=== PATIENT | female | born 1950 | race Caucasian/White ===

== ENCOUNTER 2021-08-13 09:54 | Outpatient (CLI) | payer MEDICARE, OTHER, SELFPAY ==
--- NOTE | 2021-08-13 10:15 | CRLHL7_ITS ---
For Patients: As a result of the Century Cures Act, medical imaging exams and procedure reports are released immediately into your electronic medical record. You may view this report before your referring provider. If you have questions, please contact your health care provider. Indication: Mass at right side of neck Technique: Soft tissue ultrasound of the neck, grayscale and limited color Doppler exam Comparison: None Findings/Impression: Targeted ultrasound of the right supraclavicular palpable area reveals no mass or lesion to correspond with the palpable lump. Recommend clinical follow-up. At area of tenderness at the right lateral neck, there is a lymph node which shows benign morphology. Dictated by Ruthy Vasquez MD @ 08/14/2021 12:47:20 PM (Electronically Signed)
== END 2021-08-13 09:55 | disposition home or self-care (01) ==
LOC: US 09:59
PROVIDERS: PCP Internal Medicine; Visit Provider Internal Medicine
DX: R22.1 Localized swelling, mass and lump, neck (principal)
CPT/HCPCS: 76536

== ENCOUNTER 2021-10-25 10:56 | Outpatient (CLI) | payer MEDICARE, OTHER, SELFPAY | END 2021-10-25 10:57 | disposition home or self-care (01) | LOC: LKVREF 10-29 10:51 | PROVIDERS: PCP Internal Medicine; Visit Provider Internal Medicine | DX: Z00.00 Encounter for general adult medical examination without abnormal findings (principal); I48.91 Unspecified atrial fibrillation; F41.9 Anxiety disorder, unspecified; I10 Essential (primary) hypertension; E78.5 Hyperlipidemia, unspecified; R73.03 Prediabetes; M85.80 Other specified disorders of bone density and structure, unspecified site; E55.9 Vitamin D deficiency, unspecified | CPT/HCPCS: 80048; 80061; 82306 ==

== ENCOUNTER 2022-11-01 09:02 | Outpatient (CLI) | payer MEDICARE, OTHER, SELFPAY | END 2022-11-01 09:03 | disposition home or self-care (01) | LOC: NFLDREF 11-02 07:44 | PROVIDERS: PCP Internal Medicine; Referring Provider Internal Medicine; Visit Provider Internal Medicine | DX: E78.5 Hyperlipidemia, unspecified (principal); I10 Essential (primary) hypertension; M85.80 Other specified disorders of bone density and structure, unspecified site; R73.03 Prediabetes | CPT/HCPCS: 80048; 80061; 82306 ==

== ENCOUNTER 2023-02-05 15:26 | Observation (INO) | payer MEDICARE, OTHER, SELFPAY ==
[2023-02-05] VITALS (16 sets, daily range): BP systolic 121–162; BP diastolic 68–79; PULSE 77–108; RESP 16–20; TEMP 37.3–37.6; O2SAT 89–99; BMI 47.2
--- NOTE | 2023-02-05 15:45 | ED.GENADULT ---
HPI - General Adult General Time Seen by Provider: 15:45 Date Seen: 02/05/23 Chief complaint: Weakness Stated complaint: Covid+ Time Seen by Provider: 02/05/23 15:37 Source: patient, EMS and RN notes reviewed Mode of arrival: EMS Limitations: no limitations History of Present Illness HPI narrative: Patient is a 72-year-old female coming in by ambulance from home where she felt too weak from COVID to function. She is having significant shortness of breath and dyspnea on exertion. She reports that she feels better on the oxygen. EMS did put her on 2 L. Since she has arrived here, she has not been on any oxygen is at 93 and to 94% room air. I did advise her that she is not currently on any oxygen and oxygenating well. Her daughter did come with her, feel she is too weak to return to home. She did go to urgent care today after she had a home positive COVID test. She started with some symptoms Abe night. They have worsened through the weekend. She is tired, weak, has a headache, having fevers, feel short of breath and is having increasing dyspnea on exertion. She is coughing. Earlier today she had some nausea, thought she might have some diarrhea but did not. Her is currently hospitalized at the [place] with COVID due to weakness. She was told to hold her antihyperlipidemic agent but when I review the [place] medication interaction, her solifenacin should be diminished to 5 mg daily and for 3 days after, trazodone may need to be decreased because of increased sedative affects. The interaction can increase plasma levels of calcium channel blockers, increased monitoring required. Coumadin also is well known affect, will see where her INR is today. Amlodipine levels can increase to fold, they are to be diminished 50% while she is on it. Benzodiazepines are contraindicated. Both patient and her daughter feel like she is too weak to stay at home. At this time, did discuss she is not hypoxic, we will certainly get a chest x-ray and check labs but this is likely an observation stay if she is too weak to return home. They are understanding of that and hold steadfast in the review that they do not think she can return home right now. She resides independently with her and again her is in the hospital for COVID at the [place]. 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 Her daughter is going to go pick this up, have reviewed with her that we do not carry this here. If we are going to use this medicine, we will need them to provide it. She agrees to go get it and bring it back. Related Data Home Medications Medication Instructions Recorded Confirmed acetaminophen 500 mg tablet 1,000 mg PO .Bedtime 10/28/21 02/05/23 ascorbic acid (vitamin C) 500 mg 500 mg PO DAILY 10/28/21 02/05/23 tablet betamethasone dipropionate 0.05 % 1 topical .Q24-48H 10/28/21 02/05/23 topical ointment cholecalciferol (vitamin D3) 25 1,000 unit PO DAILY 10/28/21 02/05/23 mcg (1,000 unit) tablet clobetasol 0.05 % topical gel 1 topical BID 10/28/21 02/05/23 fexofenadine 180 mg tablet 180 mg PO Q24H 10/28/21 02/05/23 Previous Rx's Medication Instructions Recorded ketoconazole 2 % topical cream 1 applic topical QDAY #30 grams 11/03/21 trazodone 100 mg tablet 100 mg PO .HS #90 tabs 04/07/22 diltiazem HCl 120 mg 120 mg PO QDAY PRN atrial 09/22/22 capsule,extended release 24 hr, fibrillation #30 caps controlled amlodipine 5 mg tablet 5 mg PO QDAY #90 tabs 11/03/22 chlorthalidone 25 mg tablet 25 mg PO DAILY #90 tabs 11/03/22 lorazepam 1 mg tablet 1 mg PO QDAY PRN anxiety #20 tabs 11/03/22 solifenacin 5 mg tablet 5 mg PO QDAY #90 tabs 11/03/22 warfarin 6 mg tablet See Rx Instructions PO .COMPLEX 11/03/22 #150 tabs atorvastatin 20 mg tablet 20 mg PO .Bedtime #90 tabs 11/08/22 albuterol sulfate 2.5 mg/3 mL 2.5 mg (3 mL) inhalation Q6H PRN 02/05/23 (0.083 %) solution for nebulization bronchospasm #75 mL albuterol sulfate 90 mcg/actuation 1 inh inhalation Q6H PRN shortness 02/05/23 aerosol inhaler of breath or wheezing #6.7 grams nirmatrelvir 300 mg (150 mg See Rx Instructions PO .COMPLEX 02/05/23 x2)-ritonavir 100 mg tablet,dose #30 tabs pack Allergies Allergy/AdvReac Type Severity Reaction Status Date / Time cefazolin Allergy Severe Verified 02/05/23 11:38 hydrocodone Allergy Severe Vomiting Verified 02/05/23 11:38 hydromorphone Allergy Severe Nausea Verified 02/05/23 11:38 propoxyphene Allergy Severe Difficulty Verified 02/05/23 11:38 Breathing Sulfa (Sulfonamide Allergy Severe Hives Verified 02/05/23 11:38 Antibiotics) codeine Allergy Intermediate Diarrhea Verified 02/05/23 11:38 adhesive Allergy Mild Unknown Verified 02/05/23 11:38 gabapentin Allergy Mild Unknown Verified 02/05/23 11:38 ibuprofen Allergy Mild Abdominal Verified 02/05/23 11:38 Pain influenza A (H1N1) virus Allergy Mild edema Verified 02/05/23 11:38 vaccine m-opal-split 2008 [From influenza A (H1N1)] latex Allergy Mild Rash Verified 02/05/23 11:38 nalbuphine Allergy Mild Unknown Verified 02/05/23 11:38 rofecoxib Allergy Mild Verified 02/05/23 11:38 morphine AdvReac Severe Vomiting Verified 02/05/23 11:38 oxycodone AdvReac Mild Diarrhea Verified 02/05/23 11:38 penicillin V AdvReac Mild Diarrhea Verified 02/05/23 11:38 Review of Systems Status of ROS: Reports: 6 or more systems reviewed and unremarkable except as noted in History and below [facility] Medical History COVID ?U07.1 - COVID-19 (ICD-10) Surgical History History of total knee replacement ?Z96.659 - Presence of unspecified artificial knee joint (ICD-10) History of total abdominal hysterectomy and bilateral salpingo-oophorectomy (2003) ?Z90.710 - Acquired absence of both cervix and uterus (ICD-10) ?Z90.722 - Acquired absence of ovaries, bilateral (ICD-10) ?Z90.79 - Acquired absence of other genital organ(s) (ICD-10) History of thumb surgery (2013) ?Z98.890 - Other specified postprocedural states (ICD-10) History of foot surgery (06/22/11) ?Z98.890 - Other specified postprocedural states (ICD-10) History of arthroscopy of shoulder (01/22/20) ?Z98.890 - Other specified postprocedural states (ICD-10) Family History Father FH: colonic polyps Mother FH: colonic polyps Social History What is your current living situation?: I presently have a place to live In the past 12 months, utilities in danger of being shut off: no In past 12 months, lack of transportation kept you from medical appts, meetings, work, or getting things needed for daily living: no In the past 12 mos, have been you worried that your food would run out before you had money to buy more?: never true In the past 12 mos, the food you bought just didn't last and you didn't have money to buy more?: never true Smoking Status: Never smoker How often does anyone, including family, friends and others, physically hurt you: never How often does anyone, including family, friends and others, insult or talk down to you: frequently How often does anyone, including family, friends and others, threaten you with harm: frequently How often does anyone, including family, friends and others, scream or curse at you: frequently Little interest or pleasure in doing things: more than half the days Feeling down, depressed, or hopeless: more than half the days Exam Const: Vital Signs, click to edit/add: Vital Signs - 24 hr 02/05/23 15:43 02/05/23 16:15 02/05/23 16:26 Temperature 99.6 F 99.6 F Pulse Rate Pulse Rate [Pulse Oximeter] 108 H Respiratory Rate 16 Blood Pressure Blood Pressure [Le ft Upper Arm] 139/79 Pulse Oximetry 93 99 Oxygen Delivery Me thod Room Air 02/05/23 16:26 02/05/23 16:27 Temperature Pulse Rate 93 Pulse Rate [Pulse Oximeter] Respiratory Rate 16 Blood Pressure 140/77 H Blood Pressure [Le ft Upper Arm] Pulse Oximetry 92 Oxygen Delivery Me waldo Scruggs is a 72-year-old female that is alert and interactive, seems tired but is awake, cheeks are flushed without rash. She looks like she does not feel well but is not tachypneic, maintaining oxygen saturation at 93-94% on room air. Conjugate gaze, sclera clear. Lungs are clear, CV regular rate and rhythm, no murmur, normal S1-S2, no S3-S4. She is lying flat in the bed, no neck masses noted. Abdomen is soft but obese, nontender, no organomegaly. She has compression stockings on both lower extremities. She will move arms legs in follow commands. No gross neurologic deficit noted. I do agree that she seems tired, they report her temperature at home was in the 102 range. Documenting provider has reviewed patient's vital signs: yes Course Course ED Course: Will get portable chest x-ray and some baseline labs including an INR on her. If she is significantly supratherapeutic on her INR, will talk to hospitalist regarding Paxlovid vs remdesivir. I do know her daughter is going to get the prescription right now, do understand that we may be making her do this as a futile effort if we do indeed use remdesivir. Nonetheless, we need to do what safest for the patient. With it being [place], if we do not take the opportunity to get the prescription here now, patient will lose the window for treatment with this. She could be developing COVID pneumonia, will get EKG, have her on cardiac monitoring and pulse oximetry. She has no chest pain. Will get basic labs that we will consider with COVID. I will not be doing a D-dimer, it is likely that her INR is therapeutic. On 02/02 she was mildly high at 3.5. Can reconsider if we see her become hypoxic or INR is too low. Would be unlikely to have pulmonary emboli within a few days of onset of illness of COVID. Reevaluation(s) Reevaluation #1: Did talk to patient her daughter right before calling the hospitalist. The Paxlovid is here. She is reported to have wet her bed as she just could not even get up to go to the bathroom. She did not notified nursing staff. We discussed that her potassium was low, very likely from her chlorthalidone and decreased oral intake with her illness. Consultations Consultation #1: Reviewed with Dr. Charlton, she will have a start the Paxlovid and she will monitor for medication side effects. Coumadin is mildly low right now, thus may come up with initiation of the medicine. Time: 17:37 Vital Signs Vital signs: Initial Vital Signs Temperature 99.6 F 02/05/23 15:43 Temperature Source Temporal Artery Scan 02/05/23 15:43 Pulse Rate 108 H 02/05/23 15:43 Pulse Rhythm Regular 02/05/23 15:43 Respiratory Rate 16 02/05/23 15:43 Blood Pressure 139/79 02/05/23 15:43 Blood Pressure Mean 99 02/05/23 15:43 Blood Pressure Position Supine 02/05/23 15:43 Pulse Oximetry 93 02/05/23 15:43 Oxygen Delivery Method Room Air 02/05/23 15:43 Vital Signs Temperature 99.6 F 02/05/23 15:43 Pulse Rate 108 H 02/05/23 15:43 Respiratory Rate 16 02/05/23 15:43 Blood Pressure 139/79 02/05/23 15:43 Pulse Oximetry 93 02/05/23 15:43 Oxygen Delivery Method Room Air 02/05/23 15:43 Temperature 99.6 F 02/05/23 16:26 Pulse Rate 93 02/05/23 16:27 Respiratory Rate 16 02/05/23 16:27 Blood Pressure 140/77 H 02/05/23 16:26 Pulse Oximetry 92 02/05/23 16:27 Oxygen Delivery Method Room Air 02/05/23 15:43 Medications Administered Medications: Discontinued Medications Generic Name Dose Route Start Last Admin Trade Name Freq PRN Reason Stop Dose Admin Acetaminophen 650 mg 02/05/23 16:09 02/05/23 16:26 Acetaminophen 325 Mg Tablet PO 02/05/23 16:10 650 mg ONCE ONE Administration Medical Decision Making Lab Data Lab results reviewed: Yes I reviewed the patient's lab results Labs: Lab Results 02/05/23 02/05/23 02/05/23 Range/Units 15:30 15:57 17:00 WBC 6.44 (4.50-11.00) K/uL RBC 5.02 (4.00-5.20) m/uL Hgb 14.7 (12.0-16.0) gm/dL Hct 44.0 (33.0-51.0) % MCV 88 (80-100) fL MCH 29 (26-34) pg MCHC 33 (32-36) gm/dL RDW Coeff of Demond 13.6 (11.5-15.5) % Plt Count 281 (140-440) K/uL Neut % (Auto) 66.7 (42.0-72.0) % Lymph % (Auto) 13.7 L (20-44) % [place] % (Auto) 18.5 H (0.0-11.0) % Eos % (Auto) 0.6 (0.0-7.0) % Baso % (Auto) 0.3 (0.0-3.0) % Neut # (Auto) 4.30 (1.7-7.0) K/uL Lymph # (Auto) 0.90 (0.90-2.90) K/uL [place] # (Auto) 1.20 H (0.00-0.90) K/UL Eos # (Auto) 0.04 (0.00-0.50) K/uL Baso # (Auto) 0.02 (0.00-0.30) K/uL Abs Immat Gran (auto) 0.01 (0.00-0.30) K/uL Imm/Tot Granulo (auto) 0.2 % INR 1.84 H (0.91-1.10) VBG pH 7.467 H (7.32-7.43) VBG pCO2 39 L (40-50) mmHG VBG pO2 51.1 H (25-47) mmHG VBG HCO3 28 (21-28) mmol/L Sodium 138 (135-149) mmol/L Potassium 2.6 L* (3.6-5.1) mmol/L Chloride 99 (96-114) mmol/L Carbon Dioxide 26 (20-32) mmol/L Anion Gap 13 (7-15) mEq/L BUN 14 (7-30) mg/dL Creatinine 0.6 (0.5-1.5) mg/dL Estimated GFR 95 ml/min Glucose 132 H (60-115) mg/dL Calcium 9.6 (8.4-10.6) mg/dL Magnesium 1.6 (1.5-2.6) mg/dL Total Bilirubin 0.4 (0.1-1.5) mg/dL AST 25 (12-35) U/L ALT 25 (4-35) U/L Alkaline Phosphatase 74 (40-150) U/L C-Reactive Protein 1.4 H (0.5-1.0) mg/dL Total Protein 7.6 (6.0-8.3) g/dL Albumin 4.4 (3.3-5.0) g/dL Procalcitonin 0.09 (<0.50) ng/mL Urine RBC 0-2 (0-2) Urine WBC 0-2 (0-5) Ur Squamous Epith Cells Few (None-Few) Urine Bacteria None (None) Lab Acknowledgement Test Added Imaging Data Chest x-ray: Attestation: I have reviewed the pertinent imaging results. My impression: I see no acute pathology on my preliminary review. Radiologist's impression: Patient: BARON ANNE Facility:?[facility] Patient ID:?[id number] Site Patient ID:?[id number]. Site :?[id number] Study:?XRay Chest 1v portable-02/05/2023 4:10:21 PM Ordering Physician:Hilario Chatterjee Final Report: INDICATION: Short of breath. COVID positive. TECHNIQUE: Chest 1 view. COMPARISON: None FINDINGS: Cardiovascular and mediastinum: Heart size and vasculature are normal in caliber and appearance. Mediastinum is within normal limits. Lungs and pleural space: Lungs are clear. No sign of infiltrate or mass. No sign of pleural effusion. No pneumothorax. Bones and soft tissues: No significant findings. IMPRESSION: Unremarkable chest. Dictated by Pal Sims MD @ 02/05/2023 4:27:30 PM (Electronic Signature) ECG Data Attestation: I personally reviewed and interpreted this ECG as follows: (Normal sinus rhythm, 97 beats per minute. QT corrected 464 milliseconds. No definitive ischemia but is exhibiting nonspecific ST and T-wave abnormality.) Discharge Plan Discharge Clinical Impression: COVID-19, Weakness, Acute hypokalemia Patient Disposition: Admitted As Observation
--- NOTE | 2023-02-05 15:56 | CRLHL7_ITS ---
For Patients: As a result of the Century Cures Act, medical imaging exams and procedure reports are released immediately into your electronic medical record. You may view this report before your referring provider. If you have questions, please contact your health care provider. INDICATION: Short of breath. COVID positive. TECHNIQUE: Chest 1 view. COMPARISON: None FINDINGS: Cardiovascular and mediastinum: Heart size and vasculature are normal in caliber and appearance. Mediastinum is within normal limits. Lungs and pleural space: Lungs are clear. No sign of infiltrate or mass. No sign of pleural effusion. No pneumothorax. Bones and soft tissues: No significant findings. IMPRESSION: Unremarkable chest. Dictated by Pal Sims MD @ 02/05/2023 4:27:30 PM (Electronically Signed)
[2023-02-05 16:16] LABS: HCO3 VBG 28 mmol/L (21-28); PCO2 VBG 39 mmHG (40-50); PO2 VBG 51.1 mmHG (25-47); pH VBG 7.467 (7.32-7.43)
[2023-02-05 16:21] LABS: Basophils Absolute Auto 0.02 K/uL (0.00-0.30); Basophils Percent Auto 0.3 % (0.0-3.0); Eosinophils Absolute Auto 0.04 K/uL (0.00-0.50); Eosinophils Percent Auto 0.6 % (0.0-7.0); Hemoglobin* 14.7 gm/dL (12.0-16.0); Immature Granulocytes Abs Auto 0.01 K/uL (0.00-0.30); Immature Granulocytes Pct Auto 0.2 %; Lymphocytes Percent Auto 13.7 % (20-44); Mean Corpuscular HGB Conc 33 gm/dL (32-36); Mean Corpuscular Hemoglobin 29 pg (26-34); Mean Corpuscular Volume 88 fL (80-100); Monocytes Percent Auto 18.5 % (0.0-11.0); Neutrophils Percent Auto 66.7 % (42.0-72.0); Platelet Count* 281 K/uL (140-440); RDW Coefficient of Variation % 13.6 % (11.5-15.5); Red Blood Count 5.02 m/uL (4.00-5.20); White Blood Count* 6.44 K/uL (4.50-11.00)
[2023-02-05] MEDS: ACETAMINOPHEN 325 MG TABLET 650 MG PO ×2 (16:26→22:07)
[2023-02-05 16:33] LABS: Albumin* 4.4 g/dL (3.3-5.0); Chloride* 99 mmol/L (96-114); Slide Review Reflex No
[2023-02-05 16:34] LABS: Sodium* 138 mmol/L (135-149)
[2023-02-05 16:36] LABS: Bilirubin Total* 0.4 mg/dL (0.1-1.5); Creatinine* 0.6 mg/dL (0.5-1.5); Estimated Glomerular Filt Rate 95 ml/min
[2023-02-05 16:37] LABS: Alanine Aminotransferase* 25 U/L (4-35); Alkaline Phosphatase* 74 U/L (40-150); Anion Gap 13 mEq/L (7-15); Aspartate Amino Transferase* 25 U/L (12-35); Blood Urea Nitrogen* 14 mg/dL (7-30); Calcium* 9.6 mg/dL (8.4-10.6); Carbon Dioxide* 26 mmol/L (20-32); Glucose* 132 mg/dL (60-115); Total Protein* 7.6 g/dL (6.0-8.3)
[2023-02-05 16:40] LABS: C Reactive Protein* 1.4 mg/dL (0.5-1.0)
--- NOTE | 2023-02-05 16:46 | PC.NURSE ---
notified of potassium 2.6
[2023-02-05 16:48] LABS: INR 1.84 (0.91-1.10); Prothrombin Time 22.6 Seconds
[2023-02-05 16:49] LABS: Potassium* 2.6 mmol/L (3.6-5.1)
[2023-02-05 16:54] LABS: Procalcitonin* 0.09 ng/mL (<0.50)
[2023-02-05 17:15] LABS: Magnesium* 1.6 mg/dL (1.5-2.6)
[2023-02-05 17:22] LABS: RBC Urine 0-2 (0-2); Squamous Epithelial Cell Urine Few (None-Few); WBC Urine 0-2 (0-5)
[2023-02-05] MEDS: POTASSIUM CHLORIDE 10 MEQ/100 ML PIGGYBACK 100 MEQ IVPB ×2 (17:58→20:03)
[2023-02-05] MEDS: POTASSIUM BICARB 25 MEQ EFFERVESCENT TAB 50 MEQ PO (17:58)
--- NOTE | 2023-02-05 18:23 | PC.NURSE ---
Report given to SUNNI Bermeo. Patient now requiring 2L NC. MD notified. Patient instructed to take her paxlovid, but wanted to wait until she got to med/surg. Nurse was notified of this. All belongings sent with patient. Patient voided 600cc of clear urine.
[2023-02-05] MEDS: NON-FORMULARY MEDICATION 1 EACH PO (20:05)
[2023-02-05] MEDS: SODIUM CHLORIDE 0.9 % (FLUSH) 10 ML SYRINGE 5 ML IVF (22:02)
[2023-02-05 22:12] LABS: Potassium* 3.3 mmol/L (3.6-5.1)
--- NOTE | 2023-02-05 22:26 | PC.NURSE ---
Pt arrived to floow approx 1830 accompanied by daughter. c/o weakness and feeling cold, came to floor on 2LPM NC, currently on RA with sats at 91%. 1st dose of paxlovid administered, pt own med, in pt room. up to BR with SBA, had some nausea due to potassium administration, pt had a snack with relief.
--- NOTE | 2023-02-05 23:45 | PM.IMHP1 ---
Hospitalist- H&P: HPI History of Present Illness Time Seen by Provider: 20:20 Date Seen: 02/05/23 Chief complaint: Covid+ Narrative: Sheba Lyle is a 72 year old female with a history of asthma, hypertension, and hyperlipidemia who presented through the ER today for concerns of weakness and shortness of breath. She took a COVID test earlier this morning and it was positive. She is apprised that she got COVID because she and her have been very careful and wear masks whenever they go out and do not have visitors at the house. On her started getting ill. He has dementia and Parkinson's disease and she does a lot for him. She and her daughter had to take him to the ER he was [facility] to [facility] with [facility] hypoxia and weakness. She noted a slight sore throat on Monday and then developed worsening dyspnea on exertion, fatigue, decreased appetite, fevers, and severe headaches. She had some nausea earlier today and some diarrhea just a little bit ago. She denies any chest pain. Review of Systems Status of ROS: Reports: 10 or more systems reviewed and unremarkable except as noted in History and below [facility] Medical History (Updated 02/06/23 @ 00:02 by Dinah Charlton MD) Family history of colonic polyps ?Z83.71 - Family history of colonic polyps (ICD-10) Asthma ?J45.909 - Unspecified asthma, uncomplicated (ICD-10) Seasonal allergic rhinitis (06/22/11) ?J30.2 - Other seasonal allergic rhinitis (ICD-10) Prediabetes (08/21/12) ?R73.03 - Prediabetes (ICD-10) Osteopenia (06/22/11) ?M85.80 - Other specified disorders of bone density and structure, unspecified site (ICD-10) Oral lichen planus (11/26/12) ?L43.8 - Other lichen planus (ICD-10) Obstructive sleep apnea syndrome (08/01/11) ?G47.33 - Obstructive sleep apnea (adult) (pediatric) (ICD-10) Hyperlipidemia (06/22/11) ?E78.5 - Hyperlipidemia, unspecified (ICD-10) History of renal calculi ?Z87.442 - Personal history of urinary calculi (ICD-10) Essential hypertension (06/22/11) ?I10 - Essential (primary) hypertension (ICD-10) Edema of foot ?R60.0 - Localized edema (ICD-10) 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) ?K14.6 - Glossodynia (ICD-10) Anxiety disorder (11/28/12) ?F41.9 - Anxiety disorder, unspecified (ICD-10) Overactive bladder ?N32.81 - Overactive bladder (ICD-10) Lichen sclerosus ?L90.0 - Lichen sclerosus et atrophicus (ICD-10) Paroxysmal atrial fibrillation ?I48.0 - Paroxysmal atrial fibrillation (ICD-10) half-way (current) use of anticoagulants ?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 (ICD-10) COVID ?U07.1 - COVID-19 (ICD-10) Surgical History History of total knee replacement ?Z96.659 - Presence of unspecified artificial knee joint (ICD-10) History of total abdominal hysterectomy and bilateral salpingo-oophorectomy (2003) ?Z90.710 - Acquired absence of both cervix and uterus (ICD-10) ?Z90.722 - Acquired absence of ovaries, bilateral (ICD-10) ?Z90.79 - Acquired absence of other genital organ(s) (ICD-10) History of thumb surgery (2013) ?Z98.890 - Other specified postprocedural states (ICD-10) History of foot surgery (06/22/11) ?Z98.890 - Other specified postprocedural states (ICD-10) History of arthroscopy of shoulder (01/22/20) ?Z98.890 - Other specified postprocedural states (ICD-10) Family History Father FH: colonic polyps Mother FH: colonic polyps Social History (Updated 02/05/23 @ 23:46 by Dinah Charlton MD) Narrative: Lives independently with her who has dementia and parkinson's disease. Denies tobacco or alcohol use. What is your current living situation?: I presently have a place to live Problems where you live: no known problems Problems where you live details: none In the past 12 months, utilities in danger of being shut off: no In past 12 months, lack of transportation kept you from medical appts, meetings, work, or getting things needed for daily living: yes In the past 12 mos, have been you worried that your food would run out before you had money to buy more?: never true In the past 12 mos, the food you bought just didn't last and you didn't have money to buy more?: never true Smoking Status: Never smoker How often do you have a drink containing alcohol: monthly or less AUDIT-C Alcohol total score: 1 Non-prescribed substance use: denies use Caffeine: Yes (coffee) How often does anyone, including family, friends and others, physically hurt you: never How often does anyone, including family, friends and others, insult or talk down to you: sometimes How often does anyone, including family, friends and others, threaten you with harm: never How often does anyone, including family, friends and others, scream or curse at you: fairly often Little interest or pleasure in doing things: more than half the days Feeling down, depressed, or hopeless: more than half the days service: No Meds Home Medications and Allergies Home Medications Medication Instructions Recorded Confirmed Type acetaminophen 500 mg tablet 1,000 mg PO .Bedtime 10/28/21 02/05/23 History ascorbic acid (vitamin C) 500 mg 500 mg PO DAILY 10/28/21 02/05/23 History tablet betamethasone dipropionate 0.05 % 1 applic topical .Q24-48H 10/28/21 02/05/23 History topical ointment cholecalciferol (vitamin D3) 25 1,000 unit PO BID 10/28/21 02/05/23 History mcg (1,000 unit) tablet clobetasol 0.05 % topical gel 1 applic topical BID 10/28/21 02/05/23 History fexofenadine 180 mg tablet 180 mg PO HS 10/28/21 02/05/23 History atorvastatin 20 mg tablet 20 mg PO HS 02/05/23 02/05/23 History trazodone 100 mg tablet 100 mg PO HS 02/05/23 02/05/23 History warfarin 6 mg tablet See Rx Instructions PO .COMPLEX 02/05/23 02/05/23 History Allergies Allergy/AdvReac Type Severity Reaction Status Date / Time cefazolin Allergy Severe Verified 02/05/23 11:38 hydrocodone Allergy Severe Vomiting Verified 02/05/23 11:38 hydromorphone Allergy Severe Nausea Verified 02/05/23 11:38 propoxyphene Allergy Severe Difficulty Verified 02/05/23 11:38 Breathing Sulfa (Sulfonamide Allergy Severe Hives Verified 02/05/23 11:38 Antibiotics) codeine Allergy Intermediate Diarrhea Verified 02/05/23 11:38 adhesive Allergy Mild Unknown Verified 02/05/23 11:38 gabapentin Allergy Mild Unknown Verified 02/05/23 11:38 ibuprofen Allergy Mild Abdominal Verified 02/05/23 11:38 Pain influenza A (H1N1) virus Allergy Mild edema Verified 02/05/23 11:38 vaccine m-opal-split 2008 [From influenza A (H1N1)] latex Allergy Mild Rash Verified 02/05/23 11:38 nalbuphine Allergy Mild Unknown Verified 02/05/23 11:38 rofecoxib Allergy Mild Verified 02/05/23 11:38 morphine AdvReac Severe Vomiting Verified 02/05/23 11:38 oxycodone AdvReac Mild Diarrhea Verified 02/05/23 11:38 penicillin V AdvReac Mild Diarrhea Verified 02/05/23 11:38 Exam Narrative: Exam Narrative: General: No acute distress. Awake alert oriented x3. Obese. HEENT: Normocephalic atraumatic, pupils equally round and reactive to light and accommodation. Oropharynx clear. Mucous membranes are moist. No cervical lymphadenopathy, thyromegaly or carotid bruits. No JVD. Cardiovascular: Regular rate and rhythm. No murmurs, gallops, or rubs. Chest: No increased work of breathing. Clear to auscultation bilaterally. No crackles or wheezes. Abdomen: Bowel sounds present. Soft, nondistended, nontender. No hepatosplenomegaly or masses. Extremities: No edema, no cyanosis or clubbing. Skin: No jaundice, no pallor, no rashes. Neuro: Grossly intact. No focal deficits. Const: Vital Signs, click to edit/add: Vital Signs - 24 hr 02/05/23 15:43 02/05/23 16:15 02/05/23 16:26 Temperature 99.6 F 99.6 F Pulse Rate Pulse Rate [Pulse Oximeter] 108 H Respiratory Rate 16 Blood Pressure Blood Pressure [Le ft Arm] Blood Pressure [Le ft Upper Arm] 139/79 Pulse Oximetry 93 99 Oxygen Delivery Me thod Room Air Oxygen Flow Rate 02/05/23 16:26 02/05/23 16:27 02/05/23 16:30 Temperature Pulse Rate 93 96 Pulse Rate [Pulse Oximeter] Respiratory Rate 16 Blood Pressure 140/77 H Blood Pressure [Le ft Arm] Blood Pressure [Le ft Upper Arm] Pulse Oximetry 92 93 Oxygen Delivery Me thod Oxygen Flow Rate 02/05/23 16:31 02/05/23 16:45 02/05/23 17:00 Temperature Pulse Rate 86 80 91 Pulse Rate [Pulse Oximeter] Respiratory Rate Blood Pressure 154/73 H Blood Pressure [Le ft Arm] Blood Pressure [Le ft Upper Arm] Pulse Oximetry 91 93 90 Oxygen Delivery Me thod Oxygen Flow Rate 02/05/23 17:05 02/05/23 17:15 02/05/23 17:30 Temperature Pulse Rate 82 83 81 Pulse Rate [Pulse Oximeter] Respiratory Rate Blood Pressure Blood Pressure [Le ft Arm] Blood Pressure [Le ft Upper Arm] Pulse Oximetry 90 91 91 Oxygen Delivery Me thod Oxygen Flow Rate 02/05/23 17:45 02/05/23 18:00 02/05/23 18:01 Temperature 99.4 F Pulse Rate 77 85 83 Pulse Rate [Pulse Oximeter] Respiratory Rate 16 Blood Pressure 144/69 H Blood Pressure [Le ft Arm] Blood Pressure [Le ft Upper Arm] Pulse Oximetry 89 93 93 Oxygen Delivery Me thod Nasal Cannula Oxygen Flow Rate 2 02/05/23 18:34 02/05/23 18:34 Temperature 99.1 F Pulse Rate Pulse Rate [Pulse Oximeter] 84 Respiratory Rate 20 20 Blood Pressure Blood Pressure [Le ft Arm] 162/76 H Blood Pressure [Le ft Upper Arm] Pulse Oximetry 95 95 Oxygen Delivery Me thod Nasal Cannula Nasal Cannula Oxygen Flow Rate 2 2 Documenting provider has reviewed patient's vital signs: yes Hospitalist - H&P: Result Labs Labs: Short CBC 02/05/23 Range/Units 15:57 WBC 6.44 (4.50-11.00) K/uL Hgb 14.7 (12.0-16.0) gm/dL Hct 44.0 (33.0-51.0) % Plt Count 281 (140-440) K/uL BMP 02/05/23 02/05/23 15:57 21:05 Sodium 138 Potassium 2.6 L* 3.3 L Chloride 99 Carbon Dioxide 26 BUN 14 Creatinine 0.6 Glucose 132 H Calcium 9.6 Liver Function 02/05/23 Range/Units 15:57 Total Bilirubin 0.4 (0.1-1.5) mg/dL AST 25 (12-35) U/L ALT 25 (4-35) U/L Alkaline Phosphatase 74 (40-150) U/L Albumin 4.4 (3.3-5.0) g/dL 02/05/2023 EKG: Normal sinus rhythm, 97 beats per minute, nonspecific ST and T-wave abnormality. Ordering Physician: Shena Hernandez M.D. Date of Service: 02/05/23 Procedure(s): XR chest 1V portable Accession Number(s): [id number] cc: Ness Somers M.D.; Shena Hernandze M.D.~ For Patients: As a result of the Cures Act, medical imaging exams and procedure reports are released immediately into your electronic medical record. You may view this report before your referring provider. If you have questions, please contact your health care provider. INDICATION: Short of breath. COVID positive. TECHNIQUE: Chest 1 view. COMPARISON: None FINDINGS: Cardiovascular and mediastinum: Heart size and vasculature are normal in caliber and appearance. Mediastinum is within normal limits. Lungs and pleural space: Lungs are clear. No sign of infiltrate or mass. No sign of pleural effusion. No pneumothorax. Bones and soft tissues: No significant findings. IMPRESSION: Unremarkable chest. Dictated by Pal Sims MD @ 02/05/2023 4:27:30 PM (Electronically Signed) Assessment and Plan Assessment and plan (1) COVID-19: Problem comment: - Date of symptom onset: 02/03/23. - Date of positive covid test: 02/05/23. - Not hypoxic. Paxlovid started this evening. While on paxlovid: amlodipine dose halved, holding atorvastatin and lorazepam. Continue trazodone and slifenacin, monitor for any side effects. Continue warfarin, monitor INR daily. - VTE prophylaxis with warfarin. Status: Acute (2) Weakness: Problem comment: - Secondary to covid. Patient's is debilitated at baseline due to Parkinson's and dementia [facility] - PT and OT evaluations. It is possible she will need rehab, but unclear at this time. I did discuss the possible need for rehab with the patient. Status: Acute (3) Acute hypokalemia: Problem comment: This was replaced with both oral and IV potassium in the emergency department. She has already improved with a potassium of 3.3 this evening. Additionally I have given her magnesium IV as her babies am level was borderline low. Status: Acute (4) Asthma: Problem comment: - does not appear to be in an exacerbation at this time. Will not add prednisone or any other additional medications. Continue her home albuterol. Status: Chronic (5) Paroxysmal atrial fibrillation: Problem comment: 04/26, on warfarin - rate is well controlled. Monitor INR daily. Adjust to keep INR between 2 and 3. 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 Duration: Lifelong goal of INR 2-3 Status: Chronic (7) Essential hypertension: Problem comment: chlorthalidone increased 11/03, amlodipine 11/05 - have adjusted amlodipine as above while on Paxlovid and for 3 days after taking Paxilovid. Status: Chronic (8) Hyperlipidemia: Problem comment: on statin, atorvastatin increased 11/03 - holding a torsed statin while on paxlovid. Status: Chronic (9) Obstructive sleep apnea syndrome: Problem comment: mild FARAZ by sleep study 07/2011, using CPAP, PSG 05/27 indicates adequate CPAP Status: Chronic
[2023-02-06 03:00] VITALS: BP 148/75; PULSE 90; RESP 22; TEMP 37.6; O2SAT 91
[2023-02-06] MEDS: ACETAMINOPHEN 325 MG TABLET 650 MG PO (03:46)
[2023-02-06 07:07] LABS: Chloride* 99 mmol/L (96-114); Sodium* 135 mmol/L (135-149)
[2023-02-06 07:09] LABS: Creatinine* 0.6 mg/dL (0.5-1.5); Est. Creatinine Clearance* 35.99; Estimated Glomerular Filt Rate 95 ml/min
[2023-02-06 07:10] LABS: Anion Gap 9 mEq/L (7-15); Blood Urea Nitrogen* 11 mg/dL (7-30); Carbon Dioxide* 27 mmol/L (20-32); Glucose* 103 mg/dL (60-115); Magnesium* 1.9 mg/dL (1.5-2.6)
--- NOTE | 2023-02-06 07:19 | PC.NURSE ---
-: pleasant and cooperative. SBA. Pt emotional about current illness & spending the holiday in the hospital, therapeutic communication utilized. Pt Expressed having chills, aqua K pad provided & warm water to sip (pt declined hot tea). Low grade fever, 99.7F - prn Tylenol given. Pt expressed more frequent coughing, not productive, encouraging deep breathing exercises.
[2023-02-06 07:28] LABS: INR 1.62 (0.91-1.10); Prothrombin Time 20.4 Seconds
[2023-02-06 07:50] VITALS: BP 151/78; PULSE 75; RESP 16; TEMP 37.3; O2SAT 89
[2023-02-06] MEDS: AMLODIPINE 5 MG TABLET 2.5 MG PO (08:45)
[2023-02-06] MEDS: CHLORTHALIDONE 25 MG TABLET PO (08:46)
[2023-02-06] MEDS: SODIUM CHLORIDE 0.9 % (FLUSH) 10 ML SYRINGE 5 ML IVF ×2 (08:47→21:51)
[2023-02-06] MEDS: POTASSIUM BICARB 25 MEQ EFFERVESCENT TAB PO ×3 (10:27→13:52)
[2023-02-06 11:00] VITALS: BP 153/85; PULSE 83; RESP 12; TEMP 37; O2SAT 92
--- NOTE | 2023-02-06 14:00 | P.IMPN_ITS ---
Progress Note: A&P Assessment and plan (1) COVID-19: Problem details: - Date of symptom onset: 02/03/23. - Date of positive covid test: 02/05/23. - Not hypoxic. Paxlovid started this evening. While on paxlovid: amlodipine dose halved, holding atorvastatin and lorazepam. Continue trazodone and slifenacin, monitor for any side effects. Continue warfarin, monitor INR daily. - VTE prophylaxis with warfarin. Status: Acute (2) Weakness: Problem details: - Secondary to covid. Patient's is debilitated at baseline due to Parkinson's and dementia and is currently at the [facility] with COVID hypoxia and weakness. - PT and OT evaluations. Status: Acute (3) Acute hypokalemia: Problem details: This was replaced with both oral and IV potassium in the emergency department. She has already improved with a potassium of 3.3 this evening. Additionally I have given her magnesium IV . Likely needs chronic potassium supplementation Status: Acute (4) Asthma: Problem details: - does not appear to be in an exacerbation at this time. Will not add prednisone or any other additional medications. Continue her home albuterol. Status: Chronic (5) Paroxysmal atrial fibrillation: Problem details: 04/26, on warfarin - rate is well controlled. Monitor INR daily. Adjust to keep INR between 2 and 3. She takes diltiazem p.r.n. for AFib with RVR. 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 Duration: Lifelong goal of INR 2-3 Status: Chronic (7) Anxiety disorder: Problem details: buspar started 08/25, stopped on her own 01/27, fluoxetine started 08/31, fluoxetine increased 11/03, fluoxetine increased 11/04, she stopped fluoxetine 04/07 on her own Status: Chronic (8) Essential hypertension: Problem details: chlorthalidone increased 11/03, amlodipine 11/05 - have adjusted amlodipine as above while on Paxlovid and for 3 days after taking Paxilovid. Status: Chronic (9) Hyperlipidemia: Problem details: on statin, atorvastatin increased 11/03 - holding a atorvastatin while on paxlovid. Status: Chronic (10) Obstructive sleep apnea syndrome: Problem details: mild FARAZ by sleep study 07/2011, using CPAP, PSG 05/27 indicates adequate CPAP Status: Chronic (11) Edema of foot: Problem details: Chronic, dependent, compressive stockings recommended and worn Status: Chronic (12) Discharge planning issues: Problem details: Patient wants to go home and have her home to care for him. She acknowledges that she is not in any position to care for him with her current illness and he is not in position to be home with his current illness. Status: Acute Plan Continue in hospital for monitoring for complications of COVID infection and management of current illness. Anticipate discharge to home as she likely will recover from her COVID illness in the next few days. Time Spent With Patient Total time spent: Total time spent today is 55 minutes, 45 minutes in coordination of care and discussing with patient and other providers management of COVID illness and her 's illness and discharge planning. Subjective Date Seen: 02/06/23 Interval history: Admission HPI: Sheba Lyle is a 72 year old female with a history of asthma, hypertension, and hyperlipidemia who presented through the ER today for concerns of weakness and shortness of breath. She took a COVID test earlier this morning and it was positive. She is surprised that she got COVID because she and her have been very careful and wear masks whenever they go out and do not have visitors at the house. On her started getting ill. He has dementia and Parkinson's disease. She is his primary care provider. She and her daughter had to take him to the ER [facility]. She noted a slight sore throat on Monday and then developed worsening dyspnea on exertion, fatigue, decreased appetite, fevers, and severe headaches. She had some nausea earlier today and some diarrhea just a little bit ago. She denies any chest pain. Today she reports profound fatigue malaise and weakness. She reports no appetite. She short of breath but not currently hypoxic. She was noted to be quite hypokalemic. She is on chlorthalidone chronically. Last night she was started on Paxlovid. Overnight she had a low-grade fever. O2 sats have been in the low 90s. Exam Narrative: Exam Narrative: She is tired appearing but otherwise in no distress. She gives her own history with fairly good detail. She becomes distraught when talking about her 's illness. He apparently is having some delirium while hospitalized at the [facility] and is very upset and wants to go home. Respirations are clear to auscultation without wheezing rales or rhonchi. Cardiovascular: S1, S2, regular rate and rhythm. Abdomen is soft without tenderness. Extremities compression wraps and moderate edema. Const: Vital Signs, click to edit/add: Vital Signs - 24 hr 02/05/23 15:43 02/05/23 16:15 02/05/23 16:26 Temperature 99.6 F 99.6 F Pulse Rate Pulse Rate [Pulse Oximeter] 108 H Respiratory Rate 16 Blood Pressure Blood Pressure [Le ft Arm] Blood Pressure [Le ft Upper Arm] 139/79 Blood Pressure [Ri ght Arm] Pulse Oximetry 93 99 Oxygen Delivery Me thod Room Air Oxygen Flow Rate 02/05/23 16:26 02/05/23 16:27 02/05/23 16:30 Temperature Pulse Rate 93 96 Pulse Rate [Pulse Oximeter] Respiratory Rate 16 Blood Pressure 140/77 H Blood Pressure [Le ft Arm] Blood Pressure [Le ft Upper Arm] Blood Pressure [Ri ght Arm] Pulse Oximetry 92 93 Oxygen Delivery Me thod Oxygen Flow Rate 02/05/23 16:31 02/05/23 16:45 02/05/23 17:00 Temperature Pulse Rate 86 80 91 Pulse Rate [Pulse Oximeter] Respiratory Rate Blood Pressure 154/73 H Blood Pressure [Le ft Arm] Blood Pressure [Le ft Upper Arm] Blood Pressure [Ri ght Arm] Pulse Oximetry 91 93 90 Oxygen Delivery Me thod Oxygen Flow Rate 02/05/23 17:05 02/05/23 17:15 02/05/23 17:30 Temperature Pulse Rate 82 83 81 Pulse Rate [Pulse Oximeter] Respiratory Rate Blood Pressure Blood Pressure [Le ft Arm] Blood Pressure [Le ft Upper Arm] Blood Pressure [Ri ght Arm] Pulse Oximetry 90 91 91 Oxygen Delivery Me thod Oxygen Flow Rate 02/05/23 17:45 02/05/23 18:00 02/05/23 18:01 Temperature 99.4 F Pulse Rate 77 85 83 Pulse Rate [Pulse Oximeter] Respiratory Rate 16 Blood Pressure 144/69 H Blood Pressure [Le ft Arm] Blood Pressure [Le ft Upper Arm] Blood Pressure [Ri ght Arm] Pulse Oximetry 89 93 93 Oxygen Delivery Me thod Nasal Cannula Oxygen Flow Rate 2 02/05/23 18:34 02/05/23 18:34 02/05/23 23:00 Temperature 99.1 F Pulse Rate Pulse Rate [Pulse Oximeter] 84 80 Respiratory Rate 20 20 20 Blood Pressure Blood Pressure [Le ft Arm] 162/76 H Blood Pressure [Le ft Upper Arm] Blood Pressure [Ri ght Arm] Pulse Oximetry 95 95 Oxygen Delivery Me thod Nasal Cannula Nasal Cannula Oxygen Flow Rate 2 2 02/05/23 23:00 02/06/23 03:00 02/06/23 07:50 Temperature 99.1 F 99.7 F H 99.1 F Pulse Rate Pulse Rate [Pulse Oximeter] 80 90 75 Respiratory Rate 20 22 16 Blood Pressure Blood Pressure [Le ft Arm] 121/68 148/75 H 151/78 H Blood Pressure [Le ft Upper Arm] Blood Pressure [Ri ght Arm] Pulse Oximetry 90 91 89 Oxygen Delivery Me thod Room Air Room Air Room Air Oxygen Flow Rate 02/06/23 07:50 02/06/23 11:00 Temperature 98.6 F Pulse Rate Pulse Rate [Pulse Oximeter] 75 83 Respiratory Rate 16 12 Blood Pressure Blood Pressure [Le ft Arm] Blood Pressure [Le ft Upper Arm] Blood Pressure [Ri ght Arm] 153/85 H Pulse Oximetry 92 Oxygen Delivery Me thod Room Air Oxygen Flow Rate Documenting provider has reviewed patient's vital signs: yes Labs Labs: Laboratory Results - last 24 hr 02/05/23 02/05/23 02/05/23 15:30 15:57 17:00 WBC 6.44 RBC 5.02 Hgb 14.7 Hct 44.0 MCV 88 MCH 29 MCHC 33 RDW Coeff of Demond 13.6 Plt Count 281 Neut % (Auto) 66.7 Lymph % (Auto) 13.7 L [place] % (Auto) 18.5 H Eos % (Auto) 0.6 Baso % (Auto) 0.3 Neut # (Auto) 4.30 Lymph # (Auto) 0.90 [place] # (Auto) 1.20 H Eos # (Auto) 0.04 Baso # (Auto) 0.02 Abs Immat Gran (auto) 0.01 Imm/Tot Granulo (auto) 0.2 INR 1.84 H VBG pH 7.467 H VBG pCO2 39 L VBG pO2 51.1 H VBG HCO3 28 Sodium 138 Potassium 2.6 L* Chloride 99 Carbon Dioxide 26 Anion Gap 13 BUN 14 Creatinine 0.6 Estimated Creat Clear Estimated GFR 95 Glucose 132 H Calcium 9.6 Magnesium 1.6 Total Bilirubin 0.4 AST 25 ALT 25 Alkaline Phosphatase 74 C-Reactive Protein 1.4 H Total Protein 7.6 Albumin 4.4 Procalcitonin 0.09 Urine RBC 0-2 Urine WBC 0-2 Ur Squamous Epith Cells Few Urine Bacteria None Lab Acknowledgement Test Added 02/05/23 02/06/23 21:05 06:23 WBC RBC Hgb Hct MCV MCH MCHC RDW Coeff of Demond Plt Count Neut % (Auto) Lymph % (Auto) [place] % (Auto) Eos % (Auto) Baso % (Auto) Neut # (Auto) Lymph # (Auto) [place] # (Auto) Eos # (Auto) Baso # (Auto) Abs Immat Gran (auto) Imm/Tot Granulo (auto) INR 1.62 H VBG pH VBG pCO2 VBG pO2 VBG HCO3 Sodium 135 Potassium 3.3 L 3.0 L Chloride 99 Carbon Dioxide 27 Anion Gap 9 BUN 11 Creatinine 0.6 Estimated Creat Clear 35.99 Estimated GFR 95 Glucose 103 Calcium 9.0 Magnesium 1.9 Total Bilirubin AST ALT Alkaline Phosphatase C-Reactive Protein Total Protein Albumin Procalcitonin Urine RBC Urine WBC Ur Squamous Epith Cells Urine Bacteria Lab Acknowledgement
--- NOTE | 2023-02-06 14:04 | PC.NURSE ---
End of Shift: Patient pleasant and cooperative. Patient vitally stable, lungs course/diminished, BS WNL, IV SL and intact. Patient independent in room and denies pain. Patient not with great appetite but tolerating regular diet. Patient voiding, no BM this shift. Patient has been up in chair, then also laying in bed. Patient on RA, O2 sats have been up to 94%. Patient reports feeling weak and not being able to warm up, patient afebrile.
[2023-02-06 15:00] VITALS: BP 156/78; PULSE 88; RESP 16; TEMP 37.7; O2SAT 92
[2023-02-06] MEDS: WARFARIN 3 MG TABLET 6 MG PO (16:28)
[2023-02-06 19:00] VITALS: BP 137/79; PULSE 90; RESP 20; TEMP 37.6; O2SAT 91
[2023-02-06] MEDS: TRAZODONE HCL 50 MG TABLET 100 MG PO (21:51)
[2023-02-06] MEDS: ACETAMINOPHEN 500 MG TABLET 1000 MG PO (21:51)
--- NOTE | 2023-02-06 22:59 | PC.NURSE ---
End of Shift: The patient is alert and orientated.. reports she is feeling stronger than yesterday mild fever this shift of 99.7. Scheduled Tylenol was given. Up ad darlene in her room. The patient does report urinary overflow incontinence intermittently.. she states that she believes this may be happening due to being off of her overactive bladder medication these past couple days. Dry intermittent cough this shift. VSS on RA. AquaK pad used on back throughout the shift as well. Initially the patient complained of nausea early afternoon.. after she ate she reported it resolved. Calls appropriately. Asia MOELLER BSN
[2023-02-06 23:00] VITALS: BP 144/73; PULSE 88; RESP 20; TEMP 36.7; O2SAT 89
[2023-02-07 03:00] VITALS: BP 128/67; PULSE 76; RESP 22; O2SAT 90
--- NOTE | 2023-02-07 05:12 | PC.NURSE ---
Patient pleasant, alert and oriented. Independent in room with ambulation and toileting. Denied pain. ?
[2023-02-07 06:38] LABS: Chloride* 99 mmol/L (96-114); Potassium* 3.1 mmol/L (3.6-5.1); Sodium* 134 mmol/L (135-149)
[2023-02-07 06:41] LABS: Anion Gap 9 mEq/L (7-15); Blood Urea Nitrogen* 18 mg/dL (7-30); Carbon Dioxide* 26 mmol/L (20-32); Creatinine* 0.6 mg/dL (0.5-1.5); Est. Creatinine Clearance* 35.99; Estimated Glomerular Filt Rate 95 ml/min
[2023-02-07 06:42] LABS: Glucose* 98 mg/dL (60-115)
[2023-02-07 06:44] LABS: INR 1.46 (0.91-1.10); Prothrombin Time 18.7 Seconds
[2023-02-07 07:00] VITALS: BP 137/76; PULSE 84; RESP 18; TEMP 37.1; O2SAT 91
[2023-02-07] MEDS: CHLORTHALIDONE 25 MG TABLET PO (08:50)
[2023-02-07] MEDS: AMLODIPINE 5 MG TABLET 2.5 MG PO (08:51)
[2023-02-07 11:00] VITALS: BP 143/78; PULSE 73; RESP 18; TEMP 37.2; O2SAT 91
[2023-02-07] MEDS: POTASSIUM BICARB 25 MEQ EFFERVESCENT TAB PO ×2 (12:21→16:04)
[2023-02-07 15:00] VITALS: BP 150/80; PULSE 86; RESP 18; TEMP 36.6; O2SAT 93
--- NOTE | 2023-02-07 15:14 | PM.DS1 ---
DS: Providers Provider Date Seen: 02/07/23 Date of admission: 02/05/23 18:26 Primary care physician: Ness Somers MD Admitting Clinician: Dinah Charlton MD Attending Physician on discharge: Dinah Charlton MD Date of Discharge: 02/07/23 DS: Diagnosis Discharge Diagnosis (1) COVID-19: Status: Acute Problem details: - Date of symptom onset: 02/03/23. - Date of positive covid test: 02/05/23. - Not hypoxic. Paxlovid started this evening. While on paxlovid: amlodipine dose halved, holding atorvastatin, trazodone and lorazepam. Closely monitor her INR on warfarin therapy. - VTE prophylaxis with warfarin. (2) Weakness: Status: Acute Problem details: - Secondary to covid. Patient's is debilitated at baseline due to Parkinson's and dementia and is currently at the [facility] with COVID hypoxia and weakness. - PT and OT evaluations. (3) Acute hypokalemia: Status: Acute Problem details: Cause for this was thought to be poor oral intake and some mild diarrhea. Given inpatient replacement and then continue outpatient supplementation with potassium 10 mEq daily. Recheck potassium next week. (4) Asthma: Status: Chronic Problem details: - does not appear to be in an exacerbation at this time. Will not add prednisone or any other additional medications. Continue her home albuterol. (5) Paroxysmal atrial fibrillation: Status: Chronic Problem details: 04/26, on warfarin - rate is well controlled. Monitor INR daily. Adjust to keep INR between 2 and 3. She takes diltiazem p.r.n. for AFib with RVR. 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 Duration: Lifelong goal of INR 2-3. INR in the hospital went down to 1.46. Suspected to be due to drug interaction with Paxlovid (7) Anxiety disorder: Status: Chronic Problem details: buspar started 08/25, stopped on her own 01/27, fluoxetine started 08/31, fluoxetine increased 11/03, fluoxetine increased 11/04, she stopped fluoxetine 04/07 on her own (8) Essential hypertension: Status: Chronic Problem details: chlorthalidone increased 11/03, amlodipine 11/05 - have adjusted amlodipine as above while on Paxlovid and for 3 days after taking Paxilovid. (9) Hyperlipidemia: Status: Chronic Problem details: on statin, atorvastatin increased 11/03 - holding a atorvastatin while on paxlovid. (10) Obstructive sleep apnea syndrome: Status: Chronic Problem details: mild FARAZ by sleep study 07/2011, using CPAP, PSG 05/27 indicates adequate CPAP (11) Edema of foot: Status: Chronic Problem details: Chronic, dependent, compressive stockings recommended and worn (12) Discharge planning issues: Status: Acute Problem details: Patient wants to go home and have her home to care for him. She acknowledges that she is not in any position to care for him with her current illness and he is not in position to be home with his current illness. DS: Summary Hospital Course Hospital Course: 72-year-old female admitted to the hospital with fever, profound weakness and fatigue, cough and dyspnea. She was found to have COVID infection. also had COVID infection and is hospitalized [facility] the [facility]. During her almost 2 days in a hospital she had steady improvement. Family had noted some confusion as an outpatient but that seems to have resolved in the hospital. Her fever resolved her dyspnea improved her cough improved. She was still reporting fatigue and malaise but that was also better. She is able ambulate on her own. She is not requiring supplemental oxygen. She reports ongoing nausea but has been able to tolerate some p.o. food and fluid. She was noted to have markedly low potassium on admission in the cause for this was uncertain. Contributing factors include poor oral intake and some mild diarrhea. She had this treated with potassium replacement and will continue outpatient potassium replacement pending outpatient followup. Recheck potassium in 1 week She is anticoagulated with warfarin for previous PE. Despite continue on warfarin her INR decreased during hospital stay thought to be a drug interaction with Paxlovid. Recheck INR in 3 days and in 1 week Status at Discharge Functional status at discharge: independent ambulation Overall status at discharge: patient is progressing back to baseline Time Spent with Patient Time attestation: Total time spent providing and/or coordinating discharge services:45 minutes Time spent: Greater than 30 minutes Exam Narrative: Exam Narrative: She is alert and appears in no distress. She becomes emotionally distraught when talking about the circumstances involving her and his illness. Breathing is unlabored. Respirations are clear to auscultation. Cardiovascular: S1, S2, regular rate and rhythm. No murmur gallop or rub. Abdomen is soft without tenderness or mass. Extremities with unchanged chronic edema Const: Vital Signs, click to edit/add: Vital Signs - 24 hr 02/06/23 19:00 02/06/23 23:00 02/07/23 03:00 Temperature 99.7 F H 98.0 F Pulse Rate [Pulse Oximeter] 90 88 76 Respiratory Rate 20 20 22 Blood Pressure [Le ft Arm] 137/79 144/73 H 128/67 Pulse Oximetry 91 89 90 Oxygen Delivery Me thod Room Air Room Air Room Air 02/07/23 07:00 02/07/23 11:00 Temperature 98.8 F 99 F Pulse Rate [Pulse Oximeter] 84 73 Respiratory Rate 18 18 Blood Pressure [Le ft Arm] 137/76 143/78 H Pulse Oximetry 91 91 Oxygen Delivery Me thod Room Air Room Air Documenting provider has reviewed patient's vital signs: yes DS: Data Data Completed and Pending Labs on day of discharge: Labs from last 24 hours 02/07/23 05:55 INR 1.46 H Sodium 134 L Potassium 3.1 L Chloride 99 Carbon Dioxide 26 Anion Gap 9 BUN 18 Creatinine 0.6 Estimated Creat Clear 35.99 Estimated GFR 95 Glucose 98 Calcium 9.0 Discharge Plan Discharge Disposition: Home, Self-Care Date of Admission: 02/05/23 18:26 Attending Provider on Discharge: Akin Escudero Primary Care Provider: Ness Somers Condition: Improved Anticipated Discharge Date/Time: 02/07/23 13:00 Discharge Medications: New potassium chloride 10 mEq capsule, extended release 10 meq PO DAILY Qty: 30 0RF Continued cholecalciferol (vitamin D3) 25 mcg (1,000 unit) tablet 1,000 unit PO BID betamethasone dipropionate 0.05 % ointment 1 applic topical .Q24-48H acetaminophen 500 mg tablet 1,000 mg PO HS fexofenadine 180 mg tablet 180 mg PO HS PRN clobetasol 0.05 % gel 1 applic topical BID Rx Instructions: APPLY SPARINGLY TO AFFECTED AREA - for oral lichen planus ascorbic acid (vitamin C) 500 mg tablet 500 mg PO DAILY chlorthalidone 25 mg tablet 25 mg PO DAILY Qty: 90 3RF albuterol sulfate 90 mcg/actuation HFA aerosol inhaler 1 inh inhalation Q6H PRN (Reason: shortness of breath or wheezing) Qty: 6.7 5RF albuterol sulfate 2.5 mg /3 mL (0.083 %) solution for nebulization 2.5 mg inhalation Q6H PRN (Reason: bronchospasm) Qty: 75 2RF nirmatrelvir-ritonavir 300 mg (150 mg x 2)-100 mg tablets,dose pack See Rx Instructions PO .COMPLEX Qty: 30 0RF Rx Instructions: take TWO 150 mg tablets of nirmatrelvir with ONE 100 mg tablet of ritonavir twice daily for 5 days PO warfarin 6 mg tablet See Rx Instructions PO .COMPLEX Protocol: Dose Management Condition: Monday Dose/Route: 3 mg Instruction: 0.5 x 6 mg tablets Condition: Monday Dose/Route: 6 mg Instruction: 1 x 6 mg tablet Condition: Monday Dose/Route: 3 mg Instruction: 0.5 x 6 mg tablets Condition: Monday Dose/Route: 6 mg Instruction: 1 x 6 mg tablet Condition: Dose/Route: 3 mg Instruction: 0.5 x 6 mg tablets Condition: Monday Dose/Route: 6 mg Instruction: 1 x 6 mg tablet Condition: Monday Dose/Route: 3 mg Instruction: 0.5 x 6 mg tablets Protocol Text: Adjustment Start Date: 02/02/23 INR Value: 3.5 INR Date: 02/02/23 Recheck Date: 02/16/23 Rx Instructions: orally ; Take 6 mg po on Monday/Monday/Monday. Take 3 mg po all other days of the week; lorazepam 1 mg tablet 1 mg PO DAILY PRN (Reason: anxiety) solifenacin 5 mg tablet 5 mg PO DAILY ketoconazole 2 % cream 1 applic topical QDAY Qty: 30 11RF Patient Comments: for athletes foot diltiazem HCl 120 mg capsule,ext.rel 24h degradable 120 mg PO QDAY PRN (Reason: atrial fibrillation) Qty: 30 1RF Rx Instructions: as needed for atrial fibrillation episodes Changed amlodipine 5 mg tablet 2.5 mg PO QDAY Qty: 90 0RF Rx Instructions: cut dose in half until you are done taking Paxlovid Held atorvastatin 20 mg tablet 20 mg PO HS Hold Instructions: Resume on 02/13/23. hold until 3 days after stopping Paxlovid trazodone 100 mg tablet 100 mg PO HS Hold Instructions: Resume on 02/11/23. Hold until done taking Paxlovid Discharge Orders: Discharge Order (Routine); Ordered 02/07/23 Ordered By: Akin Escudero Patient Education: Potassium Chloride (By mouth), How To Wash Your Hands (DC), COVID-19 (Coronavirus Disease 2019) (DC), Face Coverings (Masks) and COVID-19 (DC), Safely Care for Someone Who Has COVID-19 (ED), How to Recover from COVID-19 at Home (ED), Social Distancing Guidelines for COVID-19 (DC) Additional Instructions: He will need a blood test to check your potassium and INR on MondayFebruary 10 and MondayFebruary 14. This can be done at [facility]. Dr. Escudero can deal with the blood test on Monday morning and Dr. Somers can deal with the blood test on February 14. Activity Level: No Restrictions Discharge Diet: Regular Follow Up Appointments: [facility] [Other] - 02/10/23 (Complete home INR test on Monday and call results to Dr. Escudero [phone]) Ness Somers MD [Primary Care Provider] - 02/14/23 3:45 pm ([facility] for follow-up and check Potassium and INR.) Forms: [facility] Info Instructions
[2023-02-07] MEDS: WARFARIN 3 MG TABLET 6 MG PO (18:11)
--- NOTE | 2023-02-07 20:17 | PC.NURSE ---
Nursing Care Hours: [id number] Pt this shift alert and oriented, cooperative with cares. 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 Pt seen crying multiple times. Cloth Measurer offered active listening and opportunity to talk through feelings. Pt and daughter concerned about monitoring potassium levels at home. Educated pt and daughter on high potassium foods, how to take prescribed medications, and signs and symptoms. Gave patient an IS device and educated on use at home. IV removed, area slightly hard, scant redness, advised to keep warm rag on until resolved. Stable on RA, HTN. C/o loose stools x3.
== END 2023-02-07 20:25 | disposition home or self-care (01) ==
LOC: ED 18:25 → MEDSURG 18:26
PROVIDERS: Family Medicine; Admitting Provider Family Medicine; Emergency Provider Family Medicine; PCP Internal Medicine; Visit Provider Family Medicine
DX: U07.1 COVID-19 (principal); R53.1 Weakness; J45.909 Unspecified asthma, uncomplicated; I48.0 Paroxysmal atrial fibrillation; I10 Essential (primary) hypertension; E78.5 Hyperlipidemia, unspecified; G47.33 Obstructive sleep apnea (adult) (pediatric); F41.9 Anxiety disorder, unspecified; R60.0 Localized edema; R19.7 Diarrhea, unspecified; R41.0 Disorientation, unspecified; R53.83 Other fatigue; R05.9 Cough, unspecified; R50.9 Fever, unspecified; R53.81 Other malaise; R11.0 Nausea; R06.02 Shortness of breath; R06.09 Other forms of dyspnea; R51.9 Headache, unspecified; Z51.81 Encounter for therapeutic drug level monitoring; Z79.01 Long term (current) use of anticoagulants; Z96.659 Presence of unspecified artificial knee joint; Z87.442 Personal history of urinary calculi; Z86.711 Personal history of pulmonary embolism; Z83.719 Family history of colon polyps, unspecified; Z90.710 Acquired absence of both cervix and uterus; Z90.722 Acquired absence of ovaries, bilateral; Z90.79 Acquired absence of other genital organ(s); M85.80 Other specified disorders of bone density and structure, unspecified site; Z98.890 Other specified postprocedural states
CPT/HCPCS: 36415; 71045; 80048; 80053; 81015; 82803; 83735; 84132; 84145; 85025; 85610; 86140; 94761; 96365; 96366; 96367; 97110; 97161; 97165; 97530; 99285; G0378; A9270; J3475; J3480

== ENCOUNTER 2023-02-14 13:07 | Outpatient (CLI) | payer MEDICARE, OTHER, SELFPAY | END 2023-02-14 13:08 | disposition home or self-care (01) | LOC: NFLDREF 13:07 | PROVIDERS: PCP Internal Medicine; Visit Provider Internal Medicine | DX: U09.9 Post COVID-19 condition, unspecified (principal) | CPT/HCPCS: 84132 ==

== ENCOUNTER 2023-04-19 10:23 | Day surgery (SDC) | payer MEDICARE, OTHER, SELFPAY ==
--- NOTE | 2023-04-19 10:37 | SUR.PREOP ---
The eye drops brought by the patient (Ketorolac, Prednisolone, and Ofloxacin) are examined and I have determined they are labeled by the patient's pharmacy for this patient as prescribed by the surgeon. The bottles are intact, recently obtained and appear to be correct.
[2023-04-19] MEDS: TETRACAINE 0.5% OPHTH 1 DROP EYE-RIGHT ×2 (10:45→11:00)
[2023-04-19] MEDS: KETOROLAC OPHTH 0.5% 1 DROP EYE-RIGHT ×2 (10:52→11:10)
[2023-04-19 11:15] VITALS: BP 151/77; PULSE 78; RESP 16; TEMP 37.1; O2SAT 96
[2023-04-19] MEDS: SODIUM CHLORIDE 0.9 % (FLUSH) 10 ML SYRINGE IVF (11:21)
[2023-04-19 11:26] VITALS: BMI 36.1
[2023-04-19] MEDS: TETRACAINE 0.5% OPHTH 2 DROP EYE-RIGHT (11:46)
[2023-04-19] MEDS: BALANCED SALT IRRIG SOLN 15 ML EYE-RIGHT (11:52)
--- NOTE | 2023-04-19 11:58 | W.ANESCHARGE ---
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
--- NOTE | 2023-04-19 12:15 | W.ANESCHARGE ---
Anesthesia Charges Start Date/Time Anesthesia Start Date: 04/19/23 Anesthesia Start Time: 11:42 Stop Date/Time Anesthesia Stop Date: 04/19/23 Anesthesia Stop Time: 12:21 Summary Extremes of Age - Over 70 or under 1: MDA
[2023-04-19 12:29] VITALS: BP 125/60; PULSE 65; RESP 16; TEMP 36.8; O2SAT 99
--- NOTE | 2023-04-19 13:10 | W.PM.OPTPROC ---
Procedure Note Date of procedure: 04/19/23 Will [facility] bill your pro fee for this procedure?: Yes Procedure Description: SURGEON: Cornelia Vasques MD PREOPERATIVE DIAGNOSIS: Nuclear sclerotic cataract, right eye. POSTOPERATIVE DIAGNOSIS: Nuclear sclerotic cataract, right eye. NAME OF OPERATION: Phacoemulsification of cataract with posterior chamber intraocular lens implantation in the right eye. ANESTHESIA: Topical. ESTIMATED BLOOD LOSS: Less than 2 cc. COMPLICATIONS: None. PATHOLOGY SPECIMEN: None. INDICATIONS: See consult note for details. The risks, benefits and alternatives of the procedure were explained to the patient, who elected to proceed and signed informed consent to do so. PROCEDURE: The patient was brought to the pre-holding area where the right eye was identified as the operative eye. I placed my initials above this eye. The patient received eye drops consisting of 0.5% tetracaine, 1% tropicamide, 10% phenylephrine, and 0.5% ketorolac. The patient was then brought to the operating room where the right eye was again identified as the operative eye. The eye was prepped with Betadine and draped in the usual sterile ophthalmic fashion. A #15 super-sharp blade was used to create a paracentesis site. 1% non-preserved intracameral lidocaine was injected into the anterior chamber. Endocoat was injected into the anterior chamber. A 2.4 mm keratome was used to create a three-plane self-sealing incision 1 mm anterior to the temporal limbus. A cystotome was used to create an anterior capsular leaflet. The Utrata forceps were used to extend this to form a continuous curvilinear capsulorrhexis. Hydrodissection was performed. The cataract was removed with phacoemulsification using the [id number] technique. The irrigation and aspiration tip was used to remove the remaining cortex. Healon was injected into the capsular bag. An ELAINE ZCB00 intraocular lens of 21.0 diopters was injected into the capsular bag. The irrigation and aspiration tip was used to remove the remaining viscoelastic. Balanced salt solution on a cannula was used to hydrate the wound, and the wound was found to be watertight. The pupil was noted to be round. DISPOSITION: The patient was taken to the recovery room and discharged to home in stable condition. The patient was instructed to call me or go to the emergency department with any sudden change, including dramatic loss of vision, severe pain in the eye or eyebrow region, nausea, or vomiting. The patient will follow up in the clinic tomorrow morning.
== END 2023-04-19 12:49 | disposition home or self-care (01) ==
LOC: OR 10:23
PROVIDERS: PCP Internal Medicine; Visit Provider Ophthalmology
PROC: (CPT 66982; principal; 2023-04-19 10:30)
DX: H25.11 Age-related nuclear cataract, right eye (principal)
CPT/HCPCS: 66982; 00142; 99100; A9270; J2150; J2250; J2405; J3010; V2632

== ENCOUNTER 2023-05-03 07:20 | Day surgery (SDC) | payer MEDICARE, OTHER, SELFPAY ==
[2023-05-03 07:28] VITALS: BP 161/75; PULSE 71; RESP 16; TEMP 36.8; O2SAT 96; BMI 36.1
[2023-05-03] MEDS: KETOROLAC OPHTH 0.5% 1 DROP EYE-LEFT ×2 (07:30→07:35)
[2023-05-03] MEDS: TETRACAINE 0.5% OPHTH 1 DROP EYE-LEFT ×2 (07:30→07:35)
[2023-05-03] MEDS: SODIUM CHLORIDE 0.9 % (FLUSH) 10 ML SYRINGE IVF (08:00)
[2023-05-03] MEDS: TETRACAINE 0.5% OPHTH 2 DROP EYE-LEFT (08:44)
--- NOTE | 2023-05-03 08:45 | P.ANES_ITS ---
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
[2023-05-03] MEDS: BALANCED SALT IRRIG SOLN 15 ML EYE-LEFT (08:48)
[2023-05-03 09:06] VITALS: BP 115/63; PULSE 57; RESP 16; TEMP 36.8; O2SAT 95
--- NOTE | 2023-05-03 09:57 | W.ANESCHARGE ---
Anesthesia Charges Start Date/Time Anesthesia Start Date: 05/03/23 Anesthesia Start Time: 08:40 Stop Date/Time Anesthesia Stop Date: 05/03/23 Anesthesia Stop Time: 09:10 Summary Extremes of Age - Over 70 or under 1: MDA
--- NOTE | 2023-05-03 10:19 | P.OPTPRC_ITS ---
Procedure Note Date of procedure: 05/03/23 Will [facility] bill your pro fee for this procedure?: Yes Procedure Description: SURGEON: Cornelia Vasques MD PREOPERATIVE DIAGNOSIS: Nuclear sclerotic cataract, left eye. POSTOPERATIVE DIAGNOSIS: Nuclear sclerotic cataract, left eye. NAME OF OPERATION: Phacoemulsification of cataract with posterior chamber intraocular lens implantation in the left eye. ANESTHESIA: Topical. ESTIMATED BLOOD LOSS: Less than 2 cc. COMPLICATIONS: None. PATHOLOGY SPECIMEN: None. INDICATIONS: See consult note for details. The risks, benefits and alternatives of the procedure were explained to the patient, who elected to proceed and signed informed consent to do so. PROCEDURE: The patient was brought to the pre-holding area where the left eye was identified as the operative eye. I placed my initials above this eye. The patient received eye drops consisting of 0.5% tetracaine, 1% tropicamide, 10% phenylephrine, and 0.5% ketorolac. The patient was given 12.5 grams IV mannitol and a [place] balloon was placed for 8 minutes pre-operatively. The patient was then brought to the operating room where the left eye was again identified as the operative eye. The eye was prepped with Betadine and draped in the usual sterile ophthalmic fashion. A #15 super-sharp blade was used to create a paracentesis site. 1% non-preserved intracameral lidocaine was injected into the anterior chamber. Endocoat was injected into the anterior chamber. A 2.4 mm keratome was used to create a three-plane self-sealing incision 1 mm anterior to the temporal limbus. A cystotome was used to create an anterior capsular leaflet. The Utrata forceps were used to extend this to form a continuous curvilinear capsulorrhexis. Hydrodissection was performed. The cataract was removed with phacoemulsification using the [id number] technique. The irrigation and aspiration tip was used to remove the remaining cortex. Healon was injected into the capsular bag. An ELAINE ZCB00 intraocular lens of 20.5 diopters was injected into the capsular bag. The irrigation and aspiration tip was used to remove the remaining viscoelastic. Balanced salt solution on a cannula was used to hydrate the wound, and the wound was found to be watertight. The pupil was noted to be round. DISPOSITION: The patient was taken to the recovery room and discharged to home in stable condition. The patient was instructed to call me or go to the emerg ency department with any sudden change, including dramatic loss of vision, severe pain in the eye or eyebrow region, nausea, or vomiting. The patient will follow up in the clinic tomorrow morning.
== END 2023-05-03 09:55 | disposition home or self-care (01) ==
PROVIDERS: PCP Internal Medicine; Visit Provider Ophthalmology
PROC: (CPT 66984; principal; 2023-05-03 07:30)
DX: H25.12 Age-related nuclear cataract, left eye (principal)
CPT/HCPCS: 66984; 00142; 99100; A9270; J1200; J2150; J2250; J2405; J3010; V2632

== ENCOUNTER 2023-07-19 12:15 | Emergency (ER) | payer MEDICARE, OTHER, SELFPAY ==
[2023-07-19] VITALS (25 sets, daily range): BP systolic 141–187; BP diastolic 63–95; PULSE 81–113; RESP 20; TEMP 36.9; O2SAT 92–96; BMI 37.8
--- NOTE | 2023-07-19 12:33 | ED.GENADULT ---
HPI - General Adult General Chief complaint: Arrhythmia/Palpitations Stated complaint: Heart racing, high bp Time Seen by Provider: 07/19/23 12:17 History of Present Illness HPI narrative: Patient has felt racing in her heart for the past few days. She notes taking her BP continiously and has had higher readings . She reports taking diltiazem since last , but symptoms persist. She is anticoagulated for a-fib but states she is only with that rythm once every six months. Notably in a?fib with rate 100-110 in triage. Denies chest pain, nausea, though some times with SOB. 72-year-old woman presenting to the emergency department with concern of racing heart. She is chronically anticoagulated with Coumadin for atrial fibrillation. Says is been about 6 months since last was in AFib. Which she has noted though recently 6 days ago I believe when going to bed was that she was feeling a fluttering in her chest. She has been noticing her heart rate going as high as 130s independent of exertion. Not really with chest pain shortness of breath. Was out I believe yesterday and humid warm day to water just for plants in a row and came in was sweating and she says ?I do not sweat? a noting also the AC she has in her home. She has also been having fluttering and twitching around her eyes. No loss of vision though. No complaint of headache. Notes a history of cataract extraction lens implantation. Does not recount any recent head injury. Also distressed as looking more flushed or red in her face in particular noting that she does not even have makeup on right now. She does endorse a history of goiter with what sounds like radioactive ablation. Does also have a history of anxiety but says that the source of her anxiety left her house a week ago and she has had of rather calm week otherwise and is enjoying that. She says ?don't tell me it's anxiety? number of occasions. Intermittently though just continues to have feeling of racing heart. She has also had higher blood pressure readings as well. Has continued to take her diltiazem which is dosed once daily 120 mg for rate control a believe in the setting of paroxysmal atrial fibrillation. Sounds like this is taken or used as a ?pocket pill?. She says this did not seem to change anything. She is worried that she will have a stroke or heart attack. Living alone now and worried about not waking up. With the symptoms did discontinue caffeine about 4 days ago. Related Data Home Medications ?Medication ?Instructions ?Recorded ?Confirmed acetaminophen 500 mg tablet 1,000 mg PO HS 10/28/21 08/03/23 ascorbic acid (vitamin C) 500 mg 500 mg PO DAILY 10/28/21 08/03/23 tablet betamethasone dipropionate 0.05 % 1 applic topical .Q24-48H 10/28/21 08/03/23 topical ointment cholecalciferol (vitamin D3) 25 1,000 unit PO BID 10/28/21 08/03/23 mcg (1,000 unit) tablet clobetasol 0.05 % topical gel 1 applic topical BID 10/28/21 08/03/23 fexofenadine 180 mg tablet 180 mg PO HS PRN 10/28/21 08/03/23 atorvastatin 20 mg tablet 20 mg PO HS 02/05/23 08/03/23 solifenacin 5 mg tablet 5 mg PO DAILY 02/06/23 08/03/23 diltiazem HCl 120 mg 120 mg PO QDAY atrial fibrillation 08/03/23 capsule,extended release 24 hr, controlled Previous Rx's ?Medication ?Instructions ?Recorded ketoconazole 2 % topical cream 1 applic topical QDAY #30 grams 11/03/21 chlorthalidone 25 mg tablet 25 mg PO DAILY #90 tabs 11/03/22 albuterol sulfate 2.5 mg/3 mL 2.5 mg (3 mL) inhalation Q6H PRN 02/05/23 (0.083 %) solution for nebulization bronchospasm #75 mL albuterol sulfate 90 mcg/actuation 1 inh inhalation Q6H PRN shortness 02/05/23 aerosol inhaler of breath or wheezing #6.7 grams warfarin 6 mg tablet See Rx Instructions PO .COMPLEX 05/02/23 #60 tabs trazodone 100 mg tablet 100 - 150 mg (1 - 1.5 x 100 mg) PO 05/05/23 QHS PRN insomnia #135 tabs amlodipine 5 mg tablet 5 mg PO QDAY #90 tabs 07/27/23 potassium chloride 20 mEq 20 meq PO BID #60 tabs 08/04/23 tablet,extended release Allergies Allergy/AdvReac Type Severity Reaction Status Date / Time cefazolin Allergy Severe Verified 08/03/23 10:18 hydrocodone Allergy Severe Vomiting Verified 08/03/23 10:18 hydromorphone Allergy Severe Nausea Verified 08/03/23 10:18 propoxyphene Allergy Severe Difficulty Verified 08/03/23 10:18 Breathing Sulfa (Sulfonamide Allergy Severe Hives Verified 08/03/23 10:18 Antibiotics) codeine Allergy Intermediate Diarrhea Verified 08/03/23 10:18 adhesive Allergy Mild Unknown Verified 08/03/23 10:18 gabapentin Allergy Mild Unknown Verified 08/03/23 10:18 ibuprofen Allergy Mild Abdominal Verified 08/03/23 10:18 Pain influenza A (H1N1) virus Allergy Mild edema Verified 08/03/23 10:18 vaccine m-opal-split 2008 [From influenza A (H1N1)] latex Allergy Mild Rash Verified 08/03/23 10:18 nalbuphine Allergy Mild Unknown Verified 08/03/23 10:18 rofecoxib Allergy Mild Verified 08/03/23 10:18 morphine AdvReac Severe Vomiting Verified 08/03/23 10:18 oxycodone AdvReac Mild Diarrhea Verified 08/03/23 10:18 penicillin V AdvReac Mild Diarrhea Verified 08/03/23 10:18 Review of Systems Status of ROS: Reports: 6 or more systems reviewed and unremarkable except as noted in History and below [facility] Medical History (Updated 08/03/23 @ 10:54 by Ness Somers MD) History of renal calculi ?Z87.442 - Personal history of urinary calculi (ICD-10) Surgical History History of total knee replacement ?Z96.659 - Presence of unspecified artificial knee joint (ICD-10) History of total abdominal hysterectomy and bilateral salpingo-oophorectomy (2003) ?Z90.710 - Acquired absence of both cervix and uterus (ICD-10) ?Z90.722 - Acquired absence of ovaries, bilateral (ICD-10) ?Z90.79 - Acquired absence of other genital organ(s) (ICD-10) History of thumb surgery (2013) ?Z98.890 - Other specified postprocedural states (ICD-10) History of foot surgery (06/22/11) ?Z98.890 - Other specified postprocedural states (ICD-10) History of arthroscopy of shoulder (01/22/20) ?Z98.890 - Other specified postprocedural states (ICD-10) Family History Father FH: colonic polyps Mother FH: colonic polyps Social History Narrative: Lives independently with her who has dementia and parkinson's disease. Denies tobacco or alcohol use. What is your current living situation?: I presently have a place to live Problems where you live: no known problems Problems where you live details: none In the past 12 months, utilities in danger of being shut off: no In past 12 months, lack of transportation kept you from medical appts, meetings, work, or getting things needed for daily living: yes In the past 12 mos, have been you worried that your food would run out before you had money to buy more?: never true In the past 12 mos, the food you bought just didn't last and you didn't have money to buy more?: never true Smoking Status: Never smoker Do you use any of these nicotine containing products: None How often do you have a drink containing alcohol: never How often do you have six or more drinks on one occasion: Never AUDIT-C Alcohol total score: 0 Non-prescribed substance use: denies use Caffeine: Yes (coffee) How often does anyone, including family, friends and others, physically hurt you: never How often does anyone, including family, friends and others, insult or talk down to you: sometimes How often does anyone, including family, friends and others, threaten you with harm: never How often does anyone, including family, friends and others, scream or curse at you: fairly often Little interest or pleasure in doing things: more than half the days Feeling down, depressed, or hopeless: more than half the days Are you using contraception or practicing any form of control: No service: No Exam Narrative: Exam Narrative: Pleasant. NAD. I perceive subtle anxiety. Neck is supple. Face is a little flushed. No JVD appreciated. Lungs are clear. Heart is in a regular rate with some ectopic beats. Does not seem to be irregularly irregular. Lower extremities with with some dependent and mild pitting edema bilaterally. She is well-perfused generally. Abdomen is soft and nontender. Cranial nerves 2-12 are intact. Const: Vital Signs, click to edit/add: Vital Signs - 24 hr 07/19/23 12:29 07/19/23 12:41 07/19/23 12:45 Temperature 98.4 F Pulse Rate 92 94 Pulse Rate [Pulse Oximeter] 101 H Respiratory Rate 20 Blood Pressure Blood Pressure [Ri ght Upper Arm] 187/89 H Pulse Oximetry 96 95 95 Oxygen Delivery Me thod Room Air 07/19/23 13:00 07/19/23 13:02 07/19/23 13:15 Temperature Pulse Rate 84 101 H 85 Pulse Rate [Pulse Oximeter] Respiratory Rate Blood Pressure 142/69 H Blood Pressure [Ri ght Upper Arm] Pulse Oximetry 95 95 95 Oxygen Delivery Me thod 07/19/23 13:24 07/19/23 13:30 07/19/23 13:32 Temperature Pulse Rate 81 91 86 Pulse Rate [Pulse Oximeter] Respiratory Rate Blood Pressure 152/95 H 157/71 H Blood Pressure [Ri ght Upper Arm] Pulse Oximetry 96 95 94 Oxygen Delivery Me thod 07/19/23 13:48 07/19/23 14:00 07/19/23 14:02 Temperature Pulse Rate 90 102 H 113 H Pulse Rate [Pulse Oximeter] Respiratory Rate Blood Pressure 161/71 H Blood Pressure [Ri ght Upper Arm] Pulse Oximetry 95 94 93 Oxygen Delivery Me thod 07/19/23 14:15 07/19/23 14:30 07/19/23 14:31 Temperature Pulse Rate 90 95 93 Pulse Rate [Pulse Oximeter] Respiratory Rate Blood Pressure 160/69 H Blood Pressure [Ri ght Upper Arm] Pulse Oximetry 93 94 94 Oxygen Delivery Me thod 07/19/23 14:46 07/19/23 15:00 07/19/23 15:02 Temperature Pulse Rate 92 91 88 Pulse Rate [Pulse Oximeter] Respiratory Rate Blood Pressure 154/64 H Blood Pressure [Ri ght Upper Arm] Pulse Oximetry 95 96 96 Oxygen Delivery Me thod 07/19/23 15:22 07/19/23 15:30 07/19/23 15:32 Temperature Pulse Rate 87 87 85 Pulse Rate [Pulse Oximeter] Respiratory Rate Blood Pressure 159/63 H Blood Pressure [Ri ght Upper Arm] Pulse Oximetry 95 94 94 Oxygen Delivery Me thod 07/19/23 15:45 07/19/23 16:00 07/19/23 16:02 Temperature Pulse Rate 87 85 89 Pulse Rate [Pulse Oximeter] Respiratory Rate Blood Pressure 141/84 H Blood Pressure [Ri ght Upper Arm] Pulse Oximetry 92 93 95 Oxygen Delivery Me thod 07/19/23 16:15 Temperature Pulse Rate 95 Pulse Rate [Pulse Oximeter] Respiratory Rate Blood Pressure Blood Pressure [Ri ght Upper Arm] Pulse Oximetry 92 Oxygen Delivery Me thod Documenting provider has reviewed patient's vital signs: yes Course Vital Signs Vital signs: Initial Vital Signs Respiratory Effort Normal, Spontaneous 07/19/23 12:27 Respiratory Depth Normal 07/19/23 12:27 Respiratory Pattern Normal 07/19/23 12:27 Vital Signs Temperature 98.4 F 07/19/23 12:29 Pulse Rate 101 H 07/19/23 12:29 Respiratory Rate 20 07/19/23 12:29 Blood Pressure 187/89 H 07/19/23 12:29 Pulse Oximetry 96 07/19/23 12:29 Oxygen Delivery Method Room Air 07/19/23 12:29 Temperature 98.4 F 07/19/23 12:29 Pulse Rate 95 07/19/23 16:15 Respiratory Rate 20 07/19/23 12:29 Blood Pressure 141/84 H 07/19/23 16:02 Pulse Oximetry 92 07/19/23 16:15 Oxygen Delivery Method Room Air 07/19/23 12:29 Medications Administered Medications: Discontinued Medications Generic Name Dose Route Start Last Admin Trade Name Freq PRN Reason Stop Dose Admin Sodium Chloride 1,000 mls @ 1,000 mls/hr 07/19/23 12:47 07/19/23 13:45 0.9 % Sodium Chloride 1000 Ml IV 07/19/23 13:46 1,000 mls/hr .Q1H ONE Administration Potassium Chloride 10 meq in 100 mls @ 100 mls/hr 07/19/23 14:19 07/19/23 16:21 Potassium Chloride IVPB 07/19/23 15:18 Infused ONCE ONE Infusion Potassium Bicarbonate 50 meq 07/19/23 14:19 07/19/23 14:48 Potassium Bicarb 25 Meq Effervescent Tab PO 07/19/23 14:20 50 meq ONCE ONE Administration Medical Decision Making MDM Narrative Medical decision making narrative: Does not appear to be in atrial fibrillation on monitor. Arrives just tachycardic. During our discussion is in the 80s and 90s which she says is also too high for her. I do not know what these runs of tachycardia are or but would give IV hydration and will check chemistries. Monitor on environmental monitoring technician. Is not in atrial fib at this time. Will recheck INR. She does say it has been since last October that she had her labs drawn. Will evaluate also for evidence of infection and anemia. Nursing noting that on presentation was actually in atrial fibrillation however when EKG was run was no longer in AFib IV established. Given normal saline. Overall well during time in the emergency department. Labs are reassuring other than low potassium. This is in the setting of normal magnesium. Is also a little subtherapeutic with INR. Replacing potassium here in the ER. Would increase temporarily outpatient as well. Might be related to medication as discussed. See patient discharge plan for further discussion Lab Data Lab results reviewed: Yes I reviewed the patient's lab results Labs: Lab Results 07/19/23 07/19/23 Range/Units 13:09 13:20 WBC 10.18 (4.50-11.00) K/uL RBC 5.29 H (4.00-5.20) m/uL Hgb 15.4 (12.0-16.0) gm/dL Hct 46.9 (33.0-51.0) % MCV 89 (80-100) fL MCH 29 (26-34) pg MCHC 33 (32-36) gm/dL RDW Coeff of Demond 13.4 (11.5-15.5) % Plt Count 324 (140-440) K/uL Neut % (Auto) 69.3 (42.0-72.0) % Lymph % (Auto) 18.7 L (20-44) % [place] % (Auto) 9.7 (0.0-11.0) % Eos % (Auto) 1.9 (0.0-7.0) % Baso % (Auto) 0.2 (0.0-3.0) % Neut # (Auto) 7.06 H (1.7-7.0) K/uL Lymph # (Auto) 1.90 (0.90-2.90) K/uL [place] # (Auto) 1.00 H (0.00-0.90) K/UL Eos # (Auto) 0.19 (0.00-0.50) K/uL Baso # (Auto) 0.02 (0.00-0.30) K/uL Abs Immat Gran (auto) 0.02 (0.00-0.30) K/uL Imm/Tot Granulo (auto) 0.2 % INR 1.64 H (0.91-1.10) Sodium 139 (135-149) mmol/L Potassium 2.9 L* (3.6-5.1) mmol/L Chloride 102 (96-114) mmol/L Carbon Dioxide 30 (20-32) mmol/L Anion Gap 7 (7-15) mEq/L BUN 16 (7-30) mg/dL Creatinine 0.7 (0.5-1.5) mg/dL Estimated Creat Clear 48.72 Estimated GFR 91 ml/min Glucose 111 (60-115) mg/dL Calcium 9.7 (8.4-10.6) mg/dL Magnesium 1.9 (1.5-2.6) mg/dL Total Bilirubin 0.6 (0.1-1.5) mg/dL Direct Bilirubin 0.4 (0.0-0.5) mg/dL AST 25 (12-35) U/L ALT 24 (4-35) U/L Alkaline Phosphatase 87 (40-150) U/L C-Reactive Protein < 0.5 L (0.5-1.0) mg/dL NT-Pro-B Natriuret Pep 130 pg/mL Total Protein 7.5 (6.0-8.3) g/dL Albumin 4.5 (3.3-5.0) g/dL TSH 1.370 (0.270-4.20) uIU/mL Urine Color Yellow (Yellow) Urine Appearance Clear (Clear) Urine pH 7.0 (5.0-8.5) Ur Specific [place] 1.015 (1.000-1.030) Urine Protein Negative (Negative) Urine Glucose (UA) Negative (Negative) Urine Ketones Negative (Negative) Urine Blood Negative (Negative) Urine Nitrite Negative (Negative) Urine Bilirubin Negative (Negative) Urine Urobilinogen 0.2 (0.2-1.0) Ur Leukocyte Esterase Trace A (Negative) Urine RBC 0-2 (0-2) Urine WBC 0-2 (0-5) Ur Squamous Epith Cells Few (None-Few) Urine Bacteria None (None) ECG Data Attestation: I personally reviewed and interpreted this ECG as follows: (Sinus rhythm there is PAC. Corrected QT of 494. Rate of 92) Discharge Plan Discharge Clinical Impression: Paroxysmal A-fib, Atrial fibrillation with RVR, Hypokalemia Patient Disposition: Home, Self-Care Condition: Improved Additional Instructions: Focus on hydration trying to drink 2-3 L of water daily. Since you take 30 mg of Coumadin weekly; increase your Coumadin to approximately 33 mg per week. I would recheck your Coumadin in a week. Your INR today was 1.64 Ordering for potassium supplementation as well. Twenty mEq daily. I would recheck your potassium level in 1-2 weeks. Potassium might be low because of a medication as discussed. I think at this point I would take her diltiazem daily for the next week or 2. Discuss further with Dr. Somers. Discuss also with her whether not you want to change from Coumadin to Eliquis, or similar, as anticoagulation Prescriptions: No Action cholecalciferol (vitamin D3) 25 mcg (1,000 unit) tablet 1,000 unit PO BID betamethasone dipropionate 0.05 % ointment 1 applic topical .Q24-48H acetaminophen 500 mg tablet 1,000 mg PO HS fexofenadine 180 mg tablet 180 mg PO HS PRN clobetasol 0.05 % gel 1 applic topical BID Rx Instructions: APPLY SPARINGLY TO AFFECTED AREA - for oral lichen planus ascorbic acid (vitamin C) 500 mg tablet 500 mg PO DAILY diltiazem HCl 120 mg capsule,ext.rel 24h degradable 120 mg PO QDAY Rx Instructions: as needed for atrial fibrillation episodes chlorthalidone 25 mg tablet 25 mg PO DAILY Qty: 90 3RF albuterol sulfate 90 mcg/actuation HFA aerosol inhaler 1 inh inhalation Q6H PRN (Reason: shortness of breath or wheezing) Qty: 6.7 5RF albuterol sulfate 2.5 mg /3 mL (0.083 %) solution for nebulization 2.5 mg inhalation Q6H PRN (Reason: bronchospasm) Qty: 75 2RF atorvastatin 20 mg tablet 20 mg PO HS Hold Instructions: Resume on 02/13/23. hold until 3 days after stopping Paxlovid solifenacin 5 mg tablet 5 mg PO DAILY ketoconazole 2 % cream 1 applic topical QDAY Qty: 30 11RF Patient Comments: for athletes foot warfarin 6 mg tablet See Rx Instructions PO .COMPLEX Qty: 60 0RF Protocol: Dose Management Condition: Monday Dose/Route: 3 mg Instruction: 0.5 x 6 mg tablets Condition: Monday Dose/Route: 6 mg Instruction: 1 x 6 mg tablet Condition: Monday Dose/Route: 3 mg Instruction: 0.5 x 6 mg tablets Condition: Monday Dose/Route: 6 mg Instruction: 1 x 6 mg tablet Condition: Dose/Route: 6 mg Instruction: 1 x 6 mg tablet Condition: Monday Dose/Route: 6 mg Instruction: 1 x 6 mg tablet Condition: Monday Dose/Route: 3 mg Instruction: 0.5 x 6 mg tablets Protocol Text: Adjustment Start Date: Monday08/04/23 INR Value: 2.5 INR Date: 08/03/23 Recheck Date: 09/03/23 Rx Instructions: orally ; Take 6 mg po on Monday/Monday/Monday. Take 3 mg po all other days of the week; trazodone 100 mg tablet 100 - 150 mg PO QHS PRN (Reason: insomnia) Qty: 135 3RF amlodipine 5 mg tablet 5 mg PO QDAY Qty: 90 3RF potassium chloride 20 mEq tablet extended release 20 meq PO BID Qty: 60 0RF Follow Up/Referrals: Ness Somers MD [Primary Care Provider] - Stand Alone Forms: [facility] Info Instructions
--- OUTSIDE RECORDS SUMMARY | 2023-07-19 13:02 | XMS_ITS | Clinical Summary ---
[facility] Address [address] [place] [address] Care Team Providers Care Cashier Ticket Selling Name Role Phone Found, No Pcp MD Primary Care Provider Unavailab le Source Comments You are receiving this document as you are listed as the primary care provider,follow-up provider, or the patient has been referred to you for consultation.This is in compliance with the Medicare and[facility] EHR Incentive Program,which states Providers who transition their patient to another setting of careor provider of care or refers their patient to another provider of care shouldprovide summary care record for each transition of care or referral. [facility] Allergies Active Allergy Reactions Criticality Noted Date Comments Codeine Diarrhea,Nausea And Vomiting 06/06/2006 Gabapentin Other, see comments 12/01/2010 PN: unknown Hydrocodone-Acetaminop hen Nausea And Vomiting 06/06/2006 Hydromorphone Nausea And Vomiting 06/06/2006 Ibuprofen Gastrointestinal 12/01/2010 Influenza Vaccines Edema,generalized 12/01/2010 Latex Rash 07/23/2010 Morphine Nausea And Vomiting 06/06/2006 PN: no pain relief Nalbuphine Other, see comments 06/06/2006 Oxycodone-Acetaminophe n Nausea And Vomiting 06/06/2006 Penicillins Diarrhea 06/06/2006 Propoxyphene N-Acetaminophen Breathing Difficulty High 06/06/2006 Rofecoxib Edema,generalized 06/06/2006 PN: legs,feet Sulfa Antibiotics Hives 05/10/2005 Wound Dressing Adhesive Other, see comments 12/01/2010 PN: red blisters Medications Medication Sig Dispensed Refills Start Date End Date Status clobetasol (AKA TEMOVATE) 0.05 % ointment Apply 1 Application topically nightly. LW Addl Instr:Apply to affected area at bedtime once a week. 153 1 1 Active fexofenadine (AKA VARGHESE) 180 MG tablet Take 1 tablet by mouth daily as needed. LW Addl Instr:Indicated for: Allergies 90 3 0 Active lisinopril (AKA ZESTRIL) 5 MG tablet Take 1 tablet by mouth daily (every 24 hours). Indications: HYPERTENSION 90 tablet 3 1 Active simvastatin (AKA ZOCOR) 10 MG tablet Take 1 tablet by mouth nightly. Indications: HYPERCHOLESTEROLEMIA 90 tablet 3 1 Active cholecalciferol (AKA VITAMIN D3) 2000 UNITS tablet Take 1 each by mouth daily (every 24 hours). 1 Active clindamycin (AKA CLEOCIN) 300 MG capsule Take 1 capsule by mouth. Take 2 pills one hour prior to procedure. Take with plenty of water 10 capsule 0 2 Active lisinopril (AKA ZESTRIL) 5 MG tablet Take 5 mg by mouth daily (every 24 hours). 3 Active traZODone (AKA DESYREL) 100 MG tablet Take 100 mg by mouth nightly. 3 Active atorvastatin (AKA LIPITOR) 10 MG tablet Take 10 mg by mouth daily (every 24 hours). 4 Active warfarin (AKA COUMADIN) 3 MG tablet Take 2-3 tablets by mouth daily (every 24 hours). Adjust dose per INR value and instructions. 4 Active ketoconazole (NIZORAL) 2 % cream Apply 1 Application topically daily (every 24 hours). 60 g 0 6 Active ascorbic acid (ASCORBIC ACID) 500 MG tablet Take 500 mg by mouth daily. Active drug not in computer 1 Dose by See Admin Instructions route as needed. Nebulize machine 1 Each 8 Active drug not in computer Nebulizer Machine, use as directed. 1 Each 8 Active azelastine (ASTELIN) 0.1 % nasal solution Place 1-2 Sprays into both nostrils two times a day. 90 mL 3 8 Active ALBUterol sulfate HFA 108 (90 Base) MCG/ACT inhaler Inhale 1-2 Puffs every 4 hours as needed for Wheezing. 1 Inhaler 2 9 Active albuterol 2.5 mg/3 mL, 0.083%, (PROVENTIL) nebulizer solution Inhale 1 Vial every 4 hours as needed (Inhale 3 mLs by nebulization every 4 hours as needed.). J45.909. 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 Overview: LW Modifier: radioactive iodine treatment ; Goiter Multinodular Toxic No Crisis Calculus of gallbladder 03/27/2006 Overview: Gallstones Essential hypertension 03/27/2006 Overview: Hypertension Chronic Hyperlipidemia 03/27/2006 Asthma 03/27/2006 Overview: Asthma NOS Allergic rhinitis 03/27/2006 Overview: Rhinitis Allergic NOS Immunizations Name Administration Dates Next Due TDAP (ADACEL) 03/27/2006 Family History Medical History Relation Name Comments Stroke Mother dementia Relation Name Status Comments Father copd Mother dementia Social History Tobacco Use Types Packs/Day Years Used Date Smoking Tobacco: Never Smokeless Tobacco: Never Alcohol Use Standard Drinks/Week Comments Yes 0 (1 standard drink = 0.6 oz pure alcohol) Alcoholic Drinks/day: Amount:1-2 drinks; Freq:=< Monthly; Sex and Gender Information Value Date Recorded Sex Assigned at Not on file Gender Identity Not on file Sexual Orientation Not on file Last Filed Vital Signs Vital Sign Reading Time Taken Comments Blood Pressure 136/82 12/05/2017 2:20 PM CDT Pulse 96 12/05/2017 2:20 PM CDT Temperature 37.1 ??C (98.8 ??F) 03/13/2008 1 0:12 AM SEW OUT OPERATOR ORAL C: 37.1 C Respiratory Rate 18 10/02/2007 4:46 PM CDT Oxygen Saturation 97% 12/05/2017 2:2 0 PM CDT Inhaled Oxygen Concentration - - Weight 97.5 kg (215 lb) 01/26/2016 1:31 PM SEW OUT OPERATOR Height 172.7 cm (5' 8) 01/26/2016 1:31 PM SEW OUT OPERATOR Body Mass Index 32.69 01/26/2016 1:31 PM SEW OUT OPERATOR Plan of Treatment Health Maintenance Due Date Last Done Comments Colon Cancer Screening Plan Due 1950 Hep C Screening (Preventive Services) 1950 Medicare Annual Wellness Visit 1950 Dexa 2014 Cholesterol 01/06/2016 01/05/2011, 100 05/2010, 04/07/2009, Additional history exists Pneumococcal 65+ Yrs (2 - PCV) 09/24/2016 09/25/2015 Mammogram 07/23/2021 07/23/2020, 01/13, 02/09/2018 COVID-19 Vaccine (3 - season) 2022 05/08/2020, 04/17/2020 Influenza (Season Ended) 2023 03/30/2001 DTaP/Tdap/Td (3 - Tdap) 09/01/2026 09/01/2016, 03/27 Zoster/Shingles Completed 03/27/2020, 10/15, 11/21/2011 HepA Aged Out No longer eligi ble based on patient's age to complete this topic HepB Aged Out No longer eligi ble based on patient's age to complete this topic Hib Aged Out No longer eligi ble based on patient's age to complete this topic IPV (Polio) Aged Out No longer eligi ble based on patient's age to complete this topic MCV4 Aged Out No longer eligi ble based on patient's age to complete this topic Procedures Procedure Name Priority Date/Time Associated Diagnosis Comments LIPID PANEL & DIRECT LDL (IF NEEDED) Routine 01/05/2011 9:05 AM SEW OUT OPERATOR Other and unspecified hyperlipidemia (HRC) from Last 3 Months or Most Recently Relevant to Health Maintenance Results * Lipid Panel and Direct LDL(If Needed) (01/05/2011 9:05 AM SEW OUT OPERATOR) Cholesterol 171 0 - 200 mg/dL HP CONVERSION Triglycerides 75 0 - 149 mg/dL HP CONVERSION HDL Cholesterol 54 >39 mg/dL HP CONVERSION Cholesterol/HDL Ratio Screen 3.2 HP CONVERSION LDL Calculated 102 19 - 130 mg/dL HP CONVERSION Hours Fasting 10 HP CONVERSION 01/05/2011 9:05 AM SEW OUT OPERATOR 01/05/2011 9:04 AM SEW OUT OPERATOR Narrative HP CONVERSION - 01/05/2011 9:50 AM SEW OUT OPERATOR Performed at [facility], [address] [place] [address] Tonia Damon MD LAB_1 HP CONVERSION from Last 3 Months or Most Recently Relevant to Health Maintenance Care Teams Cashier Ticket Selling Relationship Specialty Start Date End Date Found, No [facility]cp[facility] [address] [facility] [place] [address] PCP - General 10/22/21
--- OUTSIDE RECORDS SUMMARY | 2023-07-19 13:02 | XMS_ITS | Clinical Summary ---
Author Organization [facility] Address [place], [place] [address] Care Team Providers Care Inspector Weights And Measures Name Role Phone Ness Somers MD Primary Care Provider [phone] Allergies Active Allergy Reactions Criticality Noted Date Comments Codeine Diarrhea,Nausea And Vomiting 06/06/2006 Gabapentin Other - Describe In Comment Field 12/01/2010 PN: unknown Hydrocodone-Acetaminophe n Nausea And Vomiting 06/06/2006 Hydromorphone Nausea And Vomiting 06/06/2006 Ibuprofen Other - Describe In Comment Field 12/01/2010 Influenza Virus Vaccines Edema 12/01/2010 Latex Rash 07/23/2010 Morphine Nausea And Vomiting 06/06/2006 PN: no pain relief Nalbuphine Other - Describe In Comment Field 06/06/2006 Oxycodone-Acetaminophen Nausea And Vomiting Penicillins Diarrhea 06/06/2006 Propoxyphene N-Acetaminophen Other - Describe In Comment Field High 06/06/2006 Rofecoxib Edema 06/06/2006 PN: legs,feet Sulfasalazine Hives 05/10/2005 Medications Medication Sig Dispensed Refills Start Date End Date Status ascorbic acid, vitamin C, (VITAMIN C) 500 mg tablet Take 500 mg by mouth. Active atorvastatin (LIPITOR) 10 mg tablet Take 10 mg by mouth once daily. 01/14/2014 Active traZODone (DESYREL) 100 mg tablet Take 100 mg by mouth. 01/22/2013 Active albuterol (PROVENTIL) 0.083 % neb solution Inhale 2.5 mg by mouth every 4 hours. 11/23/2016 Active ketoconazole 2% topical (NIZORAL) cream Apply topically to affected area(s) once daily. 10/12/2015 Active fexofenadine (VARGHESE) 180 mg tablet Take by mouth once daily. 01/22/2010 Active albuterol (PROAIR RESPICLICK) 90 mcg/actuation INHALER Inhale 2 Puffs by mouth every 4 hours. 01/26/2016 Active lisinopril (PRINIVIL; ZESTRIL) 2.5 mg tablet Take 2.5 mg by mouth once daily. 3 04/19/2017 Active clindamycin (CLEOCIN) 300 mg capsule Take 1 capsule by mouth. Prior to dental procedures. 0 01/09/2018 Active warfarin (COUMADIN) 6 mg tablet TAKE SUN:6 MG, MON: 6 MG, TU: 6 MG, WED: 3 MG, MICHELLE: 6 MG, FRI: 6 MG, SAT: 6 MG 0 11/22/2018 Active TOVIAZ 4 mg Tb24 Extended-Release tablet Take 4 mg by mouth once daily. 3 05/08/2018 Active diltiazem (CARDIZEM) 120 mg tablet Take 1 tablet by mouth one time if needed. For A-fib 05/28/2014 Active Active Problems Problem Noted Date Diagnosed Date Posterior tibial tendon dysfunction 10/05/2017 Pronation of both feet 10/05/2017 EDEMA 04/13/2001 ASTHMA NOS 03/30/2001 HYPERTENSION - ESSENTIAL 03/30/2001 Immunizations Name Administration Dates Next Due Influenza, IIV3 (Age >=3 years) 03/30/2001 Family History Medical History Relation Name Comments Cancer Father melanoma Cancer-prostate Father dx80 Cancer-breast Maternal Aunt dx60 Cancer-breast Mother dx60 Cancer Sister 1 basal cell Cancer Sister 2 basal cell Cancer-ovarian No Family History Relation Name Status Comments Father Maternal Aunt Mother Sister 1 Sister 2 Social History Tobacco Use Types Packs/Day Years Used Date Smoking Tobacco: Never Smokeless Tobacco: Never Tobacco Cessation:Counseling Given: Yes Sex and Gender Information Value Date Recorded Sex Assigned at Not on file Gender Identity Not on file Sexual Orientation Not on file Obstetrics History Last Filed Vital Signs Vital Sign Reading Time Taken Comments Blood Pressure 132/75 12/05/2018 10:19 AM CDT to wer Pulse 65 12/05/2018 10:19 AM CDT Temperature 37.1 ??C (98.8 ??F) 01/09/2018 10:[address] Respiratory Rate - - Oxygen Saturation 99% 12/05/2018 10:19 AM CDT Inhaled Oxygen Concentration - - Weight - - Height - - Body Mass Index - - Plan of Treatment Health Maintenance Due Date Last Done Comments Tdap 1960 Depression screening for age 12+ 1961 BMI (ht and wt on same day) for age 18+ 12/19/1967 Hepatitis C screening for ag e 18-79 12/19/1967 Tetanus booster 1969 Colonoscopy through age 75 1994 Lipids for age 45-75 1994 Zoster (shingles) series for age 50+ (1 of 2) 12/19/1999 DEXA/DXA scan for age 65+ 2014 Medicare Wellness for age 65+ 2014 Pneumococcal series for age 65+ (1 of 1 - PCV) 2014 COVID-19 vaccine series ( season) 2022 11/16/2021, 12/22/2020, 05/08/2020, Additional history exists Influenza for age 65+ 10/15/2023 03/30/2001 Mammogram for age 45-75 11/08/2023 11/08/19, 10/12/2021, 07/23/2020, Additional history exists Procedures Procedure Name Priority Date/Time Associated Diagnosis Comments XR MAMMO MADHURI BILAT SCREEN Routine 11/07/2022 1:53 PM CDT Visit for screening mammogram from Last 3 Months or Most Recently Relevant to Health Maintenance Results * XR MAMMO MADHURI BILAT SCREEN (11/07/2022 1:53 PM CDT) Anatomical Region Laterality Modality BREASTS, Breast Left, Breast Right Bilateral Mammography Impressions 11/07/2022 2:04 PM CDT ??There is no radiographic evidence for malignancy. ??Recommend annual mammograms. MAMMOGRAM ASSESSMENT: ??ACR 1 Negative PATIENTS: You will also receive a letter with your examination results in an easy to read format. ??If you have questions about your results, please contact your referring provider. Narrative 11/07/2022 2:04 PM CDT For Patients: As a result of the Century Cures Act, medical imaging exams and procedure reports are released immediately into your electronic medical record. You may view this report before your referring provider. If you have questions, please contact your health care provider. XR MAMMO MADHURI BILAT SCREEN [[id number]] CLINICAL HISTORY: ??This is an asymptomatic 71 y.o. patient. INDICATION FOR EXAM: Mammogram Screening. TECHNIQUE: CC & MLO views were obtained. ??This study was evaluated with the assistance of Computer-Aided Detection. Breast Tomosynthesis was used in interpretation. COMPARISON FILM: Yes 10/12/21 [facility] 07/23/20 [facility] FINDINGS: ??The breasts have scattered areas of fibroglandular density. There are no dominant masses, suspicious micro calcifications or areas of architectural distortion. Ness Somers MD MAMMO from Last 3 Months or Most Recently Relevant to Health Maintenance Care Teams Inspector Weights And Measures Relationship Specialty Start Date End Date Ness Somers MD [address] [place] [address] PCP - General Internal Medicine 12/19/17
--- OUTSIDE RECORDS SUMMARY | 2023-07-19 13:02 | XMS_ITS | Encounter Summary ---
Author Organization [facility] Address [address] [place] [address] Care Team Providers Care Supervisor Varnish Name Role Phone Found, No Pcp Primary Care Provider Unavailab le Reason for Visit * Reason Comments Refill Encounter Details Date Type Department Care Team (Late st Contact Info) Description 10/11/2015 Refill [facility] [address] [place], [place] [id number] Tonia Damon MD [address] [place], [place] [id number] Refill Social History Tobacco Use Types Packs/Day Years Used Date Smoking Tobacco: Never Smokeless Tobacco: Never Alcohol Use Standard Drinks/Week Comments Yes 0 (1 standard drink = 0.6 oz pure alcohol) Alcoholic Drinks/day: Amount:1-2 drinks; Freq:=< Monthly; Sex and Gender Information Value Date Recorded Sex Assigned at Not on file Gender Identity Not on file Sexual Orientation Not on file documented as of this encounter Nursing Notes * User, [facility] - 11/11/2015 1:31 AM CDT ketoconazole (NIZORAL) 2 % cream - MEDICATION STARTED: 05/03/2010 - LAST REFILLED ON: 05/03/2013, QTY: 60, Refills: 3, Sig: apply 1 application topically daily (every 24 hours). (unchanged) - WARNING: The requested medication on 04/23/2015. - NOTIFICATION: A qualifying visit was not found within the last 2 years of the patient record. - LAST QUALIFYING VISIT: None - NEXT SCHEDULED VISIT: None - SBP: 120mm Hg on 01/05/2011 - DBP: 70mm Hg on 01/05/2011 Powered by Message Systems, Reference: [id number], 10/11/2015 4:32:54 PM CDT, Pool: WHITE IMED REFILL([id number]) ITURE BUILDER * Yvonne Petit RN - 10/12/2015 10:05 AM CDT Further assistance needed to complete refill request Reason: Pt overdue for qualifying visit. Next Steps: Review pended order for accuracy. Sign. Route to frontline pool to schedule appt. Requested Prescriptions Pending Prescriptions Disp Refills ??? ketoconazole (NIZORAL) 2 % cream 60 g 0 Sig: Apply 1 Application topically daily (every 24 hours). ITURE BUILDER * Elvie Olivarez - 10/11/2015 4:32 PM CDT [facility]. Please resend Rx if appropriate, thank you. ITURE BUILDER documented in this encounter Plan of Treatment Not on file documented as of this encounter Visit Diagnoses Not on filedocumented in this encounter Care Teams Supervisor Varnish Relationship Specialty Start Date End Date Found, No Pcp, [address] [place] [address] PCP - General 10/22/21 documented as of this encounter
--- OUTSIDE RECORDS SUMMARY | 2023-07-19 13:03 | XMS_ITS | Encounter Summary ---
Author Name [facility] Organization [facility] Address [address] [place] [address] Support Name Relationship Address Phone UNIQUEMAGED MCGOWAN Next of Kin [phone] [place] [address] DAYANAMAGEDTER Emergency Contact [phone] [address] Insurance Providers: All historical and current Section Date Range: From patient's date of to the date document was created. This section includes the names of all active insurance providers for the patient. Insurance Provider Type of Coverage Plan Name Start of Policy Coverage End of Policy Coverage Group Number Member ID Insurance Provider's Telephone Number Policy Zabala's Name Patient's Relationship to Policy Zabala MEDICARE (WNR) MEDICARE (M) PART B Dec 14, 2014 PART B [id number] [phone] BARON ANNE PATIENT MEDICARE (WNR) MEDICARE (M) PART A Dec 14, 2014 PART A [id number] [phone] BARON ANNE PATIENT Selected Encounter This section includes the information on record at [facility] for the Encounter. Date/Time Encounter Type Encounter Description Reason Provider Source May 22, 2023 11:00 AM GROUP PSYCHOTHERAPY CAREGIVER SUPPORT PROGRAM ICD-10-CM Z65.9 Problem related to unspecified psychosocial circumstances NIDHI SOLIS [facility] Encounter Template Text not used by [facility] Assessments - Encounter Diagnoses This section includes the primary and secondary diagnoses documented for the Encounter. Date/Time Primary/Secondary Diagnosis Diagnosis Name Provider Source May 22, 2023 12:50 PM PRIMARY Problem related to unspecified psychosocial circumstances WADE SOLIS [facility] Plan of Treatment: Future Appointments (+ 6 months) and Future Tests (+/- 45 days) The Plan of Treatment section includes future care activities for the patient from all [facility] This section includes future appointments and future orders which are active, pending or scheduled. Future Appointments This section includes appointments that were scheduled to occur 6 months from the date of the Encounter, up to a maximum of 20 appointments. The data comes from all [facility]. Appointment Date/Time Appointment Type Appointme nt Facility Name May 30, 2023 10:00 AM AMBULATORY - REHAB MEDICIN E [facility] June 20, 2023 10:00 AM AMBULATORY - REHAB MEDIC[facility] E [facility] Jul 18, 2023 10:00 AM AMBULATORY - REHAB MEDICIN E [facility] Encounter Notes: All associated encounter notes This section contains the clinical notes associated to the Encounter. Date/Time Encounter Note(s) Provider Source May 22, 2023 11:00 AM CAREGIVER CERTIFIC ATE: LOCAL TITLE: CSP [facility] INTERMITTENT NOTE STANDARD TITLE: CAREGIVER CERTIFICATE DATE OF NOTE: MAY 22, 2023@11:00 ENTRY DATE: MAY 22, 2023@12:51:44 AUTHOR: THOM SOLIS COSIGNER: URGENCY: STATUS: COMPLETED Program of General Caregiver Support Services Intermittent Note? This caregiver is participating in [place]'s Program of General Caregiver Support? Services ([facility] While enrolled in the [facility] General Caregivers are eligible? for a benefit package to include: Education, Training, and Technical Support,? Telehealth, Teaching, Respite Care, and Counseling.? Identified the caregiver using full name and the following other garcia identifier:? This was Verified during the individual call prior to the beginning of the group during an individual contact.? Method of contact: Telehealth/[facility] Video Connect? Caregiver Contact Details:? Best contact number for backup/emergency communication:? This was Verified during the individual call prior to the beginning of the group during an individual contact.? Caregiver Location/Surroundings During Visit:? Caregiver location during visit? Home? This was Verified during the individual call prior to the beginning of the group during an individual contact.? Patient confirms location is safe and private for visit.? Telehealth Disclosure:? Visit conducted by synchronous telehealth.? Caregiver verbal consent obtained.? Location/emergency number confirmed.? Environment surveyed and all participants identified.? Virtual conference room locked.? Type of intervention: Group? Intervention: General support/resources? CAREGIVER ASSESSMENT? Did not assess using formal screening tools. Seasoner Hand assessed Caregiver through observation of her verbal and chat box participation, and body language. ? Group Notes Ongoing Parkinsons Disease Support Group?Length of Group: 90 minutes? Facilitators: Thom Solis? Number of Participants: 15? Check-in - Group information and format? Talked about the struggle with dealing with the emotions of being a Caregiver. Talked about several Caregivers struggle with medications, communicating with doctors, and getting support. Talked about service connection and getting connected for everything needed. Talked about an upcoming in person support group offered at the [facility] for [facility] and [facility]. Support was provided both by staff and fellow caregivers.? Closure:? Next Session June 18 at 11:00am? /josephine/ THOM SOLIS POURER CRANE LADLE Caregiver Assistant Brand Manager Signed: 05/22/2023 13:04 THOM SOLIS [facility]
--- OUTSIDE RECORDS SUMMARY | 2023-07-19 13:03 | XMS_ITS | Encounter Summary ---
Author Name Department of [facility] Organization Department of [facility] Address [address] [place] [address] Support Name Relationship Address Phone DAYANAMAGED Next of Kin [phone] [place] [address] DAYANAMAGEDTER Emergency Contact [phone], [place] [address] Insurance Providers: All historical and [...] Policy [place] MEDICARE (WNR) MEDICARE (M) PART A Dec 14, 2014 PART A [id number] [phone] BARON ANNE PATIENT MEDICARE (WNR) MEDICARE (M) PART B Dec 14, 2014 PART B [id number] [phone] JOSÉ ANNEIE PATIENT Selected Encounter This section includes the information on record at [place] for the Encounter. Date/Time Encounter Type Encounter Description Reason Provider Source June 19, 2023 11:00 AM GROUP PSYCHOTHERAPY CAREGIVER SUPPORT PROGRAM ICD-10-CM Z65.9 Problem related to unspecified psychosocial circumstances NIDHI SOLIS [facility] Encounter Template Text not used by [place] Assessments - Encounter Diagnoses This section includes the primary and secondary diagnoses documented for the Encounter. Date/Time Primary/Secondary Diagnosis Diagnosis Name Provider Source June 20, 2023 01:45 PM PRIMARY Problem related to unspecified psychosocial circumstances WADE SOLIS [facility] Plan of Treatment: Future Appointments (+ 6 months) and Future Tests (+/- 45 days) The Plan of Treatment section includes future care activities for the patient from all [place] [facility] [place] This section includes future appointments and future orders which are active, pending or scheduled. Future Appointments This section includes appointments that were scheduled to occur 6 months from the date of the Encounter, up to a maximum of 20 appointments. The data comes from all [facility]. Appointment Date/Time Appointment Type Appointme nt Facility Name June 20, 2023 10:00 AM AMBULATORY - REHAB MEDICIN [facility] Jul 18, 2023 10:00 AM AMBULATORY - REHAB MEDIC[facility] Encounter Notes: All associated encounter notes This section contains the clinical notes associated to the Encounter. Date/Time Encounter Note(s) Provider Source June 19, 2023 11:00 AM CAREGIVER CERTIFIC ATE: LOCAL TITLE: CSP PGCSS INTERMITTENT NOTE STANDARD TITLE: CAREGIVER CERTIFICATE DATE OF NOTE: JUNE 19, 2023@11:00 ENTRY DATE: JUNE 20, 2023@13:39:56 AUTHOR: THOM SOLIS COSIGNER: URGENCY: STATUS: COMPLETED Program of General Caregiver Support Services Intermittent Note? This caregiver is participating in [place]'s Program of General Caregiver Support? Services (PGC). While enrolled in the [facility], General Caregivers are eligible? for a benefit [...] Did not assess using formal screening tools. Supervisor [employer] assessed Caregiver through observation of her verbal and chat box participation, and body language. Group Notes Ongoing Parkinsons Disease Support Group? Length of Group: 90 minutes? Facilitators: Thom Solis? Number of Participants: 13? Check-in - Group information and format? Talked about the struggle with VBA. Caregivers discussed the need to service connect the for all issues. Caregivers talked about their struggles with the medical system. They talked about the need for support and offered to support to each other during the course of the group. Support was provided both by staff and fellow caregivers.?Caregive rs talked about struggling with sleep, struggling with extended family and obtaining support. Closure:? Next Session July 16 at 11:00am? /es/ THOM SOLIS [facility] Caregiver Lounge Car Attendant Signed: 06/20/2023 13:[address] [facility]
--- OUTSIDE RECORDS SUMMARY | 2023-07-19 13:03 | XMS_ITS | Encounter Summary ---
Author Name [facility] Organization [facility] Address [address] [place] [address] Support Name Relationship Address Phone DAYANAMAGED Next of Kin [address] [place] [address] MAGED ANNE Emergency Contact [phone] [address] Insurance Providers: All historical and [...] PART A Dec 14, 2014 PART A [id number] [phone] DAYANABARON PATIENT MEDICARE (WNR) MEDICARE (M) PART B Dec 14, 2014 PART B [id number] BARON ANNE PATIENT Selected Encounter This section includes the information on record at [place] for the Encounter. Date/Time Encounter Type Encounter Description Reason Provider Source May 18, 2023 11:35 AM HC PRO PHONE CALL 11-20 MIN TELEPHONE/ASMITA FOREMAN ICD-10-CM Z65.9 Problem related to unspecified psychosocial circumstances DANNY GILL [facility] Encounter Template Text not used by [place] Assessments - Encounter Diagnoses This section includes the primary and secondary diagnoses documented for the Encounter. Date/Time Primary/Secondary Diagnosis Diagnosis Name Provider Source May 18, 2023 11:35 AM PRIMARY Problem related to unspecified psychosocial circumstances DANNY GILL [facility] Plan of Treatment: Future Appointments (+ 6 months) and Future Tests (+/- 45 days) The Plan of Treatment section includes future care activities for the patient from all [place] treatmentfacilities. This section includes future appointments and future orders which are active, pending or scheduled. Future Appointments This section includes appointments that were scheduled to occur 6 months from the date of the Encounter, up to a maximum of 20 appointments. The data comes from all [place] treatment facilities. Appointment Date/Time Appointment Type Appointme nt Facility Name May 30, 2023 10:00 AM AMBULATORY - REHAB MEDICIN E [facility] June 20, 2023 10:00 AM AMBULATORY - [facility] Jul 18, 2023 10:00 AM AMBULATORY - REHAB MEDICIN E [facility] Encounter Notes: All associated encounter notes This section contains the clinical notes associated to the Encounter. Date/Time Encounter Note(s) Provider Source May 18, 2023 11:35 AM CAREGIVER CERTIFIC ATE: LOCAL TITLE: CSP TELEPHONE NOTE STANDARD TITLE: CAREGIVER CERTIFICATE DATE OF NOTE: MAY 18, 2023@11:35 ENTRY DATE: MAY 18, 2023@11:53:38 AUTHOR: DANNY GILL EXP COSIGNER: URGENCY: STATUS: COMPLETED Duration of phone call 17 minutes Respiratory Therapy Aide contacted the caregiver to schedule the Annual Caregiver Review (ACR). She was open to completing this and updated news writer on changes that have happened in the last few months noting it has been very hard. She was tearful in explaining that her will likely stay in intermediate accountant care as she doesn't think she can care for him at home. She also noted that the facility he is in wants to move him to memory care but she doesn't want to make this change. She explained that he has made improvements in the last few months. Baron added that he has experienced a lot of changes the past few months and feels this would be hard for him. Respiratory Therapy Aide provided active listening and support. Scheduled a time to complete the ACR as indicated below. Plan: Caregiver Review scheduled for 05/23/23 @ 10 am /josephine/ DANNY GILL General Caregiver Foundation Assistant Signed: 05/19/2023 09:55 DANNY GILL [facility]
--- OUTSIDE RECORDS SUMMARY | 2023-07-19 13:03 | XMS_ITS | Encounter Summary ---
Author Name Department of Vetera Affairs Organization [facility] Address [address] [place] [address] Support Name Relationship Address Phone DAYANAMAGED Next of Kin [address] [place] [address] DAYANA MAGED VIVIAN Emergency Contact [phone], [place] [address] Insurance Providers: All historical and [...] PART A Dec 14, 2014 PART A [id number] [phone] BARON ANNE PATIENT MEDICARE (WNR) MEDICARE (M) PART B Dec 14, 2014 PART B [id number] [phone] JOSÉ ANNEIE PATIENT Selected Encounter This section includes the information on record at [place] for the Encounter. Date/Time Encounter Type Encounter Description Reason Provider Source Apr 26, 2023 12:25 PM Outpatient Encounter TELEPHONE/OBEY OZUNA ICD-10-CM Z65.9 Problem related to unspecified psychosocial circumstances WADE SOLIS [facility] Encounter Template Text not used by [place] Assessments - Encounter Diagnoses This section includes the primary and secondary diagnoses documented for the Encounter. Date/Time Primary/Secondary Diagnosis Diagnosis Name Provider Source Apr 26, 2023 12:25 PM PRIMARY Problem related to unspecified psychosocial circumstances WADE SOLIS [facility] Plan of Treatment: Future Appointments (+ 6 months) and Future Tests (+/- 45 days) The Plan of Treatment section includes future care activities for the patient [facility] [place] [facility] This section includes future appointments and future orders which are active, pending or scheduled. Future Appointments This section includes appointments that were scheduled to occur 6 months from the date of the Encounter, up to a maximum of 20 appointments. The data comes from all [place] treatment facilities. Appointment Date/Time Appointment Type Appointme nt Facility Name May 09, 2023 10:00 AM AMBULATORY - [facility] May 30, 2023 10:00 AM AMBULATORY - [facility] June 20, 2023 10:00 [facility], 2023 10:00 AM AMBULATORY - REHAB [facility] Encounter Notes: All associated encounter notes This section contains the clinical notes associated to the Encounter. Date/Time Encounter Note(s) Provider Source Apr 24, 2023 02:30 PM CAREGIVER CERTIFIC ATE: LOCAL TITLE: CSP TELEPHONE NOTE STANDARD TITLE: CAREGIVER CERTIFICATE DATE OF NOTE: APR 24, 2023@14:30 ENTRY DATE: APR 26, 2023@12:26:07 AUTHOR: THOM SOLIS EXP COSIGNER: URGENCY: STATUS: COMPLETED Caregiver called to inform she is unable to attend group. [facility] offered support for Bonneau's current status in LTC. /josephine/ MARYELLEN YANG Caregiver Design Studio Consultant Signed: 04/26/2023 12:27 THOM SOLIS [facility]
--- OUTSIDE RECORDS SUMMARY | 2023-07-19 13:03 | XMS_ITS | Encounter Summary ---
Author Name Department of Vetera Affairs Organization [facility] Address [address] [place] [address] Support Name Relationship Address Phone DAYANAMAGED Next of Kin [address] [place] [address] MAGED LYLE Emergency Contact [phone] [address] Insurance Providers: All historical and [...] PART A Dec 14, 2014 PART A [id number] WW53 [phone] KEILYERISBARON MCGOWAN PATIENT MEDICARE (WNR) MEDICARE (M) PART B Dec 14, 2014 PART B [id number] [id number] [phone] JOSÉ LYLEIE PATIENT Selected Encounter This section includes the information on record at [place] for the Encounter. Date/Time Encounter Type Encounter Description Reason Provider Source May 30, 2023 10:00 AM PSYTX W PT 45 MINUTES PM&RS PHYSICIAN ICD-10-CM Z71.9 Counseling, unspecified CORINNE TIWARI Katerina Encounter Template Text not used by [place] Assessments - Encounter Diagnoses This section includes the primary and secondary diagnoses documented for the Encounter. Date/Time Primary/Secondary Diagnosis Diagnosis Name Provider Source Jun 01, 2023 10:19 PM PRIMARY Counseling, unspecified CORINNE TIWARI [facility] Plan of Treatment: Future Appointments (+ 6 months) and Future Tests (+/- 45 days) The Plan of Treatment section includes future care activities for the [facility] [place] [facility] This section includes future appointments and future orders which are active, pending or scheduled. Future Appointments This section includes appointments that were scheduled to occur 6 months from the date of the Encounter, up to a maximum of 20 appointments. The data comes from all [facility] facilities. Appointment Date/Time Appointment Type Appointme nt Facility Name June 20, 2023 10:00 [facility] Encounter Notes: All associated encounter notes This section contains the clinical notes associated to the Encounter. Date/Time Encounter Note(s) Provider Source May 30, 2023 10:00 AM PHYSICAL MEDICINE REHAB NOTE: LOCAL TITLE: REHAB PSYCHOLOGY PROGRESS NOTE STANDARD TITLE: PHYSICAL MEDICINE REHAB NOTE DATE OF NOTE: MAY 30, 2023@10:00 ENTRY DATE: JUN 01, 2023@22:18:37 AUTHOR: CORINNE TIWARI COSIGNER: URGENCY: STATUS: COMPLETED REHABILITATION PSYCHOLOGY PROGRESS NOTE Patient Name: Baron Lyle Date of : 1950 Date of Visit: 05/30/2023 Session Duration: 50 minutes Visit Modality: [facility] Patient Location: [address] [place] [address] Patient CONSENT Visit conducted by synchronous telehealth. Ms. Lyle's verbal consent was obtained. Location and emergency number were confirmed. Environment surveyed, and all participants identified. Virtual conference room locked. During the initial treatment session, Dr. Tiwari explained the nature of services, limits of confidentiality, foreseeable risks and benefits, and the voluntary nature of psychology services. At that time, Ms. Lyle expressed understanding and provided verbal informed consent. BACKGROUND Ms. Lyle is a 72-year old, , female caregiver of a with Parkinson's disease. She was referred to Dr. Tiwari for caregiver psychological support services. SESSION CONTENT Ms. Lyle reported feeling exhausted, noting recent challenges in caregiving. She acknowledged that the 's condition has improved; however, he has become more argumentative, attempts to self-transfer despite the need for assistance, and continues to having cognitive difficulties which make conversations challenging. Caregiver shared her efforts to women's lacrosse coach the care center team in what has worked to de-escalate in the past; however, the concierge receptionist of this information has been mixed. Provider reinforced her efforts and her focus on providing the with options. Ms. Lyle also shared challenges with coordinating transportation for the to a dental appointment. She worries several individuals are not taking responsibility for communicating any problems with her. Caregiver reported continued work to organize her home and some frustration with her daughter. Caregiver also noted she is not driving yet after her cataracts surgery, and she is engaged in physical therapy. Provider reinforced her efforts toward her own health and healthcare while the is at the care center. She shared several joys, including spending time with her great-granddaughter and attending zoroastrian after a friend offered to drive her. Provider reflected the affection others have the caregiver. Ms. Lyle shared her lifetime achievement award assignment, noting several themes: being a devout Mormonism, being one who supports others, being warm and sociable, and being committed to family and friends. Provider reflected how some of her stressful caregiving activities serve these values. Caregiver was able to appreciate her efforts and acknowledge she should give herself more praise. Caregiver agreed to identify several activities in service of these values and engage in them before the next session. OBJECTIVE Session/visit location: [facility] Present at session: Caregiver General appearance: Based on available data (camera angle only provided observations from the shoulders up), Caregiver was neat, clean, and well- groomed. She was dressed casually and appropriately for the weather and occasion. Presentation: Caregiver was cooperative and pleasant with the provider. Positive rapport was maintained. Orientation/cognition/memory: Caregiver was oriented to time, place, person, and situation. No significant concerns with attention or concentration were noted; however, these domains were not formally assessed. Motor activity: Based on available data (camera angle only provided observations from the shoulders up), there was no unusual motor activity. Speech/Communication: Caregiver spoke at a normal rate, volume, and rhythm. She was articulate and intelligible. Mood was described as: exhausted Affect: Her affect was sad and distressed. Her emotional expressions were appropriately reactive and consistent with conversation topics. She was tearful at several moments during the session, particularly when discussing the 's challenges. She joked several times with the provider. Thought content: Caregiver's thought content was appropriate with no indications of delusions or hallucinations. Suicidal ideation was denied; homicidal ideation was not reported. Thought processes: Caregiver's thought processes were logical/clear, linear, and goal-directed. Judgement/insight: Caregiver demonstrated fair insight into her situation. She demonstrated good problem solving. She demonstrated good judgment and decision- making. DIAGNOSTIC IMPRESSIONS Based on behavioral observations, session content, and medical record review, the most parsimonious diagnostic scheme includes: Counseling, unspecified RISK ASSESSMENT Known suicide risks include chronic stressors (health concerns, caregiving responsibilities, 's Parkinson's diagnosis and symptoms), insomnia, age (over age 45), race (white), geographic isolation from social support. Possible suicide protective factors include the absence of suicidal ideation, plan, and intent; presence of strong interpersonal bonds to family (children, grandchildren, and sisters) and community (zoroastrian community); responsibility/duty to others; help seeking; presents with good impulse control; evidence of spiritual/quaker beliefs about value of life (strong spirituality and religiosity); support through medical and mental health care relationships. Acute Suicide Risk Level Impression: Low acute risk: There is no current intent to by suicide. If a plan for suicide is present, it is likely to be vague and without preparatory behaviors. Caregiver can maintain safety independently. Chronic Suicide Risk Level Impression: Intermediate chronic risk: Caregiver may have a history of chronic conditions that elevate risk for suicide; however, risk factors are balanced with access to coping skills and ability to endure crisis using these skills, reasons for living, and engagement in care. PLAN HOMEWORK: Ms. Lyle will identify and engage in activities that connect with her values (i.e., devout Mormonism, supportive of others, warm and sociable, and committed). SESSION ENGAGEMENT: RITS Rating = 4 Education was provided during this session. Caregiver indicated readiness to learn by asking questions, making appropriate comments, and demonstrating appropriate nonverbals. RETURN TO CLINIC: Provider and Caregiver agreed that the optimal return to clinic would be three weeks. A return to clinic was placed for Tuesday, June 20, 2023. Caregiver is aware of how to contact the provider if she has needs before the next appointment. /josephine/ CORINNE TIWARI, PHD, LP PSYCHOLOGIST, [facility] Signed: 06/01/2023 22:19 CORINNE TIWARI [facility]
--- OUTSIDE RECORDS SUMMARY | 2023-07-19 13:03 | XMS_ITS | Continuity of Care Document ---
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 It does not include entries that were removed or entered in error. Problem Status Onset Date Problem Type Date of Resolution Comments Source Diagnosis: ICD-10-CM Z65.9 Problem related to unspecified psychosocial circumstances Active Diagnosis [facility] Diagnosis: ICD-10-CM Z71.9 Counseling, unspecified Active Diagnosis [facility] Diagnosis: ICD-10-CM Z65.8 Oth problems related to psychosocial circumstances Active Diagnosis [facility] Immunizations Combined list of available immunizations from the Department of Defense and [facility] facilities. Immunization Series Date Given Administered By Site Reaction Lot Number CVX Code Drug Rugby League Footballer Status Comments Source INFLUENZA VACCINE, QUADRIVALENT, ADJUVANTED [address] [facility] COVID-19 (PFIZER), MRNA, LNP-S, PF, 30 MCG/0.3 ML DOSE, EMILY-SUCROSE (AGES 12+ YEARS) 4 2021 217 complet ed PFR; [id number]; 2 [facility] Encounters Combined list of: 1) Encounters from Department of Veterans Affairs facilities going back up to thelast 18 months. 2) Encounters from the Department of [facility] facilities going back up to 280 months. Location Location Details Encounter Type Encounter Number Reason For Visit Attending Provider ADM Date DC Date Status Disposition Source [facility] PSYCHOTHER APY [id number] Diagnos is: ICD-10- CM Z65.9 Problem related to unspeci fied psychos ocial circums tances< br/> Liza SOLIS 01/24 [facility] PSYTX W PT 45 MINUTES [id number] Diagnos is: ICD-10- CM Z71.9 Rehab Trainer ing, unspeci fied
CORINNE CALVO 01/25 [place] [facility] PSYTX W PT 45 MINUTES [id number] Diagnos is: ICD-10- CM Z71.9 Rehab Trainer ing, unspeci fied
CORINNE CALVO 02/22 [place] [facility] PSYCHOTHER APY [id number] Diagnos is: ICD-10- CM Z65.9 Problem related to unspeci fied psychos ocial circums tances< br/> IRMAJ ESSICA DEBBIE 03/07 [place] [facility] PSYCHOTHER APY [id number] Diagnos is: ICD-10- CM Z65.9 Problem related to unspeci fied psychos ocial circums tances< br/> IRMAJ ESSICA DEBBIE 03/21 [place] [facility] PSYCHOTHER APY [id number] Diagnos is: ICD-10- CM Z65.9 Problem related to unspeci fied psychos ocial circums tances< br/> SOLIS,J ESSICA DEBBIE 04/18 [place] [facility] PSYTX W PT 45 MINUTES [id number] Diagnos is: ICD-10- CM Z71.9 Rehab Trainer ing, unspeci fied
CORINNE CALVO 04/19 [place] [facility] Outpatient Encounter [id number] 05/10 [place] [facility] PSYCHOTHER APY [id number] Diagnos is: ICD-10- CM Z65.9 Problem related to unspeci fied psychos ocial circums tances< br/> SOLIS,J ESSICA DEBBIE 05/16 [place] [facility] PSYTX W PT 45 MINUTES [id number] Diagnos is: ICD-10- CM Z71.9 Rehab Trainer ing, unspeci fied
CORINNE CALVO A 05/17 [place] [facility] HC PRO PHONE CALL 5-10 MIN [id number] Diagnos is: ICD-10- CM Z65.8 Oth problem s related to psychos ocial circums tances< br/> LOSIE,LOVE SE A 05/19 [place] [facility] PSYTX W PT 60 MINUTES [id number] Diagnos is: ICD-10- CM Z65.8 Oth problem s related to psychos ocial circums tances< br/> LOSIE,LOVE SE A 05/26 [place] [facility] Outpatient Encounter [id number] 05/27 [facility] PSYTX W PT 45 MINUTES [id number] Diagnos is: ICD-10- CM Z71.9 Rehab Trainer ing, unspeci fied
CORINNE CALVO A 05/31 [place] [facility] PSYCHOTHER APY [id number] Diagnos is: ICD-10- CM Z65.9 Problem related to unspeci fied psychos ocial circums tances< br/> Liza SOLIS 06/13 [place] [facility] PSYTX W PT 45 MINUTES [id number] Diagnos is: ICD-10- CM Z71.9 Rehab Trainer ing, unspeci fied
CORINNE CALVO A 06/28 [place] [facility] PRO PHONE CALL 11-20 MIN [id number] Diagnos is: ICD-10- CM Z65.8 Oth problem s related to psychos ocial circums tances< br/> LOSIE,LOVE SE A 06/29 [place] [facility] Outpatient Encounter [id number] GEOFFREY BAH A 06/30 [facility] PT EDUCATION NOC GROUP [id number] Diagnos is: ICD-10- CM Z65.9 Problem related to unspeci fied psychos ocial circums tances< br/> [facility] 07[facility]12 [facility] PSYCHOTHER APY [id number] Diagnos is: ICD-10- CM Z65.9 Problem related to unspeci fied psychos ocial circums tances< br/> Liza SOLIS ESSJERZY DEBBIE 07/18 [facility] PT EDUCATION NOC GROUP [id number] Diagnos is: ICD-10- CM Z65.9 Problem related to unspeci fied psychos ocial circums tances< br/> SELINA WESTON 07/19 [facility] PT EDUCATION NOC GROUP [id number] Diagnos is: ICD-10- CM Z65.9 Problem related to unspeci fied psychos ocial circums tances< br/> [facility] 07/26 [facility] PSYTX W PT 45 MINUTES [id number] Diagnos is: ICD-10- CM Z71.9 Rehab Trainer ing, unspeci fied
CORINNE CALVO 08/09 [facility] PSYCHOTHER APY [id number] Diagnos is: ICD-10- CM Z65.9 Problem related to unspeci fied psychos ocial circums tances< br/> Liza SOLIS ESSJERZY DEBBIE 08/15 [facility] PSYTX W PT 45 MINUTES [id number] [id number] Diagnos is: ICD-10- CM Z71.9 Rehab Trainer ing, unspeci fied
CORINNE CALVO 08/30 [facility] PSYTX W PT 45 MINUTES [id number] Diagnos is: ICD-10- CM Z71.9 Rehab Trainer ing, unspeci fied
CORINNE CALVO 09/06 [place] [facility] [place] [facility] PSYTX W PT 45 MINUTES [id number] Diagnos is: ICD-10- CM Z71.9 Rehab Trainer ing, unspeci fied
CORINNE CALVO 09/27 [place] [facility] PSYTX W PT 45 MINUTES [id number] Diagnos is: ICD-10- CM Z71.9 Rehab Trainer ing, unspeci fied
CORINNE CALVO 10/11 [place] [facility] PSYCHOTHER APY [id number] Diagnos is: ICD-10- CM Z65.9 Problem related to unspeci fied psychos ocial circums tances< br/> Liza SOLIS ESSICA DEBBIE 10/24 [place] [facility] PSYTX W PT 45 MINUTES [id number] Diagnos is: ICD-10- CM Z71.9 Rehab Trainer ing, unspeci fied
CORINNE CALVO 11/01 [place] [facility] PSYCHOTHER APY [id number] Diagnos is: ICD-10- CM Z65.9 Problem related to unspeci fied psychos ocial circums tances< br/> IRMAJ ESSICA DEBBIE 11/14 [place] [facility] Outpatient Encounter [id number] 11/30 [place] [facility] PSYTX W PT 45 MINUTES [id number] [id number] Diagnos is: ICD-10- CM Z71.9 Rehab Trainer ing, unspeci fied
CORINNE CALVO 12/06 [place] [facility] PRO PHONE CALL 21-30 MIN [id number] Diagnos is: ICD-10- CM Z65.8 Oth problem s related to psychos ocial circums tances< br/> Haris TORO 12/09 [place] [facility] PSYCHOTHER APY [id number] Diagnos is: ICD-10- CM Z65.9 Problem related to unspeci fied psychos ocial circums tances< br/> Liza SOLIS ESSICA DEBBIE 12/19 [place] [facility] PSYTX W PT 45 MINUTES [id number] Diagnos is: ICD-10- CM Z71.9 Rehab Trainer ing, unspeci fied
CORINNE CALVO 12/20 [facility] Outpatient Encounter [id number] PEE NIXON 01/02 [facility] PSYTX W PT 45 MINUTES [id number] [id number] Diagnos is: ICD-10- CM Z71.9 Rehab Trainer ing, unspeci fied
CORINNE CALVO 01/10 [facility] PSYCHOTHER APY [id number] Diagnos is: ICD-10- CM Z65.9 Problem related to unspeci fied psychos ocial circums tances< br/> Liza SOLIS ESSICA DEBBIE 01/16 [place] [facility] PSYTX W PT 45 MINUTES [id number] Diagnos is: ICD-10- CM Z71.9 Rehab Trainer ing, unspeci fied
CORINNE CALVO 01/31 [place] [facility] Outpatient Encounter [id number] 02/14 [place] [facility] PSYTX W PT 45 MINUTES [id number] [id number] Diagnos is: ICD-10- CM Z71.9 Rehab Trainer ing, unspeci fied
CORINNE CALVO 02/21 [place] [facility] [place] [facility] Outpatient Encounter [id number] 02/21 [place] [facility] [place] [facility] Outpatient Encounter [id number] Diagnos is: ICD-10- CM Z65.9 Problem related to unspeci fied psychos ocial circums tances< br/> Liza SOLISICA DEBBIE 02/21 [place] [facility] PSYTX W PT 45 MINUTES [id number] Diagnos is: ICD-10- CM Z71.9 Rehab Trainer ing, unspeci fied
CORINNE CALVO 02/28 [place] [facility] Outpatient Encounter [id number] 03/03 [place] [facility] PSYTX W PT 45 MINUTES [id number] [id number] Diagnos is: ICD-10- CM Z71.9 Rehab Trainer ing, unspeci fied
CORINNE CALVO 03/07 [facility] Outpatient Encounter [id number] 03/08 [place] [facility] PSYTX W PT 45 MINUTES [id number] [id number] Diagnos is: ICD-10- CM Z71.9 Rehab Trainer ing, unspeci fied
CORINNE CALVO 03/14 [place] [facility] PSYCHOTHER APY [id number] Diagnos is: ICD-10- CM Z65.9 Problem related to unspeci fied psychos ocial circums tances< br/> Liza SOLIS ESSJERZY DEBBIE 03/20 [place] [facility] [place] [facility] PSYTX W PT 45 MINUTES [id number] Diagnos is: ICD-10- CM Z71.9 Rehab Trainer ing, unspeci fied
CORINNE CALVO 03/28 [place] [facility] Outpatient Encounter [id number] 03/29 [place] [facility] Outpatient Encounter [id number] Diagnos is: ICD-10- CM Z65.9 Problem related to unspeci fied psychos ocial circums tances< br/> Liza SOLIS DEBBIE 04/25 [place] [facility] PSYTX W PT 45 MINUTES [id number] [id number] Diagnos is: ICD-10- CM Z71.9 Rehab Trainer ing, unspeci fied
CORINNE CALVO 05/08 [place] [facility] PRO PHONE CALL 11-20 MIN [id number] Diagnos is: ICD-10- CM Z65.9 Problem related to unspeci fied psychos ocial circums tances< br/> JAIRO,LOVE SE A 05/17 [place] [facility] PSYCHOTHER APY [id number] Diagnos is: ICD-10- CM Z65.9 Problem related to unspeci fied psychos ocial circums tances< br/> Liza SOLIS ESSICA DEBBIE 05/21 [facility] PSYCH DIAGNOSTIC EVALUATION [id number] Diagnos is: ICD-10- CM Z65.8 Oth problem s related to psychos ocial circums tances< br/> BISIIE,LOVE SE A 05/22 [place] [facility] PSYTX W PT 45 MINUTES [id number] Diagnos is: ICD-10- CM Z71.9 Rehab Trainer ing, unspeci fied
CORINNE CALVO 05/29 [place] [facility] Outpatient Encounter [id number] 05/30 [facility] PSYCHOTHER APY [id number] Diagnos is: ICD-10- CM Z65.9 Problem related to unspeci fied psychos ocial circums tances< br/> Liza SOLIS DEBBIE 06/18 [facility] PSYTX W PT 45 MINUTES [id number] [id number] Diagnos is: ICD-10- CM Z71.9 Rehab Trainer ing, unspeci fied
CORINNE CALVO 06/19 [facility] PSYCHOTHER APY [id number] Diagnos is: ICD-10- CM Z65.9 Problem related to unspeci fied psychos ocial circums tances< br/> Liza SOLIS ESSJERZY DEBBIE 07/16 [facility]
--- OUTSIDE RECORDS SUMMARY | 2023-07-19 13:03 | XMS_ITS | Encounter Summary ---
Author Name [facility] Organization [facility] Address [address] [place] [address] Support Name Relationship Address Phone DAYANAMAGED Next of Kin [address] [place] [address] MAGED LYLE Emergency Contact [phone], [place] [address] Insurance Providers: All historical and [...] PART A Dec 14, 2014 PART A [id number] [phone] KEILYERISBARON MCGOWAN PATIENT MEDICARE (WNR) MEDICARE (M) PART B Dec 14, 2014 PART B [id number] [phone] JOSÉ LYLEIE PATIENT Selected Encounter This section includes the information on record at [place] for the Encounter. Date/Time Encounter Type Encounter Description Reason Provider Source June 20, 2023 10:00 AM PSYTX W PT 45 MINUTES PM&RS PHYSICIAN ICD-10-CM Z71.9 Counseling, unspecified CORINNE TIWARI Katerina Encounter Template Text not used by [place] Assessments - Encounter Diagnoses This section includes the primary and secondary diagnoses documented for the Encounter. Date/Time Primary/Secondary Diagnosis Diagnosis Name Provider Source June 22, 2023 09:40 PM PRIMARY Counseling, unspecified CORINNE TIWARI [facility] Plan of Treatment: Future Appointments (+ 6 months) and Future Tests (+/- 45 days) The Plan of Treatment section includes future care activities for the patient from all [place] [facility] This section includes future appointments and future orders which are active, pending or scheduled. Future Appointments This section includes appointments that were scheduled to occur 6 months from the date of the Encounter, up to a maximum of 20 appointments. The data comes from all [facility] facilities. Appointment Date/Time Appointment Type Appointme nt Facility Name Jul 18, 2023 10:00 AM AMBULATORY - REHAB [facility] Encounter Notes: All associated encounter notes This section contains the clinical notes associated to the Encounter. Date/Time Encounter Note(s) Provider Source June 20, 2023 10:00 AM PHYSICAL MEDICINE REHAB NOTE: LOCAL TITLE: REHAB PSYCHOLOGY PROGRESS NOTE STANDARD TITLE: PHYSICAL MEDICINE REHAB NOTE DATE OF NOTE: JUNE 20, 2023@10:00 ENTRY DATE: JUNE 22, 2023@21:38:25 AUTHOR: CORINNE TIWARI COSIGNER: URGENCY: STATUS: COMPLETED REHABILITATION PSYCHOLOGY PROGRESS NOTE Patient Name: Baron Lyle Date of : 1950 Date of Visit: 06/20/2023 Session Duration: 52 minutes Visit Modality: [facility] Patient Location: [address] [place] [address] Patient CONSENT Visit conducted by synchronous telehealth. [...] support services. SESSION CONTENT Ms. Lyle reported mixed experiences since the previous session. Specifically, she noted several positive experiences (i.e., attending her druze's [employer]unch, getting her new glasses, attending druze thanks to a friend driving her, and her neighbor mowing her lawn). She also shared some challenges (i.e., continued fatigue which she attributed to COVID-19, difficulties with the 's care center staff, and the poor bedside manner of a VA provider). She reported that the has been transitioned to a memory care unit at the care center. Although she felt confident that the was unable to come home, she was unsure about the appropriateness of the memory care unit, noting an incongruence between the 's functioning and the functioning of the other residents. She acknowledged that the memory care unit had more staff, which she believes will provide the with better care (e.g., more walking practice, help with donning compression socks). Provider reinforced her focus on positive aspects of the situation and helped her articulate questions to pose to the care center staff and the 's VA providers. Provider also worked with caregiver to connect her activities to the values she identified in the previous session (i.e., devout Evangelical, supportive of others, warm and sociable, and committed to family/friends). She acknowledged how her efforts, although stressful, reflected these important values. Caregiver also noted setting boundaries with family when they visited the , ending their visit at a time that was best for the and herself. Provider reinforced her assertiveness. Caregiver is looking forward to checking in with the 's providers (i.e., Drs. Mart and Kevin) in upcoming appointments. OBJECTIVE Session/visit location: [facility] Present at session: [...] articulate and intelligible. Mood was described as: okay Affect: Her affect was euthymic. Her emotional expressions were appropriately reactive and consistent with conversation topics. She appeared stressed at several moments, but overall, she appeared noticeably less distressed than in previous sessions. Thought content: Caregiver's thought content was appropriate with no indications of delusions or hallucinations. Suicidal and homicidal ideation were not reported. Thought processes: Caregiver's thought processes were logical/clear, linear, and goal-directed. Judgement/insight: Caregiver demonstrated fair insight into her situation. She demonstrated good problem solving. She demonstrated good judgment and decision- making. DIAGNOSTIC IMPRESSIONS Based on behavioral observations, session content, previous interactions, and medical record review, the most parsimonious [...] family (children, grandchildren, and sisters) and community (druze community); responsibility/duty to others; help seeking; presents with good impulse control; evidence of spiritual/methodist beliefs about value of life (strong spirituality [...] in care. PLAN HOMEWORK: Ms. Lyle will continue to engage in activities that connect with her values (i.e., devout Evangelical, supportive of others, warm and sociable, and committed). SESSION ENGAGEMENT: RITS Rating = 4 Education was provided during this session. Caregiver indicated readiness to learn by asking questions, making appropriate comments, and demonstrating appropriate nonverbals. RETURN TO CLINIC: Provider and Caregiver agreed that the optimal return to clinic would be three weeks. A return to clinic was placed for Tuesday, July 11, 2023. Caregiver is aware of how to contact the provider if she has needs before the next appointment. /josephine/ CORINNE TIWARI, PHD, LP PSYCHOLOGIST, [facility] Signed: 06/22/2023 21:[address] [facility]
--- OUTSIDE RECORDS SUMMARY | 2023-07-19 13:03 | XMS_ITS | Encounter Summary ---
Author Name Department of Vetera Affairs Organization [facility] of [facility] Address [address] [place] [address] Support Name Relationship Address Phone DAYANAMAGED Next of Kin [address] [place] [address] MAGED ANNE Emergency Contact [phone] [address] Insurance Providers: All historical and [...] PART A Dec 14, 2014 PART A [id number] [phone] UNIQUEBARON MCGOWAN PATIENT MEDICARE (WNR) MEDICARE (M) PART B Dec 14, 2014 PART B [id number] [phone] DAYANA BARON PATIENT Selected Encounter This section includes the information on record at [place] for the Encounter. Date/Time Encounter Type Encounter Description Reason Provider Source May 23, 2023 09:59 AM PSYCH DIAGNOSTIC EVALUATION TELEPHONE/OBEY OZUNA ICD-10-CM Z65.8 Oth problems related to psychosocial circumstances DANNY GILL [facility] Encounter Template Text not used by [place] Assessments - Encounter Diagnoses This section includes the primary and secondary diagnoses documented for the Encounter. Date/Time Primary/Secondary Diagnosis Diagnosis Name Provider Source May 23, 2023 09:59 AM PRIMARY Oth problems related to psychosocial circumstances DANNY GILL [facility] Plan of Treatment: Future Appointments (+ 6 months) and Future Tests (+/- 45 days) The Plan of Treatment section includes future care activities for the patient from all [place] treatmentfacilities. This section includes future appointments and future orders which are active, pending or scheduled. Future Appointments This section includes appointments that were scheduled to occur 6 months from the date of the Encounter, up to a maximum of 20 appointments. The data comes from all [place] treatment facilities. Appointment Date/Time Appointment Type Appointme nt Facility Name May 30, 2023 10:00 AM AMBULATORY - RE[facility]AB [facility] June 20, 2023 10:00 AM AMBULATORY - REHAB MEDICIN [facility] Jul 18, 2023 10:00 AM AMBULATORY - REHAB MEDICIN [facility] Encounter Notes: All associated encounter notes This section contains the clinical notes associated to the Encounter. Date/Time Encounter Note(s) Provider Source May 23, 2023 09:59 AM CAREGIVER CERTIFIC ATE: LOCAL TITLE: [facility] CAREGIVER REVIEW STANDARD TITLE: CAREGIVER CERTIFICATE DATE OF NOTE: MAY 23, 2023@09:59 ENTRY DATE: MAY 23, 2023@09:59:57 AUTHOR: DANNY GILL COSIGNER: URGENCY: STATUS: COMPLETED Telephone contact with Caregiver for 67 minutes, regarding psychosocial circumstances related to caregiving for at home. Program of General Caregiver Support Services Caregiver Review This caregiver is being assessed for or is participating in [place]'s Program of General Caregiver Support Services (PGCSS). While enrolled in the PGCSS, General Caregivers are eligible for a benefit package to include: Education, Training, and Technical Support, Telehealth, Teaching, Respite Care, and Counseling. Identified the caregiver using full name and the following other garcia identifier: Full name: BARON ANNE Full SSN: [id number] Date of : Dec Method of Contact: Video Telehealth Caregiver Contact Details: Best contact number for backup/emergency communication: Caregiver Location/Surroundings During Visit: Caregiver location during visit Home [address] [place], [place] [id number] Patient confirms location is safe and private for visit. Telehealth Disclosure: Visit conducted by synchronous telehealth. Caregiver verbal consent obtained. Location/emergency number confirmed. Environment surveyed and all participants identified. Virtual conference room locked. Type of visit: Follow-up Visit Caregiver information Address: [address] [place] [id number] Above address is correct. Telephone number: Above phone number is correct. Email Address: [email or web address] Above email is correct. being cared for: Maged Anne Relationship to : Spouse CAREGIVER RESPONSIBILITIES Employment: Retired Comment: 2015 School: Not Applicable Caregiver for Others: Not Applicable Volunteer Work: No CURRENT SITUATION & CAREGIVING HISTORY Caregiver's report of how a typical day is spent: Baron stated that she put all her medical appointments on hold due to the 's needs. Since the is in intermediate frame tender care she is catching up on appointments. She recently had cataracts surgery but still can't see until she can get her glasses at the end of May. Her daughter is staying with her until she can drive again. Her children drive her to see the and provide some general cares when she is there. Baron has not had many social events due to her eye surgery and inability to drive until her sight improves. She spends time working on downsizing some of her 's things including many bags of shredding. She is attending synagogue and the Parkinson's Support group. She is also doing physical therapy. She does have friends that she visits when she is more independent. She is working on managing the finances differently noting this has been hard. She is also working on downsizing her home. She meets with Dr. Tiwari who is helping her to manage the changes she is experiencing. Caregiver reports receiving/attending caregiver training/education. Details: VA Resources, groups and events Length of time caregiver reports caring for the [place]: 5 years to 10 years Comment: 2016 Ways in which caregiver role affects the caregiver's everyday life: Baron reports she has been feeling depressed and sad. She is working with Dr. Tiwari at the [facility] and is taking medications to help manage her mood. She is working on downsizing and hopes to sell some of thier unneeded equipment and tools. She noted she has difficulty sleeping and falling asleep noting she is awake again in about an hour. Caregiver's description of their social support system: The caregiver adult children are involved with her. She does have friends but is unable to visit with them until she gets her glasses. She does talk to them on the phone. She gets support from synagogue, friends, children and the Parkinson's Disease Support group. She also gets support from a Facebook Support Group she is part of noting it has been informative and supportive. How often does the caregiver have contact with friends and family? Regular contact Details: visits with others at the prison, phone contact regularly, children visit on occasion needed. List other supports: Scientology Details: online and in person when able Caregiver reports use of the following self-care strategies: Parkinson's group, synagogue involvement - hoping to get back to in person this Monday and will join a bible study. Facebook group she follows Caregiver reports receiving regular assistance in providing care to the [place] from the following: is in a prison The Caregiver reports use or receipt of the following supportive services/programs: VA Resources Details: [place] in a prison In the past year, did you participate in any of the following? - Other: Details: Parkinson Disease Support Group, other specialty programming Caregiver reports needing the following additional knowledge and/or support: Open to other supports and programming. She noted that she still has difficulty sleeping despite having medication for sleep. Sales Associate Cashier offered information about Insight Timer Rosario and Binaural Beats for sleep. Caregiver strengths and coping skills: Ask for help, downsizing, has friends, you and synagogue Caregiver challenges and stressors: Caregiver reported that both her and her got Covid causing them both to be hospitalized at one point. Her is still in rehab and likely will stay in senior living care. She is feeling stress, guilt and sadness that he wants to come home and she is unable to care for him there. She is struggling to find her purpose with all the changes that are occurring. CAREGIVER ASSESSMENT PHQ-2 A PHQ-2 screen was performed. The score was 5 which is a positive screen for depression. Over the past two weeks, how often have you been bothered by the following problems? 1. Little interest or pleasure in doing things More than half the days 2. Feeling down, depressed, or hopeless Nearly every day Summary of visit: Baron is working on life adjustments and the stress of finding or adjusting her purpose. She described feeling guilt and sadness about not being able to care for her at home. Baron noted it helps to meet with Dr. Tiwari and is working on improving her mood. She is taking advantage of programming however was open to other suggestions. Sales Associate Cashier sent her information on the following programs: [facility] Telephone Educations Groups (next three calls are - Money Management, Burnout, and Caregiving for Mental Health). Resource Fair Flyer with list of presenters Insight Timer with examples of Binaural Beats Sales Associate Cashier provided name and number and invited her to call appeals writer with any additional questions or needs. She thanked appeals writer for the time and will follow up as needed. /josephine/ DANNY GILL General Caregiver Application Systems Administrator Signed: 05/24/2023 10:21 DANNY GILL [facility]
--- OUTSIDE RECORDS SUMMARY | 2023-07-19 13:03 | XMS_ITS | Encounter Summary ---
Author Name Department of Vetera Affairs Organization Department of [facility] Address [address] [place] [address] Support Name Relationship Address Phone DAYANAMAGED Next of Kin [address] [place] [address] MAGED LYLE Emergency Contact [phone], [place] [address] Insurance Providers: All historical and [...] PART A Dec 14, 2014 PART A [id number] WW53 [phone] KEILYERISBARON MCGOWAN PATIENT MEDICARE (WNR) MEDICARE (M) PART B Dec 14, 2014 PART B [id number] WW53 [phone] JSOÉ LYLEIE PATIENT Selected Encounter This section includes the information on record at [place] for the Encounter. Date/Time Encounter Type Encounter Description Reason Provider Source May 09, 2023 10:00 AM PSYTX W PT 45 MINUTES PM&RS PHYSICIAN ICD-10-CM Z71.9 Counseling, unspecified CORINNE TIWARI Katerina Encounter Template Text not used by [place] Assessments - Encounter Diagnoses This section includes the primary and secondary diagnoses documented for the Encounter. Date/Time Primary/Secondary Diagnosis Diagnosis Name Provider Source May 11, 2023 09:59 PM PRIMARY Counseling, unspecified CORINNE TIWARI [facility] Plan of Treatment: Future Appointments (+ 6 months) and Future Tests (+/- 45 days) The Plan of Treatment section includes future care activities for the [facility] This section includes future appointments and future orders which are active, pending or scheduled. Future Appointments This section includes appointments that were scheduled to occur 6 months from the date of the Encounter, up to a maximum of 20 appointments. The data comes from all [facility]. Appointment Date/Time Appointment Type Appointme nt Facility Name May 30, 2023 10:00 AM [facility]ULATORY - [facility] June 20, 2023 10:00 [facility] Jul 18, 2023 10:00 AM AMBULATORY - REHAB [facility]IC[facility] Encounter Notes: All associated encounter notes This section contains the clinical notes associated to the Encounter. Date/Time Encounter Note(s) Provider Source May 09, 2023 10:00 AM PHYSICAL MEDICINE REHAB NOTE: LOCAL TITLE: REHAB PSYCHOLOGY PROGRESS NOTE STANDARD TITLE: PHYSICAL MEDICINE REHAB NOTE DATE OF NOTE: MAY 09, 2023@10:00 ENTRY DATE: MAY 11, 2023@21:58:38 AUTHOR: CORINNE TIWARI COSIGNER: URGENCY: STATUS: COMPLETED REHABILITATION PSYCHOLOGY PROGRESS NOTE Patient Name: Baron Lyle Date of : 1950 Date of Visit: 05/09/2023 Session Duration: 52 minutes Visit Modality: [facility] Patient Location: [address] [place] [address] Patient CONSENT Visit conducted by synchronous telehealth. [...] services. SESSION CONTENT Ms. Lyle reported feeling depressed and being more tearful. She acknowledged loving Easter for its pentecostal significance, but not feeling personally excited about the holiday this year. Specifically, she feels overwhelmed by the coordination of the 's care and household management responsibilities (e.g., cooking Easter dinner for her family). She noted her tearfulness is in response to reminders of the [place]'s absence from her daily life. She explained that their anniversary is next week which contributes to her emotional response. Caregiver denied any suicidal ideation or thoughts she would be better off . Provider reflected her feelings, challenged some of her cognitions (e.g., her personal responsibility to manage the holiday dinner), and assisted her in problem-solving some logistic challenges. Ms. Lyle reported that the is trying to walk on his own, despite the need to have others. She reminded him of his past falls, the consequences of an additional fall, and helped him problem-solved, though she was doubtful he would change his behavior. Provider reinforced her efforts to keep him safe and to treat him with dignity and autonomy. Caregiver has been catching up on her own health appointments, including having physical therapy for her shoulder and neck, and having her second cataract surgery. These procedures have limited her ability to complete memory care program resident and drive. Her daughter is staying with her until she has recovered; however, Ms. Lyle shared that her daughter has declined to take her places and limited her activity. This has caused tension between them. Provider worked with caregiver to consider alternative options for transportation. Caregiver reports continued difficulties with sleep, explaining that she does not want to go to bed because she misses the . Caregiver has been reading a book on ambiguous loss and has connected emotionally with the content. She also acknowledged not having a strong sense of self in the absence of her daily caregiving responsibilities and being unsure of her place without the active /caregiver identity. She believes this is the most important difficulty she experiences and wished to focus on it. Provider reviewed the concept of values and values-focused actions. Caregiver was asked to think about what she would like others to say about her at a lifetime achievement award celebration. She agreed to do this and bring her thoughts to the next session. OBJECTIVE Session/visit location: [facility] [...] articulate and intelligible. Mood was described as: depressed Affect: Her affect was sad and distressed. Her emotional expressions were appropriately reactive and consistent with conversation topics. She was tearful at several moments during the session, particularly when discussing life without the . She joked several times with the provider. Thought content: Caregiver's thought content was appropriate with no indications of delusions or hallucinations. Suicidal ideation was denied; homicidal ideation was not reported. Thought processes: Caregiver's thought processes were logical/clear, linear, and goal-directed. Judgement/insight: Caregiver demonstrated fair insight into her situation. She demonstrated fair problem solving. She demonstrated good judgment and decision- making. DIAGNOSTIC IMPRESSIONS Based on behavioral observations, session content, and medical record review, the most parsimonious diagnostic scheme includes: Counseling, unspecified RISK ASSESSMENT Known suicide risks include chronic stressors (health concerns, caregiving responsibilities, 's Parkinson's diagnosis and symptoms), insomnia, age (over age 45), race (white), geographic isolation from social support Possible suicide protective factors include the absence of suicidal ideation, plan, and intent; presence of strong interpersonal bonds to family (children, grandchildren, and sisters) and community (taoism community); responsibility/duty to others; help seeking; presents with good impulse control; evidence of spiritual/pentecostal beliefs about value of life (strong spirituality and religiosity); support through medical and mental health care relationships Acute Suicide Risk Level Impression: Low acute [...] care. PLAN HOMEWORK: Ms. Lyle will identify personal values by thinking about what she would want people to say about her at a lifetime achievement award- style event. She will bring these reflections to the next session for continued exploration of personal values. SESSION ENGAGEMENT: RITS Rating = 4 Education was provided during this session. Caregiver indicated readiness to learn by asking questions, making appropriate comments, and demonstrating appropriate nonverbals. RETURN TO CLINIC: Provider and Caregiver agreed that the optimal return to clinic would be two weeks; however, the Caregiver's busy schedule would not permit an appointment in two weeks. A return to clinic was placed for Tuesday, May 30, 2023. Caregiver is aware of how to contact the provider if she has needs before the next appointment. /es/ CORINNE TIWARI, PHD, LP PSYCHOLOGIST, [facility] Signed: 05/11/2023 21:59 CORINNE TIWARI [facility]
--- OUTSIDE RECORDS SUMMARY | 2023-07-19 13:03 | XMS_ITS | Encounter Summary ---
Author Name Department of Vetera Affairs Organization Department of [facility] Address [address] [place] [address] Support Name Relationship Address Phone DAYANA MAGED PARK Next of Kin [address] [place] [address] MAGED ANNE Emergency Contact [phone] [address] Insurance Providers: All historical and [...] PART A Dec 14, 2014 PART A [id number] WW53 [phone] DAYANABARON PATIENT MEDICARE (WNR) MEDICARE (M) PART B Dec 14, 2014 PART B [id number] WW53 [phone] DAYANA BARON PATIENT Selected Encounter This section includes the information on record at [place] for the Encounter. Date/Time Encounter Type Encounter Description Reason Pro vider Source May 31, 2023 09:03 AM Outpatient Encounter PM&RS PHYSICIAN E Encounter Template Text not used by [place] Plan of Treatment: Future Appointments (+ 6 months) and Future Tests (+/- 45 days) The Plan of Treatment section includes future care activities for the patient from all [place] treatmentfacilities. This section includes future appointments and future orders which are active, pending or scheduled. Future Appointments This section includes appointments that were scheduled to occur 6 months from the date of the Encounter, up to a maximum of 20 appointments. The data comes from all [place] treatment facilities. Appointment Date/Time Appointment Type Appointme nt Facility Name June 20, 2023 10:00 AM AMBULATORY - [facility]AB [facility] Jul 18, 2023 10:00 AM AMBULATORY - REHAB MEDICIN [facility] Encounter Notes: All associated encounter notes This section contains the clinical notes associated to the Encounter. Date/Time Encounter Note(s) Provider Source May 31, 2023 09:03 AM REPORT OF CONTACT: LOCAL TITLE: APPOINTMENT SCHEDULING NOTE STANDARD TITLE: REPORT OF CONTACT DATE OF NOTE: MAY 31, 2023@09:03 ENTRY DATE: MAY 31, 2023@09:04:03 AUTHOR: DESTINY PACE EXP COSIGNER: URGENCY: STATUS: COMPLETED APPOINTMENT SCHEDULING NOTE Has ADDENDA Attempted to schedule Return to clinic (RTC) Contact attempt made to 1st attempt Telephone 2nd attempt Text message 3rd attempt Letter - Sent letter by regular [place] mail to address on file: BARON ANNE [address] [place] [address] Left message on voice mail to call back to this number [phone] If [facility] calls back, schedule appt for: 05/30/2023 10:57 New Order entered by CORINNE CALVO (CLINICAL PSYCHO) Order Text: Return to [facility] on or around ( June 20, 2023 ) for a total of 1 appointment(s) Prerequisites: All Modalities Appropriate / Offer Option, Notify ordering provider if minimum scheduling efforts fail 60 min; follow-up /es/ DESTINY PACE ADVANCED MSA Signed: 05/31/2023 09:05 06/01/2023 ADDENDUM STATUS: COMPLETED Attempted to schedule Return to clinic (RTC) Contact attempt made to [facility] 4th attempt or more Telephone Left message on voice mail to call back to this number [phone] If [facility] calls back, schedule appt for: Return to [facility] on or around ( June 20, 2023 ) for a total of 1 appointment(s) Prerequisites: All Modalities Appropriate / Offer Option, Notify ordering provider if minimum scheduling efforts fail 60 min; follow-up /es/ TWIN RINALDI DELIVERY AIDE Signed: 06/01/2023 08:24 DESTINY PACE [facility]
--- OUTSIDE RECORDS SUMMARY | 2023-07-19 13:04 | XMS_ITS | Encounter Summary ---
Author Name [facility] Organization [facility] Address [address] [place] [address] Support Name Relationship Address Phone UNIQUEMAGED MCGOWAN Next of Kin [address] [place] [address] DAYANAMAGEDTER Emergency Contact [phone] [address] Insurance Providers: All historical and [...] PART B Dec 14, 2014 PART B [id number] [phone] BARON ANNE PATIENT MEDICARE (WNR) MEDICARE (M) PART A Dec 14, 2014 PART A [id number] [phone] BARON ANNE PATIENT Selected Encounter This section includes the information on record at [place] for the Encounter. Date/Time Encounter Type Encounter Description Reason Provider Source Jul 17, 2023 11:00 AM GROUP PSYCHOTHERAPY CAREGIVER SUPPORT PROGRAM ICD-10-CM Z65.9 Problem related to unspecified psychosocial circumstances NIDHI SOLIS [facility] Encounter Template Text not used by [place] Assessments - Encounter Diagnoses This section includes the primary and secondary diagnoses documented for the Encounter. Date/Time Primary/Secondary Diagnosis Diagnosis Name Provider Source Jul 17, 2023 02:29 PM PRIMARY Problem related to unspecified psychosocial circumstances WADE SOLIS [facility] Plan of Treatment: Future Appointments (+ 6 months) and Future Tests (+/- 45 days) The Plan of Treatment section includes future care activities for the patient from all [place] treatmentfacilities. This section includes future appointments and future orders which are active, pending or scheduled. Future Appointments This section includes appointments that were scheduled to occur 6 months from the date of the Encounter, up to a maximum of 20 appointments. The data comes from all [facility] facilities. Appointment Date/Time Appointment Type Appointme nt Facility Name Jul 18, 2023 10:00 AM AMBULATORY - REHAB [facility] Encounter Notes: All associated encounter notes This section contains the clinical notes associated to the Encounter. Date/Time Encounter Note(s) Provider Source Jul 17, 2023 11:00 AM CAREGIVER CERTIFIC ATE: LOCAL TITLE: CSP PGCSS INTERMITTENT NOTE STANDARD TITLE: CAREGIVER CERTIFICATE DATE OF NOTE: JUL 17, 2023@11:00 ENTRY DATE: JUL 17, 2023@14:28:52 AUTHOR: THOM SOLIS COSIGNER: URGENCY: STATUS: COMPLETED Program of General Caregiver Support Services Intermittent Note? This caregiver is participating in [place]'s Program of General Caregiver Support? Services ([employer] [place]). While enrolled in the [employer] [place], General Caregivers are eligible? for a benefit [...] Did not assess using formal screening tools. Meat Packer assessed Caregiver through observation of her verbal and chat box participation, and body language. Group Notes Ongoing Parkinsons Disease Support Group? Length of Group: 90 minutes? Facilitators: Thom Solis? Number of Participants: 17? Check-in - Group information and format? New members added from the initial psycho/educational support group. Each member introduced themselves and offered support to each other about individual struggles. Caregivers talked about the struggle of watching the decline, struggling with external issues, and struggling with their own health. Closure:? Next Session August 13 at 11:00am? /es/ THOM SOLIS MILL FEEDER Caregiver Hospice Spiritual Care Coordinator Signed: 07/17/2023 14:45 THOM SOLIS [facility]
[2023-07-19 13:24] LABS: Appearance Urine Clear (Clear); Bilirubin Urine Negative (Negative); Blood Urine Negative (Negative); Color Urine Yellow (Yellow); Glucose Urine Negative (Negative); Ketones Urine Negative (Negative); Leukocyte Esterase Urine Trace (Negative); Nitrite Urine Negative (Negative); Protein Urine Negative (Negative); Specific Gravity Urine 1.015 (1.000-1.030); Urobilinogen Urine 0.2 (0.2-1.0)
[2023-07-19 13:37] LABS: RBC Urine 0-2 (0-2); Squamous Epithelial Cell Urine Few (None-Few); WBC Urine 0-2 (0-5)
[2023-07-19 13:45] LABS: Basophils Absolute Auto 0.02 K/uL (0.00-0.30); Basophils Percent Auto 0.2 % (0.0-3.0); Eosinophils Absolute Auto 0.19 K/uL (0.00-0.50); Eosinophils Percent Auto 1.9 % (0.0-7.0); Hematocrit 46.9 % (33.0-51.0); Hemoglobin* 15.4 gm/dL (12.0-16.0); Immature Granulocytes Abs Auto 0.02 K/uL (0.00-0.30); Immature Granulocytes Pct Auto 0.2 %; Lymphocytes Percent Auto 18.7 % (20-44); Mean Corpuscular HGB Conc 33 gm/dL (32-36); Mean Corpuscular Hemoglobin 29 pg (26-34); Mean Corpuscular Volume 89 fL (80-100); Monocytes Percent Auto 9.7 % (0.0-11.0); Neutrophils Absolute Auto 7.06 K/uL (1.7-7.0); Neutrophils Percent Auto 69.3 % (42.0-72.0); Platelet Count* 324 K/uL (140-440); RDW Coefficient of Variation % 13.4 % (11.5-15.5); Red Blood Count 5.29 m/uL (4.00-5.20); White Blood Count* 10.18 K/uL (4.50-11.00)
[2023-07-19] MEDS: 0.9 % SODIUM CHLORIDE 1000 ml 1,000 ML IV (13:45)
[2023-07-19 13:49] LABS: Slide Review Reflex No
[2023-07-19 13:58] LABS: Albumin* 4.5 g/dL (3.3-5.0); Chloride* 102 mmol/L (96-114)
[2023-07-19 13:59] LABS: Sodium* 139 mmol/L (135-149)
[2023-07-19 14:00] LABS: INR 1.64 (0.91-1.10); Prothrombin Time 20.5 Seconds
[2023-07-19 14:01] LABS: Creatinine* 0.7 mg/dL (0.5-1.5); Est. Creatinine Clearance* 48.72; Estimated Glomerular Filt Rate 91 ml/min
[2023-07-19 14:02] LABS: Alanine Aminotransferase* 24 U/L (4-35); Alkaline Phosphatase* 87 U/L (40-150); Anion Gap 7 mEq/L (7-15); Aspartate Amino Transferase* 25 U/L (12-35); Bilirubin Direct* 0.4 mg/dL (0.0-0.5); Bilirubin Total* 0.6 mg/dL (0.1-1.5); Blood Urea Nitrogen* 16 mg/dL (7-30); Calcium* 9.7 mg/dL (8.4-10.6); Carbon Dioxide* 30 mmol/L (20-32); Glucose* 111 mg/dL (60-115); Magnesium* 1.9 mg/dL (1.5-2.6); Total Protein* 7.5 g/dL (6.0-8.3)
[2023-07-19 14:09] LABS: C Reactive Protein* < 0.5 mg/dL (0.5-1.0); NT Pro B Type NatriureticPept* 130 pg/mL; Potassium* 2.9 mmol/L (3.6-5.1)
[2023-07-19] MEDS: POTASSIUM CHLORIDE 10 MEQ/100 ML PIGGYBACK 100 MEQ IVPB (14:48)
[2023-07-19] MEDS: POTASSIUM BICARB 25 MEQ EFFERVESCENT TAB 50 MEQ PO (14:48)
== END 2023-07-19 16:47 | disposition home or self-care (01) ==
PROVIDERS: Emergency Provider Family Medicine; PCP Internal Medicine
DX: I48.20 Chronic atrial fibrillation, unspecified (principal); E87.6 Hypokalemia
CPT/HCPCS: 36415; 80048; 80076; 81001; 83735; 83880; 84443; 85025; 85610; 86140; 87086; 93005; 96365; 99284; A9270; J3480; J7030

== ENCOUNTER 2023-07-31 10:00 | Outpatient (RCR) | payer MEDICARE, OTHER, SELFPAY ==
--- NOTE | 2023-04-10 16:01 | PT.OPE ---
PT [place] Outpatient Eval PT [facility] Outpatient Eval Start: 04/10/23 09:21 Freq: Status: Active Protocol: Document 04/10/23 11:03 LSL (Rec: 04/10/23 12:22 LSL [id number]) E-signed By Yissel Gerber PT Physical Therapy Outpatient Evaluation Insurance Information Recert Due Date 07/03/23 Insurance Name Medicare B Medical Diagnosis trapezius strain Referring MD Somers Subjective Subjective Pt. has been having R neck pain since June 2022 that has worsened recently to where I can't even move my neck. The noise has decreased since seeing a massage therapist on 03/29/23. Pt. reports it as sore and pulling. Pt. is R hand dominant. Headache this morning but nothing that has been regular. Pt's has been at [facility] since 03/01/22 . The pain is draining and fatiguing me. Pain Comments 5/10 best, 7+/10 worst Date of Last Physician Visit 04/06/23 Current Work Status Retired Preferred Name [facility] Precautions Therapy Limitations/Systems Review Other Medical Problem Objective Range of Motion AROM - flexion WFL, extension 30% with decreased movement on L with L pain, LLF 10% with pull R, RLF 25% with pull R, L rotation 30%, L rotation 25% PROM - assess next session Strength Cervical - flexion and extension 5/5, LLF 4+/5, LLF 5 /5, L rotation 4/5, R rotation 4+/5 Shoulder - R supraspinatus 3+/ 5 with pain, deltoid 4/5 with pain, hor abd 4-/5, ER 3+/5 Palpation R UT tight, R scalenes tight, distal R SCM tight, atrophy of R UT and scalenes, very tight central R cervical paraspinals Posture R shoulder significantly depressed, B protracted scapulae, forward head, increased kyphosis Sensation/Reflexes Compression increases symptoms , distraction alleviates symptoms Reflexes - R UE intact Assessment Assessment/Impression Pt. is a 72 y/o female who presents with atrophy about the right cervical and shoulder region with corresponding weakness and presents with postural deficits in shoulder position and forward head. She has significant tension and restriction in B cervical regions with the R being painful and motion to the left being very limited. Compression really exacerbates symptoms and traction alleviates them. She will benefit from treatment to improve her cervical function and shoulder strength using therex, manual therapy, traction and NM re-ed. Significant past medical history and family history of Lb Danos may contribute to it taking longer for her to recover as it has in the past when she has had therapy for other body parts. Primary Functional Limitations turning her head Plan of Care Rehabilitation Potential Good Physical Therapy Goals SHORT TERM GOALS: (3-4 weeks) 1. Pt. able to report decreased tension in her R UT by 50% 2. Pt. to have increased cervical rotation to 50%. 3. Pt. to have improved L cervical flexion to 25%. USP GOALS: (8 weeks) 1. Pt. to report UT symptoms less than 3x/week. 2. Pt. to have 4/5 or greater R RC strength to improve function of R UE to decrease stress to neck. Coordination/Communication With Referral Source Treatment Plan/Direct Interventions Joint Mobilization,Manual Therapy,Neuromuscular Re-ed, Self-Care/Home Management, Therapeutic Exercises,Traction (Mechanical) Frequency/Duration 2x/week 8 weeks Patient Will Be Discharged From Therapy Completion of LTG(s) Evaluation Billing Untimed Code Treatment Minutes 40 Complexity Moderate Certification Information Initial Certification Date 04/10/23 Ending Certification Date 07/03/23 Provider Signature Shows Agreement With POC & Medical Necessity Physician Signature & Date Requested Please Sign/Date Here Physician Comment/Change : Physician NPI Number #
== END 2023-11-27 12:28 | disposition home or self-care (01) ==
PROVIDERS: PCP Internal Medicine; Visit Provider Internal Medicine
DX: S46.819A Strain of other muscles, fascia and tendons at shoulder and upper arm level, unspecified arm, initial encounter (principal); R53.1 Weakness; R51.9 Headache, unspecified; R26.9 Unspecified abnormalities of gait and mobility; Z51.89 Encounter for other specified aftercare
CPT/HCPCS: 97012; 97110; 97112; 97140; 97162

== ENCOUNTER 2023-08-03 10:56 | Outpatient (CLI) | payer MEDICARE, OTHER, SELFPAY ==
--- OUTSIDE RECORDS SUMMARY | 2023-08-03 11:00 | XMS_ITS | Continuity of Care Document ---
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 It does not include entries that were removed or entered in error. Problem Status Onset Date Problem Type Date of Resolution Comments Source Diagnosis: ICD-10-CM Z71.9 Counseling, unspecified Active Diagnosis [facility] Diagnosis: ICD-10-CM Z65.9 Problem related to unspecified psychosocial circumstances Active Diagnosis [facility] Diagnosis: ICD-10-CM Z65.8 Oth problems related to psychosocial circumstances Active Diagnosis [facility] Immunizations Combined list of available immunizations from the Department of Defense and [facility] facilities. Immunization Series Date Given Administered By Site Reaction Lot Number CVX Code Drug Consumer Affairs Director Status Comments Source INFLUENZA VACCINE, QUADRIVALENT, ADJUVANTED [address] [facility] COVID-19 (PFIZER), MRNA, LNP-S, PF, 30 MCG/0.3 ML DOSE, EMILY-SUCROSE (AGES 12+ YEARS) 4 2021 217 complet ed PFR; [id number]; 2 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 2) Encounters from the Department of [facility] facilities going back up to 280 months. Location Location Details Encounter Type Encounter Number Reason For Visit Attending Provider ADM Date DC Date Status Disposition Source [facility] PSYTX W PT 45 MINUTES [id number] Diagnos is: ICD-10- CM Z71.9 Front Desk Administrator ing, unspeci fied
CORINNE CALVO 02/22 [facility] GROUP PSYCHOTHER APY [id number] Diagnos is: ICD-10- CM Z65.9 Problem related to unspeci fied psychos ocial circums tances< br/> Liza SOLIS 03/07 [place] [facility] GROUP PSYCHOTHER APY [id number] Diagnos is: ICD-10- CM Z65.9 Problem related to unspeci fied psychos ocial circums tances< br/> Liza SOLIS ESSICA DEBBIE 03/21 [place] [facility] GROUP PSYCHOTHER APY [id number] Diagnos is: ICD-10- CM Z65.9 Problem related to unspeci fied psychos ocial circums tances< br/> Liza SOLIS ESSICA DEBBIE 04/18 [place] [facility] PSYTX W PT 45 MINUTES [id number] Diagnos is: ICD-10- CM Z71.9 Front Desk Administrator ing, unspeci fied
CORINNE CALVO 04/19 [facility] Outpatient Encounter [id number] 05/10 [place] [facility] GROUP PSYCHOTHER APY [id number] Diagnos is: ICD-10- CM Z65.9 Problem related to unspeci fied psychos ocial circums tances< br/> Liza SOLIS ESSICA DEBBIE 05/16 [facility] PSYTX W PT 45 MINUTES [id number] Diagnos is: ICD-10- CM Z71.9 Front Desk Administrator ing, unspeci fied
CORINNE CALVO 05/17 [place] [facility] HC PRO PHONE CALL 5-10 MIN [id number] Diagnos is: ICD-10- CM Z65.8 Oth problem s related to psychos ocial circums tances< br/> LOVE GILL SE 05/19 [place] [facility] PSYTX W PT 60 MINUTES [id number] Diagnos is: ICD-10- CM Z65.8 Oth problem s related to psychos ocial circums tances< br/> SUGAR GILLI SE A 05/26 [facility] Outpatient Encounter [id number] 05/27 [facility] PSYTX W PT 45 MINUTES [id number] Diagnos is: ICD-10- CM Z71.9 Front Desk Administrator ing, unspeci fied
CORINNE CALVO A 05/31 [place] [facility] GROUP PSYCHOTHER APY [id number] Diagnos is: ICD-10- CM Z65.9 Problem related to unspeci fied psychos ocial circums tances< br/> Liza SOLIS 06/13 [facility] PSYTX W PT 45 MINUTES [id number] Diagnos is: ICD-10- CM Z71.9 Front Desk Administrator ing, unspeci fied
CORINNE CALVO 06/28 [facility] PRO PHONE CALL 11-20 MIN [id number] Diagnos is: ICD-10- CM Z65.8 Oth problem s related to psychos ocial circums tances< br/> LOVE GILL SE A 06/29 [facility] Outpatient Encounter [id number] GEOFFREY BAH A 06/30 [facility] PT EDUCATION NOC GROUP [id number] Diagnos is: ICD-10- CM Z65.9 Problem related to unspeci fied psychos ocial circums tances< br/> ST ROBERT HIDALGO 07/12 [facility] GROUP PSYCHOTHER APY [id number] Diagnos is: ICD-10- CM Z65.9 Problem related to unspeci fied psychos ocial circums tances< br/> Liza SOLIS DEBBIE 07/18 [facility] PT EDUCATION NOC GROUP [id number] Diagnos is: ICD-10- CM Z65.9 Problem related to unspeci fied psychos ocial circums tances< br/> SELINA WESTON Oxana ENGLISH 07/19 [facility] PT EDUCATION NOC GROUP 95391-361 [id number] Diagnos is: ICD-10- CM Z65.9 Problem related to unspeci fied psychos ocial circums tances< br/> ST ROBERT HIDALGO 07/[address] [facility] PSYTX W PT 45 MINUTES [id number] Diagnos is: ICD-10- CM Z71.9 Front Desk Administrator ing, unspeci fied
CORINNE CALVO 08/09 [facility] GROUP PSYCHOTHER APY [id number] Diagnos is: ICD-10- CM Z65.9 Problem related to unspeci fied psychos ocial circums tances< br/> Liza SOLIS ESSJERZY DEBBIE 08/[address] [facility] PSYTX W PT 45 MINUTES [id number] Diagnos is: ICD-10- CM Z71.9 Front Desk Administrator ing, unspeci fied
CORINNE CALVO 08/30 [facility] PSYTX W PT 45 MINUTES [id number] Diagnos is: ICD-10- CM Z71.9 Front Desk Administrator ing, unspeci fied
CORINNE CALVO 09/[address] [facility] PSYTX W PT 45 MINUTES [id number] Diagnos is: ICD-10- CM Z71.9 Front Desk Administrator ing, unspeci fied
CORINNE CALVO 09/[address] [place] [facility] PSYTX W PT 45 MINUTES [id number] Diagnos is: ICD-10- CM Z71.9 Front Desk Administrator ing, unspeci fied
CORINNE CALVO 10/11 [facility] PSYCHOTHER APY [id number] Diagnos is: ICD-10- CM Z65.9 Problem related to unspeci fied psychos ocial circums tances< br/> IRMAJ ESSICA DEBBIE 10/24 [place] [facility] PSYTX W PT 45 MINUTES [id number] Diagnos is: ICD-10- CM Z71.9 Front Desk Administrator ing, unspeci fied
CORINNE CALVO 11/01 [facility] GROUP PSYCHOTHER APY [id number] Diagnos is: ICD-10- CM Z65.9 Problem related to unspeci fied psychos ocial circums tances< br/> SOLIS,J ESSICA DEBBIE 11/14 [facility] Outpatient Encounter [id number] 11/30 [facility] PSYTX W PT 45 MINUTES [id number] Diagnos is: ICD-10- CM Z71.9 Front Desk Administrator ing, unspeci fied
CORINNE CALVO 12/06 [facility] HC PRO PHONE CALL 21-30 MIN [id number] Diagnos is: ICD-10- CM Z65.8 Oth problem s related to psychos ocial circums tances< br/> Haris TORO 12/09 [place] [facility] PSYCHOTHER APY [id number] Diagnos is: ICD-10- CM Z65.9 Problem related to unspeci fied psychos ocial circums tances< br/> IRMAJ ESSICA DEBBIE 12/19 [facility] PSYTX W PT 45 MINUTES [id number] Diagnos is: ICD-10- CM Z71.9 Front Desk Administrator ing, unspeci fied
CORINNE CALVO A 12/20 [place] [facility] Outpatient Encounter [id number] TIFFANI,PEE Shin 01/02 [place] [facility] PSYTX W PT 45 MINUTES [id number] Diagnos is: ICD-10- CM Z71.9 Front Desk Administrator ing, unspeci fied
CORINNE CALVO 01/10 [facility] GROUP PSYCHOTHER APY [id number] Diagnos is: ICD-10- CM Z65.9 Problem related to unspeci fied psychos ocial circums tances< br/> Liza SOLIS DEBBIE 01/16 [facility] PSYTX W PT 45 MINUTES [id number] Diagnos is: ICD-10- CM Z71.9 Front Desk Administrator ing, unspeci fied
CORINNE CALVO A 01/31 [facility] Outpatient Encounter [id number] 02/14 [facility] PSYTX W PT 45 MINUTES [id number] Diagnos is: ICD-10- CM Z71.9 Front Desk Administrator ing, unspeci fied
CORINNE CALVO 02/21 [facility] Outpatient Encounter [id number] 02/21 [facility] Outpatient Encounter [id number] Diagnos is: ICD-10- CM Z65.9 Problem related to unspeci fied psychos ocial circums tances< br/> Liza SOLIS DEBBIE 02/21 [place] [facility] [place] [facility] PSYTX W PT 45 MINUTES [id number] Diagnos is: ICD-10- CM Z71.9 Front Desk Administrator ing, unspeci fied
CORINNE CALVO 02/28 [place] [facility] [place] [facility] Outpatient Encounter [id number] 03/03 [place] [facility] [place] [facility] PSYTX W PT 45 MINUTES [id number] Diagnos is: ICD-10- CM Z71.9 Front Desk Administrator ing, unspeci fied
CORINNE CALVO 03/07 [place] [facility] [place] [facility] Outpatient Encounter [id number] 03/08 [place] [facility] [place] [facility] PSYTX W PT 45 MINUTES [id number] Diagnos is: ICD-10- CM Z71.9 Front Desk Administrator ing, unspeci fied
CORINNE CALVO 03/14 [place] [facility] PSYCH[facility]Y [id number] Diagnos is: ICD-10- CM Z65.9 Problem related to unspeci fied psychos ocial circums tances< br/> Liza SOLIS DEBBIE 03/20 [place] [facility] [place] [facility] PSYTX W PT 45 MINUTES [id number] Diagnos is: ICD-10- CM Z71.9 Front Desk Administrator ing, unspeci fied
CORINNE CALVO 03/28 [place] [facility] [place] [facility] Outpatient Encounter [id number] 03/29 [place] [facility] [place] [facility] Outpatient Encounter [id number] Diagnos is: ICD-10- CM Z65.9 Problem related to unspeci fied psychos ocial circums tances< br/> Liza SOLIS ESSICA DEBBIE 04/25 [place] [facility] PSYTX W PT 45 MINUTES [id number] Diagnos is: ICD-10- CM Z71.9 Front Desk Administrator ing, unspeci fied
CORINNE CALVO 05/08 [place] [facility] PRO PHONE CALL 11-20 MIN [id number] Diagnos is: ICD-10- CM Z65.9 Problem related to unspeci fied psychos ocial circums tances< br/> LOSIE,LOVE SE A 05/17 [place] [facility] PSYCHOTHER APY [id number] [id number] Diagnos is: ICD-10- CM Z65.9 Problem related to unspeci fied psychos ocial circums tances< br/> Liza SOLIS DEBBIE 05/21 [facility] PSYCH DIAGNOSTIC EVALUATION [id number] Diagnos is: ICD-10- CM Z65.8 Oth problem s related to psychos ocial circums tances< br/> BISIIE,LOVE SE A 05/22 [place] [facility] PSYTX W PT 45 MINUTES [id number] [id number] Diagnos is: ICD-10- CM Z71.9 Front Desk Administrator ing, unspeci fied
CORINNE CALVO 05/29 [facility] Outpatient Encounter [id number] 05/30 [place] [facility] GROUP PSYCHOTHER APY [id number] Diagnos is: ICD-10- CM Z65.9 Problem related to unspeci fied psychos ocial circums tances< br/> Liza SOLIS DEBBIE 06/18 [place] [facility] PSYTX W PT 45 MINUTES [id number] [id number] Diagnos is: ICD-10- CM Z71.9 Front Desk Administrator ing, unspeci fied
CORINNE CALVO 06/19 [facility] PSYCHOTHER APY [id number] Diagnos is: ICD-10- CM Z65.9 Problem related to unspeci fied psychos ocial circums tances< br/> Liza SOLIS 07/16 [facility] PSYTX W PT 45 MINUTES [id number] [id number] Diagnos is: ICD-10- CM Z71.9 Front Desk Administrator ing, unspeci fied
CORINNE CALVO 07/17 [facility] Outpatient Encounter [id number] 07/20 [facility] PSYTX W PT 45 MINUTES [id number] [id number] Diagnos is: ICD-10- CM Z71.9 Front Desk Administrator ing, unspeci fied
CORINNE CALVO 07/24 [facility] Plan of Care List of future care activities from Department of [facility] Affairs facilities. Additional future care activities may be listed in the Assessment and Plan section. Date/Time Care Activity Care Activity Detail Facili ty 08/04/2023 AMBULATORY - REHAB MEDICINE AMBULATORY - REHAB MEDICINE [facility] 08/11/2023 AMBULATORY - REHAB MEDICINE AMBULATORY - REHAB MEDICINE [facility] 08/15/2023 AMBULATORY - REHAB MEDICINE AMBULATORY - REHAB [facility]
--- OUTSIDE RECORDS SUMMARY | 2023-08-03 11:00 | XMS_ITS | Clinical Summary ---
Author Organization [facility] Address [place], [place] [address] Care Team Providers Care Industrial Maintenance Mechanic Name Role Phone Ness Somers MD Primary Care Provider [phone]- [phone] Allergies Active Allergy Reactions Criticality Noted Date [...] care provider. XR MAMMO MADHURI BILAT SCREEN [[id number]] CLINICAL HISTORY: ??This is an asymptomatic 71 [...] Recently Relevant to Health Maintenance Care Teams Industrial Maintenance Mechanic Relationship Specialty Start Date End Date Ness Somers MD [address] [place] [address] PCP - General Internal Medicine 01/31/17
--- OUTSIDE RECORDS SUMMARY | 2023-08-03 11:00 | XMS_ITS | Clinical Summary ---
Author Organization [facility] Address [address] [place] [address] Care Team Providers Care Dishtank Operator Name Role Phone Found, No Pcp MD Primary Care Provider Unavailab le Source Comments You are receiving this document as you are listed as the primary care provider,follow-up provider, or the patient has been referred to you for consultation.This is in compliance with the Medicare and[facility] EHR Incentive Program,which states Providers who transition their patient to another setting of careor provider of care or refers their patient to another provider of care shouldprovide summary care record for each transition of care or referral. Anzu Allergies Active Allergy Reactions Criticality Noted Date [...] ??C (98.8 ??F) 03/13/2008 1 0:12 AM CAD ADMINISTRATOR ORAL C: 37.1 C Respiratory Rate 18 10/02/2007 4:46 PM CDT Oxygen Saturation 97% 12/05/2017 2:2 0 PM CDT Inhaled Oxygen Concentration - - Weight 97.5 kg (215 lb) 01/26/2016 1:31 PM CAD ADMINISTRATOR Height 172.7 cm (5' 8) 01/26/2016 1:31 PM CAD ADMINISTRATOR Body Mass Index 32.69 01/26/2016 1:31 PM CAD ADMINISTRATOR Plan of Treatment Health Maintenance Due Date [...] LDL (IF NEEDED) Routine 01/05/2011 9:05 AM CAD ADMINISTRATOR Other and unspecified hyperlipidemia (HRC) from Last 3 Months or Most Recently Relevant to Health Maintenance Results * Lipid Panel and Direct LDL(If Needed) (01/05/2011 9:05 AM CAD ADMINISTRATOR) Cholesterol 171 0 - 200 mg/dL HP CONVERSION Triglycerides 75 0 - 149 mg/dL HP CONVERSION HDL Cholesterol 54 >39 mg/dL HP CONVERSION Cholesterol/HDL Ratio Screen 3.2 HP CONVERSION LDL Calculated 102 19 - 130 mg/dL HP CONVERSION Hours Fasting 10 HP CONVERSION 01/05/2011 9:05 AM CAD ADMINISTRATOR 01/05/2011 9:04 AM CAD ADMINISTRATOR Narrative HP CONVERSION - 01/05/2011 9:50 AM CAD ADMINISTRATOR Performed at [facility], [address] [place] [address] Tonia Damon MD LAB_1 HP CONVERSION from Last 3 Months or Most Recently Relevant to Health Maintenance Care Teams Dishtank Operator Relationship Specialty Start Date End Date Found, No Pcp, [address] [place] [address] PCP - General 10/22/21
--- OUTSIDE RECORDS SUMMARY | 2023-08-03 11:00 | XMS_ITS | Encounter Summary ---
Author Organization [employer] Address [address] [place] [address] Care Team Providers Care Bucket Hooker Name Role Phone Found, No Pcp Primary Care Provider Unavailab le Reason for Visit * Reason Comments Refill Encounter Details Date Type Department Care Team (Late st Contact Info) Description 10/11/2015 Refill [facility] [address] [place], [place] [address] Tonia Damon MD [address] [place], [place] [id number] Refill Social History Tobacco Use Types Packs/Day [...] DBP: 70mm Hg on 01/05/2011 Powered by [employer], Reference: [id number], 10/11/2015 4:32:54 PM CDT, Pool: WHITE IMED REFILL([id number]) RT [facility] [employer] * Yvonne Petit RN - 10/12/2015 10:05 AM CDT Further assistance needed to complete refill request Reason: Pt overdue for qualifying visit. Next Steps: Review pended order for accuracy. Sign. Route to frontline pool to schedule appt. Requested Prescriptions Pending Prescriptions Disp Refills ??? ketoconazole (NIZORAL) 2 % cream 60 g 0 Sig: Apply 1 Application topically daily (every 24 hours). RT [employer] * Elvie Olivarez - 10/11/2015 4:32 PM CDT [facility]. Please resend Rx if appropriate, thank you. RT [employer] documented in this encounter Plan of Treatment Not on file documented as of this encounter Visit Diagnoses Not on filedocumented in this encounter Care Teams Bucket Hooker Relationship Specialty Start Date End Date Found, No Pcp, [address] [place] [address] PCP - General 10/22/21 documented as of this encounter
--- OUTSIDE RECORDS SUMMARY | 2023-08-03 11:01 | XMS_ITS | Continuity of Care Document ---
Author Organization [facility] Address [address] [place] [address] Phone Care Team Providers Care Motor Installer Name Role Phone Maggie Garcia MD Unavailable Unavailable Allergies, Adverse Reactions, Alerts Substance Reaction Status Criticality sulfasalazine Active No Information rofecoxib Active No Information PENICILLIN Active No Information OXYCODONE HCL Active No Information acetaminophen Active No Information nalbuphine Active No Information morphine Active No Information latex Active No Information hydromorphone Active No Information ibuprofen Active No Information hydrocodone Active No Information gabapentin Active No Information codeine Active No Information propoxyphene Active No Information Medications Medication Instructions Dosage Effective Dates (start - stop) Status Comments ProAir RespiClick 90 mcg/actuation breath activated inhale 2 puff by inhalation route every 4 - 6 hours as needed 180 MCG - Active albuterol sulfate concentrate 2.5 mg/0.5 mL solution for nebulization inhale 0.5 milliliter by nebulization route 4 times every day 2.5 MG - Active atorvastatin 10 mg tablet take 1 tablet by oral route every day 10 MG - Active diltiazem ER 120 mg capsule,extended release 12 hr take 1 capsule by oral route 2 times every day 120 MG - Active fexofenadine 180 mg tablet take 1 tablet by oral route every day 180 MG - Active ketoconazole 2 % topical cream apply by topical route 2 times every day to the affected area(s) as needed Not Available - Active lisinopril 2.5 mg tablet take 1 tablet by oral route every day 2.5 MG - Active trazodone 100 mg tablet take 1 tablet by oral route every day at bedtime 100 MG - Active trospium ER 60 mg capsule,extended release 24 hr take 1 capsule by oral route every day on an empty stomach 1 hour before meal(s) 60 MG - Active warfarin 3 mg tablet take 1 tablet by oral route every day 3 MG - Active Yuvafem 10 mcg vaginal tablet insert 1 tablet by vaginal route 2 times every week 10 MCG - Active Calcium 600 600 mg calcium (1,500 mg) tablet take 1 Tablet by Oral route every day 1 Tablet - Active magnesium 250 mg tablet take 2 Tablet by Oral route every day 2 Tablet - Active Procedures Procedure Date Office/Outpatient Visit, New Routine Venipuncture Specimen Handling Rbc Sed Rate, Nonautomated Assay Of Serum Albumin Assay Of Creatinine Transferase (Ast) (Sgot) Alanine Amino (Alt) (Sgpt) Assay Of Protein, Any Source CReactive Protein Antinuclear Antibodies Dna Antibody, Single Strand Dna Antibody, Mentasta Nuclear Antigen Antibodies Complete Cbc WAuto Diff Wbc Advance Directives Directive Yes / No Effective Date File Name No Information Encounters Encounter Description Practice Location Reason(s) For Visit Diagnoses Date Provider Providers Copied on Encounter [facility], [address], [place], [address], [place] tel:[phone] [facility] , No Information 8 Radha Serrano. [facility] [address], [place], [address], [place]. tel:[phone] Office/Outpa tient Visit, New [facility], [address], [place], [address], [place] tel:[phone] [facility] , Abnormal Lab Study (chief complaint) tinnitis (chief complaint) Other specified abnormal immunologica l findings in serumOtalgia , unspecified earEdemaHype rtensionLate ral epicondyliti s, right elbowHypothy roidism, unspecifiedA lopecia 8 Radha Serrano. [facility] [address], [place], [address], [place]. tel:[phone] Referring Provider: Maggie Borges, [facility] [address], [place], [address]. tel:[phone] Family History Family Member Type Diagnosis Age At Onset Mother Problem (finding) stroke Mother Problem (finding) Diabetes mellitus Father Problem (finding) hypertension Father Problem (finding) osteoarthritis Father Problem (finding) chronic obstructive gallo g disease Mother Problem (finding) malignant neop lasm of breast in first degree relative Sister Problem (finding) Arthritis Father Problem (finding) coronary arterioscleros is Mother Problem (finding) coronary arterioscleros is Brother Problem (finding) Arthritis Payers Payer name Insurance type Covered alliance party ID Authoriza tion(s) [facility] Medicare Advantage/[employer] Blue [id number] Social History Type Description Quantity Date Captured Comments Sex Female Smoking Status No Information Chief Complaint And Reason For Visit No Information Reason For Referral Reason For Referral No Information History Of Present Illness Encounter Date Complaint History Of Prese nt Illness Abnormal Lab Study tinnitis Functional Status Date Functional Assessmen t No Information Instructions Date Instruction Additional Infor mation conservative measure s recommended and formal therapy if symptoms persist Related to Lateral epicondylitis, right elbow check labs contact p t when results available Related to Otalgia, unspecified ear Check labsContact pa tient with results Related to Other specified abnormal immunological findings in serum Assessments Type Assessment Date No Information Patient Care Teams Name Effective Dates (start - stop) Status Members No Information
== END 2023-08-03 10:57 | disposition home or self-care (01) ==
LOC: NFLDREF 10:57
PROVIDERS: PCP Internal Medicine; Visit Provider Internal Medicine
DX: I48.0 Paroxysmal atrial fibrillation (principal)
CPT/HCPCS: 84132

== ENCOUNTER 2023-08-31 09:30 | Outpatient (CLI) | payer MEDICARE, OTHER, SELFPAY ==
--- OUTSIDE RECORDS SUMMARY | 2023-09-04 07:02 | XMS_ITS | Clinical Summary ---
Author Organization [facility] Address [place], [place] [address] Care Team Providers Care Server Service Assistant Name Role Phone Ness Somers MD Primary Care Provider [phone] Allergies Active Allergy Reactions Criticality Noted Date [...] ASTHMA NOS 03/30/2001 HYPERTENSION - ESSENTIAL 03/30/2001 Encounters Date Type Department Care Team Description 08/18/2023 Orders Only [facility] [address] [place] [address] Gay Champagne 1 scan: (1-Ord) Final Zio from Last 3 Months Immunizations Name Administration Dates Next Due Influenza, [...] 1 - PCV) 2014 COVID-19 vaccine series (2022- season) 2022 11/16/2021, 12/22/2020, 05/08/2020, Additional history exists Influenza for age 65+ 10/15/2023 03/30/2001 Mammogram for age 45-75 11/08/2023 11/08/19 23, 10/12/2021, 07/23/2020, Additional history exists Procedures Procedure Name Priority Date/Time Associated Diagnosis Comments EXTENDED HOLTER Routine 08/03/2023 Paroxysmal A-fib (HC) XR MAMMO MADHURI BILAT SCREEN Routine 11/07/2022 1:53 PM CDT Visit for screening mammogram from Last 3 Months or Most Recently Relevant to Health Maintenance Results * EXTENDED HOLTER (08/03/2023) Ness Somers MD CARDIAC SERVICES O [address] * XR MAMMO MADHURI BILAT SCREEN (11/07/2022 [...] For Patients: As a result of the Cures Act, medical imaging exams and procedure reports are released immediately into your electronic medical record. You may view this report before your referring provider. If you have questions, please contact your health care provider. XR MAMMO MADHURI BILAT SCREEN [[id number]] CLINICAL HISTORY: ??This is an asymptomatic 71 [...] Recently Relevant to Health Maintenance Care Teams Server Service Assistant Relationship Specialty Start Date End Date Ness Somers MD [address] [place], [place] [phone] PCP - General Internal Medicine 01/31/17
--- OUTSIDE RECORDS SUMMARY | 2023-09-04 07:02 | XMS_ITS | Clinical Summary ---
Author Organization [facility] Address [address] [place] [address] Care Team Providers Care Registration Manager Name Role Phone Found, No Pcp MD Primary Care Provider Unavailab le Source Comments You are receiving this document as you are listed as the primary care provider,follow-up provider, or the patient has been referred to you for consultation.This is in compliance with the Medicare and[facility] Cent[facility] EHR Incentive Program,which states Providers who transition their patient to another setting of careor provider of care or refers their patient to another provider of care shouldprovide summary care record for each transition of care or referral. [employer] Allergies Active Allergy Reactions Criticality Noted Date [...] ??C (98.8 ??F) 03/13/2008 1 0:12 AM RESIDENTIAL REAL ESTATE ASSISTANT ORAL C: 37.1 C Respiratory Rate 18 10/02/2007 4:46 PM CDT Oxygen Saturation 97% 12/05/2017 2:2 0 PM CDT Inhaled Oxygen Concentration - - Weight 97.5 kg (215 lb) 01/26/2016 1:31 PM RESIDENTIAL REAL ESTATE ASSISTANT Height 172.7 cm (5' 8) 01/26/2016 1:31 PM RESIDENTIAL REAL ESTATE ASSISTANT Body Mass Index 32.69 01/26/2016 1:31 PM RESIDENTIAL REAL ESTATE ASSISTANT Plan of Treatment Health Maintenance Due Date Last Done Comments Colon Cancer Screening Plan Due 1950 Hep C Screening (Preventive Services) 1950 Medicare Annual Wellness Visit 1950 Dexa 2014 Cholesterol 01/06/2016 01/05/2011, 10/0 05/2010, 04/07/2009, Additional history exists Pneumococcal 65+ Yrs (2 - PCV) 09/24/2016 09/25/2015 Mammogram 07/23/2021 07/23/2020, 01/13, 02/09/2018 COVID-19 Vaccine (3 - season) 2022 05/08/2020, 04/17/2020 Influenza (#1) 2023 03/30/2001 DTaP/Tdap/Td (3 - Tdap) 09/01/2026 [...] LDL (IF NEEDED) Routine 01/05/2011 9:05 AM RESIDENTIAL REAL ESTATE ASSISTANT Other and unspecified hyperlipidemia (HRC) from Last 3 Months or Most Recently Relevant to Health Maintenance Results * Lipid Panel and Direct LDL(If Needed) (01/05/2011 9:05 AM RESIDENTIAL REAL ESTATE ASSISTANT) Cholesterol 171 0 - 200 mg/dL HP CONVERSION Triglycerides 75 0 - 149 mg/dL HP CONVERSION HDL Cholesterol 54 >39 mg/dL HP CONVERSION Cholesterol/HDL Ratio Screen 3.2 HP CONVERSION LDL Calculated 102 19 - 130 mg/dL HP CONVERSION Hours Fasting 10 HP CONVERSION 01/05/2011 9:05 AM RESIDENTIAL REAL ESTATE ASSISTANT 01/05/2011 9:04 AM RESIDENTIAL REAL ESTATE ASSISTANT Narrative HP CONVERSION - 01/05/2011 9:50 AM RESIDENTIAL REAL ESTATE ASSISTANT Performed at [facility], [address] [place] [address] Tonia Damon MD LAB_1 HP CONVERSION from Last 3 Months or Most Recently Relevant to Health Maintenance Care Teams Registration Manager Relationship Specialty Start Date End Date Found, No Pcp, [address] [place] [address] PCP - General 10/22/21
--- OUTSIDE RECORDS SUMMARY | 2023-09-04 07:02 | XMS_ITS | Continuity of Care Document ---
Author Name [facility] Organization [facility] Care Team Providers Care Oyster Grader Name Role Phone [facility] Unavailable Unavailable Problems Combined list of problems from Department of Defense and [facility] facilities. It does not include entries that were removed or entered in error. Problem Status Onset Date Problem Type Date of Resolution Comments Source Diagnosis: ICD-10-CM Z71.9 Counseling, unspecified Active Diagnosis [facility] Diagnosis: ICD-10-CM Z65.9 Problem related to unspecified psychosocial circumstances Active Diagnosis [facility] Diagnosis: ICD-10-CM Z65.8 Oth problems related to psychosocial circumstances Active Diagnosis [facility] Immunizations Combined list of available immunizations from the Department of Defense and Veterans [facility] facilities. Immunization Series Date Given Administered By Site Reaction Lot Number CVX Code Drug Flea Market Seller Status Comments Source INFLUENZA VACCINE, QUADRIVALENT, ADJUVANTED 2021 205 complet ed [facility] COVID-19 (PFIZER), MRNA, LNP-S, PF, 30 MCG/0.3 ML DOSE, EMILY-SUCROSE (AGES 12+ YEARS) 4 2021 217 complet ed PFR; [id number]; 2 [facility] Encounters Combined list of: 1) Encounters from Department of [facility] facilities going back up to thelast 18 months. 2) Encounters from the Department of [place] facilities going back up to 280 months. Location Location Details Encounter Type Encounter Number Reason For Visit Attending Provider ADM Date DC Date Status Disposition Source [facility] [place] [id number] Diagnos is: ICD-10- CM Z65.9 Problem related to unspeci fied psychos ocial circums tances< br/> Liza SOLIS 03/07 [facility] [id number] Diagnos is: ICD-10- CM Z65.9 Problem related to unspeci fied psychos ocial circums tances< br/> Liza SOLIS ESSICA DEBBIE 03/21 [place] [id number] Diagnos is: ICD-10- CM Z65.9 Problem related to unspeci fied psychos ocial circums tances< br/> Liza SOLIS ESSICA DEBBIE 04/18 [place] [facility] W PT 45 MINUTES [id number] Diagnos is: ICD-10- CM Z71.9 Teaching Music 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
CORINNE CALVO 04/19 [place] [facility] En[facility] [id number] 05/10 [facility] [id number] Diagnos is: ICD-10- CM Z65.9 Problem related to unspeci fied psychos ocial circums tances< br/> Liza SOLIS ESSICA DEBBIE 05/16 [facility] W PT 45 MINUTES [id number] Diagnos is: ICD-10- CM Z71.9 Teaching Music 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
CORINNE CALVO 05/17 [place] [facility] PRO PHONE CALL 5-10 MIN [id number] Diagnos is: ICD-10- CM Z65.8 Oth problem s related to psychos ocial circums tances< br/> SUGAR GILLI SE A 05/19 [place] [facility] W PT 60 MINUTES [id number] Diagnos is: ICD-10- CM Z65.8 Oth problem s related to psychos ocial circums tances< br/> JAIRO,LOVE SE A 05/26 [place] [facility] En[facility] [id number] 05/27 [place] [facility] PSY[facility] W PT 45 MINUTES [id number] Diagnos is: ICD-10- CM Z71.9 Teaching Music 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
CORINNE CALVO A 05/31 [place] [facility] APY [id number] Diagnos is: ICD-10- CM Z65.9 Problem related to unspeci fied psychos ocial circums tances< br/> Liza SOLIS DEBBIE 06/13 [place] [facility] W PT 45 MINUTES [id number] Diagnos is: ICD-10- CM Z71.9 Teaching Music 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
CORINNE CALVO A 06/28 [facility] PRO PHONE CALL 11-20 MIN [id number] Diagnos is: ICD-10- CM Z65.8 Oth problem s related to psychos ocial circums tances< br/> BISISUGAR ENGLANDCassy WICK A 06/29 [facility] Encounter [id number] GEOFFREY BAH A 06/30 [facility] PT EDUCATION NOC GROUP [id number] Diagnos is: ICD-10- CM Z65.9 Problem related to unspeci fied psychos ocial circums tances< br/> ST ROBERT HIDALGO 07/12 [place] [facility]CH[facility] APY [id number] Diagnos is: ICD-10- CM Z65.9 Problem related to unspeci fied psychos ocial circums tances< br/> Liza SOLIS DEBBIE 07/18 [facility] PT EDUCATION NOC GROUP [id number] Diagnos is: ICD-10- CM Z65.9 Problem related to unspeci fied psychos ocial circums tances< br/> SELINA WESTON 07/19 [place] [facility] PT EDUCATION NOC GROUP [id number] Diagnos is: ICD-10- CM Z65.9 Problem related to unspeci fied psychos ocial circums tances< br/> ST ROBERT HIDALGO 07/26 [place] [facility] PSYTX W PT 45 MINUTES [id number] Diagnos is: ICD-10- CM Z71.9 Teaching Music 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
CORINNE CALVO 08/09 [facility] PS[facility]CHOTHER [facility]Y [id number] Diagnos is: ICD-10- CM Z65.9 Problem related to unspeci fied psychos ocial circums tances< br/> Liza SOLIS 08/15 [facility] PSYTX W PT 45 MINUTES [id number] [id number] Diagnos is: ICD-10- CM Z71.9 Teaching Music 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
CORINNE CALVO 08/30 [facility] PSYTX W PT 45 MINUTES [id number] Diagnos is: ICD-10- CM Z71.9 Teaching Music 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
CORINNE CALVO 09/06 [place] [facility] PT 45 MINUTES [id number] Diagnos is: ICD-10- CM Z71.9 Teaching Music 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
CORINNE CALVO 09/27 [place] [facility] PSYTX W PT 45 MINUTES [id number] Diagnos is: ICD-10- CM Z71.9 Teaching Music 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
CORINNE CALVO 10/11 [place] [facility]Y [id number] Diagnos is: ICD-10- CM Z65.9 Problem related to unspeci fied psychos ocial circums tances< br/> Liza SOLISICA DEBBIE 10/24 [facility] W PT 45 MINUTES [id number] Diagnos is: ICD-10- CM Z71.9 Teaching Music 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
CORINNE CALVO 11/01 [facility] PSYCH[facility] APY [id number] Diagnos is: ICD-10- CM Z65.9 Problem related to unspeci fied psychos ocial circums tances< br/> Liza SOLIS ESSICA DEBBIE 11/14 [facility] Out[facility] Encounter [id number] 11/30 [facility] PSYTX W PT 45 MINUTES [id number] Diagnos is: ICD-10- CM Z71.9 Teaching Music 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
CORINNE CALVO 12/06 [facility] PRO PHONE CALL 21-30 MIN [id number] Diagnos is: ICD-10- CM Z65.8 Oth problem s related to psychos ocial circums tances< br/> Haris TORO 12/09 [facility] PS[facility]CH[facility] APY [id number] Diagnos is: ICD-10- CM Z65.9 Problem related to unspeci fied psychos ocial circums tances< br/> Liza SOLIS ESSICA DEBBIE 12/19 [facility] W PT 45 MINUTES [id number] Diagnos is: ICD-10- CM Z71.9 Teaching Music 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
CORINNE CALVO 12/20 [facility] En[facility] [id number] PEE NIXON 01/02 [facility] PSYTX W PT 45 MINUTES [id number] Diagnos is: ICD-10- CM Z71.9 Teaching Music 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
CORINNE CALVO 01/10 [facility] PSYCH[facility]Y [id number] Diagnos is: ICD-10- CM Z65.9 Problem related to unspeci fied psychos ocial circums tances< br/> Liza SOLIS DEBBIE 01/16 [facility] W PT 45 MINUTES [id number] Diagnos is: ICD-10- CM Z71.9 Teaching Music 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
CORINNE CALVO 01/31 [facility] En[facility] [id number] 02/14 [facility] PSYTX W PT 45 MINUTES [id number] Diagnos is: ICD-10- CM Z71.9 Teaching Music 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
CORINNE CALVO 02/21 [facility] Encounter [id number] 02/21 [facility] Encounter [id number] Diagnos is: ICD-10- CM Z65.9 Problem related to unspeci fied psychos ocial circums tances< br/> Liza SOLIS DEBBIE 02/21 [facility] PSYTX W PT 45 MINUTES [id number] Diagnos is: ICD-10- CM Z71.9 Teaching Music 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
CORINNE CALVO 02/28 [facility] [place] [facility] En[facility] [id number] 03/03 [place] [facility] 45 MINUTES [id number] Diagnos is: ICD-10- CM Z71.9 Teaching Music 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
CORINNE CALVO 03/07 [place] [place] En[facility] [id number] 03/08 [place] [facility] 45 MINUTES [id number] Diagnos is: ICD-10- CM Z71.9 Teaching Music 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
CORINNE CALVO 03/14 [facility] PS[facility]CH[facility]Y [id number] Diagnos is: ICD-10- CM Z65.9 Problem related to unspeci fied psychos ocial circums tances< br/> Liza SOLIS DEBBIE 03/20 [facility] W PT 45 MINUTES [id number] Diagnos is: ICD-10- CM Z71.9 Teaching Music 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
CORINNE CALVO 03/28 [facility] [id number] 03/29 [facility] En[facility] [id number] Diagnos is: ICD-10- CM Z65.9 Problem related to unspeci fied psychos ocial circums tances< br/> Liza SOLIS ESSICA DEBBIE 04/25 [facility] 45 MINUTES [id number] Diagnos is: ICD-10- CM Z71.9 Teaching Music 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
CORINNE CALVO 05/08 [place] [facility] PRO PHONE CALL 11-20 MIN [id number] Diagnos is: ICD-10- CM Z65.9 Problem related to unspeci fied psychos ocial circums tances< br/> LOVE GILL SE A 05/17 [place] [facility] PS[facility]CH[facility] APY [id number] Diagnos is: ICD-10- CM Z65.9 Problem related to unspeci fied psychos ocial circums tances< br/> Liza SOLIS DEBBIE 05/21 [facility] PSYCH DIAGNOSTIC EVALUATION [id number] Diagnos is: ICD-10- CM Z65.8 Oth problem s related to psychos ocial circums tances< br/> LOVE GILL SE A 05/22 [facility] PSYTX W PT 45 MINUTES [id number] Diagnos is: ICD-10- CM Z71.9 Teaching Music 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
CORINNE CALVO A 05/29 [facility] En[facility] [id number] 05/30 [facility] PSYCHOTHER APY [id number] Diagnos is: ICD-10- CM Z65.9 Problem related to unspeci fied psychos ocial circums tances< br/> Liza SOLIS ESSICA DEBBIE 06/18 [facility] PSYTX W PT 45 MINUTES [id number] Diagnos is: ICD-10- CM Z71.9 Teaching Music 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
CORINNE CALVO A 06/19 [place] [facility] PSYCH[facility]Y [id number] Diagnos is: ICD-10- CM Z65.9 Problem related to unspeci fied psychos ocial circums tances< br/> Liza SOLIS 07/16 [facility] PSYTX W PT 45 MINUTES [id number] [id number] Diagnos is: ICD-10- CM Z71.9 Teaching Music 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
CORINNE CALVO 07/17 [facility] Encounter [id number] 07/20 [facility] PSYTX W PT 45 MINUTES [id number] Diagnos is: ICD-10- CM Z71.9 Teaching Music 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
CORINNE CALVO 07/24 [facility] PSYCHOTHER APY [id number] Diagnos is: ICD-10- CM Z65.9 Problem related to unspeci fied psychos ocial circums tances< br/> Liza SOLIS 08/13 [facility] PSYTX W PT 45 MINUTES [id number] [id number] Diagnos is: ICD-10- CM Z71.9 Teaching Music 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
CORINNE CALVO 08/21 [facility] Plan of Care List of future care activities from Department of [facility] Affairs facilities. Additional future care activities may be listed in the Assessment and Plan section. Date/Time Care Activity Care Activity Detail Facili ty 09/12/2023 AMBULATORY - REHAB MEDICINE AMBULATORY - REHAB MEDICINE [facility]
--- OUTSIDE RECORDS SUMMARY | 2023-09-04 07:02 | XMS_ITS | Encounter Summary ---
Author Organization [employer] Address [address] [place] [address] Care Team Providers Care Street Railway Line Installer Name Role Phone Found, No Pcp Primary Care Provider Unavailab le Reason for Visit * Reason Comments Refill Encounter Details Date Type Department Care Team (Late st Contact Info) Description 10/11/2015 Refill [facility] [address] [place], [place] [address] Tonia Damon MD [address] [place], [place] [id number] Refill Social History Tobacco Use Types Packs/Day [...] DBP: 70mm Hg on 01/05/2011 Powered by [employer], Reference: [id number], 10/11/2015 4:32:54 PM CDT, Pool: [facility] REFILL([id number]) INSPECTION ENGINEER * Yvonne Petit RN - 10/12/2015 10:05 AM CDT Further assistance needed to complete refill request Reason: Pt overdue for qualifying visit. Next Steps: Review pended order for accuracy. Sign. Route to frontline pool to schedule appt. Requested Prescriptions Pending Prescriptions Disp Refills ??? ketoconazole (NIZORAL) 2 % cream 60 g 0 Sig: Apply 1 Application topically daily (every 24 hours). INSPECTION ENGINEER * Elvie Olivarez - 10/11/2015 4:32 PM CDT [facility]. Please resend Rx if appropriate, thank you. INSPECTION ENGINEER documented in this encounter Plan of Treatment Not on file documented as of this encounter Visit Diagnoses Not on filedocumented in this encounter Care Teams Street Railway Line Installer Relationship Specialty Start Date End Date Found, No Pcp, [address] [place] [address] PCP - General 10/22/21 documented as of this encounter
--- OUTSIDE RECORDS SUMMARY | 2023-09-04 07:03 | XMS_ITS | Continuity of Care Document ---
Author Organization [facility] Address [address] [place] [address] Phone Care Team Providers Care Phototypesetting Equipment Monitor Name Role Phone Maggie Garcia MD Unavailable [...] Antibodies Dna Antibody, Single Strand Dna Antibody, Minto Nuclear Antigen Antibodies Complete Cbc WAuto Diff Wbc Advance Directives Directive Yes / No Effective Date File Name No Information Encounters Encounter Description Practice Location Reason(s) For Visit Diagnoses Date Provider Providers Copied on Encounter [facility], [address], [place], [address], [place] tel:[phone] [facility] , No Information 8 Radha Serrano. [facility] [address], [place], [address], [place]. tel:[phone] Office/Outpa tient Visit, New [facility], [address], [place], [address], [place] tel:[phone] [facility] , Abnormal Lab Study (chief complaint) tinnitis (chief complaint) Other specified abnormal immunologica l findings in serumOtalgia , unspecified earEdemaHype rtensionLate ral epicondyliti s, right elbowHypothy roidism, unspecifiedA lopecia 8 Radha Serrano. [facility] [address], [place], [address], [place]. tel:[phone] Referring Provider: Maggie Borges, [facility] [address], [place], [address]. tel:[phone] Family History Family Member Type Diagnosis Age [...] Arth[facility] Payers Payer name Insurance type Covered republican ID Authoriza tion(s) [id number] Medicare Advantage/Plat inum Blue [id number] Social History Type Description Quantity Date Captured [...]
--- OUTSIDE RECORDS SUMMARY | 2023-09-04 07:03 | XMS_ITS | Continuity of Care Document ---
Author Organization [facility] Address [address] [address] [place] [address] Phone Care Team Providers Care Insurance Office Manager Name Role Phone Go Tip CAO Unavailable Unavailable Advance Directives Directive Yes / No Effective Date File Name No Information Encounters Encounter Description Practice Location Reason(s) For Visit Diagnoses Date Provider Providers Copied on Encounter [facility], [address] [address], [place], [place], [address], [place] tel:[phone] [facility] No Information Mendez Whelan. [address] [facility] [address] [address] [facility], [facility] [address], [place], [place], [address], [place]. tel:[phone] Family History Family Member Type Diagnosis Age At Onset No Information Payers Payer name Insurance type Covered democrat ID Authoriza tieliel(s) [employer] [place] [id number] Social History Type Description Quantity Date Captured [...]
== END 2023-08-31 09:31 | disposition home or self-care (01) ==
LOC: NFLDREF 09-04 07:00
PROVIDERS: PCP Internal Medicine; Referring Provider Internal Medicine; Visit Provider Internal Medicine
DX: E87.6 Hypokalemia (principal); Z79.01 Long term (current) use of anticoagulants
CPT/HCPCS: 84132

== ENCOUNTER 2023-09-29 10:36 | Outpatient (CLI) | payer MEDICARE, OTHER, SELFPAY | END 2023-09-29 10:37 | disposition home or self-care (01) | LOC: NFLDREF 13:03 | PROVIDERS: PCP Internal Medicine; Referring Provider Internal Medicine; Visit Provider Internal Medicine | DX: E87.6 Hypokalemia (principal) | CPT/HCPCS: 80048; 80061; 82306; 84132 ==

== ENCOUNTER 2023-10-26 11:18 | Outpatient (CLI) | payer MEDICARE, OTHER, SELFPAY ==
--- OUTSIDE RECORDS SUMMARY | 2023-10-26 11:24 | XMS_ITS | Encounter Summary ---
Author Name [facility] Organization [facility] [place] Address [address] [place] [address] Support Name Relationship Address Phone DAYANAMAGED Next of Kin [address] [place] [address] MAGED ANNE Emergency Contact [phone], [place] [address] Insurance Providers: All historical and [...] PART A Dec 14, 2014 PART A [id number] [phone] BARON ANNE PATIENT MEDICARE (WNR) MEDICARE ([place]) PART B Dec 14, 2014 PART B [id number] [phone] BARON ANNE PATIENT Selected Encounter This section includes the information on record at [place] for the Encounter. Date/Time Encounter Type Encounter Description Reason Provider Source Aug 14, 2023 11:00 AM GROUP PSYCHOTHERAPY CAREGIVER SUPPORT PROGRAM ICD-10-CM Z65.9 Problem related to unspecified psychosocial circumstances NIDHI SOLIS [facility] Encounter Template Text not used by [place] Assessments - Encounter Diagnoses This section includes the primary and secondary diagnoses documented for the Encounter. Date/Time Primary/Secondary Diagnosis Diagnosis Name Provider Source Aug 15, 2023 07:38 AM PRIMARY Problem related to unspecified psychosocial circumstances WADE SOLIS [facility] Plan of Treatment: Future Appointments (+ 6 months) and Future Tests (+/- 45 days) The Plan of Treatment section includes future care activities for the patient from all [place] [facility]. This section includes future appointments and future orders which are active, pending or scheduled. Future Appointments This section includes appointments that were scheduled to occur 6 months from the date of the Encounter, up to a maximum of 20 appointments. The data comes from all [facility]. Appointment Date/Time Appointment Type Appointme nt Facility Name Aug 22, 2023 09:00 AM AMBULATORY - REHAB MEDICIN E [facility] Sep 12, 2023 10:00 AM AMBULATORY - REHAB MEDICIN E [facility] Oct 03, 2023 10:00 AM AMBULATORY - REHAB MEDICIN E [facility] Oct 24, 2023 10:00 AM AMBULATORY - REHAB MEDICIN E [facility] Encounter Notes: All associated encounter notes This section contains the clinical notes associated to the Encounter. Date/Time Encounter Note(s) Provider Source Aug 14, 2023 11:00 AM CAREGIVER CERTIFIC ATE: LOCAL TITLE: [facility] INTERMITTENT NOTE STANDARD TITLE: CAREGIVER CERTIFICATE DATE OF NOTE: AUG 14, 2023@11:00 ENTRY DATE: AUG 15, 2023@07:37:30 AUTHOR: THOM SOLIS EXP COSIGNER: URGENCY: STATUS: COMPLETED Program of General Caregiver Support Services Intermittent Note? This caregiver is participating in [place]'s Program of General Caregiver Support? Services ([facility]). While enrolled in the [facility], General Caregivers are eligible? for a benefit package to include: Education, Training, and Technical Support,? Telehealth, Teaching, Respite Care, and Counseling.? Identified the caregiver using full name and the following other garcia identifier:? This was Verified during the individual call prior to the beginning of the group during an individual contact.?Method of contact: Telehealth/[place] Video Connect? Caregiver Contact [...] Did not assess using formal screening tools. Cut Off Saw Grader assessed Caregiver through observation of her verbal and chat box participation, and body language. Group Notes Ongoing Parkinsons Disease Support Group? Length of Group: 115 minutes? Facilitators: Thom oSlis? Number of Participants: 17? Check-in - Group information and format? Caregivers talked about the difficulties they were having in caring for the [place]. Talked about the difficulty in planning for trips. Talked about the difficulty in finding time for themselves and having a separate identity from Caregiving. Talked about the difficulty in experiencing ambiguous loss knowing that the [place] would pass away. Talked about the ways they can advocate for the in systems. Caregivers received support from [facility] and fellow Caregivers. Worked on radical acceptance of self and situation and cognitive reframing. Closure:? Next Session September 17 at 11:00am? /es/ THOM SOLIS, [facility] Caregiver Inspector Eyeglass Frames Signed: 08/15/2023 07:46 THOM SOLIS [facility]
--- OUTSIDE RECORDS SUMMARY | 2023-10-26 11:24 | XMS_ITS | Encounter Summary ---
Author Name [facility] [place] [facility] [place] Address [address] [place] [address] Support Name Relationship Address Phone DAYANAMAGED Next of Kin [phone] [place] [address] MAGED LYLE Emergency Contact [phone], [place] [address] Insurance Providers: All historical and [...] PART A Dec 14, 2014 PART A [id number] [phone] KEILYERISSHEBA MCGOWAN PATIENT MEDICARE (WNR) MEDICARE (M) PART B Dec 14, 2014 PART B [id number] [phone] SHEBA LYLE PATIENT Selected Encounter This section includes the information on record at [place] for the Encounter. Date/Time Encounter Type Encounter Description Reason Provider Source Jul 18, 2023 10:00 AM PSYTX W PT 45 MINUTES PM&RS PHYSICIAN ICD-10-CM Z71.9 Counseling, unspecified CORINNE TIWARI [place] Encounter Template Text not used by [place] Assessments - Encounter Diagnoses This section includes the primary and secondary diagnoses documented for the Encounter. Date/Time Primary/Secondary Diagnosis Diagnosis Name Provider Source Jul 20, 2023 02:11 PM PRIMARY Counseling, unspecified CORINNE TIWARI [facility] Plan of Treatment: Future Appointments (+ 6 months) and Future Tests (+/- 45 days) The Plan of Treatment section includes future care activities for the patient from all [place] [facility]. This section includes future appointments and future orders which are active, pending or scheduled. Future Appointments This section includes appointments that were scheduled to occur 6 months from the date of the Encounter, up to a maximum of 20 appointments. The data comes from all [place] treatment facilities. Appointment Date/Time Appointment Type Appointme nt Facility Name Jul 25, 2023 09:00 AM AMBULATORY - REHAB MEDICIN E [facility] Aug 04, 2023 05:00 PM AMBULATORY - REHAB MEDIC[facility] E [facility] Aug 11, 2023 05:00 PM AMBULATORY - REHAB MEDICIN E [facility] Aug 22, 2023 09:00 AM AMBULATORY - REHAB MEDICIN E [facility] Sep 12, 2023 10:00 AM AMBULATORY - REHAB MEDICIN E [facility] Oct 03, 2023 10:00 AM AMBULATORY - REHAB MEDICIN E [facility] Oct 24, 2023 10:00 AM AMBULATORY - REHAB MEDICIN E [facility] Encounter Notes: All associated encounter notes This section contains the clinical notes associated to the Encounter. Date/Time Encounter Note(s) Provider Source Jul 18, 2023 11:00 AM MENTAL HEALTH WILMA TMENT PLAN NOTE: LOCAL TITLE: MH TREATMENT PLAN STANDARD TITLE: MENTAL HEALTH TREATMENT PLAN NOTE DATE OF NOTE: JUL 18, 2023@11:00 ENTRY DATE: JUL 20, 2023@14:22:20 AUTHOR: CORINNE TIWARI COSIGNER: URGENCY: STATUS: COMPLETED TREATMENT PLAN TYPE: Update MENTAL HEALTH TEAM ASSIGNMENT: Rehabilitation & Extended Care Psychology Team CAREGIVER PARTICIPATION IN TREATMENT PLANNING: Plan will be reviewed with caregiver in next session FAMILY INVOLVEMENT: No (Caregiver does not desire family involvement) DIAGNOSIS: Counseling, unspecified (ICD-10-CM Z71.9) SUICIDE RISK ASSESSMENT: Known suicide risks include chronic stressors (health concerns, caregiving responsibilities, 's Parkinson's diagnosis and symptoms), insomnia, age (over age 45), race (white), geographic isolation from social support. Possible suicide protective factors include the absence of suicidal ideation, plan, and intent; presence of strong interpersonal bonds to family (children, grandchildren, and sisters) and community (cheondoism community); responsibility/duty to others; help seeking; presents with good impulse control; evidence of spiritual/congregational beliefs about value of life (strong spirituality [...] reasons for living, and engagement in care. IDENTIFIED PROBLEMS: Ms. Lyle continues to seek support for her management of her 's Parkinson's-related symptoms and her emotional response to his behaviors, as well as the stress and strain of her caregiver role and responsibilities. STRENGTHS: Ms. Lyle has a strong values system based on her spirituality/religiosity, viewing her role as a caregiver as a spiritual commitment to her valued role as a . She also has a community of social support in her family and [employer]based organization. BARRIERS: Ms. Lyle's 's condition is unlikely to improve, and she focuses on reasoning with her 's behaviors rather than acceptance of his condition and management of her response to it. Additionally, Ms. Lyle also cares deeply for others in her life, and she often sacrifices her needs in the support of others' needs. Although she has a strong social support network, this group can also be a source of additional stress and strain. GOAL #1: Increase engagement in pleasurable/valued activities INTERVENTION(S)/OBJECTIVE METHODS TO ACCOMPLISH GOAL #1: Individual Psychotherapy with Dr. Corinne Tiwari, PhD, LP.: Dr. Tiwari will assess positive emotional engagement behaviors at each visit and provide psychoeducation regarding specific interventional strategies. Caregiver agrees to ask questions if she has concerns or does not fully understand content or expectations of therapy. Caregiver will regularly attend appointments and complete agreed upon mcf-yi-uhgfwau assignments. The frequency of individual appointments will be reassessed by the provider and caregiver at each appointment and documented in the progress note. Caregiver will be encouraged to involve supportive people (e.g., family/friends) in the treatment as applicable. Different evidence-based treatment options will be discussed with Caregiver as part of current treatment planning. Caregiver will contact provider as needed for non-emergent MH concerns between appointments; responsible staff will return contact to in timely manner. Caregiver will use emergency MH options as agreed upon with provider (911, Emergency Department, National Crisis Line). PROGRESS TOWARD GOAL #1 WILL BE MEASURED BY: Caregiver self-report, provider observations in progress notes, regular attendance at MH appointments, and completion of tlw-zj-kzdudwu assignments. GOAL #2: Reduce emotional suffering/increased acceptance INTERVENTION(S)/OBJECTIVE METHODS TO ACCOMPLISH GOAL #2: Individual Psychotherapy with Dr. Coirnne Tiwari, PhD, LP.: Dr. Tiwari will assess emotional well-being at each visit and provide psychoeducation regarding specific interventional strategies. Caregiver agrees to ask questions if she has concerns or does not fully understand content or expectations of therapy. Caregiver will regularly attend appointments and complete agreed upon zln-ow-siozrgn assignments. The frequency of individual appointments will be reassessed by the provider and caregiver at each appointment and documented in the progress note. Caregiver will be encouraged to involve supportive people (e.g., family/friends) in the treatment as applicable. Different evidence-based treatment options will be discussed with Caregiver as part of current treatment planning. Caregiver will contact provider as needed for non-emergent MH concerns between appointments; responsible staff will return contact to in timely manner. Caregiver will use emergency MH options as agreed upon with provider (911, Emergency Department, National Crisis Line). PROGRESS TOWARD GOAL #2 WILL BE MEASURED BY: Caregiver self-report, provider observations in progress notes, regular attendance at MH appointments, and completion of wcs-ux-lgksuyt assignments. DATE OF NEXT TREATMENT PLAN REVIEW: July 19, 2024 /josephine/ CORINNE TIWARI, PHD, LP PSYCHOLOGIST, [facility] Signed: 07/20/2023 14:[address] [facility] Jul 18, 2023 10:00 AM PHYSICAL MEDICINE REHAB NOTE: LOCAL TITLE: REHAB PSYCHOLOGY PROGRESS NOTE STANDARD TITLE: PHYSICAL MEDICINE REHAB NOTE DATE OF NOTE: JUL 18, 2023@10:00 ENTRY DATE: JUL 20, 2023@14:10:15 AUTHOR: CORINNE TIWARI EXP COSIGNER: URGENCY: STATUS: COMPLETED REHABILITATION PSYCHOLOGY PROGRESS NOTE Patient Name: Sheba Lyle Date of : 1950 Date of Visit: 07/18/2023 Session Duration: 51 minutes Visit Modality: [facility] Patient Location: [address] [place] [address] Patient CONSENT Visit conducted by synchronous telehealth. [...] psychological support services. SESSION CONTENT Ms. Lyle described her mood as not good. She explained that she has felt overwhelmed with the demands of her family (e.g., cooking and cleaning after those staying with her, visiting the , requests of her time and resources). Provider led the caregiver is a deep breathing exercise and reviewed the rationale for deep breathing. Caregiver agreed the deep breathing was helpful. She noted that all of her family members have left, which is a relief. She is looking forward to cleaning her house and getting a new stove. Provider and caregiver also discussed ways of setting boundaries with others. Ms. Lyle reported that she recently had an incident with the and with her daughter when both criticized her, prompting her to feel stressed and sad. Provider worked with the caregiver to reflect on the thoughts that these interactions prompted and examined evidence supporting and refuting these thoughts. Caregiver appreciated the technique's change in perspective. Ms. Lyle noted the has had several falls at the care center because he attempts to self-transfer and will not wait for assistance. She also noted he has become angrier, and he appears quite sad when she leaves him. She is discussing strategies with the care center team and has requested his psychiatric medication be reviewed and possibly increased. Provider reinforced her advocacy for her . Ms. Lyle discussed recent advice from another caregiver to pace herself and take breaks from others and their needs to focus on self-care. Caregiver attended cheondoism on Monday and plans to attend this Monday. She also appreciates the social support of her caregiver support group. She looks forward to spending time praying, listening to praise music, and reconnecting spiritually. Provider reinforced these plans. OBJECTIVE Session/visit location: [facility] Present at session: [...] articulate and intelligible. Mood was described as: not good Affect: Her affect was sad and stressed. Her emotional expressions were appropriately reactive and consistent with conversation topics. Thought content: Caregiver's thought content was appropriate with no indications of delusions or hallucinations. Suicidal ideation was denied, and homicidal ideation was not reported. Thought processes: [...] family (children, grandchildren, and sisters) and community (cheondoism community); responsibility/duty to others; help seeking; presents with good impulse control; evidence of spiritual/congregational beliefs about value of life (strong spirituality [...] in care. PLAN HOMEWORK: Ms. Lyle will engage in activities that connect with her values (i.e., devout Alevism, supportive of others, warm and sociable, and committed). She will attend cheondoism, pray, listen to praise music, and reconnect spiritually. SESSION ENGAGEMENT: RITS Rating = 4 Education was provided during this session. Caregiver indicated readiness to learn by asking questions, making appropriate comments, and demonstrating appropriate nonverbals. RETURN TO CLINIC: Provider and Caregiver agreed that the optimal return to clinic would be in one week. A return to clinic was placed for Tuesday, July 25, 2023. Caregiver is aware of how to contact the provider if she has needs before the next appointment. /es/ CORINNE TIWARI, PHD, LP PSYCHOLOGIST, [facility] Signed: 07/20/2023 14:[address] [facility]
--- OUTSIDE RECORDS SUMMARY | 2023-10-26 11:24 | XMS_ITS | Encounter Summary ---
Author Name [facility] [place] Address [address] [place] [id number] Support Name Relationship Address Phone DAYANAMAGED Next of Kin [address] [place] [address] MAGED ANNE Emergency Contact [phone] [address] Insurance Providers: All historical and [...] PART A Dec 14, 2014 PART A [id number] [id number] [phone] KEILYERISBARON MCGOWAN PATIENT MEDICARE (WNR) MEDICARE (M) PART B Dec 14, 2014 PART B [id number] [id number] [phone] KEILYERISJOSÉ MCGOWANIE PATIENT Selected Encounter This section includes the information on record at [place] for the Encounter. Date/Time Encounter Type Encounter Description Reason Pro vider Source Jul 21, 2023 10:26 AM Outpatient Encounter PM&RS PHYSICIAN E Encounter Template Text not used by [place] Plan of Treatment: Future Appointments (+ 6 months) and Future Tests (+/- 45 days) The Plan of Treatment section includes future care activities for the patient from all [place] treatmentfacilities. This section includes future appointments and future orders which are active, pending or scheduled. Future Appointments This section includes appointments that were scheduled to occur 6 months from the date of the Encounter, up to a maximum of 20 appointments. The data comes from all [place] treatment facilities. Appointment Date/Time Appointment Type Appointme nt Facility Name Jul 25, 2023 09:00 AM AMBULATORY - REHAB MEDICIN E [facility] Aug 04, 2023 05:00 PM AMBULATORY - REHAB MEDICIN E [facility] Aug 11, 2023 05:00 PM AMBULATORY - REHAB MEDICIN E [facility] Aug 22, 2023 09:00 AM AMBULATORY - REHAB MEDICIN E [facility] Sep 12, 2023 10:00 AM AMBULATORY - REHAB MEDICIN E [facility] Oct 03, 2023 10:00 AM AMBULATORY - REHAB MEDICIN E [facility] Oct 24, 2023 10:00 AM AMBULATORY - REHAB MEDICIN E [facility] Encounter Notes: All associated encounter notes This section contains the clinical notes associated to the Encounter. Date/Time Encounter Note(s) Provider Source Jul 21, 2023 10:26 AM REPORT OF CONTACT: LOCAL TITLE: APPOINTMENT SCHEDULING NOTE STANDARD TITLE: REPORT OF CONTACT DATE OF NOTE: JUL 21, 2023@10:26 ENTRY DATE: JUL 21, 2023@10:26:30 AUTHOR: DESTINY PACE EXP COSIGNER: URGENCY: STATUS: COMPLETED Attempted to schedule Return to clinic (RTC) Contact attempt made to [place] 1st attempt Telephone 2nd attempt Text message 3rd attempt Letter - Sent letter by regular [place] mail to address on file: BARON ANNE [address] [place], [place] [id number] Left message on voice mail to call back to this number [phone] If calls back, schedule appt for: 07/18/2023 11:05 New Order entered by CORINEN CALVO (CLINICAL PSYCHO) Order Text: Return to [facility] on or around ( Jul 25, 2023 ) for a total of 1 appointment(s) Prerequisites: All Modalities Appropriate / Offer Option, Notify ordering provider if minimum scheduling efforts fail 60 min; follow-up /josephine/ DESTINY PACE ADVANCED MSA Signed: 07/21/2023 10:[address] [facility]
--- OUTSIDE RECORDS SUMMARY | 2023-10-26 11:24 | XMS_ITS | Encounter Summary ---
Author Name [facility] [place] Address [address] [place] [address] Support Name Relationship Address Phone DAYANAMAGED Next of Kin [address] [place] [address] MAGED LYLE Emergency Contact [phone] [address] Insurance Providers: All historical and [...] PART B Dec 14, 2014 PART B [id number] [phone] SHEBA LYLE PATIENT MEDICARE (WNR) MEDICARE (M) PART A Dec 14, 2014 PART A [id number] WW53 [phone] SHBEA LYLE PATIENT Selected Encounter This section includes the information on record at [place] for the Encounter. Date/Time Encounter Type Encounter Description Reason Provider Source Jul 25, 2023 09:00 AM PSYTX W PT 45 MINUTES PM&RS PHYSICIAN ICD-10-CM Z71.9 Counseling, unspecified CORINNE TIWARI Katerina Encounter Template Text not used by [place] Assessments - Encounter Diagnoses This section includes the primary and secondary diagnoses documented for the Encounter. Date/Time Primary/Secondary Diagnosis Diagnosis Name Provider Source Jul 26, 2023 04:28 PM PRIMARY Counseling, unspecified CORINNE TIWARI [facility] Plan of Treatment: Future Appointments (+ 6 months) and Future Tests (+/- 45 days) The Plan of Treatment section includes future care activities for the patient from all [place] [facility]. This section includes future appointments and future orders which are active, pending or scheduled. Future Appointments This section includes appointments that were scheduled to occur 6 months from the date of the Encounter, up to a maximum of 20 appointments. The data comes from all [place] treatment facilities. Appointment Date/Time Appointment Type Appointme nt Facility Name Aug 04, 2023 05:00 PM AMBULATORY - REHAB MEDICIN E [facility] Aug 11, 2023 05:00 PM AMBULATORY - REHAB MEDICIN E [facility] Aug 22, 2023 09:00 AM AMBULATORY - REHAB MEDICIN E [facility] Sep 12, 2023 10:00 AM AMBULATORY - RE[facility]AB MEDICIN [facility] Oct 03, 2023 10:00 AM AMBULATORY - REHAB MEDICIN [facility] Oct 24, 2023 10:00 AM AMBULATORY - REHAB MEDICIN [facility] Encounter Notes: All associated encounter notes This section contains the clinical notes associated to the Encounter. Date/Time Encounter Note(s) Provider Source Jul 28, 2023 11:32 AM REPORT OF CONTACT: LOCAL TITLE: APPOINTMENT SCHEDULING NOTE STANDARD TITLE: REPORT OF CONTACT DATE OF NOTE: JUL 28, 2023@11:32 ENTRY DATE: JUL 28, 2023@11:32:24 AUTHOR: JUAN JOSE QUINONES EXP COSIGNER: URGENCY: STATUS: COMPLETED Attempted to schedule Return to clinic (RTC) Contact attempt made to [place] 1st attempt Telephone 2nd attempt Text message 3rd attempt Letter Left message on voice mail to call back to this number [phone] If [place] calls back, schedule appt for: Activity: 07/25/2023 09:59 New Order entered by CORINNE TIWARI (CLINICAL PSYCHO) Order Text: Return to [facility] on or around ( Aug 08, 2023 ) for a total of 1 appointment(s) Prerequisites: All Modalities Appropriate / Offer Option, Notify ordering provider if minimum scheduling efforts fail 60 min; follow-up Nature of Order: ELECTRONICALLY ENTERED Elec Signature: CORINNE TIWARI (CLINICAL PSYCHO) on 07/25/2023 09:59 /josephine/ JUAN JOSE Tang. JONI AMSA REC TELEHEALTH Signed: 07/28/2023 11:[address] [facility] Jul 25, 2023 09:00 AM PHYSICAL MEDICINE REHAB NOTE: LOCAL TITLE: REHAB PSYCHOLOGY PROGRESS NOTE STANDARD TITLE: PHYSICAL MEDICINE REHAB NOTE DATE OF NOTE: JUL 25, 2023@09:00 ENTRY DATE: JUL 26, 2023@16:26:56 AUTHOR: CORINNE TIWARI COSIGNER: URGENCY: STATUS: COMPLETED REHABILITATION PSYCHOLOGY PROGRESS NOTE Patient Name: Sheba Lyle Date of : 1950 Date of Visit: 07/25/2023 Session Duration: 50 minutes Visit Modality: [facility] Patient Location: [address] [place] [address] Patient CONSENT Visit conducted by synchronous telehealth. [...] support services. SESSION CONTENT Ms. Lyle reported continued distress regarding her family obligations. She shared that she visited the Emergency Department due to heart fluttering. She explained she was diagnosed with low potassium, which the doctor reportedly connected to her stress. Caregiver noted several instances where she hosted family members and facilitated their visiting the . She acknowledged that there were some positive aspects of these interactions (e.g., helping her with new stove, mowing lawn); however, she believed they were overall more costly than beneficial. Provider and caregiver discussed the positive and negative consequences of her value to support family and discussed pacing her social obligations. Caregiver confirmed that her physical therapist recommended she reduce her commitments to self-care. She connected this with the previous session with this provider. Ms. Lyle reported taking breaks, watching birds, listening to praise music while driving to and from the 's care center, and calling her sister to catch up. She acknowledged some discomfort with being alone, but she appreciates focusing on her needs. Caregiver acknowledged struggling to communicate her needs and set boundaries. Provider and caregiver agreed this would be a fruitful area of exploration for the next session. OBJECTIVE Session/visit location: [facility] [...] articulate and intelligible. Mood was described as: stressed Affect: Her affect was distressed. Her emotional expressions were appropriately reactive [...] family (children, grandchildren, and sisters) and community (islam community); responsibility/duty to others; help seeking; presents [...] that connect with her values (i.e., devout Caodaism, supportive of others, warm and sociable, and committed). She will pace her social obligations and take time to self-care. SESSION ENGAGEMENT: RITS Rating = 4 Education was provided during this session. Caregiver indicated readiness to learn by asking questions, making appropriate comments, and demonstrating appropriate nonverbals. RETURN TO CLINIC: Provider and Caregiver agreed that the optimal return to clinic would be in two weeks. A return to clinic was placed for Monday, August 08, 2023. Caregiver is aware of how to contact the provider if she has needs before the next appointment. /josephine/ CORINNE TIWARI, PHD, LP PSYCHOLOGIST, [facility] Signed: 07/26/2023 16:[address] [facility]
--- OUTSIDE RECORDS SUMMARY | 2023-10-26 11:24 | XMS_ITS | Continuity of Care Document ---
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 It does not include entries that were removed or entered in error. Problem Status Onset Date Problem Type Date of Resolution Comments Source Diagnosis: ICD-10-CM Z71.9 Counseling, unspecified Active Diagnosis [facility] Diagnosis: ICD-10-CM Z65.9 Problem related to unspecified psychosocial circumstances Active Diagnosis [facility] Diagnosis: ICD-10-CM Z65.8 Oth problems related to psychosocial circumstances Active Diagnosis [facility] Immunizations Combined list of available immunizations from the Department of Defense and Veterans [facility] facilities. Immunization Series Date Given Administered By Site Reaction Lot Number CVX Code Drug Space Control Supervisor Status Comments Source INFLUENZA VACCINE, QUADRIVALENT, ADJUVANTED 2021 205 complet ed [facility] COVID-19 (PFIZER), MRNA, LNP-S, PF, 30 MCG/0.3 ML DOSE, EMILY-SUCROSE (AGES 12+ YEARS) 4 2021 217 complet ed PFR; [id number]; 2 [facility] Encounters Combined list of: 1) Encounters from Department of Veterans Affairs facilities going back up to thelast 18 months. 2) Encounters from the Department of [facility] facilities going back up to 280 months. Location Location Details Encounter Type Encounter Number Reason For Visit Attending Provider ADM Date DC Date Status Disposition Source [facility] Outpatient Encounter [id number] 05/10 [facility] [place] [facility] GROUP PSYCHOTHER APY [id number] Diagnos is: ICD-10- CM Z65.9 Problem related to unspeci fied psychos ocial circums tances< br/> Liza SOLIS DEBBIE 05/16 [facility] [place] [facility] PSYTX W PT 45 MINUTES [id number] Diagnos is: ICD-10- CM Z71.9 Lumber Mover ing, unspeci fied
CORINNE CALVO 05/17 [facility] HC PRO PHONE CALL 5-10 MIN [id number] Diagnos is: ICD-10- CM Z65.8 Oth problem s related to psychos ocial circums tances< br/> BISIIE,LOVE SE A 05/19 [facility] PSYTX W PT 60 MINUTES [id number] Diagnos is: ICD-10- CM Z65.8 Oth problem s related to psychos ocial circums tances< br/> JAIRO,LOVE SE A 05/26 [facility] Outpatient Encounter [id number] 05/27 [facility] PSYTX W PT 45 MINUTES [id number] Diagnos is: ICD-10- CM Z71.9 Lumber Mover ing, unspeci fied
CORINNE CALVO 05/31 [facility] GROUP PSYCHOTHER APY [id number] Diagnos is: ICD-10- CM Z65.9 Problem related to unspeci fied psychos ocial circums tances< br/> Liza SOLIS 06/13 [facility] PSYTX W PT 45 MINUTES [id number] Diagnos is: ICD-10- CM Z71.9 Lumber Mover ing, unspeci fied
CORINNE CALVO 06/28 [facility] HC PRO PHONE CALL 11-20 MIN [id number] Diagnos is: ICD-10- CM Z65.8 Oth problem s related to psychos ocial circums tances< br/> JAIRO,LOVE SE A 06/29 [facility] Outpatient Encounter [id number] GEOFFREY BAH A 06/30 [facility] PT EDUCATION NOC GROUP [id number] Diagnos is: ICD-10- CM Z65.9 Problem related to unspeci fied psychos ocial circums tances< br/> [facility] 07/12 [facility] GROUP PSYCHOTHER APY [id number] Diagnos is: ICD-10- CM Z65.9 Problem related to unspeci fied psychos ocial circums tances< br/> Liza SOLIS DEBBIE 07/18 [facility] PT EDUCATION NOC GROUP [id number] Diagnos is: ICD-10- CM Z65.9 Problem related to unspeci fied psychos ocial circums tances< br/> SELINA WESTON 07/19 [facility] PT EDUCATION NOC GROUP [id number] Diagnos is: ICD-10- CM Z65.9 Problem related to unspeci fied psychos ocial circums tances< br/> [facility] 07/26 [facility] PSYTX W PT 45 MINUTES [id number] Diagnos is: ICD-10- CM Z71.9 Lumber Mover ing, unspeci fied
CORINNE CALVO 08/09 [facility] GROUP PSYCHOTHER APY [id number] Diagnos is: ICD-10- CM Z65.9 Problem related to unspeci fied psychos ocial circums tances< br/> Liza SOLIS DEBBIE 08/15 [facility] PSYTX W PT 45 MINUTES [id number] Diagnos is: ICD-10- CM Z71.9 Lumber Mover ing, unspeci fied
LUBNA,CORINNE A 08/30 [place] [facility] PSYTX W PT 45 MINUTES [id number] Diagnos is: ICD-10- CM Z71.9 Lumber Mover ing, unspeci fied
CORINNE CLAVO 09/06 [place] [facility] PSYTX W PT 45 MINUTES [id number] Diagnos is: ICD-10- CM Z71.9 Lumber Mover ing, unspeci fied
CORINNE CALVO 09/27 [place] [facility] PSYTX W PT 45 MINUTES [id number] Diagnos is: ICD-10- CM Z71.9 Lumber Mover ing, unspeci fied
CORINNE CALVO 10/11 [place] [facility] PSYCHOTHER APY [id number] Diagnos is: ICD-10- CM Z65.9 Problem related to unspeci fied psychos ocial circums tances< br/> Liza SOLIS ESSICA DEBBIE 10/24 [place] [facility] PSYTX W PT 45 MINUTES [id number] Diagnos is: ICD-10- CM Z71.9 Lumber Mover ing, unspeci fied
CORINNE CALVO A 11/01 [place] [facility] PSYCHOTHER APY [id number] Diagnos is: ICD-10- CM Z65.9 Problem related to unspeci fied psychos ocial circums tances< br/> IRMAJ ESSICA DEBBIE 11/14 [place] [facility] Outpatient Encounter [id number] 11/30 [place] [facility] PSYTX W PT 45 MINUTES [id number] Diagnos is: ICD-10- CM Z71.9 Lumber Mover ing, unspeci fied
LUBNA,CORINNE A 12/06 [place] [facility] [place] [facility] PRO PHONE CALL 21-30 MIN [id number] Diagnos is: ICD-10- CM Z65.8 Oth problem s related to psychos ocial circums tances< br/> Haris TORO 12/09 [place] [facility] PSYCHOTHER APY [id number] Diagnos is: ICD-10- CM Z65.9 Problem related to unspeci fied psychos ocial circums tances< br/> Liza SOLIS ESSICA DEBBIE 12/19 [place] [facility] PSYTX W PT 45 MINUTES [id number] Diagnos is: ICD-10- CM Z71.9 Lumber Mover ing, unspeci fied
CORINNE CALVO 12/20 [place] [facility] Outpatient Encounter [id number] PEE NIXON 01/02 [place] [facility] PSYTX W PT 45 MINUTES [id number] [id number] Diagnos is: ICD-10- CM Z71.9 Lumber Mover ing, unspeci fied
CORINNE CALVO 01/10 [place] [facility] PSYCHOTHER APY [id number] Diagnos is: ICD-10- CM Z65.9 Problem related to unspeci fied psychos ocial circums tances< br/> Liza SOLIS ESSICA DEBBIE 01/16 [place] [facility] PSYTX W PT 45 MINUTES [id number] Diagnos is: ICD-10- CM Z71.9 Lumber Mover ing, unspeci fied
CORINNE CALVO 01/31 [place] [facility] [place] [facility] Outpatient Encounter [id number] 02/14 [place] [facility] [place] [facility] PSYTX W PT 45 MINUTES [id number] Diagnos is: ICD-10- CM Z71.9 Lumber Mover ing, unspeci fied
CORINNE CALVO 02/21 [place] [facility] [place] [facility] Outpatient Encounter [id number] 02/21 [place] [facility] [place] [facility] Outpatient Encounter [id number] Diagnos is: ICD-10- CM Z65.9 Problem related to unspeci fied psychos ocial circums tances< br/> Liza SOLIS DEBBIE 02/21 [facility] PSYTX W PT 45 MINUTES [id number] Diagnos is: ICD-10- CM Z71.9 Lumber Mover ing, unspeci fied
CORINNE CALVO 02/28 [facility] Outpatient Encounter [id number] 03/03 [place] [facility] PSYTX W PT 45 MINUTES [id number] Diagnos is: ICD-10- CM Z71.9 Lumber Mover ing, unspeci fied
CORINNE CALVO 03/07 [facility] Outpatient Encounter [id number] 03/08 [facility] PSYTX W PT 45 MINUTES [id number] Diagnos is: ICD-10- CM Z71.9 Lumber Mover ing, unspeci fied
CORINNE CALVO 03/14 [place] [facility] PSYCHOTHER APY [id number] Diagnos is: ICD-10- CM Z65.9 Problem related to unspeci fied psychos ocial circums tances< br/> Liza SOLIS DEBBIE 03/20 [place] [facility] PSYTX W PT 45 MINUTES [id number] Diagnos is: ICD-10- CM Z71.9 Lumber Mover ing, unspeci fied
CORINNE CALVO 03/28 [facility] Outpatient Encounter [id number] 03/29 [facility] Outpatient Encounter [id number] Diagnos is: ICD-10- CM Z65.9 Problem related to unspeci fied psychos ocial circums tances< br/> Liza SOLIS ESSICA DEBBIE 04/25 [facility] PSYTX W PT 45 MINUTES [id number] Diagnos is: ICD-10- CM Z71.9 Lumber Mover ing, unspeci fied
CORINNE CALVO 05/08 [facility] PRO PHONE CALL 11-20 MIN [id number] Diagnos is: ICD-10- CM Z65.9 Problem related to unspeci fied psychos ocial circums tances< br/> LOVE GILL SE A 05/17 [facility] PSYCHOTHER APY [id number] Diagnos is: ICD-10- CM Z65.9 Problem related to unspeci fied psychos ocial circums tances< br/> Liza SOLIS ESSICA DEBBIE 05/21 [facility] PSYCH DIAGNOSTIC EVALUATION [id number] Diagnos is: ICD-10- CM Z65.8 Oth problem s related to psychos ocial circums tances< br/> LOVE GILL SE A 05/22 [facility] PSYTX W PT 45 MINUTES [id number] Diagnos is: ICD-10- CM Z71.9 Lumber Mover ing, unspeci fied
CORINNE CALVO 05/29 [facility] Outpatient Encounter [id number] 05/30 [place] [facility] PSYCHOTHER APY [id number] Diagnos is: ICD-10- CM Z65.9 Problem related to unspeci fied psychos ocial circums tances< br/> Liza SOLIS ESSICA DEBBIE 06/18 [place] [facility] PSYTX W PT 45 MINUTES [id number] Diagnos is: ICD-10- CM Z71.9 Lumber Mover ing, unspeci fied
CORINNE CALVO 06/19 [place] [facility] PSYCHOTHER APY [id number] Diagnos is: ICD-10- CM Z65.9 Problem related to unspeci fied psychos ocial circums tances< br/> Liza SOLIS ESSICA DEBBIE 07/16 [place] [facility] PSYTX W PT 45 MINUTES [id number] Diagnos is: ICD-10- CM Z71.9 Lumber Mover ing, unspeci fied
CORINNE CALVO 07/17 [place] [facility] Outpatient Encounter [id number] 07/20 [place] [facility] PSYTX W PT 45 MINUTES [id number] Diagnos is: ICD-10- CM Z71.9 Lumber Mover ing, unspeci fied
CORINNE CALVO 07/24 [place] [facility] PSYCHOTHER APY [id number] Diagnos is: ICD-10- CM Z65.9 Problem related to unspeci fied psychos ocial circums tances< br/> Liza SOLIS ESSICA DEBBIE 08/13 [place] [facility] PSYTX W PT 45 MINUTES [id number] Diagnos is: ICD-10- CM Z71.9 Lumber Mover ing, unspeci fied
CORINNE CALVO 08/21 [facility] PSYTX W PT 45 MINUTES [id number] Diagnos is: ICD-10- CM Z71.9 Lumber Mover ing, unspeci fied
CORINNE CALVO 09/11 [facility] Outpatient Encounter [id number] 09/12 [facility] HLTH BHV IVNTJ GRP EA ADDL [id number] Diagnos is: ICD-10- CM Z65.9 Problem related to unspeci fied psychos ocial circums tances< br/> Liza SOLIS 09/17 [facility] PSYTX W PT 45 MINUTES [id number] Diagnos is: ICD-10- CM Z71.9 Lumber Mover ing, unspeci fied
CORINNE CALVO 10/02 [facility]
--- OUTSIDE RECORDS SUMMARY | 2023-10-26 11:25 | XMS_ITS ---
Author Name [facility] Organization [facility] [place] Address [address] [place] [address] Support Name Relationship Address Phone DAYANAMAGED Next of Kin [address] [place] [address] MAGED ANNE Emergency Contact [phone] [address] Insurance Providers: All historical and [...] PART A Dec 14, 2014 PART A [id number] [phone] BARON ANNE PATIENT MEDICARE (WNR) MEDICARE (M) PART B Dec 14, 2014 PART B [id number] BARON ANNE PATIENT Selected Encounter This section includes the information on record at [place] for the Encounter. Date/Time Encounter Type Encounter Description Reason Provider Source Sep 18, 2023 11:00 [facility] IVNT[facility] GRP EA ADDL CAREGIVER SUPPORT PROGRAM ICD-10-CM Z65.9 Problem related to unspecified psychosocial circumstances WADE SOLIS [facility] Encounter Template Text not used by [place] Assessments - Encounter Diagnoses This section includes the primary and secondary diagnoses documented for the Encounter. Date/Time Primary/Secondary Diagnosis Diagnosis Name Provider Source Sep 20, 2023 11:01 AM PRIMARY Problem related to unspecified psychosocial circumstances WADE SOLIS [facility] Plan of Treatment: Future Appointments (+ 6 months) and Future Tests (+/- 45 days) The Plan of Treatment section includes future care activities for the patient from [facility] This section includes future appointments and future orders which are active, pending or scheduled. Future Appointments This section includes appointments that were scheduled to occur 6 months from the date of the Encounter, up to a maximum of 20 appointments. The [facility] comes from [facility]. Appointment Date/Time Appointment Type Appointme nt Facility Name Oct 03, 2023 10:00 AM AMBULATORY - REHAB MEDICIN E [facility] Oct 24, 2023 10:00 AM AMBULATORY - REHAB MEDICIN E [facility] Encounter Notes: All associated encounter notes This section contains the clinical notes associated to the Encounter. Date/Time Encounter Note(s) Provider Source Sep 18, 2023 11:00 AM CAREGIVER CERTIFIC ATE: [facility] STANDARD TITLE: CAREGIVER CERTIFICATE DATE OF NOTE: SEP 18, 2023@11:00 ENTRY DATE: SEP 20, 2023@11:02:08 AUTHOR: THOM SOLIS EXP COSIGNER: URGENCY: STATUS: COMPLETED Program of General Caregiver Support Services Intermittent Note? This caregiver is participating in [place]'s Program of General Caregiver Support? Services ([facility] While enrolled in the [facility]), General Caregivers are eligible? for a benefit [...] Did not assess using formal screening tools. Electrode Turner And Finisher assessed Caregiver through observation of her verbal and chat box participation, and body language. Group Notes Ongoing Parkinsons Disease Support Group? Length of Group: 110 minutes? Facilitators: Thom Solis? Number of Participants: 20? Check-in - Group information and format? Caregivers talked about the difficulties they were having in caring for the . Talked about emotional toll of grief and anticipating the of the . Talked about the benefits with of a [place]. Talked about grief and loss. Talked about issues that are service connected to agent orange exposure. Talked about connecting with providers at the [facility] and the difficulties of understanding all the things the and Caregiver are eligible to receive. Caregivers discussed the struggles in watching the decline and the emotional toll of Parkinsons Disease on Caregivers. Support provided by land lease information clerk and fellow Caregivers. Closure:? Next Session October 29 at 11:00am? /es/ THOM SOLIS VULCANIZER RUBBER PLATE Caregiver Derrick Barge Operator Signed: 09/20/2023 11:11 THOM SOLIS [facility]
--- OUTSIDE RECORDS SUMMARY | 2023-10-26 11:25 | XMS_ITS | Encounter Summary ---
Author Name [facility] [place] [place] Organization [place] Address [address] [place] [address] Support Name Relationship Address Phone DAYANAMAGED VIVIAN Next of Kin [address] [place] [address] MAGED ANNE Emergency Contact [phone] [address] Insurance Providers: All historical and [...] PART A Dec 14, 2014 PART A [id number] [phone] KEILYERISBARON MCGOWAN PATIENT MEDICARE (WNR) MEDICARE (M) PART B Dec 14, 2014 PART B [id number] [phone] KEILYERISJOSÉ MCGOWANIE PATIENT Selected Encounter This section includes the information on record at [place] for the Encounter. Date/Time Encounter Type Encounter Description Reason Pro vider Source Sep 13, 2023 10:45 AM Outpatient Encounter ADMIN PAT ACTIVTIES ([facility]) IHE Encounter Template Text not used by [place] Plan of Treatment: Future Appointments (+ 6 months) and Future Tests (+/- 45 days) The Plan of Treatment section includes future care activities for the patient from all [facility]. This section includes future appointments and future orders which are active, pending or scheduled. Future Appointments This section includes appointments that were scheduled to occur 6 months from the date of the Encounter, up to a maximum of 20 appointments. The data comes from all [place] treatment facilities. Appointment Date/Time Appointment Type Appointme nt Facility Name Oct 03, 2023 10:00 AM AMBULATORY [facility] Oct 24, 2023 10:00 [facility] Encounter Notes: All associated encounter notes This section contains the clinical notes associated to the Encounter. Date/Time Encounter Note(s) Provider Source Sep 13, 2023 10:45 AM TELEHEALTH NOTE: LOCAL TITLE: TELEHEALTH TECHNOLOGY SCREENING (TTS) STANDARD TITLE: TELEHEALTH NOTE DATE OF NOTE: SEP 13, 2023@10:45 ENTRY DATE: SEP 13, 2023@10:46:01 AUTHOR: DESTINY PACE EXP COSIGNER: URGENCY: STATUS: COMPLETED [place] agrees to [facility] (VVC) and has capability to complete a VVC visit. has completed a test call or a VVC visit on his/her personal device. E-mail: Device(s) they can use: Desktop/Laptop /josephine/ DESTINY PACE ADVANCED MSA Signed: 09/13/2023 10:46 DESTINY PACE [facility]
--- OUTSIDE RECORDS SUMMARY | 2023-10-26 11:25 | XMS_ITS | Encounter Summary ---
Author Name [facility] [place] Address [address] [place] [address] Support Name Relationship Address Phone DAYANAMAGED Next of Kin [address] [place] [address] MAGED LYLE Emergency Contact [phone], [place] [address] Insurance Providers: All historical and [...] PART A Dec 14, 2014 PART A [id number] [phone] SHEBA LYLE PATIENT MEDICARE (WNR) MEDICARE (M) PART B Dec 14, 2014 PART B [id number] SHEBA LYLE PATIENT Selected Encounter This section includes the information on record at [place] for the Encounter. Date/Time Encounter Type Encounter Description Reason Provider Source Sep 12, 2023 10:00 AM PSYTX W PT 45 MINUTES PM&RS PHYSICIAN ICD-10-CM Z71.9 Counseling, unspecified CORINNE TIWARI Katerina Encounter Template Text not used by [place] Assessments - Encounter Diagnoses This section includes the primary and secondary diagnoses documented for the Encounter. Date/Time Primary/Secondary Diagnosis Diagnosis Name Provider Source Sep 14, 2023 04:42 PM PRIMARY Counseling, unspecified CORINNE TIWARI [facility] Plan of Treatment: Future Appointments (+ 6 months) and Future Tests (+/- 45 days) The Plan of Treatment section includes future care activities for the patient from all [place] [facility]. This section includes future appointments and future orders which are active, pending or scheduled. Future Appointments This section includes appointments that were scheduled to occur 6 months from the date of the Encounter, up to a maximum of 20 appointments. The data comes from all [facility]. Appointment Date/Time Appointment Type Appointme nt Facility Name Oct 03, 2023 10:[facility] Oct 24, 2023 10:00 AM [facility] Encounter Notes: All associated encounter notes This section contains the clinical notes associated to the Encounter. Date/Time Encounter Note(s) Provider Source Sep 12, 2023 10:00 AM PHYSICAL MEDICINE REHAB NOTE: LOCAL TITLE: REHAB PSYCHOLOGY PROGRESS NOTE STANDARD TITLE: PHYSICAL MEDICINE REHAB NOTE DATE OF NOTE: SEP 12, 2023@10:00 ENTRY DATE: SEP 14, 2023@16:42:03 AUTHOR: CORINNE TIWARI COSIGNER: URGENCY: STATUS: COMPLETED REHABILITATION PSYCHOLOGY PROGRESS NOTE Patient Name: Sheba Lyle Date of : 1950 Date of Visit: 09/12/2023 Session Duration: 52 minutes Visit Modality: [facility] Patient Location: [address] [place] [address] Patient CONSENT Visit conducted by [facility] telehealth. Ms. Lyle's verbal consent was obtained. [...] psychological support services. SESSION CONTENT Ms. Lyle had some minor technology problems, resulting in a five minute delay to the session. She reported feeling overwhelmed, explaining her son came into town on Monday and has been actively working to get her house in order (e.g., mowing, vehicle assessments). She shared that he ordered a dumpster to be delivered, and he invited a realtor over to view the house. Caregiver acknowledged agreement in the need to move, noting the house feels empty, is too much to take care of, and living alone isolates her; however, she believes things were moving too quickly and that she had limited control over the process. Provider and caregiver explored what she believed she needed to feel better about this transition and the timeline that would work for her. She was able to identify information that would help her with this transition, particularly more information on where she would go. Provider and caregiver discussed her values and preferences for a new home (e.g., ease of maintenance, sense of community, meets present and future needs), as well as options (e.g., apartments, condominiums, assisted living communities). Provider and caregiver discussed creating a report card that she could use to evaluate different places. She acknowledged these discussions were helpful. Ms. Lyle reported that the was on the waiting list for the [facility]. She noted he has been calling and asking to drive more than usual. She also acknowledged some feelings of guilt and grief, thinking about a new home that the will not live in. Provider normalized these feelings. Caregiver has been attending nondenominational, which helps with her stress. She also noted a desire to donate her old vehicles to the [employer] organization. Provider reinforced her ideas for helping others. OBJECTIVE Session/visit location: [facility] Present at session: Caregiver General appearance: Based on available data (camera angle only provided observations from the shoulders up), Caregiver was neat, clean, and well- groomed. She was dressed casually and appropriately for the weather and occasion. Presentation: Caregiver was cooperative and pleasant with the provider. Positive rapport was strengthened. Orientation/cognition/memory: Caregiver was oriented to time, place, [...] articulate and intelligible. Mood was described as: on overload Affect: Her affect was euthymic with moments of distress. Her emotional expressions were appropriately reactive and consistent with conversation topics. She joked several times with the provider. Thought content: Caregiver's thought content was appropriate with no indications of delusions or hallucinations. Suicidal ideation was denied, and homicidal ideation was not reported. Thought processes: Caregiver's thought processes were logical/clear, linear, and goal-directed. Judgement/insight: Caregiver demonstrated good insight into her situation. She demonstrated good [...] family (children, grandchildren, and sisters) and community (nondenominational community); responsibility/duty to others; help seeking; presents with good impulse control; evidence of spiritual/jew beliefs about value of life (strong spirituality [...] that connect with her values (i.e., devout Worship, supportive of others, warm and sociable, and committed). She will gather new information on housing options, and she will create a report card to evaluate each place. SESSION ENGAGEMENT: RITS Rating = 4 Education was provided during this session. Caregiver indicated readiness to learn by asking questions, making appropriate comments, and demonstrating appropriate nonverbals. RETURN TO CLINIC: Provider and Caregiver agreed that the optimal return to clinic would be in three weeks. A return to clinic was placed for Tuesday, October 03, 2023. Caregiver is aware of how to contact the provider if she has needs before the next appointment. /josephine/ CORINNE TIWARI, PHD, LP PSYCHOLOGIST, [facility] Signed: 09/14/2023 16:43 CORINNE TIWARI [facility]
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
--- OUTSIDE RECORDS SUMMARY | 2023-10-26 11:25 | XMS_ITS | Encounter Summary ---
Author Name [facility] [place] Organization [place] Address [address] [place] [address] Support Name Relationship Address Phone DAYANAMAGED Next of Kin [address] [place] [address] MAGED LYLE Emergency Contact [phone] [address] Insurance Providers: All historical [...] PART A Dec 14, 2014 PART A [id number] WW53 [phone] KEILYERISSHEBA MCGOWAN PATIENT MEDICARE (WNR) MEDICARE (M) PART B Dec 14, 2014 PART B [id number] WW53 [phone] SHEBA LYLE PATIENT Selected Encounter This section includes the information on record at [place] for the Encounter. Date/Time Encounter Type Encounter Description Reason Provider Source Aug 22, 2023 09:00 AM PSYTX W PT 45 MINUTES PM&RS PHYSICIAN ICD-10-CM Z71.9 Counseling, unspecified CORINNE TIWARI Katerina Encounter Template Text not used by [place] Assessments - Encounter Diagnoses This section includes the primary and secondary diagnoses documented for the Encounter. Date/Time Primary/Secondary Diagnosis Diagnosis Name Provider Source Aug 24, 2023 10:51 PM PRIMARY Counseling, unspecified CORINNE TIWARI [facility] Plan of Treatment: Future Appointments (+ 6 months) and Future Tests (+/- 45 days) The Plan of Treatment section includes future care activities for the patient from all [place] [facility]. This section includes future appointments and future orders which are active, pending or scheduled. Future Appointments This section includes appointments that were scheduled to occur 6 months from the date of the Encounter, up to a maximum of 20 appointments. The data comes from all [facility]. Appointment Date/Time Appointment Type Appointme nt Facility Name Sep 12, 2023 10:00 AM [facility] Oct 03, 2023 10:00 AM [facility]ORY - [facility]AB [facility] Oct 24, 2023 10:00 AM [facility]BULATORY - [facility]AB [facility] Encounter Notes: All associated encounter notes This section contains the clinical notes associated to the Encounter. Date/Time Encounter Note(s) Provider Source Aug 22, 2023 09:05 AM SUICIDE PREVENTION RISK ASSESSMENT SCREENING NOTE: LOCAL TITLE: [facility] SCREENING NOTE STANDARD TITLE: SUICIDE PREVENTION RISK ASSESSMENT SCREENING NOT DATE OF NOTE: AUG 22, 2023@09:05 ENTRY DATE: AUG 24, 2023@22:52:38 AUTHOR: CORINNE TIWARI COSIGNER: URGENCY: STATUS: COMPLETED C-SSRS Screening [place]-Suicide Severity Rating Scale (C-SSRS Screener) 1. Over the past month, have you wished you were or wished you could go to sleep and not wake up? No 2. Over the past month, have you had any actual thoughts of killing yourself? No 3. Over the past month, have you been thinking about how you might do this? Response not required due to responses to other questions. 4. Over the past month, have you had these thoughts and had some intention of acting on them? Response not required due to responses to other questions. 5. Over the past month, have you started to work out or worked out the details of how to kill yourself? Response not required due to responses to other questions. 6. If yes, at any time in the past month did you intend to carry out this plan? Response not required due to responses to other questions. 7. In your lifetime, have you ever done anything, started to do anything, or prepared to do anything to end your life (for example, collected pills, obtained a gun, gave away valuables, went to the roof but didn't jump)? No 8. If YES, was this within the past 3 months? Response not required due to responses to other questions. /es/ CORINNE TIWARI, PHD, LP PSYCHOLOGIST, [facility] Signed: 08/24/2023 22:53 CORINNE TIWARI [facility] Aug 22, 2023 09:00 AM PHYSICAL MEDICINE REHAB NOTE: LOCAL TITLE: REHAB PSYCHOLOGY PROGRESS NOTE STANDARD TITLE: PHYSICAL MEDICINE REHAB NOTE DATE OF NOTE: AUG 22, 2023@09:00 ENTRY DATE: AUG 24, 2023@22:51:14 AUTHOR: CORINNE TIWARI EXP COSIGNER: URGENCY: STATUS: COMPLETED REHABILITATION PSYCHOLOGY PROGRESS NOTE Patient Name: Sheba Lyle Date of : 1950 Date of Visit: 08/22/2023 Session Duration: 50 minutes Visit Modality: [facility] Patient Location: [address] [place] [address] Patient CONSENT Visit conducted by synchronous telehealth. [...] services. SESSION CONTENT Ms. Lyle reported continued stress, noting every day is challenging. She visits the every other day, and she continues to experience fatigue. She reported attending christianity as a self-care activity, which the provider reinforced. Caregiver noted that another resident at the [facility] recently , and she is concerned about the 's reaction to the and the 's likely move from a single room to a double-room at the [facility]. She believes both of these factors will increase likelihood of talking with about the need for him to stay at the [facility] long-term. She acknowledged she is still unable to care for him at home, particularly because he continues to disregard recommendations and attempts to self-transfer. Provider and caregiver discussed a pattern of avoidant communication due to the caregiver's discomfort with others' negative emotions. Provider facilitated caregiver's exploration of beliefs about these situations, and she weighed the costs and benefits of sharing emotionally-charged information. Caregiver believed the conversation was helpful to clarify her decision-making moving forward. OBJECTIVE Session/visit location: [facility] Present at session: [...] described as: stressed Affect: Her affect was euthymic with moments [...] family (children, grandchildren, and sisters) and community (christianity community); responsibility/duty to others; help seeking; presents with good impulse control; evidence of spiritual/sabianist beliefs about value of life (strong spirituality [...] that connect with her values (i.e., devout Orthodoxy, supportive of others, warm and sociable, and committed). She will weigh the costs and benefits of discussing emotionally- provocative topics. SESSION ENGAGEMENT: RITS Rating = 4 Education was provided during this session. Caregiver indicated readiness to learn by asking questions, making appropriate comments, and demonstrating appropriate nonverbals. RETURN TO CLINIC: Provider and Caregiver agreed that the optimal return to clinic would be in three weeks. A return to clinic was placed for Tuesday, September 12, 2023. Caregiver is aware of how to contact the provider if she has needs before the next appointment. /josephine/ CORINNE TIWARI, PHD, LP PSYCHOLOGIST, [facility] Signed: 08/24/2023 22:51 CORINNE TIWARI [facility]
--- OUTSIDE RECORDS SUMMARY | 2023-10-26 11:26 | XMS_ITS | Clinical Summary ---
Author Organization [facility] Address [address] [place] [address] Care Team Providers Care Gold Assayer Name Role Phone Found, No Pcp MD Primary Care Provider Unavailab le Source Comments You are receiving this document as you are listed as the primary care provider,follow-up provider, or the patient has been referred to you for consultation.This is in compliance with the Medicare and[facility] Hospital[facility] EHR Incentive Program,which states Providers who transition their patient to another setting of careor provider of care or refers their patient to another provider of care shouldprovide summary care record for each transition of care or referral. [employer] Allergies Active Allergy Reactions Criticality Noted Date [...] Kidney stone 01/05/2011 Toxic multinodular goiter 01/02/2007 Overview (10/05/2016): LW Modifier: radioactive iodine treatment ; Goiter Multinodular Toxic No Crisis Calculus of gallbladder 03/27/2006 Overview (10/05/2016): Gallstones Essential hypertension 03/27/2006 Overview (10/05/2016): Hypertension Chronic Hyperlipidemia 03/27/2006 Asthma 03/27/2006 Overview (10/05/2016): Asthma NOS Allergic rhinitis 03/27/2006 Overview (10/05/2016): Rhinitis Allergic NOS Immunizations Name Administration Dates [...] ??C (98.8 ??F) 03/13/2008 1 0:12 AM MARINE RAILWAY OPERATOR ORAL C: 37.1 C Respiratory Rate 18 10/02/2007 4:46 PM CDT Oxygen Saturation 97% 12/05/2017 2:2 0 PM CDT Inhaled Oxygen Concentration - - Weight 97.5 kg (215 lb) 01/26/2016 1:31 PM MARINE RAILWAY OPERATOR Height 172.7 cm (5' 8) 01/26/2016 1:31 PM MARINE RAILWAY OPERATOR Body Mass Index 32.69 01/26/2016 1:31 PM MARINE RAILWAY OPERATOR Plan of Treatment Health Maintenance Due Date Last Done Comments Colon Cancer Screening Plan Due 1950 Hep C Screening (Preventive Services) 1950 Medicare Annual Wellness Visit 1950 Dexa 2014 Cholesterol 01/06/2016 01/05/2011, 05/2010, 04/07/2009, Additional history exists Pneumococcal 65+ Yrs (2 - PCV) 09/24/2016 09/25/2015 Mammogram 07/23/2021 07/23/2020, 01/13, 02/09/2018 COVID-19 Vaccine (3 - 2022- season) 2023 05/08/2020, 04/17/2020 Influenza (#1) 2023 03/30/2001 DTaP/Tdap/Td [...] LDL (IF NEEDED) Routine 01/05/2011 9:05 AM MARINE RAILWAY OPERATOR Other and unspecified hyperlipidemia (HRC) from Last 3 Months or Most Recently Relevant to Health Maintenance Results * Lipid Panel and Direct LDL(If Needed) (01/05/2011 9:05 AM MARINE RAILWAY OPERATOR) Cholesterol 171 0 - 200 mg/dL HP CONVERSION Triglycerides 75 0 - 149 mg/dL HP CONVERSION HDL Cholesterol 54 >39 mg/dL HP CONVERSION Cholesterol/HDL Ratio Screen 3.2 HP CONVERSION LDL Calculated 102 19 - 130 mg/dL HP CONVERSION Hours Fasting 10 HP CONVERSION 01/05/2011 9:05 AM MARINE RAILWAY OPERATOR 01/05/2011 9:04 AM MARINE RAILWAY OPERATOR Narrative HP CONVERSION - 01/05/2011 9:50 AM MARINE RAILWAY OPERATOR Performed at [facility], [address] [place] [address] Tonia Damon MD LAB_1 HP CONVERSION from Last 3 Months or Most Recently Relevant to Health Maintenance Care Teams Gold Assayer Relationship Specialty Start Date End Date Found, No Pcp, [address] [place] [address] PCP - General 10/22/21
--- OUTSIDE RECORDS SUMMARY | 2023-10-26 11:26 | XMS_ITS | Clinical Summary ---
Author Organization [employer] [facility] [employer] [facility] Address [place], [place] [address] Care Team Providers Care Director Of Food And Nutrition Name Role Phone Ness Somers MD Primary Care Provider [phone] Allergies Active Allergy Reactions Criticality Noted Date [...] Department Care Team Description 08/18/2023 Orders Only [facility] [address] [place] [address] Gay Champagne 1 scan: (1-Ord) Final Zio [...] PCV) 2014 COVID-19 vaccine series ( season) 2023 11/16/2021, 12/22/2020, 05/08/2020, Additional history exists Influenza [...] care provider. XR MAMMO MADHURI BILAT SCREEN [[id number]] CLINICAL HISTORY: ??This is an asymptomatic 71 [...] Recently Relevant to Health Maintenance Care Teams Director Of Food And Nutrition Relationship Specialty Start Date End Date Ness Somers MD [address] [place], [place] [id number] PCP - General Internal Medicine 01/31/17
--- OUTSIDE RECORDS SUMMARY | 2023-10-26 11:26 | XMS_ITS | Encounter Summary ---
Author Organization [employer] Address [address] [place] [address] Care Team Providers Care Pipe Stem Sawyer Name Role Phone Found, No Pcp Primary Care Provider Unavailab le Reason for Visit * Reason Comments Refill Encounter Details Date Type Department Care Team (Late st Contact Info) Description 10/11/2015 Refill [facility] [address] [place], [place] [address] Tonia Damon MD [address] [place], [place] [id number] Refill Social History Tobacco Use Types Packs/Day [...] DBP: 70mm Hg on 01/05/2011 Powered by [employer], Reference: [id number], 10/11/2015 4:32:54 PM CDT, Pool: WHITE IMED REFILL([id number]) IAL LOAN OFFICER * Yvonne Petit RN - 10/12/2015 10:05 AM CDT Further assistance needed to complete refill request Reason: Pt overdue for qualifying visit. Next Steps: Review pended order for accuracy. Sign. Route to frontline pool to schedule appt. Requested Prescriptions Pending Prescriptions Disp Refills ??? ketoconazole (NIZORAL) 2 % cream 60 g 0 Sig: Apply 1 Application topically daily (every 24 hours). IAL LOAN OFFICER * Elvie Olviarez - 10/11/2015 4:32 PM CDT [facility]. Please resend Rx if appropriate, thank you. IAL LOAN OFFICER documented in this encounter Plan of Treatment Not on file documented as of this encounter Visit Diagnoses Not on filedocumented in this encounter Care Teams Pipe Stem Sawyer Relationship Specialty Start Date End Date Found, No Pcp, [address] [place] [address] PCP - General 10/22/21 documented as of this encounter
== END 2023-10-26 11:19 | disposition home or self-care (01) ==
LOC: NFLDREF 11:22
PROVIDERS: PCP Internal Medicine; Visit Provider Internal Medicine
DX: I10 Essential (primary) hypertension (principal); M85.80 Other specified disorders of bone density and structure, unspecified site; Z13.220 Encounter for screening for lipoid disorders
CPT/HCPCS: 80048; 80061; 82306

== ENCOUNTER 2023-11-01 06:40 | Day surgery (SDC) | payer MEDICARE, OTHER, SELFPAY ==
[2023-11-01] VITALS (14 sets, daily range): BP systolic 146–174; BP diastolic 74–93; PULSE 71–95; RESP 16–20; TEMP 36.1–36.7; O2SAT 92–99; BMI 33.4
--- OUTSIDE RECORDS SUMMARY | 2023-11-01 06:45 | XMS_ITS | Continuity of Care Document ---
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 It does not include entries that were removed or entered in error. Problem Status Onset Date Problem Type Date of Resolution Comments Source Diagnosis: ICD-10-CM Z65.9 Problem related to unspecified psychosocial circumstances Active Diagnosis [facility] Diagnosis: ICD-10-CM Z71.9 Counseling, unspecified Active Diagnosis [facility] Diagnosis: ICD-10-CM Z65.8 Oth problems related to psychosocial circumstances Active Diagnosis [facility] Immunizations Combined list of available immunizations from the Department of Defense and Veterans [facility] facilities. Immunization Series Date Given Administered By Site Reaction Lot Number CVX Code Drug Vice President Underwriting Status Comments Source INFLUENZA VACCINE, QUADRIVALENT, ADJUVANTED [address] [facility] COVID-19 (PFIZER), MRNA, LNP-S, PF, 30 MCG/0.3 ML DOSE, EMILY-SUCROSE (AGES 12+ YEARS) 4 2021 217 complet ed PFR; [id number]; 2 [facility] Encounters Combined list of: 1) Encounters from Department of Veterans Affairs facilities going back up to thelast 18 months. 2) Encounters from the Department of [facility] facilities going back up to 280 months. Location Location Details Encounter Type Encounter Number Reason For Visit Attending Provider ADM Date DC Date Status Disposition Source [facility] Outpatient Encounter [id number] 05/10 [facility] [place] [facility] GROUP PSYCHOTHER APY [id number] Diagnos is: ICD-10- CM Z65.9 Problem related to unspeci fied psychos ocial circums tances< br/> Liza SOLIS DEBBIE 05/16 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
CORINNE CALVO 05[facility] HC PRO PHONE CALL 5-10 MIN [id number] Diagnos is: ICD-10- CM Z65.8 Oth problem s related to psychos ocial circums tances< br/> BISIIE,LOVE SE A 05/19 [facility] PSYTX W PT 60 MINUTES [id number] Diagnos is: ICD-10- CM Z65.8 Oth problem s related to psychos ocial circums tances< br/> JAIRO,LOVE SE A 05/26 [facility] Outpatient Encounter [id number] 05/27 [facility] IS [facility] PSYTX W PT 45 MINUTES [id number] Diagnos is: ICD-10- CM Z71.9 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
CORINNE CALVO 06/28 [facility] IS [facility] HC PRO PHONE CALL 11-20 MIN [id number] Diagnos is: ICD-10- CM Z65.8 Oth problem s related to psychos ocial circums tances< br/> JAIRO,LOVE SE A 06/29 [facility] Outpatient Encounter [id number] GEOFFREY BAH A 06/30 [facility] PT EDUCATION NOC GROUP [id number] Diagnos is: ICD-10- CM Z65.9 Problem related to unspeci fied psychos ocial circums tances< br/> [facility] 07/12 [facility] GROUP PSYCHOTHER APY [id number] Diagnos is: ICD-10- CM Z65.9 Problem related to unspeci fied psychos ocial circums tances< br/> Liza SOLIS DEBBIE 07/18 [facility] PT EDUCATION NOC GROUP [id number] Diagnos is: ICD-10- CM Z65.9 Problem related to unspeci fied psychos ocial circums tances< br/> SELINA WESTON 07/19 [facility] IS [facility] PT EDUCATION NOC GROUP [id number] Diagnos is: ICD-10- CM Z65.9 Problem related to unspeci fied psychos ocial circums tances< br/> [facility] 07/26 [facility] PSYTX W PT 45 MINUTES [id number] Diagnos is: ICD-10- CM Z71.9 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
CORINNE CALVO 08/09 [facility] GROUP PSYCHOTHER APY [id number] Diagnos is: ICD-10- CM Z65.9 Problem related to unspeci fied psychos ocial circums tances< br/> Liza SOLIS DEBBIE 08/15 [facility] PSYTX W PT 45 MINUTES [id number] Diagnos is: ICD-10- CM Z71.9 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
LUBNA,CORINNE A 08/30 [place] [facility] PSYTX W PT 45 MINUTES [id number] Diagnos is: ICD-10- CM Z71.9 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
CORINNE CALVO 09/06 [place] [facility] PSYTX W PT 45 MINUTES [id number] Diagnos is: ICD-10- CM Z71.9 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
CORINNE CALVO 09/27 [place] [facility] PSYTX W PT 45 MINUTES [id number] Diagnos is: ICD-10- CM Z71.9 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
CORINNE CALVO 10/11 [place] [facility] PSYCHOTHER APY [id number] Diagnos is: ICD-10- CM Z65.9 Problem related to unspeci fied psychos ocial circums tances< br/> Liza SOLIS ESSICA DEBBIE 10/24 [place] [facility] PSYTX W PT 45 MINUTES [id number] Diagnos is: ICD-10- CM Z71.9 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
CORINNE CALVO A 11/01 [place] [facility] PSYCHOTHER [facility]Y [id number] Diagnos is: ICD-10- CM Z65.9 Problem related to unspeci fied psychos ocial circums tances< br/> IRMAJ ESSICA DEBBIE 11/14 [place] [facility] Outpatient Encounter [id number] 11/30 [place] [facility] PSYTX W PT 45 MINUTES [id number] Diagnos is: ICD-10- CM Z71.9 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
LUBNA,CORINNE A 12/06 [place] [facility] [place] [place] [facility] PRO PHONE CALL 21-30 MIN [id number] Diagnos is: ICD-10- CM Z65.8 Oth problem s related to psychos ocial circums tances< br/> Haris TORO 12/09 [place] [facility] PSYCHOTHER APY [id number] Diagnos is: ICD-10- CM Z65.9 Problem related to unspeci fied psychos ocial circums tances< br/> Liza SOLIS ESSICA DEBBIE 12/19 [place] [facility] PSYTX W PT 45 MINUTES [id number] Diagnos is: ICD-10- CM Z71.9 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
CORINNE CALVO 12/20 [place] [facility] Outpatient Encounter [id number] PEE NIXON 01/02 [place] [facility] PSYTX W PT 45 MINUTES [id number] Diagnos is: ICD-10- CM Z71.9 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
CORINNE CALVO 01/10 [place] [facility] PSYCHOTHER APY [id number] Diagnos is: ICD-10- CM Z65.9 Problem related to unspeci fied psychos ocial circums tances< br/> Liza SOLIS ESSICA DEBBIE 01/16 [place] [facility] PSYTX W PT 45 MINUTES [id number] Diagnos is: ICD-10- CM Z71.9 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
CORINNE CALVO 01/31 [place] [facility] [place] [facility] Outpatient Encounter [id number] 02/14 [place] [facility] [place] [facility] PSYTX W PT 45 MINUTES [id number] Diagnos is: ICD-10- CM Z71.9 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
CORINNE CALVO 02/21 [place] [facility] [place] [facility] Outpatient Encounter [id number] 02/21 [place] [facility] [place] [facility] Outpatient Encounter [id number] Diagnos is: ICD-10- CM Z65.9 Problem related to unspeci fied psychos ocial circums tances< br/> Liza SOLIS DEBBIE 02/21 [facility] PSYTX W PT 45 MINUTES [id number] Diagnos is: ICD-10- CM Z71.9 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
CORINNE CALVO 02/28 [facility] Outpatient Encounter [id number] 03/03 [place] [facility] PSYTX W PT 45 MINUTES [id number] Diagnos is: ICD-10- CM Z71.9 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
CORINNE CALVO 03/07 [facility] Outpatient Encounter [id number] 03/08 [facility] PSYTX W PT 45 MINUTES [id number] Diagnos is: ICD-10- CM Z71.9 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
CORINNE CALVO 03/14 [place] [facility] [place] PSYCHOTHER [facility]Y [id number] Diagnos is: ICD-10- CM Z65.9 Problem related to unspeci fied psychos ocial circums tances< br/> Liza SOLIS DEBBIE 03/20 [place] [facility] PSYTX W PT 45 MINUTES [id number] Diagnos is: ICD-10- CM Z71.9 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
CORINNE CALVO 03/28 [facility] Outpatient Encounter [id number] 03/29 [facility] Outpatient Encounter [id number] Diagnos is: ICD-10- CM Z65.9 Problem related to unspeci fied psychos ocial circums tances< br/> Liza SOLIS ESSICA DEBBIE 04/25 [facility] PSYTX W PT 45 MINUTES [id number] Diagnos is: ICD-10- CM Z71.9 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
CORINEN CALVO 05/08 [facility] PRO PHONE CALL 11-20 MIN [id number] Diagnos is: ICD-10- CM Z65.9 Problem related to unspeci fied psychos ocial circums tances< br/> LOVE GILL SE A 05/17 [facility] PS[facility]CHOTHER [facility]Y [id number] Diagnos is: ICD-10- CM Z65.9 Problem related to unspeci fied psychos ocial circums tances< br/> Liza SOLIS ESSICA DEBBIE 05/21 [facility] PSYCH DIAGNOSTIC EVALUATION [id number] Diagnos is: ICD-10- CM Z65.8 Oth problem s related to psychos ocial circums tances< br/> LOVE GILL SE A 05/22 [facility] PSYTX W PT 45 MINUTES [id number] Diagnos is: ICD-10- CM Z71.9 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
CORINNE CALVO 05/29 [facility] Outpatient Encounter [id number] 05/30 [place] [facility] PSYCHOTHER APY [id number] Diagnos is: ICD-10- CM Z65.9 Problem related to unspeci fied psychos ocial circums tances< br/> Liza SOLIS ESSICA DEBBIE 06/18 [place] [facility] PSYTX W PT 45 MINUTES [id number] [id number] Diagnos is: ICD-10- CM Z71.9 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
CORINNE CAVLO 06/19 [place] [facility] PSYCHOTHER APY [id number] Diagnos is: ICD-10- CM Z65.9 Problem related to unspeci fied psychos ocial circums tances< br/> Liza SOLIS ESSICA DEBBIE 07/16 [place] [facility] PSYTX W PT 45 MINUTES [id number] Diagnos is: ICD-10- CM Z71.9 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
CORINNE CALVO 07/17 [place] [facility] Outpatient Encounter [id number] 07/20 [place] [facility] PSYTX W PT 45 MINUTES [id number] Diagnos is: ICD-10- CM Z71.9 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
CORINNE CALVO 07/24 [place] [facility] PSYCHOTHER APY [id number] Diagnos is: ICD-10- CM Z65.9 Problem related to unspeci fied psychos ocial circums tances< br/> Liza SOLIS ESSICA DEBBIE 08/13 [place] [facility] PSYTX W PT 45 MINUTES [id number] Diagnos is: ICD-10- CM Z71.9 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
CORINNE CALVO 08/21 [facility] PSYTX W PT 45 MINUTES [id number] Diagnos is: ICD-10- CM Z71.9 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
CORINNE CALVO A 09/11 [facility] Outpatient Encounter [id number] 09/12 [facility] IVNTJ GRP EA ADDL [id number] Diagnos is: ICD-10- CM Z65.9 Problem related to unspeci fied psychos ocial circums tances< br/> Liza SOLIS DEBBIE 09/17 [facility] PSYTX W PT 45 MINUTES [id number] Diagnos is: ICD-10- CM Z71.9 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
CORINNE CALVO 10/02 [facility] Outpatient Encounter [id number] 10/23 [facility] PSYTX W PT 45 MINUTES [id number] Diagnos is: ICD-10- CM Z71.9 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
CORINNE CALVO 10/23 [facility] IS [facility] IVNTJ GRP EA ADDL [id number] Diagnos is: ICD-10- CM Z65.9 Problem related to unspeci fied psychos ocial circums tances< br/> Liza SOLIS DEBBIE 10/29 [facility] Plan of Care List of future care activities from Department of [facility] Affairs facilities. Additional future care activities may be listed in the Assessment and Plan section. Date/Time Care Activity Care Activity Detail Facili ty 11/14/2023 AMBULATORY - REHAB MEDICINE AMBULATORY - REHAB MEDICINE [facility]
--- OUTSIDE RECORDS SUMMARY | 2023-11-01 06:46 | XMS_ITS | Clinical Summary ---
Author Organization [employer] [facility] Address [place], [place] [address] Care Team Providers Care Network Communications Engineer Name Role Phone Ness Somers MD Primary Care Provider [phone] Allergies Active Allergy Reactions Criticality Noted Date [...] [facility] [address] [place] [address] Gay Champagne 1 scan: (1-Ord) Final Zio [...] care provider. XR MAMMO MADHURI BILAT SCREEN [[id number]] CLINICAL HISTORY: ??This is an asymptomatic 71 [...] Recently Relevant to Health Maintenance Care Teams Network Communications Engineer Relationship Specialty Start Date End Date Ness Somers MD [address] [place], [place] [id number] PCP - General Internal Medicine 01/31/17
--- OUTSIDE RECORDS SUMMARY | 2023-11-01 06:46 | XMS_ITS | Encounter Summary ---
Author Name [facility] Organization [facility] [place] Address [address] [place] [address] Support Name Relationship Address Phone DAYANAMAGED Next of Kin [address] [place] [address] MAGED ANNE Emergency Contact [phone], [place] [address] Insurance Providers: All historical and [...] PART A Dec 14, 2014 PART A [id number] [phone] BARON ANNE PATIENT MEDICARE (WNR) MEDICARE (M) PART B Dec 14, 2014 PART B [id number] [phone] BARON ANNE PATIENT Selected Encounter This section includes the information on record at [place] for the Encounter. Date/Time Encounter Type Encounter Description Reason Provider Source Oct 30, 2023 11:00 AM [facility] IVNTJ GRP EA ADDL CAREGIVER SUPPORT PROGRAM ICD-10-CM Z65.9 Problem related to unspecified psychosocial circumstances WADE SOLIS [facility] Encounter Template Text not used by [place] Assessments - Encounter Diagnoses This section includes the primary and secondary diagnoses documented for the Encounter. Date/Time Primary/Secondary Diagnosis Diagnosis Name Provider Source Oct 30, 2023 02:16 PM PRIMARY Problem related to unspecified psychosocial circumstances WADE SOLIS [facility] Plan of Treatment: Future Appointments (+ 6 months) and Future Tests (+/- 45 days) The Plan of Treatment section includes future care activities for the patient from all [place] [facility]. This section includes future appointments and future orders which are active, pending or scheduled. Future Appointments This section includes appointments that were scheduled to occur 6 months from the date of the Encounter, up to a maximum of 20 appointments. The data comes from all [facility] facilities. Appointment Date/Time Appointment Type Appointme nt Facility Name Nov 14, 2023 10:00 AM [facility] Notes: All associated encounter notes This section contains the clinical notes associated to the Encounter. Date/Time Encounter Note(s) Provider Source Oct 30, 2023 11:00 AM CAREGIVER CERTIFIC ATE: LOCAL TITLE: CSP PGCSS INTERMITTENT NOTE STANDARD TITLE: CAREGIVER CERTIFICATE DATE OF NOTE: OCT 30, 2023@11:00 ENTRY DATE: OCT 30, 2023@14:16:41 AUTHOR: THOM SOLIS COSIGNER: URGENCY: STATUS: COMPLETED Program of General Caregiver Support Services Intermittent Note? This caregiver is participating in [place]'s Program of General Caregiver Support? Services (PGCSS). While enrolled in the [facility], General Caregivers are eligible? for [...] Did not assess using formal screening tools. Manuscripts Archivist assessed Caregiver through observation of her verbal and chat box participation, and body language. Group Notes Ongoing Parkinsons Disease Support Group? Length of Group: 95 minutes? Facilitators: Thom Solis? Number of Participants: 14? Check-in - Group information and format? One Caregiver wondered what to do about a [place] who may not be cognizant enough to vote but receive a ballot in the mail. [facility] stated it was not within my knowledge or scope of the group. Another Caregiver looked up the information and provided it to fellow Caregivers. One Caregiver talked about watching a movie about a former president's memory decline. She talked about the issues it brought up for the Caregiver and . Talked about Ambiguous loss and addressing it in yourself and your loved one. Another Caregiver talked about a presentation she attended on Apathy. [facility] talked about addressing apathy in the [place] and some ways to encourage. Support provided by thoracic medicine physician and fellow Caregivers. Closure:? Next Session November 30 at 11:00am? /es/ THOM SOLIS INJURY/SAFETY HAZARD ASSESSMENT Caregiver Flight Engineer Manager Signed: 10/30/2023 14:23 THOM SOLIS [facility]
--- OUTSIDE RECORDS SUMMARY | 2023-11-01 06:46 | XMS_ITS | Clinical Summary ---
Author Organization [facility] Address [address] [place] [address] Care Team Providers Care Video System Repairer Name Role Phone Found, No Pcp MD Primary Care Provider Unavailab le Source Comments You are receiving this document as you are listed as the primary care provider,follow-up provider, or the patient has been referred to you for consultation.This is in compliance with the Medicare and[facility] Hospital[facility] EHR Incentive Program,which states Providers who transition their patient to another setting of careor provider of care or refers their patient to another provider of care shouldprovide summary care record for each transition of care or referral. [employer] Allergies Active Allergy Reactions Criticality Noted Date [...] ??C (98.8 ??F) 03/13/2008 1 0:12 AM CRM ANALYST ORAL C: 37.1 C Respiratory Rate 18 10/02/2007 4:46 PM CDT Oxygen Saturation 97% 12/05/2017 2:2 0 PM CDT Inhaled Oxygen Concentration - - Weight 97.5 kg (215 lb) 01/26/2016 1:31 PM CRM ANALYST Height 172.7 cm (5' 8) 01/26/2016 1:31 PM CRM ANALYST Body Mass Index 32.69 01/26/2016 1:31 PM CRM ANALYST Plan of Treatment Health Maintenance Due Date Last Done Comments Colon Cancer Screening Plan Due 1950 Hep C Screening (Preventive Services) 1950 Medicare Annual Wellness Visit 1950 Dexa 2014 Cholesterol 01/06/2016 01/05/2011, 05/2010, 04/07/2009, Additional history exists Pneumococcal 65+ Yrs (2 - PCV) 09/24/2016 09/25/2015 Mammogram 07/23/2021 07/23/2020, 01/13, 02/09/2018 COVID-19 Vaccine (3 - 2023- season) 2023 05/08/2020, 04/17/2020 Influenza (#1) 2023 03/30/2001 RSV (1 - 1-dose 75+ series) 2024 DTaP/Tdap/Td (3 - Tdap) 09/01/2026 09/01/2016, 03/27 [...] LDL (IF NEEDED) Routine 01/05/2011 9:05 AM CRM ANALYST Other and unspecified hyperlipidemia (HRC) from Last 3 Months or Most Recently Relevant to Health Maintenance Results * Lipid Panel and Direct LDL(If Needed) (01/05/2011 9:05 AM CRM ANALYST) Cholesterol 171 0 - 200 mg/dL HP CONVERSION Triglycerides 75 0 - 149 mg/dL HP CONVERSION HDL Cholesterol 54 >39 mg/dL HP CONVERSION Cholesterol/HDL Ratio Screen 3.2 HP CONVERSION LDL Calculated 102 19 - 130 mg/dL HP CONVERSION Hours Fasting 10 HP CONVERSION 01/05/2011 9:05 AM CRM ANALYST 01/05/2011 9:04 AM CRM ANALYST Narrative HP CONVERSION - 01/05/2011 9:50 AM CRM ANALYST Performed at [facility], [address] [place] [address] Tonia Damon MD LAB_1 HP CONVERSION from Last 3 Months or Most Recently Relevant to Health Maintenance Care Teams Video System Repairer Relationship Specialty Start Date End Date Found, No Pcp, [address] [place] [place] [address] PCP - General 10/22/21
--- OUTSIDE RECORDS SUMMARY | 2023-11-01 06:46 | XMS_ITS | Encounter Summary ---
Author Name [facility] Organization [facility] Address [address] [place] [address] Support Name Relationship Address Phone DAYANAMAGED Next of Kin [address] [place] [address] MAGED ANNE Emergency Contact [phone], [place] [address] Insurance Providers: All historical and [...] PART A Dec 14, 2014 PART A [id number] [phone] KEILYERISBARON MCGOWAN PATIENT MEDICARE (WNR) MEDICARE (M) PART B Dec 14, 2014 PART B [id number] UNIQUEJOSÉ MCGOWANIE PATIENT Selected Encounter This section includes the information on record at MD for the Encounter. Date/Time Encounter Type Encounter Description Reason Pro vider Source Oct 24, 2023 10:00 AM Outpatient Encounter PM&RS PHYSICIAN E Encounter Template Text not used by MD Plan of Treatment: Future Appointments (+ 6 months) and Future Tests (+/- 45 days) The Plan of Treatment section includes future care activities for the patient from all MD treatmentfacilities. This section includes future appointments and future orders which are active, pending or scheduled. Future Appointments This section includes appointments that were scheduled to occur 6 months from the date of the Encounter, up to a maximum of 20 appointments. The data comes from all MD treatment facilities. Appointment Date/Time Appointment Type Appointme nt Facility Name Nov 14, 2023 10:00 AM AMBULATORY - REHAB MEDICIN E [facility] Encounter Notes: All associated encounter notes This section contains the clinical notes associated to the Encounter. Date/Time Encounter Note(s) Provider Source Oct 27, 2023 12:42 PM REPORT OF CONTACT: LOCAL TITLE: APPOINTMENT SCHEDULING NOTE STANDARD TITLE: REPORT OF CONTACT DATE OF NOTE: OCT 27, 2023@12:42 ENTRY DATE: OCT 27, 2023@12:42:42 AUTHOR: DANIEL BOND COSIGNER: URGENCY: STATUS: COMPLETED Attempted to schedule Return to clinic (RTC) Contact attempt made to [place] 1st attempt Telephone 2nd attempt Text message 3rd attempt Letter - Sent letter by regular US mail to address on file: KEILYCATEBARON SMITHA [address] [place] [address] Left message on voice mail to call back to this number [phone] If calls back, schedule appt for: Activity: 10/26/2023 23:23 New Order entered by CORINNE CALVO (CLINICAL PSYCHO) Order Text: Return to [facility] on or around ( Nov 14, 2023 ) for a total of 1 appointment(s) Prerequisites: All Modalities Appropriate / Offer Option, Notify ordering provider if minimum scheduling efforts fail 60 min; follow-up /es/ DANIEL BOND Crane Chaser Signed: 10/27/2023 12:44 DANIEL BOND [facility]
--- OUTSIDE RECORDS SUMMARY | 2023-11-01 06:46 | XMS_ITS | Encounter Summary ---
Author Name [facility] [place] [facility] [place] Organization [facility] [place] Address [address] [place] [address] Support Name Relationship Address Phone DAYANAMAGED Next of Kin [address] [place] [address] MAGED LYLE Emergency Contact [phone], [place] [address] Insurance Providers: All historical and [...] PART A Dec 14, 2014 PART A [id number] [phone] SHEBA LYLE PATIENT MEDICARE (WNR) MEDICARE (M) PART B Dec 14, 2014 PART B [id number] [phone] SHEBA LYLE PATIENT Selected Encounter This section includes the information on record at [place] for the Encounter. Date/Time Encounter Type Encounter Description Reason Provider Source Oct 24, 2023 10:00 AM PSYTX W PT 45 MINUTES PM&RS PHYSICIAN ICD-10-CM Z71.9 Counseling, unspecified CORINNE TIWARI Katerina Encounter Template Text not used by [place] Assessments - Encounter Diagnoses This section includes the primary and secondary diagnoses documented for the Encounter. Date/Time Primary/Secondary Diagnosis Diagnosis Name Provider Source Oct 26, 2023 11:22 PM PRIMARY Counseling, unspecified CORINNE TIWARI [facility] Plan of Treatment: Future Appointments (+ 6 months) and Future Tests (+/- 45 days) The Plan of Treatment section includes future care activities for the patient from all [place] treatmentfacilities. This section includes future appointments and future orders which are active, pending or scheduled. Future Appointments This section includes appointments that were scheduled to occur 6 months from the date of the Encounter, up to a maximum of 20 appointments. The data comes from all [facility] facilities. Appointment Date/Time Appointment Type Appointme nt Facility Name Nov 14, 2023 10:00 AM AMBULATORY - REHAB [facility] Encounter Notes: All associated encounter notes This section contains the clinical notes associated to the Encounter. Date/Time Encounter Note(s) Provider Source Oct 24, 2023 10:00 AM PHYSICAL MEDICINE REHAB NOTE: LOCAL TITLE: REHAB PSYCHOLOGY PROGRESS NOTE STANDARD TITLE: PHYSICAL MEDICINE REHAB NOTE DATE OF NOTE: OCT 24, 2023@10:00 ENTRY DATE: OCT 26, 2023@23:21:37 AUTHOR: CORINNE TIWARI COSIGNER: URGENCY: STATUS: COMPLETED REHABILITATION PSYCHOLOGY PROGRESS NOTE Patient Name: Sheba Lyle Date of : 1950 Date of Visit: 10/24/2023 Session Duration: 52 minutes Visit Modality: [facility] Patient Location: [address] [place] [address] Patient CONSENT Visit conducted by synchronous telehealth. [...] services. SESSION CONTENT Ms. Lyle reported continued stress. She shared that there is a norovirus outbreak at the [facility], and she is not visiting until it is contained. She acknowledged the limited contact with the is challenging. She explained the has been deteriorating because of limited activity at the [facility], as well as he recently fell trying to self-transfer in the bathroom. Caregiver is going to a fellow caregiver's home this week to complete [facility] registration paperwork. She reported being optimistic about the quality of care at the [facility], though she is concerned about the wait time (i.e., 1-3 months). Ms. Lyle reported her son has returned to his home after visiting. She noted he continues to pressure her to move out of her home as quickly as possible. She reported apprehension about making too many changes, explaining she will be having surgery on October 31 for a rotator cuff tear. She noted some concerns about possible complications (e.g., nerve damage, heart attack) and post-surgical pain management. Provider encouraged caregiver to ask her provider about these concerns to make an informed choice. Caregiver agreed to talk with her provider. Her daughter will be staying with her during her recovery. Provider reinforced her use of her social support network. Ms. Lyle reported visiting an apartment complex in [place] that she liked. Provider reinforced her efforts to gather information about new housing options. Provider and caregiver worked on developing a to do list for the caregiver; however, caregiver was encouraged to focus only on the activity at the top of list, noting she often gets overwhelmed by the various tasks and avoids doing anything. Caregiver confirmed she will try this. Ms. Lyle has been attending restoration for self-care. Provider reinforced this decision. OBJECTIVE Session/visit location: [facility] Present at session: [...] and intelligible. Mood was described as: stressed and overwhelmed Affect: Her affect was distressed. Her emotional [...] family (children, grandchildren, and sisters) and community (restoration community); responsibility/duty to others; help seeking; presents with good impulse control; evidence of spiritual/christian beliefs about value of life (strong spirituality [...] that connect with her values (i.e., devout Hoahaoism, supportive of others, warm and sociable, and committed). She will continue to gather new information on housing options and tour communities she is interested in. She will communicate her concerns to her medical provider and gather additional information prior to her surgery. SESSION ENGAGEMENT: RITS Rating = 4 Education was provided during this session. Caregiver indicated readiness to learn by asking questions, making appropriate comments, and demonstrating appropriate nonverbals. RETURN TO CLINIC: Provider and Caregiver agreed that the optimal return to clinic would be in three weeks. A return to clinic was placed for Tuesday, November 14, 2023. Caregiver is aware of how to contact the provider if she has needs before the next appointment. /josephine/ CORINNE TIWARI, PHD, LP PSYCHOLOGIST, [facility] Signed: 10/26/2023 23:22 CORINNE TIWARI [facility]
--- OUTSIDE RECORDS SUMMARY | 2023-11-01 06:46 | XMS_ITS | Encounter Summary ---
Author Organization [facility] Address [address] [place] [address] Care Team Providers Care Congregational Care Pastor Name Role Phone Found, No Pcp Primary Care Provider Unavailab le Reason for Visit * Reason Comments Refill Encounter Details Date Type Department Care Team (Late st Contact Info) Description 10/11/2015 Refill [facility] [address] [place], [place] [address] Tonia Damon MD [address] [place], [place] [id number] Refill Social History Tobacco Use Types Packs/Day [...] DBP: 70mm Hg on 01/05/2011 Powered by Adan, Reference: [id number], 10/11/2015 4:32:54 PM CDT, Pool: WHITE IMED REFILL([id number]) ING SPECIALIST * Yvonne Petit RN - 10/12/2015 10:05 AM CDT Further assistance needed to complete refill request Reason: Pt overdue for qualifying visit. Next Steps: Review pended order for accuracy. Sign. Route to frontline pool to schedule appt. Requested Prescriptions Pending Prescriptions Disp Refills ??? ketoconazole (NIZORAL) 2 % cream 60 g 0 Sig: Apply 1 Application topically daily (every 24 hours). ING SPECIALIST * Elvie Olivarez - 10/11/2015 4:32 PM CDT [facility]. Please resend Rx if appropriate, thank you. ING SPECIALIST documented in this encounter Plan of Treatment Not on file documented as of this encounter Visit Diagnoses Not on filedocumented in this encounter Care Teams Congregational Care Pastor Relationship Specialty Start Date End Date Found, No Pcp, [address] [place] [address] PCP - General 10/22/21 documented as of this encounter
[2023-11-01] MEDS: SODIUM CHLORIDE 0.9 % (FLUSH) 10 ML SYRINGE IVF (07:00)
[2023-11-01] MEDS: VANCOMYCIN 1.25 GM/250 ML 1.25 GM/250 ML PIGGYBACK IVPB (07:00)
[2023-11-01] MEDS: LACTATED RINGERS 1000 ML 1,000 ML 100 ML IV ×2 (07:00→10:58)
--- NOTE | 2023-11-01 07:15 | W.PM.H&PU ---
History & Physical Update History & Physical Update H&P Reviewed and patient assessed: No changes noted
[2023-11-01] MEDS: fentaNYL 100 MCG/2 ML inj IVP (07:34)
[2023-11-01] MEDS: MIDAZOLAM HCL 1 MG/ML inj IVP (07:34)
--- NOTE | 2023-11-01 07:40 | SUR.PREOP ---
TIME?OUT:?0732 PT/RN/MDA?VERIFICATION?OF?SURGICAL?SITE,?PROCEDURE,?AND?CONSENT OBTAINED?PRIOR?TO?INVASIVE?PROCEDURE.
[2023-11-01] MEDS: EPINEPHrine 1 MG in SODIUM CHLORIDE IRRIG SOLUTION 3,000 ML 9003 MG IRRIGATION (08:00)
[2023-11-01] MEDS: EPINEPHrine 1 MG in SODIUM CHLORIDE IRRIG SOLUTION 3,000 ML 3001 MG IRRIGATION ×4 (08:19→09:16)
--- NOTE | 2023-11-01 08:26 | W.PM.NB ---
Nerve Block Nerve Block Time Seen by Provider: 07:37 Date Seen: 11/01/23 Type of block requested by surgeon for post-operative analgesia: supraclavicular Side: left Time out performed: Yes Verification of patient name: Yes Verification of date of : Yes Site marking: site marked Name of person performing procedure: Renard Continuous monitoring Was continuous monitoring of O2 sat, B/P, athletic monitor, recorded every 15 minutes?: Yes Procedure Checklist: sterile prep, needles and gloves Ultrasound guided. Images saved: Yes Medications given in 5ml increments after negative aspiration: Marcaine %: 0.5 mL: 10 and Exparel mL: 10 Needle gauge: 22 Patient tolerated procedure well: Yes Block Charges Block Charge (with Pro Fee): Brachial Plexus Use of Ultrasound Machine for Block: Yes- US Guidance/pain block
--- NOTE | 2023-11-01 08:27 | W.ANESCHARGE ---
Anesthesia Charges Start Date/Time Anesthesia Start Date: 11/01/23 Anesthesia Start Time: 07:42 Stop Date/Time Anesthesia Stop Date: 11/01/23 Anesthesia Stop Time: 09:57 Summary Extremes of Age - Over 70 or under 1: MDA
--- NOTE | 2023-11-01 09:35 | PM.ORPRC ---
Procedure Note Date of procedure: 11/01/23 Procedure: PREOPERATIVE DIAGNOSES: 1. Left shoulder rotator cuff tear. 2. Left shoulder subacromial impingement syndrome. 3. Left shoulder labral tear 4. 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 Left shoulder rotator cuff tear. 2. Left shoulder subacromial impingement syndrome. 3. Left shoulder labral tear 4. 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 Left shoulder arthroscopic rotator cuff repair (upper border subscapularis; full-thickness supraspinatus) 2. Left shoulder arthroscopic limited glenohumeral debridement 3. Left shoulder arthroscopic bursectomy, subacromial decompression/partial acromioplasty. SURGEON: Parminder Garrison MD METAL FURNACE OPERATOR: Jitendra Rizzo PA-C. Of note, a skilled sales operations assistant was critical for this case to aide in patient positioning, suture manipulation, arm positioning, instrument positioning, and closure. ANESTHESIA: General plus preoperative supraclavicular block. EBL: 25 mL IMPLANTS: Arthrex 4.75 mm BioComposite SwiveLock suture anchor (x1); Arthrex 5.5 mm BioComposite SwiveLock suture anchor (x2); Arthrex 2.6 mm knotless FiberTak RC (x2) COMPLICATIONS: None evident INDICATIONS: The patient is a pleasant, 72-year-old female who has experienced left shoulder pain that has been increasing in recent time. Physical exam and imaging were consistent with a rotator cuff tear. Given their findings, as well as the weakness and pain, and inadequate response to nonoperative management, recommendation was made for surgery. FINDINGS: Exam under anesthesia revealed stable shoulder with excellent range of motion. The diagnostic arthroscopy revealed grade 4 chondromalacia central humeral head over a 15 mm diameter region. Grade 4 chondromalacia anterior glenoid over region measuring 5 x 12 mm in AP and superior-inferior dimensions, respectively. The Subscapularis tendon was torn from its upper border with moderate retraction. The long head of the biceps tendon was intact and within the groove, remarkably. The superior rotator cuff tendon was found to be torn full-thickness throughout the majority of the supraspinatus with retraction to the mid humeral head. The labrum was degeneratively frayed in the anterior and superior aspects. No loose bodies were identified within the pouch or subscapularis recess. PROCEDURE: Following a thorough discussion of risks, benefits, and alternatives, consent was obtained and the left shoulder was marked. The patient was brought to the operating room and placed supine on the operating table. Induction of anesthesia was completed after preoperative supraclavicular block was administered in preop holding. Appropriate time out was performed identifying proper patient, site, and procedure. 1.25 g IV vancomycin (due to cephalosporin allergy) was administered within 1 hour of incision preoperatively. The left upper extremity was prepped and draped in the appropriate sterile fashion using ChloraPrep prep. This was after the patient was positioned in the beach chair with their head in neutral alignment and all bony prominences well padded. The shoulder was insufflated with 20mL of normal saline via an 18g spinal needle from a posterior approach. An 11 blade skin incision allowed a blunt trochar to be inserted and diagnostic arthroscopy to be performed with the findings as noted above. An anterior portal was established with an outside in technique. This allowed the probe to be inserted and confirm the diagnostic arthroscopic findings. The shaver was then inserted and allowed debridement of the anterior and superior labrum. The long head biceps was probed and found to be stable and without significant pathology. No partial-thickness tearing evident. Following this, the upper border subscapularis was repaired after debriding the lesser tuberosity with the shaver and Mcdonald cautery. Subscapularis was captured in horizontal mattress fashion with a fiber tape suture. The tails were brought to a single anchor in the lesser tuberosity with excellent reapproximation of the subscap tendon and good excursion/tension. Thereafter, the subacromial space was entered. Here, a complete bursectomy and partial acromioplasty/subacromial decompression was performed with a combination of radiofrequency ablator, the shaver, and a 5.5 mm bur. Further inspection of the supraspinatus and infraspinatus rotator cuff was performed. This identified the tear as noted above. The margins of the tear were debrided, and the greater tuberosity was debrided with a combination of the apollo cautery, shaver, and bur on reverse setting. After gentle decortication, a speed bridge configuration with a medial aaron was planned. 2 medial anchors were placed and the sutures were passed through the rotator cuff with a fiber link (2.6 mm knotless FiberTak RC). The knotless suture tails were then retrieved, crossed, and cinched down for the medial aaron purpose. A tail from each of the medial row anchor FiberTapes were then retrieved and brought to a lateral row anchor. Excellent reapproximation of the tissue to the greater tuberosity was achieved with broad footprint compression. The rotator cuff showed excellent reapproximation of the greater tuberosity with good security upon probing. Prior to anchor truck driver supervisor removal, the eyelet sutures were tugged on for each anchor and found that the anchor had excellent stability within the bone. The shoulder was placed through range of motion and found to be stable. The rotator cuff was re-probed and found to be stable. Instruments were removed. Excess fluid was drained, closure performed with 4-0 Monocryl and Steri-Strips. Dressings were applied. Sling was applied. The patient was awoken from anesthesia and transferred to the PACU in stable condition. A skilled sales operations assistant was critical for this case to aid in patient positioning, limb positioning, skill to manipulate arthroscopic instruments and camera, suture management, patient safety, and closure. PLAN: 1. Elbow, forearm, wrist and digit range of motion of operative extremity as tolerated. 2. Encouraged ice. 3. Dilaudid for pain as needed. 4. Sling at all times except for ROM and showering. 5. Follow up with PA visit in 1-2 weeks for wound check. Initiate physical therapy following that visit for passive range of motion. Initiate active assisted range of motion at 6 weeks. May do pendulums now. There
--- NOTE | 2023-11-01 09:52 | SUR.OPER ---
PRE-OP--ECCHYMOSIS ON LEFT UPPER ARM, ABLL-FE-SAICUEPQ DRAPES REMOVED-SMALL TEAR ON UPPER LEFT CHEST-PA AWARE, AFTER PREPPING WITH SOLUPREP S-PA APPLIED SURGICAL GLUE & MEPILEX, SKIN REDDENED FROM DRAPE ADHESIVE, LEFT BICEP SMALL TEAR-PA/JAVAN AWARE, ECCHYMOSIS SCATTERED ON LEFT UPPER ARM.
[2023-11-01] MEDS: METOCLOPRAMIDE HCL 5 MG/ML INJ 10 MG IVP (10:02)
--- NOTE | 2023-11-01 10:04 | P.ANES_ITS ---
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
[2023-11-01] MEDS: ONDANSETRON 2 MG/ML inj 4 MG IVP (10:09)
== END 2023-11-01 12:06 | disposition home or self-care (01) ==
PROVIDERS: PCP Internal Medicine; Visit Provider Orthopaedic Surgery Sports Medicine
PROC: (CPT 29805; principal; 2023-11-01 08:00)
DX: M75.122 Complete rotator cuff tear or rupture of left shoulder, not specified as traumatic (principal); M75.42 Impingement syndrome of left shoulder; S43.432A Superior glenoid labrum lesion of left shoulder, initial encounter; M94.212 Chondromalacia, left shoulder; G89.18 Other acute postprocedural pain
CPT/HCPCS: 29827; 29826; 29824; 29822; 01630; 64415; 76942; 99100; C1713; C9290; J0171; J0330; J0665; J1100; J2250; J2371; J2405; J2704; J2765; J3010; J3372; J3490; J7120; L3670

== ENCOUNTER 2023-11-09 12:17 | Outpatient (CLI) | payer MEDICARE, OTHER, SELFPAY ==
--- OUTSIDE RECORDS SUMMARY | 2023-11-13 15:44 | XMS_ITS | Continuity of Care Document ---
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 It does not include entries that were removed or entered in error. Problem Status Onset Date Problem Type Date of Resolution Comments Source Diagnosis: ICD-10-CM Z65.9 Problem related to unspecified psychosocial circumstances Active Diagnosis [facility] Diagnosis: ICD-10-CM Z71.9 Counseling, unspecified Active Diagnosis [facility] Diagnosis: ICD-10-CM Z65.8 Oth problems related to psychosocial circumstances Active Diagnosis [facility] Immunizations Combined list of available immunizations from the Department of Defense and Veterans [facility] facilities. Immunization Series Date Given Administered By Site Reaction Lot Number CVX Code Drug Seconds Handler Status Comments Source INFLUENZA VACCINE, QUADRIVALENT, ADJUVANTED 2021 205 complet ed [facility] COVID-19 (PFIZER), MRNA, LNP-S, PF, 30 MCG/0.3 ML DOSE, EMILY-SUCROSE (AGES 12+ YEARS) 4 2021 217 complet ed PFR; [id number]; 2 [facility] Encounters Combined list of: 1) Encounters from Department of Veterans Affairs facilities going back up to thelast 18 months. 2) Encounters from the Department of [facility] facilities going back up to 280 months. Location Location Details Encounter Type Encounter Number Reason For Visit Attending Provider ADM Date DC Date Status Disposition Source [facility] Outpatient Encounter [id number] 05/10 [facility] [place] [facility] GROUP PSYCHOTHER APY [id number] Diagnos is: ICD-10- CM Z65.9 Problem related to unspeci fied psychos ocial circums tances< br/> Liza SOLIS 05/16 [facility] [place] [facility] PSYTX W PT 45 MINUTES [id number] Diagnos is: ICD-10- CM Z71.9 Social Welfare Research Worker ing, unspeci fied
CORINNE CALVO 05[facility]17 [facility] HC PRO PHONE CALL 5-10 MIN [id number] Diagnos is: ICD-10- CM Z65.8 Oth problem s related to psychos ocial circums tances< br/> BISIIE,LOVE SE A 05/19 [facility] PSYTX W PT 60 MINUTES [id number] Diagnos is: ICD-10- CM Z65.8 Oth problem s related to psychos ocial circums tances< br/> JAIRO,LOVE SE A 05/26 [facility] Outpatient Encounter [id number] 05/27 [facility] IS [facility] PSYTX W PT 45 MINUTES [id number] [id number] Diagnos is: ICD-10- CM Z71.9 Social Welfare Research Worker ing, unspeci fied
CORINNE CALVO 05/31 [facility] PSYCHOTHER APY [id number] Diagnos is: ICD-10- CM Z65.9 Problem related to unspeci fied psychos ocial circums tances< br/> Liza SOLIS 06/13 [facility] PSYTX W PT 45 MINUTES [id number] Diagnos is: ICD-10- CM Z71.9 Social Welfare Research Worker ing, unspeci fied
CORINNE CALVO 06/28 [facility] HC PRO PHONE CALL 11-20 MIN [id number] Diagnos is: ICD-10- CM Z65.8 Oth problem s related to psychos ocial circums tances< br/> JAIRO,LOVE SE A 06/29 [facility] Outpatient Encounter [id number] GEOFFREY BAH A 06/30 [facility] PT EDUCATION NOC GROUP [id number] Diagnos is: ICD-10- CM Z65.9 Problem related to unspeci fied psychos ocial circums tances< br/> [facility] 07/12 [facility] PSYCHOTHER APY [id number] Diagnos is: ICD-10- CM Z65.9 Problem related to unspeci fied psychos ocial circums tances< br/> Liza SOLIS DEBBIE 07/18 [facility] PT EDUCATION NOC GROUP [id number] Diagnos is: ICD-10- CM Z65.9 Problem related to unspeci fied psychos ocial circums tances< br/> SELINA WESTON 07/19 [facility] PT EDUCATION NOC GROUP [id number] Diagnos is: ICD-10- CM Z65.9 Problem related to unspeci fied psychos ocial circums tances< br/> [facility] 07/26 [facility] PSYTX W PT 45 MINUTES [id number] Diagnos is: ICD-10- CM Z71.9 Social Welfare Research Worker ing, unspeci fied
CORINNE CALVO 08/09 [facility] PSYCHOTHER APY [id number] Diagnos is: ICD-10- CM Z65.9 Problem related to unspeci fied psychos ocial circums tances< br/> Liza SOLIS DEBBIE 08/15 [facility] PSYTX W PT 45 MINUTES [id number] Diagnos is: ICD-10- CM Z71.9 Social Welfare Research Worker ing, unspeci fied
LUBNA,CORINNE A 08/30 [place] [facility] PSYTX W PT 45 MINUTES [id number] [id number] Diagnos is: ICD-10- CM Z71.9 Social Welfare Research Worker ing, unspeci fied
CORINNE CALVO 09/06 [place] [facility] PSYTX W PT 45 MINUTES [id number] [id number] Diagnos is: ICD-10- CM Z71.9 Social Welfare Research Worker ing, unspeci fied
CORINNE CALVO 09/27 [place] [facility] PSYTX W PT 45 MINUTES [id number] Diagnos is: ICD-10- CM Z71.9 Social Welfare Research Worker ing, unspeci fied
CORINNE CALVO 10/11 [place] [facility] PSYCHOTHER APY [id number] [id number] Diagnos is: ICD-10- CM Z65.9 Problem related to unspeci fied psychos ocial circums tances< br/> Liza SOLIS ESSICA DEBBIE 10/24 [place] [facility] PSYTX W PT 45 MINUTES [id number] [id number] Diagnos is: ICD-10- CM Z71.9 Social Welfare Research Worker ing, unspeci fied
CORINNE CALVO A 11/01 [place] [facility] PSYCHOTHER APY [id number] Diagnos is: ICD-10- CM Z65.9 Problem related to unspeci fied psychos ocial circums tances< br/> IRMAJ ESSICA DEBBIE 11/14 [place] [facility] Outpatient Encounter [id number] 11/30 [place] [facility] PSYTX W PT 45 MINUTES [id number] Diagnos is: ICD-10- CM Z71.9 Social Welfare Research Worker ing, unspeci fied
LUBNA,CORINNE A 12/06 [place] [facility] [place] [facility] PRO PHONE CALL 21-30 MIN [id number] Diagnos is: ICD-10- CM Z65.8 Oth problem s related to psychos ocial circums tances< br/> Haris TORO 12/09 [place] [facility] PSYCHOTHER APY [id number] Diagnos is: ICD-10- CM Z65.9 Problem related to unspeci fied psychos ocial circums tances< br/> Liza SOLIS ESSICA DEBBIE 12/19 [place] [facility] PSYTX W PT 45 MINUTES [id number] [id number] Diagnos is: ICD-10- CM Z71.9 Social Welfare Research Worker ing, unspeci fied
CORINNE CALVO 12/20 [place] [facility] Outpatient Encounter [id number] PEE NIXON 01/02 [place] [facility] PSYTX W PT 45 MINUTES [id number] [id number] Diagnos is: ICD-10- CM Z71.9 Social Welfare Research Worker ing, unspeci fied
CORINNE CALVO 01/10 [place] [facility] PSYCHOTHER APY [id number] Diagnos is: ICD-10- CM Z65.9 Problem related to unspeci fied psychos ocial circums tances< br/> Liza SOLIS ESSICA DEBBIE 01/16 [place] [facility] PSYTX W PT 45 MINUTES [id number] Diagnos is: ICD-10- CM Z71.9 Social Welfare Research Worker ing, unspeci fied
CORINNE CALVO 01/31 [place] [facility] [place] [facility] Outpatient Encounter [id number] 02/14 [place] [facility] [place] [facility] PSYTX W PT 45 MINUTES [id number] [id number] Diagnos is: ICD-10- CM Z71.9 Social Welfare Research Worker ing, unspeci fied
CORINNE CALVO 02/21 [place] [facility] [place] [facility] Outpatient Encounter [id number] 02/21 [place] [facility] [place] [facility] Outpatient Encounter [id number] Diagnos is: ICD-10- CM Z65.9 Problem related to unspeci fied psychos ocial circums tances< br/> Liza SOLIS DEBBIE 02/21 [facility] PSYTX W PT 45 MINUTES [id number] Diagnos is: ICD-10- CM Z71.9 Social Welfare Research Worker ing, unspeci fied
CORINNE CALVO 02/28 [facility] Outpatient [facility]counter [id number] 03/03 [place] [facility] PSYTX W PT 45 MINUTES [id number] [id number] Diagnos is: ICD-10- CM Z71.9 Social Welfare Research Worker ing, unspeci fied
CORINNE CALVO 03/07 [facility] Outpatient Encounter [id number] 03/08 [facility] PSYTX W PT 45 MINUTES [id number] [id number] Diagnos is: ICD-10- CM Z71.9 Social Welfare Research Worker ing, unspeci fied
CORINNE CALVO 03/14 [place] [facility] PSYCHOTHER APY [id number] Diagnos is: ICD-10- CM Z65.9 Problem related to unspeci fied psychos ocial circums tances< br/> Liza SOLIS DEBBIE 03/20 [place] [facility] PSYTX W PT 45 MINUTES [id number] [id number] Diagnos is: ICD-10- CM Z71.9 Social Welfare Research Worker ing, unspeci fied
CORINNE CALVO 03/28 [facility] Outpatient Encounter [id number] 03/29 [facility] Outpatient Encounter [id number] Diagnos is: ICD-10- CM Z65.9 Problem related to unspeci fied psychos ocial circums tances< br/> Liza SOLIS ESSICA DEBBIE 04/25 [facility] PSYTX W PT 45 MINUTES [id number] [id number] Diagnos is: ICD-10- CM Z71.9 Social Welfare Research Worker ing, unspeci fied
CORINNE CALVO 05/08 [facility] PRO PHONE CALL 11-20 MIN [id number] Diagnos is: ICD-10- CM Z65.9 Problem related to unspeci fied psychos ocial circums tances< br/> LOVE GILL SE A 05/17 [facility] PSYCHOTHER APY [id number] Diagnos is: ICD-10- CM Z65.9 Problem related to unspeci fied psychos ocial circums tances< br/> Liza SOLIS ESSICA DEBBIE 05/21 [facility] PSYCH DIAGNOSTIC EVALUATION [id number] Diagnos is: ICD-10- CM Z65.8 Oth problem s related to psychos ocial circums tances< br/> LOVE GILL SE A 05/22 [facility] PSYTX W PT 45 MINUTES [id number] [id number] Diagnos is: ICD-10- CM Z71.9 Social Welfare Research Worker ing, unspeci fied
CORINNE CALVO 05/29 [facility] Outpatient Encounter [id number] 05/30 [place] [facility] PSYCHOTHER APY [id number] Diagnos is: ICD-10- CM Z65.9 Problem related to unspeci fied psychos ocial circums tances< br/> Liza SOLIS ESSICA DEBBIE 06/18 [place] [facility] PSYTX W PT 45 MINUTES [id number] [id number] Diagnos is: ICD-10- CM Z71.9 Social Welfare Research Worker ing, unspeci fied
CORINNE CALVO 06/19 [place] [facility] PSYCHOTHER APY [id number] Diagnos is: ICD-10- CM Z65.9 Problem related to unspeci fied psychos ocial circums tances< br/> Liza SOLIS ESSICA DEBBIE 07/16 [place] [facility] PSYTX W PT 45 MINUTES [id number] [id number] Diagnos is: ICD-10- CM Z71.9 Social Welfare Research Worker ing, unspeci fied
CORINNE CALVO 07/17 [place] [facility] Outpatient Encounter [id number] 07/20 [place] [facility] PSYTX W PT 45 MINUTES [id number] Diagnos is: ICD-10- CM Z71.9 Social Welfare Research Worker ing, unspeci fied
CORINNE CALVO 07/24 [place] [facility] PSYCHOTHER APY [id number] Diagnos is: ICD-10- CM Z65.9 Problem related to unspeci fied psychos ocial circums tances< br/> Liza SOLIS ESSICA DEBBIE 08/13 [place] [facility] PSYTX W PT 45 MINUTES [id number] [id number] Diagnos is: ICD-10- CM Z71.9 Social Welfare Research Worker ing, unspeci fied
CORINNE CALVO 08/21 [facility] PSYTX W PT 45 MINUTES [id number] Diagnos is: ICD-10- CM Z71.9 Social Welfare Research Worker ing, unspeci fied
CORINNE CALVO A 09/11 [facility] Outpatient Encounter [id number] 09/12 [facility] IV[facility] GRP EA ADDL [id number] Diagnos is: ICD-10- CM Z65.9 Problem related to unspeci fied psychos ocial circums tances< br/> Liza SOLIS DEBBIE 09/17 [facility] PSYTX W PT 45 MINUTES [id number] [id number] Diagnos is: ICD-10- CM Z71.9 Social Welfare Research Worker ing, unspeci fied
CORINNE CALVO 10/02 [facility] Outpatient Encounter [id number] 10/23 [facility] PSYTX W PT 45 MINUTES [id number] [id number] Diagnos is: ICD-10- CM Z71.9 Social Welfare Research Worker ing, unspeci fied
CORINNE CALVO 10/23 [facility] IVNTJ GRP EA ADDL [id number] Diagnos is: ICD-10- CM Z65.9 Problem related to unspeci fied psychos ocial circums tances< br/> Liza SOLIS DEBBIE 10/29 [facility] Plan of Care List of future care activities from Department of [facility] Affairs facilities. Additional future care activities may be listed in the Assessment and Plan section. Date/Time Care Activity Care Activity Detail Facili ty 11/14/2023 AMBULATORY - REHAB MEDICINE AMBULATORY - REHAB MEDICINE [facility]
--- OUTSIDE RECORDS SUMMARY | 2023-11-13 15:44 | XMS_ITS | Clinical Summary ---
[facility] Address [address] [place] [address] Care Team Providers Care Motor Vehicle Emissions Inspector Name Role Phone Found, No Pcp MD Primary Care Provider Unavailab le Source Comments You are receiving this document as you are listed as the primary care provider,follow-up provider, or the patient has been referred to you for consultation.This is in compliance with the Medicare andDoctors Hospitalca[facility] EHR Incentive Program,which states Providers who transition their patient to another setting of careor provider of care or refers their patient to another provider of care shouldprovide summary care record for each transition of care or referral. [place] Allergies Active Allergy Reactions Criticality Noted Date [...] ??C (98.8 ??F) 03/13/2008 1 0:12 AM CLERICAL AIDE ORAL C: 37.1 C Respiratory Rate 18 10/02/2007 4:46 PM CDT Oxygen Saturation 97% 12/05/2017 2:2 0 PM CDT Inhaled Oxygen Concentration - - Weight 97.5 kg (215 lb) 01/26/2016 1:31 PM CLERICAL AIDE Height 172.7 cm (5' 8) 01/26/2016 1:31 PM CLERICAL AIDE Body Mass Index 32.69 01/26/2016 1:31 PM CLERICAL AIDE Plan of Treatment Health Maintenance Due Date [...] LDL (IF NEEDED) Routine 01/05/2011 9:05 AM CLERICAL AIDE Other and unspecified hyperlipidemia (HRC) from Last 3 Months or Most Recently Relevant to Health Maintenance Results * Lipid Panel and Direct LDL(If Needed) (01/05/2011 9:05 AM CLERICAL AIDE) Cholesterol 171 0 - 200 mg/dL HP CONVERSION Triglycerides 75 0 - 149 mg/dL HP CONVERSION HDL Cholesterol 54 >39 mg/dL HP CONVERSION Cholesterol/HDL Ratio Screen 3.2 HP CONVERSION LDL Calculated 102 19 - 130 mg/dL HP CONVERSION Hours Fasting 10 HP CONVERSION 01/05/2011 9:05 AM CLERICAL AIDE 01/05/2011 9:04 AM CLERICAL AIDE Narrative HP CONVERSION - 01/05/2011 9:50 AM CLERICAL AIDE Performed at [facility], [address] [place] [address] Tonia Damon MD LAB_1 HP CONVERSION from Last 3 Months or Most Recently Relevant to Health Maintenance Care Teams Motor Vehicle Emissions Inspector Relationship Specialty Start Date End Date Found, No Pcp, [address] [facility] [place] [address] PCP - General 10/22/21
--- OUTSIDE RECORDS SUMMARY | 2023-11-13 15:45 | XMS_ITS | Encounter Summary ---
Author Organization [employer] Address [address] [place] [address] Care Team Providers Care Assistant Chief Nursing Officer Name Role Phone Found, No Pcp Primary Care Provider Unavailab le Reason for Visit * Reason Comments Refill Encounter Details Date Type Department Care Team (Late st Contact Info) Description 10/11/2015 Refill [facility] [address] [place], [place] [address] Tonia Damon MD [address] [place], [place] [id number] Refill Social History Tobacco Use Types Packs/Day [...] DBP: 70mm Hg on 01/05/2011 Powered by [employer], Reference: [id number], 10/11/2015 4:32:54 PM CDT, Pool: WHITE IMED REFILL([id number]) ECT DEVELOPMENT ENGINEER * Yvonne Petit RN - 10/12/2015 10:05 AM CDT Further assistance needed to complete refill request Reason: Pt overdue for qualifying visit. Next Steps: Review pended order for accuracy. Sign. Route to frontline pool to schedule appt. Requested Prescriptions Pending Prescriptions Disp Refills ??? ketoconazole (NIZORAL) 2 % cream 60 g 0 Sig: Apply 1 Application topically daily (every 24 hours). ECT DEVELOPMENT ENGINEER * Elvie Olivarez - 10/11/2015 4:32 PM CDT [facility]. Please resend Rx if appropriate, thank you. ECT DEVELOPMENT ENGINEER documented in this encounter Plan of Treatment Not on file documented as of this encounter Visit Diagnoses Not on filedocumented in this encounter Care Teams Assistant Chief Nursing Officer Relationship Specialty Start Date End Date Found, No Pcp, [address] [place] [address] PCP - General 10/22/21 documented as of this encounter
--- OUTSIDE RECORDS SUMMARY | 2023-11-13 15:45 | XMS_ITS | Continuity of Care Document ---
Author Organization [facility] Address [address] [place] [address] Phone Care Team Providers Care Metallurgical Tester Name Role Phone Maggie Garcia MD Unavailable [...] Antibodies Dna Antibody, Single Strand Dna Antibody, [place] Nuclear Antigen Antibodies Complete Cbc WAuto Diff Wbc Advance Directives Directive Yes / No Effective Date File Name No Information Encounters Encounter Description Practice Location Reason(s) For Visit Diagnoses Date Provider Providers Copied on Encounter [facility], [address], [place], [address], [place] tel:[phone] [facility] , No Information 8 Radha Serrano. [facility] [address], [place], [address], [place]. tel:[phone] Office/Outpa tient Visit, New [facility], [address], [place], [address], [place] tel:[phone] [facility] , Abnormal Lab Study (chief complaint) tinnitis (chief complaint) Other specified abnormal immunologica l findings in serumOtalgia , unspecified earEdemaHype rtensionLate ral epicondyliti s, right elbowHypothy roidism, unspecifiedA lopecia 8 Radha Serrano. [facility] [address], [place], [address], [place]. tel:[phone] Referring Provider: Maggie Borges, [facility] [address], [place], [address]. tel:[phone] Family History Family Member Type Diagnosis Age [...] Arthritis Payers Payer name Insurance type Covered constitution party ID Authoriza tion(s) [facility] Medicare Advantage/Pl[employer] in[employer] Blue [id number] Social History Type Description Quantity Date Captured [...]
--- OUTSIDE RECORDS SUMMARY | 2023-11-13 15:45 | XMS_ITS | Clinical Summary ---
Author Organization [email or web address] Address [place], [place] [address] Care Team Providers Care Medication Aide Name Role Phone Ness Somers MD Primary Care Provider [phone] Allergies Active Allergy Reactions Criticality Noted Date [...] Department Care Team Description 08/18/2023 Orders Only [facility] [address] [place] [address] Gay Champagne 1 scan: (1-Ord) Final Zio [...] care provider. XR MAMMO MADHURI BILAT SCREEN [[id number]] CLINICAL HISTORY: ??This is an asymptomatic 71 [...] Recently Relevant to Health Maintenance Care Teams Medication Aide Relationship Specialty Start Date End Date Ness Somers MD [address] [place] [address] PCP - General Internal Medicine 01/31/17
== END 2023-11-09 12:18 | disposition home or self-care (01) ==
LOC: NFLDREF 11-13 15:42
PROVIDERS: PCP Internal Medicine; Referring Provider Internal Medicine; Visit Provider Physician Assistant
DX: N39.0 Urinary tract infection, site not specified (principal); B96.4 Proteus (mirabilis) (morganii) as the cause of diseases classified elsewhere
CPT/HCPCS: 87086; 87186

== ENCOUNTER 2024-02-12 13:00 | Outpatient (RCR) | payer MEDICARE, OTHER, SELFPAY ==
--- NOTE | 2023-11-22 17:47 | PT.OPE ---
PT [facility] Outpatient Eval PT [facility] Outpatient Eval Start: 11/22/23 11:12 Freq: Status: Active Protocol: Document 11/22/23 11:12 LSL (Rec: 11/22/23 12:58 LSL [id number]) E-signed By Yissel Gerber PT Physical Therapy Outpatient Evaluation Insurance Information Recert Due Date 02/20/24 Insurance Name Medicare B Medical Diagnosis s/p L RCR, SAD, LGHD Treating Diagnosis impaired ROM, weakness, pain Referring MD Echevarria Subjective Preferred Name Jeri Subjective Pt. reports she hurt her shoulder on Monday trying to use her L arm while in her sling to help get her in his wheelchair unstuck from a doorway and she felt something in her L shoulder and it was pretty bad Monday and Monday and it is gradually getting better each day. Pt. having difficulty sleeping and she is in her recliner, even though she has an adjustable bed, that is not yest comfortable. R hand dominant. Pain Comments 2/10 best, 8/10 worst ( Monday night), today 04/22 Date of Last Physician Visit 12/07/23 Date of Surgery (If applicable) 11/01/23 Current Work Status Retired Precautions Treatment Precautions/Contraindications tape allergies Objective Range of Motion PROM L flexion 128 abduction 80 IR 70 ER 32 L elbow AROM WNL Strength Wrist and fingers 4-5/5 Swelling Mild+ Palpation lateral supraspinatus and infraspinatus tender to palpation, anterior portal more thickened than the other portals Posture Inspection - 3 well healed portals Posture - forward head and protracted scapulae with tight pec minor Assessment Assessment/Impression Pt. is a 72 y/o female who presents with decent ROM for her first post op RCR visit and no significant pain with PROM today. She did attempt to use her slinged arm to help dislodge her 's wheelchair on 11/18/23 and had severe pain through the following day and it is slowly subsiding. She has significant social issues occurring presently that involve transferring her [place] care center [place] the [place], trying to sell her house, get herself relocated to an apartment and pack up her house. She is currently reliant on family to drive her to her appointments. 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 Treatment will consist of therex, NM re-ed, manual therapy and modalities prn for pain management. Primary Functional Limitations lifting, reaching, carrying, pushing WC, showering, dressing, sleeping Plan of Care Rehabilitation Potential Good Physical Therapy Goals SHORT TERM GOALS: (4 weeks) 1. PROM shoulder flexion 120+ degrees. 2. No ER goal established as she is already beyond neutral at eval. 3. Pt. able to sleep in her bed. 4. Pt. able to independently dress. MULTI OPERATION MACHINE OPERATOR GOALS: (8 weeks) 1. AROM flexion to 120+ degrees. 2. AROM ER to 60+ degrees. 3. Strength 3+/5 or greater throughout shoulder. 4. Pt. able to prepare a meal using both arms. 5. Pt. able to clean her home with pain less than 3/10. Patient's goal: Be able to push her in his wheelchair. Coordination/Communication With Referral Source Treatment Plan/Direct Interventions Electrical Stimulation,Ice/ Cold/Vasopneumatic,Joint Mobilization,Manual Therapy, Neuromuscular Re-ed,Self-Care/ Home Management,Therapeutic Exercises Frequency/Duration 2x/week 8 weeks Patient Will Be Discharged From Therapy Completion of LTG(s),Skills Plateau,Independent w/HEP, Independently Progressing Evaluation Billing Untimed Code Treatment Minutes 30 Complexity Low Certification Information Initial Certification Date 11/22/23 Ending Certification Date 02/20/24 Provider Signature Required Yes Provider Signature Shows Agreement With POC & Medical Necessity Physician NPI Number Write NPI# Here Physician Comment/Change : Physician Signature & Date Requested Please Sign/Date Here
--- OUTSIDE RECORDS SUMMARY | 2024-02-12 12:56 | XMS_ITS | Encounter Summary ---
Author Name [facility] [place] Address [address] [place] [id number] Support Name Relationship Address Phone DAYANAMAGED Next of Kin [address] [place] [address] MAGED ANNE Emergency Contact [phone] [address] Insurance Providers: All historical and [...] PART A Dec 14, 2014 PART A [id number] [phone] BARON ANNE PATIENT MEDICARE (WNR) MEDICARE (M) PART B Dec 14, 2014 PART B [id number] [phone] BARON ANNE PATIENT Selected Encounter This section includes the information on record at [place] for the Encounter. Date/Time Encounter Type Encounter Description Reason Provider Source Mar 20, 2023 11:00 AM GROUP PSYCHOTHERAPY CAREGIVER SUPPORT PROGRAM ICD-10-CM Z65.9 Problem related to unspecified psychosocial circumstances NIDHI SOLIS [facility] Encounter Template Text not used by [place] Assessments - Encounter Diagnoses This section includes the primary and secondary diagnoses documented for the Encounter. Date/Time Primary/Secondary Diagnosis Diagnosis Name Provider Source Mar 20, 2023 02:19 PM PRIMARY Problem related to unspecified psychosocial circumstances WADE SOLIS [facility] Plan of Treatment: Future Appointments (+ 6 months) and Future Tests (+/- 45 days) The Plan of Treatment section includes future care activities for the patient from all [place] [facility]. This section includes future appointments and future orders which are active, pending or scheduled. Future Appointments This section includes appointments that were scheduled to occur 6 months from the date of the Encounter, up to a maximum of 20 appointments. The data comes from all [place] treatment facilities. Appointment Date/Time Appointment Type Appointme nt Facility Name Mar 22, 2023 05:00 PM AMBULATORY - REHAB MEDICIN E [facility] Mar 28, 2023 10:00 AM AMBULATORY - REHAB MEDICIN E [facility] Mar 29, 2023 05:00 PM AMBULATORY - REHAB MEDICIN E [facility] Apr 12, 2023 05:00 PM AMBULATORY - REHAB MEDICIN E [facility] May 09, 2023 10:00 AM AMBULATORY - REHAB MEDICIN E [facility] May 30, 2023 10:00 AM AMBULATORY - REHAB MEDICIN E [facility] June 20, 2023 10:00 AM AMBULATORY - REHAB MEDICIN E [facility] Jul 18, 2023 10:00 AM AMBULATORY - REHAB MEDICIN E [facility] Jul 25, 2023 09:00 AM AMBULATORY - REHAB MEDICIN E [facility] Aug 04, 2023 05:00 PM AMBULATORY - REHAB MEDICIN E [facility] Aug 11, 2023 05:00 PM AMBULATORY - REHAB MEDICIN E [facility] Aug 22, 2023 09:00 AM AMBULATORY - REHAB MEDICIN E [facility] Sep 12, 2023 10:00 AM AMBULATORY - RE[facility]AB [facility]IN [facility] Encounter Notes: All associated encounter notes This section contains the clinical notes associated to the Encounter. Date/Time Encounter Note(s) Provider Source Mar 20, 2023 11:00 AM CAREGIVER CERTIFIC ATE: LOCAL TITLE: [facility] PGCSS INTERMITTENT NOTE STANDARD TITLE: CAREGIVER CERTIFICATE DATE OF NOTE: MAR 20, 2023@11:00 ENTRY DATE: MAR 20, 2023@14:20:01 AUTHOR: THOM SOLIS EXP COSIGNER: URGENCY: STATUS: COMPLETED Program of General Caregiver Support Services Intermittent Note This caregiver is participating in [place]'s Program of General Caregiver Support Services (PGCSS). While enrolled in the PGCSS, General Caregivers are eligible for a benefit package to include: Education, Training, and Technical Support, Telehealth, Teaching, Respite Care, and Counseling. Identified the caregiver using full name and the following other garcia identifier: This was Verified during the individual call prior to the beginning of the group during an individual contact. Method of contact: Telehealth/VA Video Connect Caregiver Contact Details: Best contact number for backup/emergency communication: This was Verified during the individual call prior to the beginning of the group during an individual contact. Caregiver Location/Surroundings During Visit: Caregiver location during visit Home This was Verified during the individual call prior to the beginning of the group during an individual contact. Patient confirms location is safe and private for visit. Telehealth Disclosure: Visit conducted by synchronous telehealth. Caregiver verbal consent obtained. Location/emergency number confirmed. Environment surveyed and all participants identified. Virtual conference room locked. Type of intervention: Group Intervention: General support/resources CAREGIVER ASSESSMENT Did not assess at this time. Group Notes Ongoing Parkinsons Disease Support Group Length of Group: 100 minutes Facilitators: Thom Solis Number of Participants: 16 Check-in - Group information and format Talked about the struggle with the increase in care needs and several group members Veterans transition into LTC. Caregivers talked about ideas for assisting with cognitive decline (using a white board, reminders, and when leaving a LTC facility avoiding the wording going home. Talked about accessing resources. Talked about the internal struggle to connect with the , allow them to make decisions while providing a safety net for inappropriate decisions (especially financial). Caregivers talked about the internal struggle they face when the disease makes planning difficult. The Veterans health precluding them from making solid plans for future events, etc. Support was provided both by staff and fellow caregivers. Closure: Next Session April 23 at 11:00am /josephine/ THOM SOLIS [facility] Caregiver Egg Pasteurizer Signed: 03/20/2023 14:32 THOM SOLIS [facility]
--- OUTSIDE RECORDS SUMMARY | 2024-02-12 12:56 | XMS_ITS ---
Author Name [facility] [place] Address [address] [place] [address] Support Name Relationship Address Phone DAYANAMAGED Next of Kin [address] [place] [address] MAGED ANNE Emergency Contact [phone], [place] [address] Insurance Providers: All historical and [...] PART A Dec 14, 2014 PART A [id number] [phone] KEILYERISBARON MCGOWAN PATIENT MEDICARE (WNR) MEDICARE (M) PART B Dec 14, 2014 PART B [id number] [id number] [phone] KEILYERISJOSÉ MCGOWANIE PATIENT Selected Encounter This section includes the information on record at [place] for the Encounter. Date/Time Encounter Type Encounter Description Reason Pro vider Source Mar 03, 2023 10:45 AM Outpatient Encounter TELEPHONE/REHAB AND SUPPORT IHE Encounter Template Text not used by [place] Plan of Treatment: Future Appointments (+ 6 [...] 20 appointments. The data comes from all [facility] treatment facilities. Appointment Date/Time Appointment Type Appointme nt Facility Name Mar 07, 2023 01:00 PM AMBULATORY - REHAB MEDICIN E [facility] Mar 14, 2023 01:00 PM AMBULATORY - REHAB MEDICIN E [facility] Mar 22, 2023 05:00 PM AMBULATORY - REHAB MEDICIN E [facility] Mar 28, 2023 10:00 AM AMBULATORY - REHAB MEDICIN E [facility] Mar 29, 2023 05:00 PM AMBULATORY - REHAB MEDICIN E [facility] Apr 12, 2023 05:00 PM AMBULATORY - REHAB MEDICIN E [facility] May 09, 2023 10:00 AM AMBULATORY - REHAB MEDICIN E [facility] May 30, 2023 10:00 AM AMBULATORY - REHAB MEDICIN E [facility] June 20, 2023 10:00 AM AMBULATORY - REHAB MEDICIN E [facility] Jul 18, 2023 10:00 AM AMBULATORY - REHAB MEDICIN E [facility] Jul 25, 2023 09:00 AM AMBULATORY - REHAB MEDICIN E [facility] Aug 04, 2023 05:00 PM AMBULATORY - REHAB MEDICIN E [facility] Aug 11, 2023 05:00 PM AMBULATORY - REHAB MEDICIN E [facility] Aug 22, 2023 09:00 AM AMBULATORY - REHAB MEDICIN E [facility] Encounter Notes: All associated encounter notes This section contains the clinical notes associated to the Encounter. Date/Time Encounter Note(s) Provider Source Mar 03, 2023 10:45 AM REPORT OF CONTACT: LOCAL TITLE: PATIENT CONTACT NOTE STANDARD TITLE: REPORT OF CONTACT DATE OF NOTE: MAR 03, 2023@10:45 ENTRY DATE: MAR 03, 2023@10:45:37 AUTHOR: CORINNE TIWARI COSIGNER: URGENCY: STATUS: COMPLETED Patient contact Name of Caregiver: BARON ANNE Date & Time of Contact: Feb@10:45 Type of Contact: Telephone Reason for Contact: Dr. Tiwari was notified by the caregiver's 's cleaner greaser (Dr. Mart) that the had been discharged to a shelter and his would likely need support during this transition. Dr. Tiwari called the caregiver to check-in on her adjustment to the 's discharge to a shelter. Caregiver noted feeling exhausted, explaining she has had several long days going between her home and the shelter. She shared concerns that she believes the shelter is not doing an adequate job monitoring the and that the shelter team does not appear to be informed about his level of functioning and needs. Caregiver was optimistic about an upcoming appointment for the with Dr. Mart, hoping this appointment may direct the to more appropriate care. Ms. Anne also noted increased feelings of grief, sharing the expressed a desire to at home. Dr. Tiwari and Caregiver discussed the aspects of home likely most important to the (i.e., loved ones) and the ability for the to be surrounded by loved ones in other settings (to honor the despite the level of care he needs). Caregiver noted daughters and grand-daughter have been visiting the too. Son's trip has been delayed due to work. Caregiver denied any suicidal ideation, intent, or plans. She also joked several times with the provider, noting it was good to laugh because there have been a lot of tears. Caregiver needed to end the call to go visit the . Caregiver acknowledged the upcoming session with Dr. Tiwari on Tuesday, March 07, 2023. She expressed appreciation to Dr. Tiwari for his support during this time. /josephine/ CORINNE TIWARI, PHD, LP PSYCHOLOGIST, [facility] Signed: 03/03/2023 11:00 CORINNE TIWARI [facility]
--- OUTSIDE RECORDS SUMMARY | 2024-02-12 12:56 | XMS_ITS | Encounter Summary ---
Author Name [facility] [place] Organization [place] Address [address] [place] [address] Support Name Relationship Address Phone DAYANAMAGED Next of Kin [address] [place] [address] MAGED LYLE Emergency Contact [phone] [address] Insurance Providers: All historical and [...] PART A Dec 14, 2014 PART A [id number] [phone] SHEBA LYLE PATIENT MEDICARE (WNR) MEDICARE (M) PART B Dec 14, 2014 PART B [id number] [phone] JOSÉ LYLEIE PATIENT Selected Encounter This section includes the information on record at [place] for the Encounter. Date/Time Encounter Type Encounter Description Reason Provider Source Mar 07, 2023 01:00 PM PSYTX W PT 45 MINUTES PM&RS PHYSICIAN ICD-10-CM Z71.9 Counseling, unspecified CORINNE TIWARI Katerina Encounter Template Text not used by [place] Assessments - Encounter Diagnoses This section includes the primary and secondary diagnoses documented for the Encounter. Date/Time Primary/Secondary Diagnosis Diagnosis Name Provider Source Mar 07, 2023 04:30 PM PRIMARY Counseling, unspecified CORINNE TIWARI [facility] Plan of Treatment: Future Appointments (+ 6 months) and Future Tests (+/- 45 days) The Plan of Treatment section includes future care activities for the patient [facility] [place] [facility]. This section includes future appointments and future orders which are active, pending or scheduled. Future Appointments This section includes appointments that were scheduled to occur 6 months from the date of the Encounter, up to a maximum of 20 appointments. The data comes from all [facility]. Appointment Date/Time Appointment Type Appointme nt Facility Name Mar 14, 2023 01:00 PM AMBULATORY - REHAB MEDICIN E [facility] Mar 22, 2023 05:00 PM AMBULATORY - REHAB MEDICIN E [facility] Mar 28, 2023 10:00 AM AMBULATORY - REHAB MEDICIN E [facility] Mar 29, 2023 05:00 PM AMBULATORY - REHAB MEDICIN E [facility] Apr 12, 2023 05:00 PM AMBULATORY - REHAB MEDICIN E [facility] May 09, 2023 10:00 AM AMBULATORY - REHAB MEDICIN E [facility] May 30, 2023 10:00 AM AMBULATORY - REHAB MEDICIN E [facility] June 20, 2023 10:00 AM AMBULATORY - REHAB MEDICIN E [facility] Jul 18, 2023 10:00 AM AMBULATORY - REHAB MEDICIN E [facility] Jul 25, 2023 09:00 AM AMBULATORY - REHAB MEDICIN E [facility] Aug 04, 2023 05:00 PM AMBULATORY - REHAB MEDICIN E [facility] Aug 11, 2023 05:00 PM AMBULATORY - REHAB MEDICIN E [facility] Aug 22, 2023 09:00 AM AMBULATORY - REHAB MEDICIN E [facility] Encounter Notes: All associated encounter notes This section contains the clinical notes associated to the Encounter. Date/Time Encounter Note(s) Provider Source Mar 07, 2023 01:00 PM PHYSICAL MEDICINE REHAB NOTE: LOCAL TITLE: REHAB PSYCHOLOGY PROGRESS NOTE STANDARD TITLE: PHYSICAL MEDICINE REHAB NOTE DATE OF NOTE: MAR 07, 2023@13:00 ENTRY DATE: MAR 07, 2023@16:30:13 AUTHOR: CORINNE TIWARI COSIGNER: URGENCY: STATUS: COMPLETED REHABILITATION PSYCHOLOGY PROGRESS NOTE Patient Name: Sheba Lyle Date of : 1950 Date of Visit: 03/07/2023 Session Duration: 51 minutes Visit Modality: [facility] Patient Location: [address] [place] [address] Patient CONSENT Visit conducted by synchronous telehealth. [...] services. SESSION CONTENT Ms. Lyle reported feeling stressed due to a recent argument with her daughter; however, she acknowledged that prior to this conflict she was doing great. Provider and caregiver discussed the argument and the values at play for both individuals. Caregiver acknowledged frustration with her daughter, who caregiver believes is forcing a grieving process similar to her own after her . Provider reflected caregiver's frustration and discussed communication strategies. Additionally, provider and caregiver revisited the concept of letting go of the rope in relation to her daughter, connecting to acceptance and control. Caregiver shared strong values conflict due to her 's health directive, noting he wanted to be at home rather than institutionalized. Provider and caregiver discussed the varying aspects of the being at home and at a care center. Caregiver acknowledged that in his current state (i.e., mobile, obstinate), was safer at home, but if those factors changed, he may be a better candidate for coming home. Provider and caregiver also discussed ways of making the care center more like home, including pictures. Caregiver is hopeful about an upcoming appointment for the with his storekeeper helper, believing providers who know him better will give better recommendations. Ms. Lyle noted continued difficulties with sleep; however, she does not engage in stimulating activity when she wakes, choosing instead to pray. Provider reinforced her changes to improve her sleep. Caregiver reported she did not attend taoist in the past week, instead visiting the with her daughter. Caregiver plans to attend taoist this week, and she continues to enjoy listening to praise music. She reported continuing positive support from her Parkinson's caregiving group. She also shared that her son will be visiting in March. OBJECTIVE Session/visit location: C Present at session: Caregiver General appearance: Based [...] was described as: stressed Affect: Her affect appeared distressed. Her emotional expressions were appropriately reactive [...] family (children, grandchildren, and sisters) and community (taoist community); responsibility/duty to others; help seeking; presents with good impulse control; evidence of spiritual/episcopalian beliefs about value of life (strong spirituality [...] care. PLAN HOMEWORK: Ms. Lyle will continue engaging in self-care activities (e.g., praise music) and will prioritize other forms of self-care (e.g., going to taoist). She will practice letting go of the rope in stressful situations. She will also practice being present and focus her attention and energy on areas where she has control. SESSION ENGAGEMENT: RITS Rating = 4 Education was provided during this session. Caregiver indicated readiness to learn by asking questions, making appropriate comments, and demonstrating appropriate nonverbals. RETURN TO CLINIC: Provider and Caregiver agreed that the optimal return to clinic would be one week. A return to clinic order was placed for Tuesday, March 14, 2023. She is aware of how to contact the provider if she has needs before the next appointment. /es/ CORINNE TIWARI, PHD, LP PSYCHOLOGIST, [facility] Signed: 03/07/2023 16:30 CORINNE TIWARI [facility]
--- OUTSIDE RECORDS SUMMARY | 2024-02-12 12:56 | XMS_ITS | Continuity of Care Document ---
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 It does not include entries that were removed or entered in error. Problem Status Onset Date Problem Type Date of Resolution Comments Source Diagnosis: ICD-10-CM Z71.9 Counseling, unspecified Active Diagnosis [facility] Diagnosis: ICD-10-CM Z65.9 Problem related to unspecified psychosocial circumstances Active Diagnosis [facility] Diagnosis: ICD-10-CM Z65.8 Oth problems related to psychosocial circumstances Active Diagnosis [facility] Immunizations Combined list of available immunizations from the Department of Defense and Veterans Affairs facilities. Immunization Series Date Given Administered By Site Reaction Lot Number CVX Code Drug Electrician Constructor Supervisor Status Comments Source COVID-19 (911 Pets), MRNA, LNP-S, PF, EMILY-SUCROSE, 30 MCG/0.3 ML (AGES 12+ YEARS) 2023 309 complet ed [facility] INFLUENZA VACCINE, QUADRIVALENT, ADJUVANTED 2021 205 complet ed [facility] COVID-19 (PFIZER), MRNA, LNP-S, BIVALENT, PF, 30 MCG/0.3 ML DOSE 2021 300 complet ed [facility] COVID-19 (911 Pets), MRNA, LNP-S, PF, 30 MCG/0.3 ML DOSE, EMILY-SUCROSE (AGES 12+ YEARS) 4 2021 217 complet ed PFR; [id number]; 2 [facility] COVID-19 (911 Pets), MRNA, LNP-S, PF, 30 MCG/0.3 ML DOSE 2020 208 complet ed [facility] COVID-19 (PFIZER), MRNA, LNP-S, PF, 30 MCG/0.3 ML DOSE 2020 208 complet ed [facility] COVID-19 (PFIZER), MRNA, LNP-S, PF, 30 MCG/0.3 ML DOSE 2020 208 complet ed [facility] ZOSTER RECOMBINANT 2020 187 complet ed [facility] ZOSTER RECOMBINANT 2019 187 complet ed [facility] TD (ADULT), 2 LF TETANUS TOXOID, PRESERVATIVE FREE, ADSORBED 2016 09 complet ed [facility] PNEUMOCOCCAL POLYSACCHARID E PPV23 2015 33 complet ed [facility] ZOSTER LIVE 2011 121 complet ed [facility] TDAP 2006 115 complet ed [facility] Encounters Combined list of: 1) Encounters from Department of Veterans Affairs facilities going back up to thelast 18 months. 2) Encounters from the Department of Defense facilities going back up to 280 months. Location Location Details Encounter Type Encounter Number Reason For Visit Attending Provider ADM Date DC Date Status Disposition Source [facility] PS[facility]OTHER APY [id number] Diagnos is: ICD-10- CM Z65.9 Problem related to unspeci fied psychos ocial circums tances< br/> Liza SOLIS 08/15 [facility] PSYTX W PT 45 MINUTES [id number] Diagnos is: ICD-10- CM Z71.9 Button Pusher ing, unspeci fied
CORINNE CALVO 08/30 [facility] PSYTX W PT 45 MINUTES [id number] Diagnos is: ICD-10- CM Z71.9 Button Pusher ing, unspeci fied
CORINNE CALVO 09/06 [facility] PSYTX W PT 45 MINUTES [id number] Diagnos is: ICD-10- CM Z71.9 Button Pusher ing, unspeci fied
CORINNE CALVO 09/27 [facility] PSYTX W PT 45 MINUTES [id number] Diagnos is: ICD-10- CM Z71.9 Button Pusher ing, unspeci fied
CORINNE CALVO 10/11 [place] [facility] PSYCHOTHER APY [id number] Diagnos is: ICD-10- CM Z65.9 Problem related to unspeci fied psychos ocial circums tances< br/> IRMAJ ESSICA DEBBIE 10[facility]24 [facility] PSYTX W PT 45 MINUTES [id number] Diagnos is: ICD-10- CM Z71.9 Button Pusher ing, unspeci fied
CORINNE CALVO 11/01 [facility] PSYCHOTHER APY [id number] Diagnos is: ICD-10- CM Z65.9 Problem related to unspeci fied psychos ocial circums tances< br/> IRMAJ ESSICA DEBBIE 11/14 [facility] Outpatient Encounter [id number] 11/30 [facility] PSYTX W PT 45 MINUTES [id number] Diagnos is: ICD-10- CM Z71.9 Button Pusher ing, unspeci fied
CORINNE CALVO 12/06 [facility] HC PRO PHONE CALL 21-30 MIN [id number] Diagnos is: ICD-10- CM Z65.8 Oth problem s related to psychos ocial circums tances< br/> Haris TOROLY 12/09 [facility] PSYCHOTHER APY [id number] Diagnos is: ICD-10- CM Z65.9 Problem related to unspeci fied psychos ocial circums tances< br/> IRMAJ ESSICA DEBBIE 12/19 [facility] PSYTX W PT 45 MINUTES [id number] Diagnos is: ICD-10- CM Z71.9 Button Pusher ing, unspeci fied
CORINNE CALVO A 12/20 [place] [facility] Outpatient Encounter [id number] PEE NIXON 01/02 [place] PSYTX W PT 45 MINUTES [id number] Diagnos is: ICD-10- CM Z71.9 Button Pusher ing, unspeci fied
CORINNE CALVO 01/10 [place] [facility] PSYCHOTHER APY [id number] Diagnos is: ICD-10- CM Z65.9 Problem related to unspeci fied psychos ocial circums tances< br/> Liza SOLIS DEBBIE 01/16 [place] [facility] PSYTX W PT 45 MINUTES [id number] Diagnos is: ICD-10- CM Z71.9 Button Pusher ing, unspeci fied
CORINNE CALVO A 01/31 [place] [facility] Outpatient Encounter [id number] 02/14 [facility] PSYTX W PT 45 MINUTES [id number] Diagnos is: ICD-10- CM Z71.9 Button Pusher ing, unspeci fied
CORINNE CALVO A 02/21 [place] [place] [facility] Outpatient Encounter [id number] 02/21 [facility] Outpatient Encounter [id number] Diagnos is: ICD-10- CM Z65.9 Problem related to unspeci fied psychos ocial circums tances< br/> Liza SOLIS ESSICA DEBBIE 02/21 [place] [facility] PSYTX W PT 45 MINUTES [id number] Diagnos is: ICD-10- CM Z71.9 Button Pusher ing, unspeci fied
CORINNE CALVO 02/28 [place] [place] [facility] Outpatient Encounter [id number] 03/03 [place] [facility] [place] [facility] PSYTX W PT 45 MINUTES [id number] Diagnos is: ICD-10- CM Z71.9 Button Pusher ing, unspeci fied
CORINNE CALVO 03/07 [place] [facility] [place] [facility] Outpatient Encounter [id number] 03/08 [place] [facility] PSYTX W PT 45 MINUTES [id number] Diagnos is: ICD-10- CM Z71.9 Button Pusher ing, unspeci fied
CORINNE CALVO 03/14 [facility] PSYCHOTHER APY [id number] Diagnos is: ICD-10- CM Z65.9 Problem related to unspeci fied psychos ocial circums tances< br/> Liza SOLIS DEBBIE 03/20 [place] [facility] PSYTX W PT 45 MINUTES [id number] Diagnos is: ICD-10- CM Z71.9 Button Pusher ing, unspeci fied
CORINNE CALVO 03/28 [place] [facility] [place] [facility] Outpatient Encounter [id number] 03/29 [place] [facility] Outpatient Encounter [id number] Diagnos is: ICD-10- CM Z65.9 Problem related to unspeci fied psychos ocial circums tances< br/> Liza SOLIS ESSICA DEBBIE 04/25 [place] [facility] PSYTX W PT 45 MINUTES [id number] Diagnos is: ICD-10- CM Z71.9 Button Pusher ing, unspeci fied
CORINNE CALVO 05/08 [place] [facility] HC PRO PHONE CALL 11-20 MIN [id number] Diagnos is: ICD-10- CM Z65.9 Problem related to unspeci fied psychos ocial circums tances< br/> JAIRO,LOVE SE A 05/17 [place] [facility] PSYCHOTHER APY [id number] Diagnos is: ICD-10- CM Z65.9 Problem related to unspeci fied psychos ocial circums tances< br/> Liza SOLIS DEBBIE 05/21 [facility] PSYCH DIAGNOSTIC EVALUATION [id number] Diagnos is: ICD-10- CM Z65.8 Oth problem s related to psychos ocial circums tances< br/> SUGAR GILLI SE A 05/22 [place] [facility] PSYTX W PT 45 MINUTES [id number] Diagnos is: ICD-10- CM Z71.9 Button Pusher ing, unspeci fied
CORINNE CALVO A 05/29 [facility] Outpatient Encounter [id number] 05/30 [facility] PSYCHOTHER APY [id number] Diagnos is: ICD-10- CM Z65.9 Problem related to unspeci fied psychos ocial circums tances< br/> Liza SOLIS DEBBIE 06/18 [facility] PSYTX W PT 45 MINUTES [id number] Diagnos is: ICD-10- CM Z71.9 Button Pusher ing, unspeci fied
CORINNE CALVO 06/19 [facility] PSYCHOTHER APY [id number] Diagnos is: ICD-10- CM Z65.9 Problem related to unspeci fied psychos ocial circums tances< br/> Liza SOLISICA DEBBIE 07/16 [place] [facility] PSYTX W PT 45 MINUTES [id number] Diagnos is: ICD-10- CM Z71.9 Button Pusher ing, unspeci fied
CORINNE CALVO 07/17 [facility] Outpatient Encounter [id number] 07/20 [facility] PSYTX W PT 45 MINUTES [id number] Diagnos is: ICD-10- CM Z71.9 Button Pusher ing, unspeci fied
CORINNE CALVO 07/24 [facility] PSYCHOTHER APY [id number] Diagnos is: ICD-10- CM Z65.9 Problem related to unspeci fied psychos ocial circums tances< br/> Liza SOLIS DEBBIE 08/13 [facility] PSYTX W PT 45 MINUTES [id number] Diagnos is: ICD-10- CM Z71.9 Button Pusher ing, unspeci fied
CORINNE CALVO 08/21 [place] [facility] PSYTX W PT 45 MINUTES [id number] Diagnos is: ICD-10- CM Z71.9 Button Pusher ing, unspeci fied
CORINNE CALVO 09/11 [facility] Outpatient Encounter [id number] 09/12 [facility] HLTH BHV IVNTJ GRP EA ADDL [id number] Diagnos is: ICD-10- CM Z65.9 Problem related to unspeci fied psychos ocial circums tances< br/> IRMAJ ESSICA DEBBIE 09/17 [place] [facility] PSYTX W PT 45 MINUTES [id number] Diagnos is: ICD-10- CM Z71.9 Button Pusher ing, unspeci fied
CORINNE CALVO 10/02 [place] [facility] Outpatient Encounter [id number] 10/23 [place] [facility] PSYTX W PT 45 MINUTES [id number] Diagnos is: ICD-10- CM Z71.9 Button Pusher ing, unspeci fied
CORINNE CALVO 10/23 [place] [facility] IVNTJ GRP EA ADDL [id number] Diagnos is: ICD-10- CM Z65.9 Problem related to unspeci fied psychos ocial circums tances< br/> IRMAJ ESSICA DEBBIE 10/29 [facility] Outpatient Encounter [id number] 11/05 [place] [facility] PSYTX W PT 45 MINUTES [id number] Diagnos is: ICD-10- CM Z71.9 Button Pusher ing, unspeci fied
CORINNE CALVO 11/13 [place] [facility] IVNTJ GRP EA ADDL [id number] Diagnos is: ICD-10- CM Z65.9 Problem related to unspeci fied psychos ocial circums tances< br/> IRMAJ ESSICA DEBBIE 11/19 [place] [facility] PSYTX W PT 60 MINUTES [id number] Diagnos is: ICD-10- CM Z71.9 Button Pusher ing, unspeci fied
CORINNE CALVO 12/04 [facility] Outpatient Encounter [id number] 12/05 [facility] PSYTX W PT 45 MINUTES [id number] Diagnos is: ICD-10- CM Z71.9 Button Pusher ing, unspeci fied
CORINNE CALVO 12/18 [facility] IVNTJ GRP EA ADDL [id number] Diagnos is: ICD-10- CM Z65.9 Problem related to unspeci fied psychos ocial circums tances< br/> Liza SOLIS ESSICA DEBBIE 12/28 [facility] PSYTX W PT 45 MINUTES [id number] Diagnos is: ICD-10- CM Z71.9 Button Pusher ing, unspeci fied
CORINNE CALVO 01/01 [facility] IVNTJ GRP EA ADDL [id number] Diagnos is: ICD-10- CM Z65.9 Problem related to unspeci fied psychos ocial circums tances< br/> Liza SOLIS ESSICA DEBBIE 01/21 [facility] PSYTX W PT 45 MINUTES [id number] Diagnos is: ICD-10- CM Z71.9 Button Pusher ing, unspeci fied
CORINNE CALVO 01/22 [facility] Plan of Care List of future care activities from Department of [facility] facilities. Additional future care activities may be listed in the Assessment and Plan section. Date/Time Care Activity Care Activity Detail Facili ty 02/20/2024 AMBULATORY - REHAB MEDICINE AMBULATORY - REHAB MEDICINE [facility]
--- OUTSIDE RECORDS SUMMARY | 2024-02-12 12:56 | XMS_ITS | Encounter Summary ---
Author Name [facility] Address [address] [place] [address] Support Name Relationship Address Phone DAYANAMAGED Next of Kin [phone] [place] [address] MAGED LYLE Emergency Contact [phone], [place] [address] Insurance Providers: All historical and [...] PART A Dec 14, 2014 PART A [id number] [phone] SHEBA LYLE PATIENT MEDICARE (WNR) MEDICARE (M) PART B Dec 14, 2014 PART B [id number] [phone] SHEBA LYLE PATIENT Selected Encounter This section includes the information on record at NH for the Encounter. Date/Time Encounter Type Encounter Description Reason Provider Source Mar 14, 2023 01:00 PM PSYTX W PT 45 MINUTES PM&RS PHYSICIAN ICD-10-CM Z71.9 Counseling, unspecified CORINNE TIWARI Katerina Encounter Template Text not used by [facility] Assessments - Encounter Diagnoses This section includes the primary and secondary diagnoses documented for the Encounter. Date/Time Primary/Secondary Diagnosis Diagnosis Name Provider Source Mar 16, 2023 11:40 PM PRIMARY Counseling, unspecified CORINNE TIWARI [facility] Plan of Treatment: Future Appointments (+ 6 months) and Future Tests (+/- 45 days) The Plan of Treatment section includes future care activities for the [facility] This section includes future appointments and future orders which are active, pending or scheduled. Future Appointments This section includes appointments that were scheduled to occur 6 months from the date of the Encounter, up to a maximum of 20 appointments. The data comes from all [facility]. Appointment Date/Time Appointment Type Appointme nt Facility Name Mar 22, 2023 05:00 PM AMBULATORY - REHAB MEDICIN E [facility] Mar 28, 2023 10:00 AM AMBULATORY - REHAB MEDICIN E [facility] Mar 29, 2023 05:00 PM AMBULATORY - REHAB MEDICIN E [facility] Apr 12, 2023 05:00 PM AMBULATORY - REHAB MEDICIN E [facility] May 09, 2023 10:00 AM AMBULATORY - REHAB MEDICIN E [facility] May 30, 2023 10:00 AM AMBULATORY - REHAB MEDICIN E [facility] June 20, 2023 10:00 AM AMBULATORY - REHAB MEDICIN E [facility] Jul 18, 2023 10:00 AM AMBULATORY - REHAB MEDICIN E [facility] Jul 25, 2023 09:00 AM AMBULATORY - REHAB MEDICIN E [facility] Aug 04, 2023 05:00 PM AMBULATORY - REHAB MEDICIN E [facility] Aug 11, 2023 05:00 PM AMBULATORY - REHAB MEDICIN E [facility] Aug 22, 2023 09:00 AM AMBULATORY - REHAB MEDICIN E [facility] Sep 12, 2023 10:00 AM AMBULATORY - REHAB MEDICIN [facility] Encounter Notes: All associated encounter notes This section contains the clinical notes associated to the Encounter. Date/Time Encounter Note(s) Provider Source Mar 15, 2023 11:11 AM REPORT OF CONTACT: LOCAL TITLE: APPOINTMENT SCHEDULING NOTE STANDARD TITLE: REPORT OF CONTACT DATE OF NOTE: MAR 15, 2023@11:11 ENTRY DATE: MAR 15, 2023@11:11:55 AUTHOR: DANIEL BOND: URGENCY: STATUS: COMPLETED Attempted to schedule Return to clinic (RTC) Contact attempt made to [place] 1st attempt Telephone 2nd attempt Text message 3rd attempt Letter - Sent letter by regular [place] mail to address on file: SHEBA LYLE [address] [place] [address] Left message on voice mail to call back to this number [phone] If [place] calls back, schedule appt for: Activity: 03/14/2023 15:24 New Order entered by CORINNE TIWARI (CLINICAL PSYCHO) Order Text: Return to [facility] PSYCH LUBNA on or around ( Mar 28, 2023 ) for a total of 1 appointment(s) Prerequisites: All Modalities Appropriate / Offer Option, Notify ordering provider if minimum scheduling efforts fail 60 min; follow-up // DANIEL BOND Seafood Clerk Signed: 03/15/2023 11:12 DANIEL BOND [facility] Mar 14, 2023 01:00 PM PHYSICAL MEDICINE REHAB NOTE: LOCAL TITLE: REHAB PSYCHOLOGY PROGRESS NOTE STANDARD TITLE: PHYSICAL MEDICINE REHAB NOTE DATE OF NOTE: MAR 14, 2023@13:00 ENTRY DATE: MAR 16, 2023@23:39:28 AUTHOR: CORINNE TIWARI EXP COSIGNER: URGENCY: STATUS: COMPLETED REHABILITATION PSYCHOLOGY PROGRESS NOTE Patient Name: Sheba Lyle Date of : 1950 Date of Visit: 03/14/2023 Session Duration: 50 minutes Visit Modality: [facility] Patient Location: [address] [place] [address] Patient CONSENT Visit conducted by synchronous telehealth. [...] services. SESSION CONTENT Ms. Lyle reported feeling depressed. She shared a disaster appointment at the NH where the was mistakenly taken to the Emergency Department. She also shared several conflicts between her and the 's care center team (e.g., wheelchair, air mattress cover, wander alarms, asking about coming home in front of which resulted in him crying). Caregiver noted the stress she experienced as she advocated. Provider reminded caregiver about stress management skills (e.g., deep breathing). Provider also discussed communication strategies that the caregiver could consider when working with the care center team. Caregiver noted relief that her daughter returned to her home, explaining that the caregiver could now catch up on housework. Additionally, the caregiver objected to her daughter's coping strategy of putting things off. Caregiver asked about ACP. Provider offered information about Advanced Care Planning and offered to send the caregiver a flyer in the mail about upcoming [facility] Advanced Care Planning events. Caregiver was appreciative of this. Ms. Lyle noted continued sleep problems (i.e., waking up and being unable to go back to sleep). Provider and caregiver discussed ways to limit the caregiver's engagement with the 's healthcare logistics prior to bed due to their emotionally provocative nature. Caregiver noted having a conversation with a friend, which was positive. She also continues to listen to praise music, and although she did not attend [employer] in person, she is watching services virtually. Provider reinforced her connection to others and her protestant/spiritual practices. Caregiver noted feelings of guilt while doing activities when the is at the care center. Provider worked with caregiver to consider her perspective if the situation was reversed. She acknowledged she would want the to connect with others. Caregiver also shared a positive experience where she encouraged others and showed kindness. Provider reinforced her actions and connected them to her values. OBJECTIVE Session/visit location: [facility] Present at session: Caregiver General appearance: Based on available data (camera angle only provided observations from the shoulders up), Caregiver was neat, clean, and well- groomed. She was dressed casually and appropriately for the weather and occasion. Presentation: Caregiver was cooperative and pleasant with the provider. Positive rapport was maintained. Orientation/cognition/mem ory: Caregiver was oriented to time, place, person, [...] was described as: depressed Affect: Her affect appeared distressed. Her emotional expressions were appropriately reactive and consistent with conversation topics. She was tearful at several moments during the session, particularly while discussing a recent care conference where the cried. She also joked several times with the provider. Thought [...] family (children, grandchildren, and sisters) and community ([employer] community); responsibility/duty to others; help seeking; presents with good impulse control; evidence of spiritual/protestant beliefs about value of life (strong spirituality [...] PLAN HOMEWORK: Ms. Lyle will engage in self-care activities (e.g., praise music) and will prioritize other forms of self-care (e.g., going to [employer]). She will abstain from any healthcare logistics before bed. She will connect with one friend. SESSION ENGAGEMENT: RITS Rating = 4 Education was provided during this session. Caregiver indicated readiness to learn by asking questions, making appropriate comments, and demonstrating appropriate nonverbals. RETURN TO CLINIC: Provider and Caregiver agreed that the optimal return to clinic would be one week; however, the caregiver's son is coming into town. She requested another appointment in two weeks. A return to clinic order was placed for Tuesday, March 28, 2023. She is aware of how to contact the provider if she has needs before the next appointment. /es/ CORINNE TIWARI, PHD, LP PSYCHOLOGIST, [facility] Signed: 03/16/2023 23:40 CORINNE TIWARI [facility]
--- OUTSIDE RECORDS SUMMARY | 2024-02-12 12:56 | XMS_ITS | Encounter Summary ---
Author Name [facility] [facility] [place] Organization [facility] [place] [facility] [place] Address [address] [place] [address] Support Name Relationship Address Phone DAYANAMAGED Next of Kin [phone] [place] [address] MAGED ANNE Emergency Contact [phone] [address] Insurance Providers: All historical and [...] PART A Dec 14, 2014 PART A [id number] [phone] KEILYERISBARON MCGOWAN PATIENT MEDICARE (WNR) MEDICARE (M) PART B Dec 14, 2014 PART B [id number] [phone] DAYANAJOSÉIE PATIENT Selected Encounter This section includes the information on record at [place] for the Encounter. Date/Time Encounter Type Encounter Description Reason Pro vider Source Feb 21, 2023 03:38 PM Outpatient Encounter TELEPHONE/ANCILLARY IHE Encounter Template Text not used by [place] Plan of Treatment: Future Appointments (+ 6 months) and Future Tests (+/- 45 days) The Plan of Treatment section includes future care activities for the patient from all [place] treatmentfacilities. This section includes future appointments and future orders which are active, pending or scheduled. Future Appointments This section includes appointments that were scheduled to occur 6 months from the date of the Encounter, up to a maximum of 20 appointments. The data comes from all [place] treatment facilities. Appointment Date/Time Appointment Type Appointme nt Facility Name Feb 28, 2023 02:00 PM AMBULATORY - [facility]AB [facility] Mar 07, 2023 01:00 PM AMBULATORY - REHAB MED[facility] Mar 14, 2023 01:00 PM AMBULATORY - REHAB MED[facility] Mar 22, 2023 05:00 PM AMBULATORY - REHAB MEDICIN [facility] Mar 28, 2023 10:00 AM AMBULATORY - REHAB MEDICIN [facility] Mar 29, 2023 05:00 PM AMBULATORY - REHAB MEDICIN [facility] Apr 12, 2023 05:00 PM AMBULATORY - REHAB MEDICIN [facility] May 09, 2023 10:00 AM AMBULATORY - REHAB MEDICIN E [facility] May 30, 2023 10:00 AM AMBULATORY - REHAB MEDICIN E [facility] June 20, 2023 10:00 AM AMBULATORY - REHAB MEDICIN E [facility] Jul 18, 2023 10:00 AM AMBULATORY - REHAB MEDICIN E [facility] Jul 25, 2023 09:00 AM AMBULATORY - REHAB MEDICIN [facility] Aug 04, 2023 05:00 PM AMBULATORY - REHAB MEDICIN [facility] Aug 11, 2023 05:00 PM AMBULATORY - REHAB MEDICIN E [facility] Aug 22, 2023 09:00 AM AMBULATORY - REHAB MEDICIN E [facility] Encounter Notes: All associated encounter notes This section contains the clinical notes associated to the Encounter. Date/Time Encounter Note(s) Provider Source Feb 21, 2023 03:39 PM CAREGIVER CERTIFIC ATE: LOCAL TITLE: CSP TELEPHONE NOTE STANDARD TITLE: CAREGIVER CERTIFICATE DATE OF NOTE: FEB 21, 2023@15:39 ENTRY DATE: FEB 21, 2023@15:39:13 AUTHOR: THOM SOLIS EXP COSIGNER: URGENCY: STATUS: COMPLETED Caregiver called to inform that her isn't doing well and that he will likely go to a shelter as she doesn't feel she can care for him. CSC provided supportive listening. Caregiver inquired about benefits following 's . CSC provided [facility] foreign policy officer's number, Moriah Mccall [phone] Length of Call: 13minutes /josephine/ THOM SOLIS JEWELRY DRILLING MACHINE OPERATOR Caregiver Network Operations Analyst Signed: 02/21/2023 15:52 THOM SOLIS [facility]
--- OUTSIDE RECORDS SUMMARY | 2024-02-12 12:56 | XMS_ITS | Encounter Summary ---
Author Name [facility] [place] [facility] [place] [facility] [place] Address [address] [place] [address] Support Name Relationship Address Phone DAYANAMAGED Next of Kin [address] [place] [address] MAGED ANNE Emergency Contact [phone] [address] Insurance Providers: All historical [...] PART A Dec 14, 2014 PART A [id number] [phone] KEILYERISBARON MCGOWAN PATIENT MEDICARE (WNR) MEDICARE (M) PART B Dec 14, 2014 PART B [id number] [phone] UNIQUEJOSÉ MCGOWANIE PATIENT Selected Encounter This section includes the information on record at [place] for the Encounter. Date/Time Encounter Type Encounter Description Reason Pro vider Source Mar 08, 2023 02:08 PM Outpatient Encounter PM&RS PHYSICIAN E Encounter Template Text not used by [place] Plan of Treatment: Future Appointments (+ 6 months) and Future Tests (+/- 45 days) The Plan of Treatment section includes future care activities for the patient from all [place] treatmentfacilities. This section includes future appointments and future orders which are active, pending or scheduled. Future Appointments This section includes appointments that were scheduled to occur 6 months from the date of the Encounter, up to a maximum of 20 appointments. The data comes from all [place] treatment facilities. Appointment Date/Time Appointment Type Appointme nt Facility Name Mar 14, 2023 01:00 PM AMBULATORY - RE[facility]AB [facility] Mar 22, 2023 05:00 PM AMBULATORY - RE[facility]AB [facility] Mar 28, 2023 10:00 AM AMBULATORY - REHAB MEDICIN E [facility] Mar 29, 2023 05:00 PM AMBULATORY - REHAB MEDICIN [facility] Apr 12, 2023 05:00 PM AMBULATORY - REHAB MEDICIN E [facility] May 09, 2023 10:00 AM AMBULATORY - REHAB MEDICIN [facility] May 30, 2023 10:00 AM AMBULATORY - REHAB MEDICIN [facility] June 20, 2023 10:00 AM AMBULATORY - REHAB MEDIC[facility] Jul 18, 2023 10:00 AM AMBULATORY - REHAB MEDICIN E [facility] Jul 25, 2023 09:00 AM AMBULATORY - REHAB MEDIC[facility] Aug 04, 2023 05:00 PM AMBULATORY - REHAB MEDICIN [facility] Aug 11, 2023 05:00 PM AMBULATORY - REHAB MEDICIN E [facility] Aug 22, 2023 09:00 AM AMBULATORY - REHAB MEDICIN E [facility] Encounter Notes: All associated encounter notes This section contains the clinical notes associated to the Encounter. Date/Time Encounter Note(s) Provider Source Mar 08, 2023 02:08 PM REPORT OF CONTACT: LOCAL TITLE: APPOINTMENT SCHEDULING NOTE STANDARD TITLE: REPORT OF CONTACT DATE OF NOTE: MAR 08, 2023@14:08 ENTRY DATE: MAR 08, 2023@14:08:54 AUTHOR: VINAY FRIEDMANIGNER: URGENCY: STATUS: COMPLETED Attempted to schedule Return to clinic (RTC) Contact attempt made to 1st attempt Telephone 2nd attempt Text message 3rd attempt Letter - Sent letter by regular [place] mail to address on file: BARON ANNE [address] [place] [address] Left message on voice mail to call back to this number [phone] If calls back, schedule appt for: Activity: 03/07/2023 15:52 New Order entered by CORINNE CALVO (CLINICAL PSYCHO) Order Text: Return to [facility] on or around ( Mar 14, 2023 ) for a total of 1 appointment(s) Prerequisites: All Modalities Appropriate / Offer Option, Notify ordering provider if minimum scheduling efforts fail 60 min; follow-up /es/ VINAY FRIEDMAN Advanced Health Technician Hearing REC Signed: 03/08/2023 14:10 VINAY FRIEDMAN [facility]
--- OUTSIDE RECORDS SUMMARY | 2024-02-12 12:56 | XMS_ITS | Encounter Summary ---
Author Name [facility] [facility] [place] Organization [facility] [place] Address [address] [place] [address] Support Name Relationship Address Phone DAYANAMAGED Next of Kin [address] [place] [address] MAGED LYLE Emergency Contact [phone], [place] [address] Insurance Providers: All historical and [...] PART A Dec 14, 2014 PART A [id number] [phone] SHEBA LYLE PATIENT MEDICARE (WNR) MEDICARE (M) PART B Dec 14, 2014 PART B [id number] [phone] JOSÉ LYLEIE PATIENT Selected Encounter This section includes the information on record at [place] for the Encounter. Date/Time Encounter Type Encounter Description Reason Provider Source Feb 28, 2023 02:00 PM PSYTX W PT 45 MINUTES PM&RS PHYSICIAN ICD-10-CM Z71.9 Counseling, unspecified CORINNE TIWARI Katerina Encounter Template Text not used by [place] Assessments - Encounter Diagnoses This section includes the primary and secondary diagnoses documented for the Encounter. Date/Time Primary/Secondary Diagnosis Diagnosis Name Provider Source Mar 02, 2023 11:39 PM PRIMARY Counseling, unspecified CORINNE TIWARI [facility] Plan of Treatment: Future Appointments (+ 6 months) and Future Tests (+/- 45 days) The Plan of Treatment section includes future care activities for the [facility] [place] [facility] This section includes future appointments and future orders which are active, pending or scheduled. Future Appointments This section includes appointments that were scheduled to occur 6 months from the date of the Encounter, up to a maximum of 20 appointments. The data comes from all [facility]. Appointment Date/Time Appointment Type Appointme nt Facility Name Mar 07, 2023 01:00 PM AMBULATORY - REHAB MEDICIN E [facility] Mar 14, 2023 01:00 PM AMBULATORY - REHAB MEDIC[facility] Mar 22, 2023 05:00 PM AMBULATORY - REHAB MEDICIN [facility] Mar 28, 2023 10:00 AM AMBULATORY - REHAB MEDICIN [facility] Mar 29, 2023 05:00 PM AMBULATORY - REHAB MEDICIN [facility] Apr 12, 2023 05:00 PM AMBULATORY - REHAB MEDICIN E [facility] May 09, 2023 10:00 AM AMBULATORY - REHAB MEDICIN E [facility] May 30, 2023 10:00 AM AMBULATORY - REHAB MEDICIN E [facility] June 20, 2023 10:00 AM AMBULATORY - REHAB MEDICIN E [facility] Jul 18, 2023 10:00 AM AMBULATORY - REHAB MEDICIN E [facility] Jul 25, 2023 09:00 AM AMBULATORY - REHAB MEDICIN E [facility] Aug 04, 2023 05:00 PM AMBULATORY - REHAB MEDICIN E [facility] Aug 11, 2023 05:00 PM AMBULATORY - REHAB MEDICIN E [facility] Aug 22, 2023 09:00 AM AMBULATORY - REHAB MEDICIN E [facility] Encounter Notes: All associated encounter notes This section contains the clinical notes associated to the Encounter. Date/Time Encounter Note(s) Provider Source Feb 28, 2023 02:00 PM PHYSICAL MEDICINE REHAB NOTE: LOCAL TITLE: REHAB PSYCHOLOGY PROGRESS NOTE STANDARD TITLE: PHYSICAL MEDICINE REHAB NOTE DATE OF NOTE: FEB 28, 2023@14:00 ENTRY DATE: MAR 02, 2023@23:38:59 AUTHOR: CORINNE TIWARI COSIGNER: URGENCY: STATUS: COMPLETED REHABILITATION PSYCHOLOGY PROGRESS NOTE Patient Name: Sheba Lyle Date of : 1950 Date of Visit: 02/28/2023 Session Duration: 52 minutes Visit Modality: [facility] Patient Location: [address] [place] [id number] Patient CONSENT Visit conducted by synchronous telehealth. [...] caregiver psychological support services. SESSION CONTENT Ms. Llye reported having ups and downs. She noted having two days of quality sleep and limited crying; however, as the 's discharge approaches, she is struggling to manage her emotions and returned to waking up at 3AM with thoughts about work to be done and reality settling in. Provider and caregiver discussed factors that may impact her sleep. She acknowledged engaging with emotionally charged materials before bed. Provider discussed the need to avoid emotionally charged materials before bed. Ms. Lyle also recognized she is still not 100% from her COVID infection. Caregiver shared that the will be discharging soon to a retirement, though not memory care as discussed. She is concerned that the individuals deciding on his discharge placement are not the providers who know him the best (which she believes are his Parkinson's rehabilitation team, including Dr. Mart). Provider reflected her confusion and frustration and discussed options. Caregiver will reach out to community mental health social worker with questions (e.g., [facility] What are her options if she is unhappy with the care at this retirement?). Caregiver is aware of Patient [employer]ocates if she is unhappy with the 's care. Ms. Lyle expressed gratitude for the women in her Parkinson's support group and for her christian family. She also noted that her daughters have been supportive, and her son is flying in from [place] next week. Caregiver discussed the serenity prayer and acceptance. Provider and caregiver discussed the value of acceptance, gratitude, and being present-oriented. Caregiver will try to practice these during the week. She agreed to take a minute when feeling overwhelmed and engage in deep breathing and ground herself in the moment using a mindfulness technique. Ms. Lyle will also continue listening to praise music and hopes to attend christian this week. She would like to discuss her post-caregiver identity more in future sessions. OBJECTIVE Session/visit location: [facility] Present at session: [...] articulate and intelligible. Mood was described as: ups and downs Affect: Her affect appeared sad, and she cried several times during the session. Her emotional expressions were appropriately reactive and consistent with conversation topics. Thought content: Caregiver's thought content was appropriate with no indications of delusions or hallucinations. Suicidal ideation was denied; homicidal ideation was not reported. Thought processes: Caregiver's thought processes were logical/clear, linear, and goal-directed. Judgement/insight: Caregiver demonstrated good insight into her situation. She demonstrated good problem solving. She demonstrated good judgment and decision-making. DIAGNOSTIC IMPRESSIONS Based on behavioral observations, session content, and medical record review, the most parsimonious diagnostic scheme includes: Counseling, unspecified RISK ASSESSMENT Known suicide risks include chronic stressors (health concerns, caregiving responsibilities, 's Parkinson's diagnosis and symptoms), age (over age 45), race (white), geographic isolation from social support Possible suicide protective factors include the absence of suicidal ideation, plan, and intent; presence of strong interpersonal bonds to family (children, grandchildren, and sisters) and community (christian community); help seeking; presents with good impulse control; evidence of spiritual/jew beliefs about value of life (strong spirituality and religiosity) Acute Suicide Risk Level Impression: Low acute [...] living, and engagement in care. PLAN HOMEWORK: Caregiver will follow-up with the 's community mental health social worker, asking questions about his discharge and her options if she is unhappy with the care at the retirement he is discharged to. Caregiver also will engage in self- care activities, including listening to praise music and connecting with her social support network (e.g., christian family, Parkinson's support group). SESSION ENGAGEMENT: RITS Rating = 4 Education was provided during this session. Caregiver indicated readiness to learn by asking questions, making appropriate comments, and demonstrating appropriate nonverbals. RETURN TO CLINIC: Provider and Caregiver agreed that the optimal return to clinic would be one week. A return to clinic order was placed for Tuesday, March 07, 2023. She is aware of how to contact the provider if she has needs before the next appointment. /es/ CORINNE TIWARI, PHD, LP PSYCHOLOGIST, [facility] Signed: 03/02/2023 23:39 CORINNE TIWARI [facility]
--- OUTSIDE RECORDS SUMMARY | 2024-02-12 12:56 | XMS_ITS | Encounter Summary ---
Author Name [facility] [place] Address [address] [place] [address] Support Name Relationship Address Phone DAYANAMAGED Next of Kin [address] [place] [address] MAGED ANNE Emergency Contact [phone], [place] [address] Insurance Providers: All historical and [...] PART A Dec 14, 2014 PART A [id number] [phone] BARON ANNE PATIENT MEDICARE (WNR) MEDICARE (M) PART B Dec 14, 2014 PART B [id number] [phone] BARON ANNE PATIENT Selected Encounter This section includes the information on record at [place] for the Encounter. Date/Time Encounter Type Encounter Description Reason Provider Source Feb 21, 2023 03:52 PM Outpatient Encounter TELEPHONE/OBEY OZUNA ICD-10-CM Z65.9 Problem related to unspecified psychosocial circumstances [facility]ADE SOL[facility] Encounter Template Text not used by [place] Assessments - Encounter Diagnoses This section includes the primary and secondary diagnoses documented for the Encounter. Date/Time Primary/Secondary Diagnosis Diagnosis Name Provider Source Feb 21, 2023 03:52 PM PRIMARY Problem related to unspecified psychosocial circumstances WADE SOLIS [facility] Plan of Treatment: Future Appointments (+ 6 months) and Future Tests (+/- 45 days) The Plan of Treatment section includes future care activities for the [facility] [place] [facility] This section includes future appointments and future orders which are active, pending or scheduled. Future Appointments This section includes appointments that were scheduled to occur 6 months from the date of the Encounter, up to a maximum of 20 appointments. The data comes from all [facility]. Appointment Date/Time Appointment Type Appointme nt Facility Name Feb 28, 2023 02:00 PM AMBULATORY - REHAB MEDICIN E [facility] Mar 07, 2023 01:00 PM AMBULATORY - REHAB MEDICIN E [facility] Mar 14, 2023 01:00 PM AMBULATORY - RE[facility]AB [facility]IN [facility] Mar 22, 2023 05:00 PM AMBULATORY - REHAB MEDICIN [facility] Mar 28, 2023 10:00 AM AMBULATORY - REHAB MEDICIN [facility] Mar 29, 2023 05:00 PM AMBULATORY - REHAB MEDICIN [facility] Apr 12, 2023 05:00 PM AMBULATORY - REHAB MEDICIN [facility] May 09, 2023 10:00 AM AMBULATORY - REHAB MEDICIN [facility] May 30, 2023 10:00 AM AMBULATORY - REHAB MEDICIN [facility] June 20, 2023 10:00 AM AMBULATORY - REHAB MEDICIN [facility] Jul 18, 2023 10:00 AM AMBULATORY - REHAB MEDICIN [facility] Jul 25, 2023 09:00 AM AMBULATORY - REHAB MEDICIN [facility] Aug 04, 2023 05:00 PM AMBULATORY - REHAB MEDICIN [facility] Aug 11, 2023 05:00 PM AMBULATORY - REHAB MEDICIN [facility] Aug 22, 2023 09:00 AM AMBULATORY - REHAB MEDICIN [facility]
--- OUTSIDE RECORDS SUMMARY | 2024-02-12 12:56 | XMS_ITS | Encounter Summary ---
Author Name [facility] [place] Organization [facility] [place] Address [address] [place] [address] Support Name Relationship Address Phone DAYANAMAGED Next of Kin [address] [place] [address] MAGED LYLE Emergency Contact [phone] [address] Insurance Providers: All historical and [...] PART A Dec 14, 2014 PART A [id number] [phone] SHEBA LYLE PATIENT MEDICARE (WNR) MEDICARE (M) PART B Dec 14, 2014 PART B [id number] [phone] JOSÉ LYLEIE PATIENT Selected Encounter This section includes the information on record at [place] for the Encounter. Date/Time Encounter Type Encounter Description Reason Provider Source Feb 21, 2023 01:00 PM PSYTX W PT 45 MINUTES PM&RS PHYSICIAN ICD-10-CM Z71.9 Counseling, unspecified CORINNE TIWARI Katerina Encounter Template Text not used by [place] Assessments - Encounter Diagnoses This section includes the primary and secondary diagnoses documented for the Encounter. Date/Time Primary/Secondary Diagnosis Diagnosis Name Provider Source Feb 23, 2023 09:27 PM PRIMARY Counseling, unspecified CORINNE TIWARI [facility] Plan of Treatment: Future Appointments (+ 6 months) and Future Tests (+/- 45 days) The Plan of Treatment section includes future care activities for the patient from all [place] [facility]. This section includes future appointments and future orders which are active, pending or scheduled. Future Appointments This section includes appointments that were scheduled to occur 6 months from the date of the Encounter, up to a maximum of 20 appointments. The data comes from all [facility]. Appointment Date/Time Appointment Type Appointme nt Facility Name Feb 28, 2023 02:00 PM AMBULATORY - REHAB MEDICIN E [facility] Mar 07, 2023 01:00 PM AMBULATORY - REHAB MEDICIN E [facility] Mar 14, 2023 01:00 PM AMBULATORY - REHAB MEDICIN E [facility] Mar 22, 2023 05:00 PM AMBULATORY - REHAB MEDICIN E [facility] Mar 28, 2023 10:00 AM AMBULATORY - REHAB MEDICIN E [facility] Mar 29, 2023 05:00 PM AMBULATORY - REHAB MEDICIN [facility] Apr 12, 2023 05:00 PM AMBULATORY - REHAB MEDICIN E [facility] May 09, 2023 10:00 AM AMBULATORY - REHAB MEDICIN [facility] May 30, 2023 10:00 AM AMBULATORY - REHAB MEDICIN E [facility] June 20, 2023 10:00 AM AMBULATORY - REHAB MEDICIN E [facility] Jul 18, 2023 10:00 AM AMBULATORY - REHAB MEDICIN [facility] Jul 25, 2023 09:00 AM AMBULATORY - REHAB MEDICIN E [facility] Aug 04, 2023 05:00 PM AMBULATORY - REHAB MEDICIN [facility] Aug 11, 2023 05:00 PM AMBULATORY - REHAB MEDICIN E [facility] Aug 22, 2023 09:00 AM AMBULATORY - REHAB MEDICIN E [facility] Encounter Notes: All associated encounter notes This section contains the clinical notes associated to the Encounter. Date/Time Encounter Note(s) Provider Source Feb 21, 2023 01:00 PM PHYSICAL MEDICINE REHAB NOTE: LOCAL TITLE: REHAB PSYCHOLOGY PROGRESS NOTE STANDARD TITLE: PHYSICAL MEDICINE REHAB NOTE DATE OF NOTE: FEB 21, 2023@13:00 ENTRY DATE: FEB 23, 2023@21:26:42 AUTHOR: CORINNE TIWARI COSIGNER: URGENCY: STATUS: COMPLETED REHABILITATION PSYCHOLOGY PROGRESS NOTE Patient Name: Sheba Lyle Date of : 1950 Date of Visit: 02/21/2023 Session Duration: 50 minutes Visit Modality: [facility] Patient Location: [address] [place] [address] Patient CONSENT Visit conducted by synchronous telehealth. [...] services. SESSION CONTENT Ms. Lyle reported feeling not good. She was tearful as she shared that her was hospitalized due to COVID-19 and related complications (e.g., encephalopathy), his functioning had deteriorated (e.g., difficulty feeding himself, one word responses), and he would not be able to return home due to his care needs (e.g., 24-hour nursing). She was able to identify several positive moments from the experience (e.g., positive experience with new doctor, seeing the perk up when she and their daughter visit, watching open a canvas print of their wedding picture). Caregiver also tried to reframe the situation, noting she could now just be his . Provider reflected the emotional ups and downs she had experienced and reinforced her finding positive aspects of the negative situation. Ms. Lyle also shared she had been diagnosed with COVID-19 and was still recovering from her symptoms (e.g., loss of smell and taste, fatigue). Provider offered education on the impact of stress on health. Caregiver reported difficulties staying asleep, noting she wakes up in the middle of the night and is unable to return to sleep. She reported thinking about stuff with the house, where she will live if her dies, and how she will manage the taxes. Provider offered information about optimal sleep environments and habits. Caregiver agreed to track her sleep and bring those notes to the next session. Additionally, provider encouraged the caregiver to make a hierarchy of worries, addressing them one at a time rather than all at once. Caregiver identified her top priority was her , where he will discharge to, and if he dies, his . Caregiver and provider brainstormed sources of information, and caregiver agreed to reach out to her 's jig box operator via [employer], as well as social workers working with her. Provider also assured the caregiver that he will be allowed to continue seeing her for one year past the of her . Caregiver was appreciative to know she would continue having the support. OBJECTIVE Session/visit location: [facility] Present at session: [...] described as: not good Affect: Her affect appeared sad, and she [...] grandchildren, and sisters) and community (nondenominational community); help seeking; presents with good impulse control; evidence of spiritual/mormonism beliefs about value of life (strong spirituality [...] engagement in care. PLAN HOMEWORK: Caregiver will track her sleep and bring those notes to the next session. Caregiver will reach out to providers at the [place] to gather additional information about resources available to her for her . SESSION ENGAGEMENT: RITS Rating = 4 Education was provided during this session. Caregiver indicated readiness to learn by asking questions, making appropriate comments, and demonstrating appropriate nonverbals. RETURN TO CLINIC: Provider and Caregiver agreed that the optimal return to clinic would be one week. A return to clinic order was placed for Tuesday, February 28, 2023. She is aware of how to contact the provider if she has needs before the next appointment. /es/ CORINNE TIWARI, PHD, LP PSYCHOLOGIST, [facility] Signed: 02/23/2023 21:28 CORINNE TIWARI [facility]
--- OUTSIDE RECORDS SUMMARY | 2024-02-12 12:56 | XMS_ITS | Encounter Summary ---
Author Name [facility] [place] Address [address] [place] [address] Support Name Relationship Address Phone DAYANAMAGED Next of Kin [address] [place] [address] MAGED ANNE Emergency Contact [phone] [address] Insurance Providers: All historical and [...] PART A Dec 14, 2014 PART A [id number] WW53 [phone] KEILYERISBARON MCGOWAN PATIENT MEDICARE (WNR) MEDICARE (M) PART B Dec 14, 2014 PART B [id number] [id number] [phone] KEILYERISJOSÉ MCGOWANIE PATIENT Selected Encounter This section includes the information on record at [place] for the Encounter. Date/Time Encounter Type Encounter Description Reason Pro vider Source Feb 14, 2023 11:30 AM Outpatient Encounter TELEPHONE/REHAB AND SUPPORT IHE Encounter Template Text not used by [place] Plan of Treatment: Future Appointments (+ 6 months) and Future Tests (+/- 45 days) The Plan of Treatment section includes future care activities for the patient from all [place] treatmentfacilities. This section includes future appointments and future orders which are active, pending or scheduled. Future Appointments This section includes appointments that were scheduled to occur 6 months from the date of the Encounter, up to a maximum of 20 appointments. The [facility]. Appointment Date/Time Appointment Type Appointme nt Facility Name Feb 21, 2023 01:00 PM AMBULATORY - REHAB MEDICIN E [facility] Feb 28, 2023 02:00 PM AMBULATORY - REHAB MEDICIN E [facility] Mar 07, 2023 01:00 PM AMBULATORY - REHAB MEDICIN E [facility] Mar 14, 2023 01:00 PM AMBULATORY - REHAB MEDICIN E [facility] Mar 22, 2023 05:00 PM AMBULATORY - REHAB MEDICIN E [facility] Mar 28, 2023 10:00 AM AMBULATORY - REHAB MEDICIN E [facility] Mar 29, 2023 05:00 PM AMBULATORY - REHAB MEDICIN E [facility] Apr 12, 2023 05:00 PM AMBULATORY - REHAB MEDICIN E [facility] May 09, 2023 10:00 AM AMBULATORY - REHAB MEDICIN E [facility] May 30, 2023 10:00 AM AMBULATORY - REHAB MEDICIN E [facility] June 20, 2023 10:00 AM AMBULATORY - REHAB MEDICIN E [facility] Jul 18, 2023 10:00 AM AMBULATORY - REHAB MEDICIN E [facility] Jul 25, 2023 09:00 AM AMBULATORY - REHAB MEDICIN E [facility] Aug 04, 2023 05:00 PM AMBULATORY - REHAB MEDICIN E [facility] Aug 11, 2023 05:00 PM AMBULATORY - REHAB MEDICIN E [facility] Encounter Notes: All associated encounter notes This section contains the clinical notes associated to the Encounter. Date/Time Encounter Note(s) Provider Source Feb 14, 2023 11:30 AM REPORT OF CONTACT: LOCAL TITLE: PATIENT CONTACT NOTE STANDARD TITLE: REPORT OF CONTACT DATE OF NOTE: FEB 14, 2023@11:30 ENTRY DATE: FEB 15, 2023@12:10:54 AUTHOR: CORINNE TIWARI COSIGNER: URGENCY: STATUS: COMPLETED Patient contact Name of Caregiver: BARON ANNE Date & Time of Contact: Feb@11:30. Type of Contact: Telephone Reason for Contact: Dr. Tiwari was notified via a CPRS note authored by the [place]'s undercollar maker that Ms. Anne and her had both been hospitalized for COVID-related health problems. Per the note, Ms. Anne had been discharged and was back in her home. Dr. Tiwari called the caregiver to check-in on her. Caregiver shared about her experience being hospitalized and her current health. She reported continued difficulties, and she shared concerns because the was scheduled to be discharged home soon. Caregiver reported that the could have been discharged to a nursing facility, but she decided to try to care for him because of his negative response to his previous stay in a nursing facility. Caregiver was able to identify when she would seek outside support (e.g., difficulties with bowel/bladder, a fall), and she was able to explain how she would get help. She also expressed sadness about the 's physical decline. Caregiver had a primary care appointment, so she was unable to talk further. Provider and caregiver have an appointment scheduled for 02/21/23 at 1PM. Caregiver confirmed her awareness of how to access support if needed before the appointment. /josephine/ CORINNE TIWARI, PHD, LP PSYCHOLOGIST, [facility] Signed: 02/15/2023 12:17 CORINNE TIWARI [facility]
--- OUTSIDE RECORDS SUMMARY | 2024-02-12 12:57 | XMS_ITS | Encounter Summary ---
Author Name [facility] [place] Organization [place] Address [address] [place] [address] Support Name Relationship Address Phone DAYANAMAGED Next of Kin [address] [place] [address] MAGED ANNE Emergency Contact [phone] [address] Insurance Providers: All historical and [...] PART A Dec 14, 2014 PART A [id number] WW53 [phone] KEILYERISBARON MCGOWAN PATIENT MEDICARE (WNR) MEDICARE (M) PART B Dec 14, 2014 PART B [id number] [id number] [phone] KEILYERISJOSÉ MCGOWANIE PATIENT Selected Encounter This section includes the information on record at [place] for the Encounter. Date/Time Encounter Type Encounter Description Reason Pro vider Source May 31, 2023 09:03 AM Outpatient Encounter PM&RS PHYSICIAN E Encounter Template Text not used by [place] Plan of Treatment: Future Appointments (+ 6 months) and Future Tests (+/- 45 days) The Plan of Treatment section includes future care activities for the patient from all [place] treatmentfacilities. This section includes future appointments and future orders which are active, pending or scheduled. Future Appointments This section includes appointments that were scheduled to occur 6 months from the date of the Encounter, up to a maximum of 20 appointments. The data comes from all [place] treatment facilities. Appointment Date/Time Appointment Type Appointme nt Facility Name June 20, 2023 10:00 AM AMBULATORY - REHAB MEDICIN E [facility] Jul 18, 2023 10:00 AM AMBULATORY - REHAB MEDICIN E [facility] Jul 25, 2023 09:00 AM AMBULATORY - REHAB MEDICIN E [facility] Aug 04, 2023 05:00 PM AMBULATORY - REHAB MEDICIN E [facility] Aug 11, 2023 05:00 PM AMBULATORY - REHAB MEDICIN E [facility] Aug 22, 2023 09:00 AM AMBULATORY - REHAB MEDICIN E [facility] Sep 12, 2023 10:00 AM AMBULATORY - REHAB MEDICIN E [facility] Oct 03, 2023 10:00 AM AMBULATORY - REHAB MEDICIN E [facility] Oct 24, 2023 10:00 AM AMBULATORY - REHAB MEDICIN E [facility] Nov 14, 2023 10:00 AM AMBULATORY - REHAB MEDICIN E [facility] Encounter Notes: All associated encounter notes This section contains the clinical notes associated to the Encounter. Date/Time Encounter Note(s) Provider Source May 31, 2023 09:03 AM REPORT OF CONTACT: LOCAL TITLE: APPOINTMENT SCHEDULING NOTE STANDARD TITLE: REPORT OF CONTACT DATE OF NOTE: MAY 31, 2023@09:03 ENTRY DATE: MAY 31, 2023@09:04:03 AUTHOR: DESTINY PACE COSIGNER: URGENCY: STATUS: COMPLETED APPOINTMENT SCHEDULING NOTE Has ADDENDA Attempted to schedule Return to clinic (RTC) Contact attempt made to [place] 1st attempt Telephone 2nd attempt Text message 3rd attempt Letter - Sent letter by regular [place] mail to address on file: KEILYCATEBARON SMITHA [address] [place] [id number] Left message on voice mail to call back to this number [phone] If [place] calls back, schedule appt for: 05/30/2023 10:57 New Order entered by CORINNE CALVO (CLINICAL PSYCHO) Order Text: Return to [facility] on or around ( June 20, 2023 ) for a total of 1 appointment(s) Prerequisites: All Modalities Appropriate / Offer Option, Notify ordering provider if minimum scheduling efforts fail 60 min; follow-up /es/ DESTINY PACE ADVANCED MSA Signed: 05/31/2023 09:05 06/01/2023 ADDENDUM STATUS: COMPLETED Attempted to schedule Return to clinic (RTC) Contact attempt made to 4th attempt or more Telephone Left message on voice mail to call back to this number [phone] If [place] calls back, schedule appt for: Return to [facility] on or around ( June 20, 2023 ) for a total of 1 appointment(s) Prerequisites: All Modalities Appropriate / Offer Option, Notify ordering provider if minimum scheduling efforts fail 60 min; follow-up /es/ TWIN RINALDI SILVERSMITH APPRENTICE Signed: 06/01/2023 08:24 DESTINY PACE [facility]
--- OUTSIDE RECORDS SUMMARY | 2024-02-12 12:57 | XMS_ITS | Encounter Summary ---
Author Name [place] Organization [place] Address [address] [place] [address] Support Name Relationship Address Phone DAYANAMAGED Next of Kin [address] [place] [address] MAGED ANNE Emergency Contact [phone], [place] [address] Insurance Providers: All historical and [...] PART A Dec 14, 2014 PART A [id number] WW53 [phone] BARON ANNE PATIENT MEDICARE (WNR) MEDICARE (M) PART B Dec 14, 2014 PART B [id number] WW53 [phone] BARON ANNE PATIENT Selected Encounter This section includes the information on record at [place] for the Encounter. Date/Time Encounter Type Encounter Description Reason Provider Source June 19, 2023 11:00 AM GROUP PSYCHOTHERAPY CAREGIVER SUPPORT PROGRAM ICD-10-CM Z65.9 Problem related to unspecified psychosocial circumstances NIDHI SOLIS [facility] Encounter Template Text not used by [place] Assessments - Encounter Diagnoses This section includes the primary and secondary diagnoses documented for the Encounter. Date/Time Primary/Secondary Diagnosis Diagnosis Name Provider Source June 20, 2023 01:45 PM PRIMARY Problem related to unspecified psychosocial circumstances WADE SOLIS [facility] Plan of Treatment: Future Appointments (+ 6 months) and Future Tests (+/- 45 days) The Plan of Treatment section includes future care activities for the patient from all [place] [facility] This section includes future appointments and [...] 10:00 AM AMBULATORY - REHAB MEDICIN E [facility] Jul 18, 2023 10:00 AM AMBULATORY - REHAB MEDICIN E [facility] Jul 25, 2023 09:00 AM AMBULATORY - REHAB MEDICIN E [facility] Aug 04, 2023 05:00 PM AMBULATORY - REHAB MEDICIN E [facility] Aug 11, 2023 05:00 PM AMBULATORY - REHAB MEDICIN E [facility] Aug 22, 2023 09:00 AM AMBULATORY - REHAB MEDICIN E [facility] Sep 12, 2023 10:00 AM AMBULATORY - REHAB MEDICIN E [facility] Oct 03, 2023 10:00 AM AMBULATORY - REHAB MEDICIN E [facility] Oct 24, 2023 10:00 AM AMBULATORY - REHAB MEDICIN E [facility] Nov 14, 2023 10:00 AM AMBULATORY - REHAB MEDICIN E [facility] Dec 05, 2023 10:00 AM AMBULATORY - REHAB MEDICIN E [facility] Dec 19, 2023 09:00 AM AMBULATORY - REHAB MEDICIN E [facility] Dec 20, 2023 05:00 PM AMBULATORY - REHAB MEDICIN E [facility] Encounter Notes: All associated encounter notes This section contains the clinical notes associated to the Encounter. Date/Time Encounter Note(s) Provider Source June 19, 2023 11:00 AM CAREGIVER CERTIFIC ATE: LOCAL TITLE: [facility] INTERMITTENT NOTE STANDARD TITLE: CAREGIVER CERTIFICATE DATE OF NOTE: JUNE 19, 2023@11:00 ENTRY DATE: JUNE 20, 2023@13:39:56 AUTHOR: THOM SOLIS EXP COSIGNER: URGENCY: STATUS: [...] General support/resources CAREGIVER ASSESSMENT Did not assess using formal screening tools. Attendance Clerk assessed Caregiver through observation of her verbal and chat box participation, and body language. Group Notes Ongoing Parkinsons Disease Support Group Length of Group: 90 minutes Facilitators: Thom Solis Number of Participants: 13 Check-in - Group information and format Talked about the struggle with VBA. Caregivers discussed the need to service connect the for all issues. Caregivers talked about their struggles with the medical system. They talked about the need for support and offered to support to each other during the course of the group. Support was provided both by staff and fellow caregivers. Caregivers talked about struggling with sleep, struggling with extended family and obtaining support. Closure: Next Session July 16 at 11:00am /josephine/ THOM SOLIS [facility] OPERATOR Caregiver Contract Clerk Signed: 06/20/2023 13:45 THOM SOLIS [facility]
--- OUTSIDE RECORDS SUMMARY | 2024-02-12 12:57 | XMS_ITS | Encounter Summary ---
Author Name [facility] [place] Address [address] [place] [id number] Support Name Relationship Address Phone DAYANAMAGED Next of Kin [address] [place] [address] MAGED LYLE Emergency Contact [phone], [place] [address] Insurance Providers: All historical and [...] PART A Dec 14, 2014 PART A [id number] DAYANABARON PATIENT MEDICARE (WNR) MEDICARE (M) PART B Dec 14, 2014 PART B [id number] DAYANA BARON PATIENT Selected Encounter This section includes the information on record at [place] for the Encounter. Date/Time Encounter Type Encounter Description Reason Provider Source May 23, 2023 09:59 AM PSYCH DIAGNOSTIC EVALUATION TELEPHONE/OBEY OZUNA ICD-10-CM Z65.8 Oth problems related to psychosocial circumstances DANNY GILL E Encounter Template Text not used by [place] Assessments - Encounter Diagnoses This section includes the primary and secondary diagnoses documented for the Encounter. Date/Time Primary/Secondary Diagnosis Diagnosis Name Provider Source May 23, 2023 09:59 AM PRIMARY Oth problems related to psychosocial circumstances DANNY GILL [facility] Plan of Treatment: Future Appointments (+ 6 months) and Future Tests (+/- 45 days) The Plan of Treatment section includes future care activities for the patient from all [place] [facility]. This section includes future appointments and future orders which are active, pending or scheduled. Future Appointments This section includes appointments that were scheduled to occur 6 months from the date of the Encounter, up to a maximum of 20 appointments. The data comes from all [place] [facility]. Appointment Date/Time Appointment Type Appointme nt Facility Name May 30, 2023 10:00 AM AMBULATORY - REHAB MEDICIN E [facility] June 20, 2023 10:00 AM AMBULATORY - REHAB MEDICIN E [facility] Jul 18, 2023 10:00 AM AMBULATORY - REHAB MEDICIN E [facility] Jul 25, 2023 09:00 AM AMBULATORY - REHAB MEDICIN E [facility] Aug 04, 2023 05:00 PM AMBULATORY - REHAB MEDICIN E [facility] Aug 11, 2023 05:00 PM AMBULATORY - REHAB MEDICIN E [facility] Aug 22, 2023 09:00 AM AMBULATORY - REHAB MEDICIN E [facility] Sep 12, 2023 10:00 AM AMBULATORY - REHAB MEDICIN E [facility] Oct 03, 2023 10:00 AM AMBULATORY - REHAB MEDICIN E [facility] Oct 24, 2023 10:00 AM AMBULATORY - REHAB MEDICIN E [facility] Nov 14, 2023 10:00 AM AMBULATORY - REHAB MEDICIN E [facility] Encounter Notes: All associated encounter notes This section contains the clinical notes associated to the Encounter. Date/Time Encounter Note(s) Provider Source May 23, 2023 09:59 AM CAREGIVER CERTIFIC ATE: LOCAL TITLE: [facility] CAREGIVER REVIEW STANDARD TITLE: CAREGIVER CERTIFICATE DATE OF NOTE: MAY 23, 2023@09:59 ENTRY DATE: MAY 23, 2023@09:59:57 AUTHOR: DANNY GILL COSIGNER: URGENCY: STATUS: COMPLETED Telephone contact with Caregiver for 67 minutes, regarding psychosocial circumstances related to caregiving for [place] at home. Program of General Caregiver Support Services Caregiver Review This caregiver is being assessed for or is participating in [place]'s Program of General Caregiver Support Services (PGCSS). While enrolled in the PGCSS, General Caregivers are eligible for a benefit package to include: Education, Training, and Technical Support, Telehealth, Teaching, Respite Care, and Counseling. Identified the caregiver using full name and the following other garcia identifier: Full name: BARON LYLE Full SSN: [id number] Date of : Dec Method of Contact: Video Telehealth Caregiver Contact Details: Best contact number for backup/emergency communication: Caregiver Location/Surroundings During Visit: Caregiver location during visit Home [address] [place] [id number] Patient confirms location is safe and private for visit. Telehealth Disclosure: Visit conducted by synchronous telehealth. Caregiver verbal consent obtained. Location/emergency number confirmed. Environment surveyed and all participants identified. Virtual conference room locked. Type of visit: Follow-up Visit Caregiver information Address: [address] [place] [address] Above address is correct. Telephone number: Above phone number is correct. Email Address: [email or web address] Above email is correct. [place] being cared for: Maged Lyle Relationship to [place]: Spouse CAREGIVER RESPONSIBILITIES Employment: Retired Comment: 2014 School: Not Applicable Caregiver for Others: Not Applicable Volunteer Work: No CURRENT SITUATION & CAREGIVING HISTORY Caregiver's report of how a typical day is spent: Baron stated that she put all her medical appointments on hold due to the 's needs. Since the is in [place] she is catching up on appointments. [...] many bags of shredding. She is attending yazidi and the Parkinson's Support group. She is [...] of time caregiver reports caring for the [place]: 5 years to 10 years Comment: 2016 Ways in which caregiver role affects the caregiver's everyday life: Baron reports she has been feeling depressed and sad. [facility] and [facility] to help manage [...] on the phone. She gets support from yazidi, friends, children and the Parkinson's Disease Support group. She also gets support from a Facebook Support Group she is part of noting it has been informative and supportive. How often does the caregiver have contact with friends and family? Regular contact Details: visits with others at the senior care, phone contact regularly, children visit on occasion needed. List other supports: Moravian Details: online and in person when able Caregiver reports use of the following self-care strategies: Parkinson's group, yazidi involvement - hoping to get back to in person this Monday and will join a bible study. Facebook group she follows Caregiver reports receiving regular assistance in providing care to the [place] from the following: [place] is in a senior care The Caregiver reports use or receipt of the following supportive services/programs: [facility] Resources Details: in a senior care In the past year, did you participate in any of the following? - Other: Details: Parkinson Disease Support Group, other specialty programming Caregiver reports needing the following additional knowledge and/or support: Open to other supports and programming. She noted that she still has difficulty sleeping despite having medication for sleep. Waste Water Or Water Plant Operator offered information about Insight Timer Rosario and Binaural Beats for sleep. Caregiver strengths and coping skills: Ask for help, downsizing, has friends, you and yazidi Caregiver challenges and stressors: Caregiver reported that both her and her got Covid causing them both to be hospitalized at one point. Her is still in rehab and likely will stay in [place] [facility]. She is feeling stress, guilt and [...] programming however was open to other suggestions. Waste Water Or Water Plant Operator sent her information on the following programs: [facility] Telephone Educations Groups (next three calls are - Money Management, Burnout, and Caregiving for Mental Health). Resource Fair Flyer with list of presenters Grady Vinson with examples of Binaural Beats Waste Water Or Water Plant Operator provided name and number and invited her to call screen writer with any additional questions or needs. She thanked screen writer for the time and will follow up as needed. /josephine/ DANNY GILL General Caregiver Printmaker Signed: 05/24/2023 10:21 DANNY GILL [facility]
--- OUTSIDE RECORDS SUMMARY | 2024-02-12 12:57 | XMS_ITS | Encounter Summary ---
Author Name [facility] [place] Organization [facility] [place] Address [address] [place] [address] Support Name Relationship Address Phone DAYANAMAGED Next of Kin [address] [place] [address] MAGED LYLE Emergency Contact [phone], [place] [address] Insurance Providers: All historical and [...] PART A Dec 14, 2014 PART A [id number] WW53 [phone] SHEBA LYLE PATIENT MEDICARE (WNR) MEDICARE (M) PART B Dec 14, 2014 PART B [id number] [id number] [phone] SHEBA LYLE PATIENT Selected Encounter This section includes the information on record at [place] for the Encounter. Date/Time Encounter Type Encounter Description Reason Provider Source Mar 28, 2023 10:00 AM PSYTX W PT 45 MINUTES PM&RS PHYSICIAN ICD-10-CM Z71.9 Counseling, unspecified CORINNE TIWARI Encounter Template Text not used by [place] Assessments - Encounter Diagnoses This section includes the primary and secondary diagnoses documented for the Encounter. Date/Time Primary/Secondary Diagnosis Diagnosis Name Provider Source Mar 30, 2023 10:05 AM PRIMARY Counseling, unspecified CORINNE TIWARI [facility] Plan of Treatment: Future Appointments (+ 6 months) and Future Tests (+/- 45 days) The Plan of Treatment section includes future care activities for the patient from all [place] [facility]. This section includes future appointments and future orders which are active, pending or scheduled. Future Appointments This section includes appointments that were scheduled to occur 6 months from the date of the Encounter, up to a maximum of 20 appointments. The data comes from all [facility]. Appointment Date/Time Appointment Type Appointme nt Facility Name Mar 29, 2023 05:00 PM AMBULATORY - [...] AMBULATORY - REHAB MEDICIN E [facility] Sep 12, 2023 10:00 AM AMBULATORY - RE[facility]AB [facility]ICIN [facility] Encounter Notes: All associated encounter notes This section contains the clinical notes associated to the Encounter. Date/Time Encounter Note(s) Provider Source Mar 28, 2023 10:00 AM PHYSICAL MEDICINE REHAB NOTE: LOCAL TITLE: REHAB PSYCHOLOGY PROGRESS NOTE STANDARD TITLE: PHYSICAL MEDICINE REHAB NOTE DATE OF NOTE: MAR 28, 2023@10:00 ENTRY DATE: MAR 30, 2023@10:03:34 AUTHOR: CORINNE TIWARI COSIGNER: URGENCY: STATUS: COMPLETED REHABILITATION PSYCHOLOGY PROGRESS NOTE Patient Name: Sheba Lyle Date of : 1950 Date of Visit: 03/28/2023 Session Duration: 50 minutes Visit Modality: [facility] Patient Location: [address] [place] [address] Patient CONSENT Visit conducted by rankur telehealth. Ms. Lyle's verbal consent was obtained. [...] services. SESSION CONTENT Ms. Lyle reported feeling better and not as overwhelmed; however, she acknowledged her life has been a rollercoaster ride recently. She shared that the is better (e.g., greeting others, gotten his wit back) but not enough to come home (e.g., continued memory concerns that lead to risky behaviors, such as standing), as well as more noticeable tremors on his left side. She expressed appreciation for the 's neurologist (Dr. Brown), particularly his compassion and his ability to get the to agree to trial a medication for depressed mood. Caregiver shared positive reflections about the 's care center staff. Ms. Lyle reported that her son and his visited last week, which added some tension due to conflict between her children. She shared that her son was surprised by the 's functional decline, which was validating for the caregiver. Caregiver also shared gratitude for her ozroonsd-bj-vzk cooking. Ms. Lyle has been engaged in needed logistic activities, including cleaning out the 's office, filing taxes, and buying a new vehicle. She was particularly happy about her vehicle purchase, noting she needed a more reliable vehicle and her new SUV included numerous safety features that will increase her confidence in driving. Provider reflected and reinforced her activities. Caregiver has scheduled a needed vision procedure. She acknowledged taking Tylenol PM to assist with her sleep (recommended by her daughter); however, she did not find this helpful. She reported she does not watch TV or engage in other stimulating activities when she does wake up, which has helped her go back to bed. She reported limited social interactions outside of her immediate family due to visiting the and her son's visit. She plans to attend zoroastrianism this Monday, and she would like to call one of her sisters or a friend. Provider reinforced these choices. OBJECTIVE Session/visit location: [facility] Present at session: [...] articulate and intelligible. Mood was described as: better and not as overwhelmed Affect: Her affect was generally euthymic. Her emotional expressions were appropriately reactive and consistent with conversation topics. She was tearful at several moments during the session, particularly when discussing the 's inability to come home. She also expressed positive emotions when discussing her new vehicle and organizing the 's office. Thought content: Caregiver's thought content was appropriate [...] family (children, grandchildren, and sisters) and community (zoroastrianism community); responsibility/duty to others; help seeking; presents with good impulse control; evidence of spiritual/hinduism beliefs about value of life (strong spirituality [...] will continue to engage in self-care activities (e.g., praise music) and will prioritize other forms of self-care (e.g., going to zoroastrianism, connecting with sister or friend). She will continue to practice helpful sleep behaviors. SESSION ENGAGEMENT: RITS Rating = 4 Education was provided during this session. Caregiver indicated readiness to learn by asking questions, making appropriate comments, and demonstrating appropriate nonverbals. RETURN TO CLINIC: Provider and Caregiver agreed that the optimal return to clinic would be two weeks; however, the provider will be out of office on April 11. A return to clinic was placed for Tuesday, April 18, 2023. Caregiver is aware of how to contact the provider if she has needs before the next appointment. /josephine/ CORINNE TIWARI, PHD, LP PSYCHOLOGIST, [facility] Signed: 03/30/2023 10:05 CORINNE TIWARI [facility]
--- OUTSIDE RECORDS SUMMARY | 2024-02-12 12:57 | XMS_ITS | Encounter Summary ---
Author Name [facility] [place] Organization [place] Address [address] [place] [address] Support Name Relationship Address Phone DAYANAMAGED Next of Kin [address] [place] [address] MAGED LYLE Emergency Contact [phone] [address] Insurance Providers: All historical and [...] PART A Dec 14, 2014 PART A [id number] WW53 [phone] SHEBA LYLE PATIENT MEDICARE (WNR) MEDICARE (M) PART B Dec 14, 2014 PART B [id number] WW53 [phone] SHEBA LYLE PATIENT Selected Encounter This section includes the information on record at [place] for the Encounter. Date/Time Encounter Type Encounter Description Reason Provider Source Jul 18, 2023 10:00 AM PSYTX W PT 45 MINUTES PM&RS PHYSICIAN ICD-10-CM Z71.9 Counseling, unspecified CORINNE TIWARI Katerina Encounter Template Text not used by [place] Assessments - Encounter Diagnoses This section includes the primary and secondary diagnoses documented for the Encounter. Date/Time Primary/Secondary Diagnosis Diagnosis Name Provider Source Jul 20, 2023 02:11 PM PRIMARY Counseling, unspecified CORINNE TIWARI [facility] Plan of Treatment: Future Appointments (+ 6 months) and Future Tests (+/- 45 days) The Plan of Treatment section includes future care activities for the patient from all [place] [facility]. This section includes future appointments and future orders which are active, pending or scheduled. Future Appointments This section includes appointments that were scheduled to occur 6 months from the date of the Encounter, up to a maximum of 20 appointments. The data comes from all [facility]. Appointment Date/Time Appointment Type Appointme nt Facility Name Jul 25, 2023 09:00 AM AMBULATORY - REHAB MEDICIN E [facility] Aug 04, 2023 05:00 PM AMBULATORY - REHAB MEDICIN E [facility] Aug 11, 2023 05:00 PM AMBULATORY - REHAB MEDICIN E [facility] Aug 22, 2023 09:00 AM AMBULATORY - REHAB MEDICIN E [facility] Sep 12, 2023 10:00 AM AMBULATORY - REHAB MEDICIN E [facility] Oct 03, 2023 10:00 AM AMBULATORY - REHAB MEDICIN E [facility] Oct 24, 2023 10:00 AM AMBULATORY - REHAB MEDICIN E [facility] Nov 14, 2023 10:00 AM AMBULATORY - REHAB MEDICIN E [facility] Dec 05, 2023 10:00 AM AMBULATORY - REHAB MEDICIN E [facility] Dec 19, 2023 09:00 AM AMBULATORY - REHAB MEDICIN E [facility] Dec 20, 2023 05:00 PM AMBULATORY - REHAB MEDICIN E [facility] Jan 02, 2024 09:00 AM AMBULATORY - REHAB MEDICIN [facility] Encounter Notes: All associated encounter [...] family (children, grandchildren, and sisters) and community (rastafari community); responsibility/duty to others; help seeking; presents with good impulse control; evidence of spiritual/catholic beliefs about value of life (strong spirituality [...] of social support in her family and you-based organization. BARRIERS: Ms. Lyle's 's condition is [...] regularly attend appointments and complete agreed upon htp-am-krfmeyh assignments. The frequency of individual appointments will [...] attendance at MH appointments, and completion of bvk-ka-iwmawxj assignments. GOAL #2: Reduce emotional suffering/increased acceptance INTERVENTION(S)/OBJECTIVE METHODS TO ACCOMPLISH GOAL #2: Individual Psychotherapy with Dr. Corinne Tiwari, PhD, LP.: Dr. Tiwari will assess emotional well-being at each visit and provide psychoeducation regarding specific interventional strategies. Caregiver agrees to ask questions if she has concerns or does not fully understand content or expectations of therapy. Caregiver will regularly attend appointments and complete agreed upon rtb-cm-zjsmrgi assignments. The frequency of individual appointments will [...] attendance at MH appointments, and completion of kcf-wy-dlxgklz assignments. DATE OF NEXT TREATMENT PLAN REVIEW: July 19, 2024 /josephine/ CORINNE TIWARI, PHD, LP PSYCHOLOGIST, [facility] Signed: 07/20/2023 14:24 CORINNE TIWARI [facility] Jul 18, 2023 10:00 AM PHYSICAL MEDICINE REHAB NOTE: LOCAL TITLE: REHAB PSYCHOLOGY PROGRESS NOTE STANDARD TITLE: PHYSICAL MEDICINE REHAB NOTE DATE OF NOTE: JUL 18, 2023@10:00 ENTRY DATE: JUL 20, 2023@14:10:15 AUTHOR: CORINNE TIWARI EXP COSIGNER: URGENCY: STATUS: COMPLETED REHABILITATION PSYCHOLOGY PROGRESS NOTE Patient Name: Sheba Lyle Date of : 1950 Date of Visit: 07/18/2023 Session Duration: 51 minutes Visit Modality: [facility] Patient Location: [address] [place] [address] Patient CONSENT Visit conducted by synchronous telehealth. [...] needs to focus on self-care. Caregiver attended rastafari on Monday and plans to attend this [...] family (children, grandchildren, and sisters) and community (rastafari community); responsibility/duty to others; help seeking; presents with good impulse control; evidence of spiritual/catholic beliefs about value of life (strong spirituality [...] that connect with her values (i.e., devout [employer]ian, supportive of others, warm and sociable, and committed). She will attend rastafari, pray, listen to praise music, and reconnect [...] appointment. /es/ CORINNE TIWARI, PHD, LP PSYCHOLOGIST, [facility] Signed: 07/20/2023 14:11 CORINNE TIWARI [facility]
--- OUTSIDE RECORDS SUMMARY | 2024-02-12 12:57 | XMS_ITS | Encounter Summary ---
Author Name [place] Address [address] [place] [address] Support Name Relationship Address Phone DAYANAMAGED Next of Kin [address] [place] [address] MAGED LYLE Emergency Contact [phone] [address] Insurance Providers: All historical and [...] PART A Dec 14, 2014 PART A [id number] [phone] SHEBA LYLE PATIENT MEDICARE (WNR) MEDICARE ([place]) PART B Dec 14, 2014 PART B [id number] [id number] [phone] SHEBA LYLE PATIENT Selected Encounter This section includes the information on record at [place] for the Encounter. Date/Time Encounter Type Encounter Description Reason Provider Source May 09, 2023 10:00 AM PSYTX W PT 45 MINUTES PM&RS PHYSICIAN ICD-10-CM Z71.9 Counseling, unspecified CORINNE TIWARI Katerina Encounter Template Text not used by [place] Assessments - Encounter Diagnoses This section includes the primary and secondary diagnoses documented for the Encounter. Date/Time Primary/Secondary Diagnosis Diagnosis Name Provider Source May 11, 2023 09:59 PM PRIMARY Counseling, unspecified CORINNE TIWARI [facility] Plan of Treatment: Future Appointments (+ 6 months) and Future Tests (+/- 45 days) The Plan of Treatment section includes future care activities for the patient from all [place] [facility]. This section includes future appointments and future orders which are active, pending or scheduled. Future Appointments This section includes appointments that were scheduled to occur 6 months from the date of the Encounter, up to a maximum of 20 appointments. The data comes from all [facility]. Appointment Date/Time Appointment Type Appointme nt [...] AMBULATORY - REHAB MEDICIN E [facility] Oct 03, 2023 10:00 AM AMBULATORY - REHAB MEDICIN E [facility] Oct 24, 2023 10:00 AM AMBULATORY - [...] 05/09/2023 Session Duration: 52 minutes Visit Modality: [facility] Patient Location: [address] [place] [address] Patient CONSENT Visit conducted by [employer]. Ms. Lyle's verbal consent was obtained. Location [...] tearful. She acknowledged loving Easter for its yarsanism significance, but not feeling personally excited about the holiday this year. Specifically, she feels overwhelmed by the coordination of the [place]'s care and household management responsibilities (e.g., cooking Easter dinner for her family). She noted her tearfulness is in response to reminders of the 's absence from her daily life. She explained [...] procedures have limited her ability to complete contact agent and drive. Her daughter is staying with [...] family (children, grandchildren, and sisters) and community (spiritism community); responsibility/duty to others; help seeking; presents with good impulse control; evidence of spiritual/yarsanism beliefs about value of life (strong spirituality [...] appointment. /es/ CORINNE TIWARI, PHD, LP PSYCHOLOGIST, [facility] Signed: 05/11/2023 21:59 CORINNE TIWARI [facility]
--- OUTSIDE RECORDS SUMMARY | 2024-02-12 12:57 | XMS_ITS | Encounter Summary ---
Author Name [facility] [place] Organization [place] Address [address] [place] [id number] Support Name Relationship Address Phone DAYANAMAGED Next of Kin [address] [place] [address] MAGED ANNE Emergency Contact [phone] [address] Insurance Providers: All historical and [...] PART A Dec 14, 2014 PART A [id number] [phone] KEILYERISBARON MCGOWAN PATIENT MEDICARE (WNR) MEDICARE (M) PART B Dec 14, 2014 PART B [id number] [id number] [phone] KEILYERISJOSÉ MCGOWANIE PATIENT Selected Encounter This section includes the information on record at [place] for the Encounter. Date/Time Encounter Type Encounter Description Reason Pro vider Source Jul 21, 2023 10:26 AM Outpatient Encounter PM&RS PHYSICIAN E Encounter Template Text not used by [place] Plan of Treatment: Future Appointments (+ 6 months) and Future Tests (+/- 45 days) The Plan of Treatment section includes future care activities for the patient from all [place] treatmentfacilities. This section includes future appointments and future orders which are active, pending or scheduled. Future Appointments This section includes appointments that were scheduled to occur 6 months from the date of the Encounter, up to a maximum of 20 appointments. The data comes from all [place] treatment facilities. Appointment Date/Time Appointment Type Appointme nt Facility Name Jul 25, 2023 09:00 AM [facility]ULATORY - [facility] Aug 04, 2023 05:00 PM AMBULATORY - [facility] Aug 11, 2023 05:00 PM AMBULATORY - [facility]AB [facility] Aug 22, 2023 09:00 AM AMBULATORY - REHAB [facility] Sep 12, 2023 10:00 AM AMBULATORY - REHAB [facility] Oct 03, 2023 10:00 AM AMBULATORY - REHAB [facility] Oct 24, 2023 10:00 AM AMBULATORY - [facility]AB [facility] Nov 14, 2023 10:00 AM AMBULATORY - REHAB [facility] Dec 05, 2023 10:00 AM AMBULATORY - REHAB [facility] Dec 19, 2023 09:00 AM AMBULATORY - REHAB [facility] Dec 20, 2023 05:00 PM AMBULATORY - REHAB [facility] Jan 02, 2024 09:00 AM AMBULATORY - REHAB [facility] Encounter Notes: All associated encounter notes This section contains the clinical notes associated to the Encounter. Date/Time Encounter Note(s) Provider Source Jul 21, 2023 10:26 AM REPORT OF CONTACT: LOCAL TITLE: APPOINTMENT SCHEDULING NOTE STANDARD TITLE: REPORT OF CONTACT DATE OF NOTE: JUL 21, 2023@10:26 ENTRY DATE: JUL 21, 2023@10:26:30 AUTHOR: DESTINY PACE COSIGNER: URGENCY: STATUS: COMPLETED Attempted to schedule Return to clinic (RTC) Contact attempt made to 1st attempt Telephone 2nd attempt Text message 3rd attempt Letter - Sent letter by regular [place] mail to address on file: BARON ANNE [address] [place] [address] Left message on voice mail to call back to this number [phone] If Austin calls back, schedule appt for: 07/18/2023 11:05 New Order entered by CORINNE CALVO (CLINICAL PSYCHO) Order Text: Return to [facility] on or around ( Jul 25, 2023 ) for a total of 1 appointment(s) Prerequisites: All Modalities Appropriate / Offer Option, Notify ordering provider if minimum scheduling efforts fail 60 min; follow-up /es/ DESTINY PACE ADVANCED MSA Signed: 07/21/2023 10:27 DESTINY PACE [facility]
--- OUTSIDE RECORDS SUMMARY | 2024-02-12 12:57 | XMS_ITS | Encounter Summary ---
Author Name [facility] [place] Organization [place] Address [address] [place] [address] Support Name Relationship Address Phone DAYANAMAGED Next of Kin [address] [place] [address] MAGED LYLE Emergency Contact [phone], [place] [address] Insurance Providers: All historical and [...] PART B Dec 14, 2014 PART B [id number] SHEBA LYLE PATIENT MEDICARE (WNR) MEDICARE (M) PART A Dec 14, 2014 PART A [id number] [phone] SHEBA LYLE PATIENT Selected Encounter This section includes the information on record at [place] for the Encounter. Date/Time Encounter Type Encounter Description Reason Provider Source May 30, 2023 10:00 AM PSYTX W PT 45 MINUTES PM&RS PHYSICIAN ICD-10-CM Z71.9 Counseling, unspecified CORINNE TIWARI Katerina Encounter Template Text not used by [place] Assessments - Encounter Diagnoses This section includes the primary and secondary diagnoses documented for the Encounter. Date/Time Primary/Secondary Diagnosis Diagnosis Name Provider Source Jun 01, 2023 10:19 PM PRIMARY Counseling, unspecified CORINNE TIWARI [facility] Plan of Treatment: Future Appointments (+ 6 months) and Future Tests (+/- 45 days) The Plan of Treatment section includes future care activities for the patient from all [place] [facility]. This section includes future appointments and future orders which are active, pending or scheduled. Future Appointments This section includes appointments that were scheduled to occur 6 months from the date of the Encounter, up to a maximum of 20 appointments. The data comes from all [facility]. Appointment Date/Time Appointment Type Appointme nt Facility Name June 20, 2023 10:00 AM AMBULATORY - REHAB MEDICIN E [facility] Jul 18, 2023 10:00 AM AMBULATORY - REHAB MEDICIN E [facility] Jul 25, 2023 09:00 AM AMBULATORY - REHAB MEDICIN E [facility] Aug 04, 2023 05:00 PM AMBULATORY - REHAB MEDICIN E [facility] Aug 11, 2023 05:00 PM AMBULATORY - REHAB MEDICIN E [facility] Aug 22, 2023 09:00 AM AMBULATORY - REHAB MEDICIN E [facility] Sep 12, 2023 10:00 AM AMBULATORY - REHAB MEDICIN E [facility] Oct 03, 2023 10:00 AM AMBULATORY - REHAB MEDICIN E [facility] Oct 24, 2023 10:00 AM AMBULATORY - REHAB MEDICIN E [facility] Nov 14, 2023 10:00 AM AMBULATORY - REHAB MEDICIN E [facility] Encounter Notes: All associated [...] 05/30/2023 Session Duration: 50 minutes Visit Modality: [facility] Patient Location: [address] [place] [address] Patient CONSENT Visit conducted by Ariisto. Ms. Lyle's verbal consent was obtained. Location [...] conversations challenging. 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 Provider [...] spending time with her great-granddaughter and attending druze after a friend offered to drive her. Provider reflected the affection others have the caregiver. Ms. Lyle shared her lifetime achievement award assignment, noting several themes: being a devout Jehovah'S Witness, being one who supports others, being warm [...] and engagement in care. PLAN HOMEWORK: Ms. Lyel will identify and engage in activities that connect with her values (i.e., devout Jehovah'S Witness, supportive of others, warm and sociable, and [...] appointment. /es/ CORINNE TIWARI, PHD, LP PSYCHOLOGIST, [facility] Signed: 06/01/2023 22:19 CORINNE TIWARI [facility]
--- OUTSIDE RECORDS SUMMARY | 2024-02-12 12:57 | XMS_ITS | Encounter Summary ---
Author Name Department of [place] Organization Department [place] Address [address] [place] [address] Support Name Relationship Address Phone DAYANAMAGED Next of Kin [address] [place] [address] DAYANA MAGED VIVIAN Emergency Contact [phone] [address] Insurance Providers: All historical and [...] PART B Dec 14, 2014 PART B [id number] WW53 [phone] BARON ANNE PATIENT MEDICARE (WNR) MEDICARE (M) PART A Dec 14, 2014 PART A [id number] [phone] BARON ANNE PATIENT Selected Encounter This section includes the information on record at [place] for the Encounter. Date/Time Encounter Type Encounter Description Reason Provider Source May 22, 2023 11:00 AM GROUP PSYCHOTHERAPY CAREGIVER SUPPORT PROGRAM ICD-10-CM Z65.9 Problem related to unspecified psychosocial circumstances NIDHI SOLIS [facility] Encounter Template Text not used by [place] Assessments - Encounter Diagnoses This section includes the primary and secondary diagnoses documented for the Encounter. Date/Time Primary/Secondary Diagnosis Diagnosis Name Provider Source May 22, 2023 12:50 PM PRIMARY Problem related to unspecified psychosocial circumstances WADE SOLIS [facility] Plan of Treatment: Future Appointments (+ 6 months) and Future Tests (+/- 45 days) The Plan of Treatment section includes future care activities for the patient from all [place] [facility]. This section includes future [...] 10:00 AM AMBULATORY - REHAB MEDICIN E [facility] June 20, 2023 10:00 AM AMBULATORY - REHAB MEDICIN E [facility] Jul 18, 2023 10:00 AM AMBULATORY - REHAB MEDICIN E [facility] Jul 25, 2023 09:00 AM AMBULATORY - REHAB MEDICIN E [facility] Aug 04, 2023 05:00 PM AMBULATORY - REHAB MEDICIN E [facility] Aug 11, 2023 05:00 PM AMBULATORY - REHAB MEDICIN E [facility] Aug 22, 2023 09:00 AM AMBULATORY - REHAB MEDICIN E [facility] Sep 12, 2023 10:00 AM AMBULATORY - REHAB MEDICIN E [facility] Oct 03, 2023 10:00 AM AMBULATORY - REHAB MEDICIN E [facility] Oct 24, 2023 10:00 AM AMBULATORY - REHAB MEDICIN E [facility] Nov 14, 2023 10:00 AM AMBULATORY - REHAB MEDICIN E [facility] Encounter Notes: All associated encounter notes This section contains the clinical notes associated to the Encounter. Date/Time Encounter Note(s) Provider Source May 22, 2023 11:00 AM CAREGIVER CERTIFIC ATE: LOCAL TITLE: [facility] INTERMITTENT NOTE STANDARD TITLE: CAREGIVER CERTIFICATE DATE OF NOTE: MAY 22, 2023@11:00 ENTRY DATE: MAY 22, 2023@12:51:44 AUTHOR: THOM SOLIS EXP COSIGNER: URGENCY: STATUS: COMPLETED Program of General Caregiver Support Services Intermittent Note This caregiver is participating in [facility]'s Program of General Caregiver Support Services (PGCSS). [...] Did not assess using formal screening tools. Executive Sales Manager assessed Caregiver through observation of her verbal and chat box participation, and body language. Group Notes Ongoing Parkinsons Disease Support Group Length of Group: 90 minutes Facilitators: Thmo Solis Number of Participants: 15 Check-in - Group information and format Talked about the struggle with dealing with the emotions of being a Caregiver. Talked about several Caregivers struggle with medications, communicating with doctors, and getting support. Talked about service connection and getting connected for everything needed. Talked about an upcoming in person support group offered at the [place] for Caregivers and Veterans. Support was provided both by staff and fellow caregivers. Closure: Next Session June 18 at 11:00am /josephine/ MARYELLEN YANG Caregiver Vending Machine Filler Signed: 05/22/2023 13:04 THOM SOLIS [facility]
--- OUTSIDE RECORDS SUMMARY | 2024-02-12 12:57 | XMS_ITS | Encounter Summary ---
Author Name Department of Veter[place] Affairs [place] Organization [place] of [place] Address [address] [place] [address] Support Name Relationship Address Phone DAYANAMAGED Next of Kin [address] [place] [address] MAGED ANNE Emergency Contact [phone], [place] [address] Insurance Providers: All historical and [...] PART A Dec 14, 2014 PART A [id number] WW53 [phone] KEILYERISSHEBA MCGOWAN PATIENT MEDICARE (WNR) MEDICARE (M) PART B Dec 14, 2014 PART B [id number] WW53 [phone] KEILYERISJOSÉ MCGOWANIE PATIENT Selected Encounter This section includes the information on record at MD for the Encounter. Date/Time Encounter Type Encounter Description Reason Provider Source May 18, 2023 11:35 AM HC PRO PHONE CALL 11-20 MIN TELEPHONE/ASMITA FOREMAN ICD-10-CM Z65.9 Problem related to unspecified psychosocial circumstances DANNY GILL [facility] Encounter Template Text not used by MD Assessments - Encounter Diagnoses This section includes the primary and secondary diagnoses documented for the Encounter. Date/Time Primary/Secondary Diagnosis Diagnosis Name Provider Source May 18, 2023 11:35 AM PRIMARY Problem related to unspecified psychosocial circumstances DANNY GILL [facility] Plan of Treatment: Future Appointments (+ 6 months) and Future Tests (+/- 45 days) The Plan of Treatment section includes future care activities for the patient from all [facility]. This section includes future appointments and future orders which are active, pending or scheduled. Future Appointments This section includes appointments that were scheduled to occur 6 months from the date of the Encounter, up to a maximum of 20 appointments. The data comes from all [facility]. Appointment Date/Time Appointment Type Appointme nt Facility Name May 30, 2023 10:00 AM AMBULATORY - REHAB MEDICIN E [facility] June 20, 2023 10:00 AM AMBULATORY - REHAB MEDICIN E [facility] Jul 18, 2023 10:00 AM AMBULATORY - REHAB MEDICIN [facility] Jul 25, 2023 09:00 AM AMBULATORY - REHAB MEDICIN E [facility] Aug 04, 2023 05:00 PM AMBULATORY - REHAB MEDICIN [facility] Aug 11, 2023 05:00 PM AMBULATORY - REHAB MEDICIN [facility] Aug 22, 2023 09:00 AM AMBULATORY - REHAB MEDICIN E [facility] Sep 12, 2023 10:00 AM AMBULATORY - REHAB MEDICIN [facility] Oct 03, 2023 10:00 AM AMBULATORY - REHAB MEDICIN [facility] Oct 24, 2023 10:00 AM AMBULATORY - REHAB MEDICIN [facility] Nov 14, 2023 10:00 AM AMBULATORY - REHAB MEDICIN [facility] Encounter Notes: All associated encounter notes This section contains the clinical notes associated to the Encounter. Date/Time Encounter Note(s) Provider Source May 18, 2023 11:35 AM CAREGIVER CERTIFIC ATE: LOCAL TITLE: CSP TELEPHONE NOTE STANDARD TITLE: CAREGIVER CERTIFICATE DATE OF NOTE: MAY 18, 2023@11:35 ENTRY DATE: MAY 18, 2023@11:53:38 AUTHOR: DANNY GILL COSIGNER: URGENCY: STATUS: COMPLETED Duration of phone call 17 minutes Certified Medical Records Coder contacted the caregiver to schedule the Annual Caregiver Review (ACR). She was open to completing this and updated engineering writer on changes that have happened in the last few months noting it has been very hard. She was tearful in explaining that her will likely stay in custodial care as she doesn't think she can care for him at home. She also noted that the facility he is in wants to move him to memory care but she doesn't want to make this change. She explained that he has made improvements in the last few months. Sheba added that he has experienced a lot of changes the past few months and feels this would be hard for him. Certified Medical Records Coder provided active listening and support. Scheduled a time to complete the ACR as indicated below. Plan: Caregiver Review scheduled for 05/23/23 @ 10 am /josephine/ DANNY GILL General Caregiver Senior Climate Advisor Signed: 05/19/2023 09:55 DANNY GILL [facility]
--- OUTSIDE RECORDS SUMMARY | 2024-02-12 12:57 | XMS_ITS | Encounter Summary ---
Author Name Department of Vetera ns Affairs [place] Organization Department of Vetera Affairs [place] Address [address] [place] [address] Support Name Relationship Address Phone DAYANAMAGED Next of Kin [address] [place] [address] MAGED LYLE Emergency Contact [phone] [address] Insurance Providers: All historical and [...] PART A Dec 14, 2014 PART A [id number] WW53 [phone] SHEBA LYLE PATIENT MEDICARE (WNR) MEDICARE (M) PART B Dec 14, 2014 PART B [id number] WW53 [phone] SHEBA LYLE PATIENT Selected Encounter This section includes the information on record at MD for the Encounter. Date/Time Encounter Type Encounter Description Reason Provider Source June 20, 2023 10:00 AM PSYTX W PT 45 MINUTES PM&RS PHYSICIAN ICD-10-CM Z71.9 Counseling, unspecified CORINNE TIWARI Katerina Encounter Template Text not used by MD Assessments - Encounter Diagnoses This section includes the primary and secondary diagnoses documented for the Encounter. Date/Time Primary/Secondary Diagnosis Diagnosis Name Provider Source June 22, 2023 09:40 PM PRIMARY Counseling, unspecified CORINNE TIWARI [facility] Plan of Treatment: Future Appointments (+ 6 months) and Future Tests (+/- 45 days) The Plan of Treatment section includes future care activities for the patient from all [facility]. This section includes future appointments and future orders which are active, pending or scheduled. Future Appointments This section includes appointments that were scheduled to occur 6 months from the date of the Encounter, up to a maximum of 20 appointments. The data comes from all [facility]. Appointment Date/Time Appointment Type Appointme nt Facility Name Jul 18, 2023 10:00 AM AMBULATORY - REHAB MEDICIN E [facility] Jul 25, 2023 09:00 AM AMBULATORY - REHAB MEDICIN E [facility] Aug 04, 2023 05:00 PM AMBULATORY - REHAB MEDICIN E [facility] Aug 11, 2023 05:00 PM AMBULATORY - REHAB MEDICIN E [facility] Aug 22, 2023 09:00 AM AMBULATORY - REHAB MEDICIN E [facility] Sep 12, 2023 10:00 AM AMBULATORY - REHAB MEDICIN E [facility] Oct 03, 2023 10:00 AM AMBULATORY - REHAB MEDICIN E [facility] Oct 24, 2023 10:00 AM AMBULATORY - REHAB MEDICIN E [facility] Nov 14, 2023 10:00 AM AMBULATORY - REHAB MEDICIN E [facility] Dec 05, 2023 10:00 AM AMBULATORY - REHAB MEDICIN E [facility] Dec 19, 2023 09:00 AM AMBULATORY - REHAB MEDICIN E [facility] Dec 20, 2023 05:00 PM AMBULATORY - REHAB MEDICIN [facility] Encounter Notes: All associated encounter notes [...] 06/20/2023 Session Duration: 52 minutes Visit Modality: [facility] Patient Location: [address] [place] [address] Patient CONSENT Visit conducted by Offerum. Ms. Lyle's verbal consent was obtained. Location [...] noted several positive experiences (i.e., attending her pentecostalism's Women's Brunch, getting her new glasses, attending pentecostalism thanks to a friend driving her, and her neighbor mowing her lawn). She also shared some challenges (i.e., continued fatigue which she attributed to COVID-19, difficulties with the 's care center staff, and the poor bedside manner of a VA provider). She reported that the has been transitioned to a memory care unit at the [facility] center. Although she felt confident that the [...] identified in the previous session (i.e., devout Samaritan, supportive of others, warm and sociable, and [...] family (children, grandchildren, and sisters) and community (pentecostalism community); responsibility/duty to others; help seeking; presents with good impulse control; evidence of spiritual/jewish beliefs about value of life (strong spirituality [...] that connect with her values (i.e., devout Samaritan, supportive of others, warm and sociable, and [...] appointment. /es/ CORINNE TIWARI, PHD, LP PSYCHOLOGIST, [facility] Signed: 06/22/2023 21:40 CORINNE TIWARI [facility]
--- OUTSIDE RECORDS SUMMARY | 2024-02-12 12:57 | XMS_ITS | Encounter Summary ---
Author Name [place] Organization [place] Address [address] [place] [address] Support Name Relationship Address Phone DAYANAMAGED Next of Kin [address] [place] [address] MAGED ANNE Emergency Contact [phone], [place] [address] Insurance Providers: All historical and [...] PART A Dec 14, 2014 PART A [id number] WW53 [phone] BARON ANNE PATIENT MEDICARE (WNR) MEDICARE (M) PART B Dec 14, 2014 PART B [id number] WW53 [phone] BARON ANNE PATIENT Selected Encounter This section includes the information on record at [place] for the Encounter. Date/Time Encounter Type Encounter Description Reason Provider Source Apr 26, 2023 12:25 PM Outpatient Encounter TELEPHONE/OBEY OZUNA ICD-10-CM Z65.9 Problem related to unspecified psychosocial circumstances WADE SOLIS [facility] Encounter Template Text not used by [place] Assessments - Encounter Diagnoses This section includes the primary and secondary diagnoses documented for the Encounter. Date/Time Primary/Secondary Diagnosis Diagnosis Name Provider Source Apr 26, 2023 12:25 PM PRIMARY Problem related to unspecified psychosocial circumstances WADE SOLIS [facility] Plan of Treatment: Future Appointments (+ 6 months) and Future Tests (+/- 45 days) The Plan of Treatment section includes future care activities for the patient from all [place] [facility]. This section includes future appointments and future orders which are active, pending or scheduled. Future Appointments This section includes appointments that were scheduled to occur 6 months from the date of the Encounter, up to a maximum of 20 appointments. The data comes from all [place] treatment [facility]. Appointment Date/Time Appointment Type Appointme nt Facility Name May 09, 2023 10:00 AM AMBULATORY - REHAB MEDICIN E [facility] May 30, 2023 10:00 AM AMBULATORY - REHAB MEDICIN E [facility] June 20, 2023 10:00 AM AMBULATORY - REHAB MEDICIN E [facility] Jul 18, 2023 10:00 AM AMBULATORY - REHAB MEDICIN E [facility] Jul 25, 2023 09:00 AM AMBULATORY - REHAB MEDICIN [facility] Aug 04, 2023 05:00 PM AMBULATORY - REHAB MEDICIN E [facility] Aug 11, 2023 05:00 PM AMBULATORY - REHAB MEDICIN E [facility] Aug 22, 2023 09:00 AM AMBULATORY - REHAB MEDICIN [facility] Sep 12, 2023 10:00 AM AMBULATORY - REHAB MEDICIN E [facility] Oct 03, 2023 10:00 AM AMBULATORY - REHAB MEDICIN [facility] Oct 24, 2023 10:00 AM AMBULATORY - REHAB MEDICIN [facility] Encounter Notes: All associated encounter [...] inform she is unable to attend group. [facility] offered support for 's current status in LTC. /josephine/ MARYELLEN YANG Caregiver Auriculotherapist Signed: 04/26/2023 12:27 THOM SOLIS [facility]
--- OUTSIDE RECORDS SUMMARY | 2024-02-12 12:57 | XMS_ITS | Encounter Summary ---
Author Name [place] Address [address] [place] [address] Support Name Relationship Address Phone DAYANAMAGED Next of Kin [address] [place] [address] MAGED ANNE Emergency Contact [phone], [place] [address] Insurance Providers: All historical and [...] PART A Dec 14, 2014 PART A [id number] [phone] KEILYERISBARON MCGOWAN PATIENT MEDICARE (WNR) MEDICARE (M) PART B Dec 14, 2014 PART B [id number] [phone] DAYANAJOSÉIE PATIENT Selected Encounter This section includes the information on record at [place] for the Encounter. Date/Time Encounter Type Encounter Description Reason Pro vider Source Mar 29, 2023 03:01 PM Outpatient Encounter PM&RS PHYSICIAN E Encounter Template Text not used by [place] Plan of Treatment: Future Appointments (+ 6 months) and Future Tests (+/- 45 days) The Plan of Treatment section includes future care activities for the patient from all [place] treatmentfacilities. This section includes future appointments and future orders which are active, pending or scheduled. Future Appointments This section includes appointments that were scheduled to occur 6 months from the date of the Encounter, up to a maximum of 20 appointments. The data comes from all [place] treatment facilities. Appointment Date/Time Appointment Type Appointme nt Facility Name Apr 12, 2023 05:00 PM AMBULATORY - REHAB MEDICIN E [facility] May 09, 2023 10:00 AM AMBULATORY - REHAB MEDICIN E [facility] May 30, 2023 10:00 AM AMBULATORY - REHAB MEDICIN E [facility] June 20, 2023 10:00 AM AMBULATORY - REHAB MEDICIN E [facility] Jul 18, 2023 10:00 AM AMBULATORY - REHAB MEDICIN E [facility] Jul 25, 2023 09:00 AM AMBULATORY - REHAB MEDICIN E [facility] Aug 04, 2023 05:00 PM AMBULATORY - REHAB MEDICIN E [facility] Aug 11, 2023 05:00 PM AMBULATORY - REHAB MEDICIN E [facility] Aug 22, 2023 09:00 AM AMBULATORY - REHAB MEDICIN E [facility] Sep 12, 2023 10:00 AM AMBULATORY - REHAB MEDICIN E [facility] Encounter Notes: All associated encounter notes This section contains the clinical notes associated to the Encounter. Date/Time Encounter Note(s) Provider Source Mar 29, 2023 03:01 PM REPORT OF CONTACT: LOCAL TITLE: APPOINTMENT SCHEDULING NOTE STANDARD TITLE: REPORT OF CONTACT DATE OF NOTE: MAR 29, 2023@15:01 ENTRY DATE: MAR 29, 2023@15:01:41 AUTHOR: MILTON SWANIGNER: URGENCY: STATUS: COMPLETED Attempted to schedule Return to clinic (RTC) Contact attempt made to [place] 1st attempt Telephone 2nd attempt Letter - Sent letter by regular [place] mail to address on file: KEILYERISBARON MCGOWAN [address] [place], [place] [id number] 3rd attempt Text message Left message on voice mail to call back to this number [phone] If [place] calls back, schedule appt for: Activity: 03/28/2023 11:27 New Order entered by CORINNE CALVO (CLINICAL PSYCHO) Order Text: Return to [facility] PSYCH [facility]UB[facility] on or around ( Apr 18, 2023 ) for a total of 1 appointment(s) Prerequisites: All Modalities Appropriate / Offer Option, Notify ordering provider if minimum scheduling efforts fail 60 min; follow-up /es/ MILTON SWAN MSA Signed: 03/29/2023 15:02 MILTON SWAN [facility]
--- OUTSIDE RECORDS SUMMARY | 2024-02-12 12:57 | XMS_ITS | Encounter Summary ---
Author Name Department [place] Organization [place] Address [address] [place] [address] Support Name Relationship Address Phone DAYANAMAGED Next of Kin [address] [place] [address] MAGED ANNE Emergency Contact [phone], [place] [address] Insurance Providers: All historical and [...] PART A Dec 14, 2014 PART A [id number] [phone] BARON ANNE PATIENT MEDICARE (WNR) MEDICARE (M) PART B Dec 14, 2014 PART B [id number] [phone] BARON ANNE PATIENT Selected Encounter This section includes the information on record at [place] for the Encounter. Date/Time Encounter Type Encounter Description Reason Provider Source Jul 17, 2023 11:00 AM GROUP PSYCHOTHERAPY CAREGIVER SUPPORT PROGRAM ICD-10-CM Z65.9 Problem related to unspecified psychosocial circumstances NIDHI SOLIS [facility] Encounter Template Text not used by [place] Assessments - Encounter Diagnoses This section includes the primary and secondary diagnoses documented for the Encounter. Date/Time Primary/Secondary Diagnosis Diagnosis Name Provider Source Jul 17, 2023 02:29 PM PRIMARY Problem related to unspecified psychosocial circumstances WADE SOLIS [facility] Plan of Treatment: Future Appointments (+ 6 months) and Future Tests (+/- 45 days) The Plan of Treatment section includes future care activities for the patient from all [place] [facility]. This section includes future appointments and future orders which are active, pending or scheduled. Future Appointments This section includes appointments that were scheduled to occur 6 months from the date of the Encounter, up to a maximum of 20 appointments. The data comes from all [place] treatment [facility]. Appointment Date/Time Appointment Type Appointme nt Facility Name Jul 18, 2023 10:00 AM AMBULATORY - REHAB MEDICIN E [facility] Jul 25, 2023 09:00 AM AMBULATORY - REHAB MEDICIN E [facility] Aug 04, 2023 05:00 PM AMBULATORY - REHAB MEDICIN E [facility] Aug 11, 2023 05:00 PM AMBULATORY - REHAB MEDICIN E [facility] Aug 22, 2023 09:00 AM AMBULATORY - REHAB MEDICIN E [facility] Sep 12, 2023 10:00 AM AMBULATORY - REHAB MEDICIN E [facility] Oct 03, 2023 10:00 AM AMBULATORY - REHAB MEDICIN E [facility] Oct 24, 2023 10:00 AM AMBULATORY - REHAB MEDICIN E [facility] Nov 14, 2023 10:00 AM AMBULATORY - REHAB MEDICIN E [facility] Dec 05, 2023 10:00 AM AMBULATORY - REHAB MEDICIN E [facility] Dec 19, 2023 09:00 AM AMBULATORY - REHAB MEDICIN E [facility] Dec 20, 2023 05:00 PM AMBULATORY - REHAB MEDICIN E [facility] Jan 02, 2024 09:00 AM AMBULATORY - REHAB MEDICIN E [facility] Encounter Notes: All associated encounter notes This section contains the clinical notes associated to the Encounter. Date/Time Encounter Note(s) Provider Source Jul 17, 2023 11:00 AM CAREGIVER CERTIFIC ATE: [facility] STANDARD TITLE: CAREGIVER CERTIFICATE DATE OF NOTE: JUL 17, 2023@11:00 ENTRY DATE: JUL 17, 2023@14:28:52 AUTHOR: THOM SOLIS EXP COSIGNER: URGENCY: STATUS: COMPLETED Program of General Caregiver Support Services Intermittent Note This caregiver is participating in [place]'s Program of General Caregiver Support Services (PGCSS). [...] Did not assess using formal screening tools. Sheet Metal Duct Worker Supervisor assessed Caregiver through observation of her verbal and chat box participation, and body language. Group Notes Ongoing Parkinsons Disease Support Group Length of Group: 90 minutes Facilitators: Thom Solis Number of Participants: 17 Check-in - Group information and format New members added from the initial psycho/educational support group. Each member introduced themselves and offered support to each other about individual struggles. Caregivers talked about the struggle of watching the decline, struggling with external issues, and struggling with their own health. Closure: Next Session August 13 at 11:00am /josephine/ THOM SOLIS BACKUP ADMINISTRATIVE COORDINATOR Caregiver Used Car Manager Signed: 07/17/2023 14:45 THOM SOLIS [facility]
--- OUTSIDE RECORDS SUMMARY | 2024-02-12 12:58 | XMS_ITS | Encounter Summary ---
Author Name [place] Address [address] [place] [address] Support Name Relationship Address Phone DAYANAMAGED VIVIAN Next of Kin [address] [place] [address] MAGED ANNE Emergency Contact [phone], [place] [address] Insurance Providers: All historical and [...] PART A Dec 14, 2014 PART A [id number] WW53 [phone] KEILYERISBARON MCGOWAN PATIENT MEDICARE (WNR) MEDICARE (M) PART B Dec 14, 2014 PART B [id number] WW53 [phone] KEILYERISJOSÉ MCGOWANIE PATIENT Selected Encounter This section includes the information on record at [place] for the Encounter. Date/Time Encounter Type Encounter Description Reason Pro vider Source Sep 13, 2023 10:45 AM Outpatient Encounter ADMIN PAT ACTIVTIES (MASNONCT) IHE Encounter Template Text not used by [place] Plan of Treatment: Future Appointments (+ 6 [...] 20 appointments. The data comes from all [place] treatment [facility]. Appointment Date/Time Appointment Type Appointme nt Facility Name Oct 03, 2023 10:00 AM AMBULATORY - REHAB MEDICIN E [facility] Oct 24, 2023 10:00 AM AMBULATORY - REHAB MEDICIN E [facility] Nov 14, 2023 10:00 AM AMBULATORY - REHAB MEDICIN E [facility] Dec 05, 2023 10:00 AM AMBULATORY - REHAB MEDICIN E [facility] Dec 19, 2023 09:00 AM AMBULATORY - REHAB MEDICIN E [facility] Dec 20, 2023 05:00 PM AMBULATORY - REHAB MEDICIN E [facility] Jan 02, 2024 09:00 AM AMBULATORY - REHAB MEDICIN E [facility] Jan 23, 2024 10:00 AM AMBULATORY - REHAB MEDICIN [facility] Feb 20, 2024 10:00 AM AMBULATORY - REHAB MEDICIN [facility] Encounter Notes: All associated encounter notes This section contains the clinical notes associated to the Encounter. Date/Time Encounter Note(s) Provider Source Sep 13, 2023 10:45 AM TELEHEALTH NOTE: LOCAL TITLE: TELEHEALTH TECHNOLOGY SCREENING (TTS) STANDARD TITLE: TELEHEALTH NOTE DATE OF NOTE: SEP 13, 2023@10:45 ENTRY DATE: SEP 13, 2023@10:46:01 AUTHOR: DESTINY PACE EXP COSIGNER: URGENCY: STATUS: COMPLETED agrees to [facility] ([facility]) and has capability to complete a VVC visit. has completed a test call or a VVC visit on his/her personal device. E-mail: [email or web address] Device(s) they can use: Desktop/Laptop /josephine/ DESTINY PACE [facility] Signed: 09/13/2023 10:46 DESTINY PACE [facility]
--- OUTSIDE RECORDS SUMMARY | 2024-02-12 12:58 | XMS_ITS | Encounter Summary ---
Author Name [place] Organization [place] Address [address] [place] [address] Support Name Relationship Address Phone DAYANAMAGED Next of Kin [address] [place] [address] MAGED LYLE Emergency Contact [phone], [place] [address] Insurance Providers: All historical and [...] PART A Dec 14, 2014 PART A [id number] [phone] SHEBA LYLE PATIENT MEDICARE (WNR) MEDICARE (M) PART B Dec 14, 2014 PART B [id number] [phone] SHEBA LYLE PATIENT Selected Encounter This section [...] 07:30 AM PRIMARY Counseling, unspecified CORINNE TIWARI [facility] Plan of Treatment: Future Appointments (+ 6 months) and Future Tests (+/- 45 days) The Plan of Treatment section includes future care activities for the patient from all [place] [facility]. This section includes future appointments and future orders which are active, pending or scheduled. Future Appointments This section includes appointments that were scheduled to occur 6 months from the date of the Encounter, up to a maximum of 20 appointments. The data comes from all [facility]. Appointment Date/Time Appointment Type Appointme nt Facility Name Oct 24, 2023 10:00 AM AMBULATORY - REHAB MEDICIN E [facility] Nov 14, 2023 10:00 AM AMBULATORY - REHAB MEDICIN E [facility] Dec 05, 2023 10:00 AM AMBULATORY - REHAB MEDICIN E [facility] Dec 19, 2023 09:00 AM AMBULATORY - REHAB MEDICIN [facility] Dec 20, 2023 05:00 PM AMBULATORY - REHAB MEDICIN [facility] Jan 02, 2024 09:00 AM AMBULATORY - RE[facility]AB MEDICIN [facility] Jan 23, 2024 10:00 AM AMBULATORY - REHAB MEDICIN [facility] Feb 20, 2024 10:00 AM AMBULATORY - RE[facility]AB MEDICIN [facility] Encounter Notes: All associated [...] 10/03/2023 Session Duration: 52 minutes Visit Modality: [facility] Patient Location: [address] [place] [address] Patient CONSENT Visit conducted by synchronous telehealth. [...] 's clothing without her consideration, and a cash applications coordinator her son was trying to sell was [...] of the experience (i.e., support from her jain family who came to help her clean, still have Souleymane, and donating their [facility]). Ms. Lyle reported delays in touring new housing options; however, she started gathering data online. She expressed concerns about [facility] cell size living spaces. Provider encouraged the [...] reason to live, as well as her caodaism beliefs. Provider reflected the struggles of the caregiver to her values of being a good person, caring for others, and honoring her . She appreciated the reminder. Caregiver continues to listen to praise music as a source of self-care, and she has been attending jain to have a sense of community. Provider [...] family (children, grandchildren, and sisters) and community (jain community); responsibility/duty to others; help seeking; presents with good impulse control; evidence of spiritual/caodaism beliefs about value of life (strong spirituality [...] that connect with her values (i.e., devout Moravian, supportive of others, warm and sociable, and [...] appointment. /es/ CORINNE TIWARI, PHD, LP PSYCHOLOGIST, [facility] Signed: 10/05/2023 07:30 CORINNE TIWARI [facility]
--- OUTSIDE RECORDS SUMMARY | 2024-02-12 12:58 | XMS_ITS | Encounter Summary ---
Author Name Department [place] Organization [place] Address [address] [place] [address] Support Name Relationship Address Phone DAYANAMAGED Next of Kin [address] [place] [address] MAGED ANNE Emergency Contact [phone] [address] Insurance Providers: All historical and [...] PART A Dec 14, 2014 PART A [id number] WW53 [phone] KEILYERISBARON MCGOWAN PATIENT MEDICARE (WNR) MEDICARE (M) PART B Dec 14, 2014 PART B [id number] WW53 [phone] UNIQUEJOSÉ MCGOWANIE PATIENT Selected Encounter This section includes the information on record at [place] for the Encounter. Date/Time Encounter Type Encounter Description Reason Pro vider Source Oct 24, 2023 10:00 AM Outpatient Encounter PM&RS PHYSICIAN E Encounter Template Text not used by [place] Plan of Treatment: Future Appointments (+ 6 months) and Future Tests (+/- 45 days) The Plan of Treatment section includes future care activities for the patient from all [place] treatmentfacilities. This section includes future appointments and [...] AMBULATORY - REHAB MEDICIN E [facility] Dec 05, 2023 10:00 AM AMBULATORY - REHAB MEDICIN E [facility] Dec 19, 2023 09:00 AM AMBULATORY - REHAB MEDICIN E [facility] Dec 20, 2023 05:00 PM AMBULATORY - REHAB MEDICIN E [facility] Jan 02, 2024 09:00 AM AMBULATORY - REHAB MEDICIN E [facility] Jan 23, 2024 10:00 AM AMBULATORY - REHAB MEDICIN E [facility] Feb 20, 2024 10:00 AM AMBULATORY - REHAB MEDICIN E [facility] Encounter Notes: All associated encounter notes This section contains the clinical notes associated to the Encounter. Date/Time Encounter Note(s) Provider Source Oct 27, 2023 12:42 PM REPORT OF CONTACT: LOCAL TITLE: APPOINTMENT SCHEDULING NOTE STANDARD TITLE: REPORT OF CONTACT DATE OF NOTE: OCT 27, 2023@12:42 ENTRY DATE: OCT 27, 2023@12:42:42 AUTHOR: DANIEL BOND EXP COSIGNER: URGENCY: STATUS: COMPLETED Attempted to schedule Return to clinic (RTC) Contact attempt made to 1st attempt Telephone 2nd attempt Text message 3rd attempt Letter - Sent letter by regular [place] mail to address on file: BARON ANNE [address] [place], [place] [id number] Left message on voice mail to call back to this number [phone] If [place] calls back, schedule appt for: Activity: 10/26/2023 23:23 New Order entered by CORINNE CALVO (CLINICAL PSYCHO) Order Text: Return to [facility] on or around ( Nov 14, 2023 ) for a total of 1 appointment(s) Prerequisites: All Modalities Appropriate / Offer Option, Notify ordering provider if minimum scheduling efforts fail 60 min; follow-up /josephine/ DANIEL BOND Sandwich And Drink Cart Operator Signed: 10/27/2023 12:44 DANIEL BOND [facility]
--- OUTSIDE RECORDS SUMMARY | 2024-02-12 12:58 | XMS_ITS | Encounter Summary ---
Author Name Department of [place] Organization [place] Address [address] [place] [address] Support Name Relationship Address Phone DAYANAMAGED Next of Kin [address] [place] [address] MAGED LYLE Emergency Contact [phone], [place] [address] Insurance Providers: All historical and [...] PART A Dec 14, 2014 PART A [id number] [id number] [phone] SHEBA LYLE PATIENT MEDICARE (WNR) MEDICARE (M) PART B Dec 14, 2014 PART B [id number] [phone] SHEBA LYLE PATIENT Selected Encounter This section includes the information on record at [place] for the Encounter. Date/Time Encounter Type Encounter Description Reason Provider Source Dec 19, 2023 09:00 AM PSYTX W PT 45 MINUTES PM&RS PHYSICIAN ICD-10-CM Z71.9 Counseling, unspecified CORINNE TIWARI [place]ater[place] Encounter Template Text not used by [place] Assessments - Encounter Diagnoses This section includes the primary and secondary diagnoses documented for the Encounter. Date/Time Primary/Secondary Diagnosis Diagnosis Name Provider Source Dec 21, 2023 11:31 PM PRIMARY Counseling, unspecified CORINNE TIWARI [facility] Plan of Treatment: Future Appointments (+ 6 months) and Future Tests (+/- 45 days) The Plan of Treatment section includes future care activities for the patient from all [place] [facility]. This section includes future appointments and future orders which are active, pending or scheduled. Future Appointments This section includes appointments that were scheduled to occur 6 months from the date of the Encounter, up to a maximum of 20 appointments. The data comes from all [facility]. Appointment Date/Time Appointment Type Appointme nt Facility Name Dec 20, 2023 05:00 PM AMBULATORY - REHAB MEDICIN [facility] Jan 02, 2024 09:00 AM AMBULATORY - REHAB MEDICIN [facility] Jan 23, 2024 10:00 AM AMBULATORY - REHAB MEDICIN [facility] Feb 20, 2024 10:00 AM AMBULATORY - REHAB MEDICIN [facility] Encounter Notes: All associated encounter notes This section contains the clinical notes associated to the Encounter. Date/Time Encounter Note(s) Provider Source Dec 19, 2023 09:00 AM PHYSICAL MEDICINE REHAB NOTE: LOCAL TITLE: REHAB PSYCHOLOGY PROGRESS NOTE STANDARD TITLE: PHYSICAL MEDICINE REHAB NOTE DATE OF NOTE: DEC 19, 2023@09:00 ENTRY DATE: DEC 21, 2023@23:30 AUTHOR: CORINNE TIWARI COSIGNER: URGENCY: STATUS: COMPLETED REHABILITATION PSYCHOLOGY PROGRESS NOTE Patient Name: Sheba Lyle Date of : 1950 Date of Visit: 12/19/2023 Session Duration: 51 minutes Visit Modality: [facility] Patient Location: [address] [place] [address] Patient CONSENT Visit conducted by synchronous telehealth. [...] informed consent. BACKGROUND Ms. 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 She was referred to Dr. Tiwari for caregiver psychological support services. SESSION CONTENT Ms. Lyle described her mood as hurt. She explained she continues to have conflict with her children. Specifically, caregiver noted her daughter expressed frustration and hurt about the caregiver and how she is handling the situation. Ms. Lyle also noted frustrations related to her daughter staying with her (e.g., sleeping in and complaining if she makes any noise). Caregiver shared that this has impacted her at-home physical therapy. Provider and caregiver discussed the caregiver's pattern of being uncomfortable with others' strong emotions and backing down out of fear. She shared she did this with her father, her , and now with her children. Provider discussed the reinforcement of strong emotional displays and assessed the caregiver's willingness to try new approaches. Ms. Lyle confirmed she would like the situation to change, but she was doubtful it could. Caregiver struggled to implement the previous session's conversation strategies. Provider and caregiver problem-solved barriers and also discussed evaluating her success through values-consistent behavior rather than others' emotional responses. Caregiver continues to be grateful for the provider and the [facility] She noted several significant improvements in the quality of his care. Provider reinforced her focus on positive aspects of her life. Caregiver requested an update to her mailing address after her recent move. Provider agreed to coordinate with her manager social media to request this update. Provider also wished caregiver a happy birthday. OBJECTIVE Session/visit location: [facility] Present at session: [...] articulate and intelligible. Mood was described as: hurt Affect: Her affect was sad and distressed. Her emotional expressions were appropriately reactive and consistent with conversation topics. Thought content: Caregiver's thought content was appropriate with no indications of delusions or hallucinations. She denied suicidal ideation, intent, and plans. Homicidal ideation was not reported. Thought processes: Caregiver's [...] presence of strong interpersonal bonds to family (grandchildren, and sisters) and community (zoroastrianism community); responsibility/duty to others; help seeking; presents with good impulse control; evidence of spiritual/judaism beliefs about value of life (strong spirituality [...] Risk Level Impression: Intermediate chronic risk: Caregiver has a history of chronic conditions that elevate risk for suicide; however, risk factors are balanced with access to coping skills and ability to endure crisis using these skills, reasons for living, and engagement in care. PLAN HOMEWORK: Ms. Lyle will use practiced communication strategies when talking with her children (i.e., expressing her needs without engaging in argument). When she reflects on these conversations, she will evaluate her actions based on her values rather than her children's emotional responses. She also will read a daily devotional and listen to praise music each day as a source of positive emotions. SESSION ENGAGEMENT: RITS Rating = 4 Education was provided during this session. Caregiver indicated readiness to learn by asking questions, making appropriate comments, and demonstrating appropriate nonverbals. CURRENT TREATMENT PLAN: Dated July 18, 2023. Update due July 17, 2024. RETURN TO CLINIC: Provider and Caregiver agreed that the optimal return to clinic would be in two weeks. A return to clinic was placed for Tuesday, January 02, 2024. Caregiver is aware of how to contact the provider if she has needs before the next appointment. /josephine/ CORINNE TIWARI, PHD, LP PSYCHOLOGIST, [facility] Signed: 12/21/2023 23:31 CORINNE TIWARI [facility]
--- OUTSIDE RECORDS SUMMARY | 2024-02-12 12:58 | XMS_ITS | Encounter Summary ---
Author Name [facility] [place] Organization [place] Address [address] [place] [id number] Support Name Relationship Address Phone DAYANAMAGED Next of Kin [phone] [place] [address] MAGED ANNE Emergency Contact [phone], [place] [address] Insurance Providers: All historical and [...] PART A Dec 14, 2014 PART A [id number] KEILYERISBARON MCGOWAN PATIENT MEDICARE (WNR) MEDICARE (M) PART B Dec 14, 2014 PART B [id number] [phone] DAYANAJOSÉIE PATIENT Selected Encounter This section includes the information on record at [place] for the Encounter. Date/Time Encounter Type Encounter Description Reason Pro vider Source Nov 06, 2023 12:00 AM Outpatient Encounter EVENT (HISTORICAL) IHE Encounter Template Text not used by [place] Plan of Treatment: Future Appointments (+ 6 months) and Future Tests (+/- 45 days) The Plan of Treatment section includes future care activities for the patient from all [place] treatmentfacilities. This section includes future appointments and future orders which are active, pending or scheduled. Future Appointments This section includes appointments that were scheduled to occur 6 months from the date of the Encounter, up to a maximum of 20 appointments. The data comes from all [place] treatment facilities. Appointment Date/Time Appointment Type Appointme nt Facility Name Nov 14, 2023 10:00 AM [facility] Dec 05, 2023 10:00 AM [facility] Dec 19, 2023 09:00 AM AMBULATORY - REHAB [facility] Dec 20, 2023 05:00 PM AMBULATORY - REHAB [facility] Jan 02, 2024 09:00 AM [facility] Jan 23, 2024 10:00 AM [facility] Feb 20, 2024 10:00 AM [facility] Immunizations: All administered on the encounter date This section contains immunizations associated to the Encounter. Immunization Series Date Issued Reaction Comments COVID-19 (Leadhit), MRNA, LNP -S, PF, EMILY-SUCROSE, 30 MCG/0.3 ML (AGES 12+ YEARS) Nov 06, 2023
--- OUTSIDE RECORDS SUMMARY | 2024-02-12 12:58 | XMS_ITS | Encounter Summary ---
Author Name Department [place] Organization [place] Address [address] [place] [address] Support Name Relationship Address Phone DAYANAMAGED Next of Kin [address] [place] [address] MAGED ANNE Emergency Contact [phone] [address] Insurance Providers: All historical and [...] PART A Dec 14, 2014 PART A [id number] [phone] BARON ANNE PATIENT MEDICARE (WNR) MEDICARE (M) PART B Dec 14, 2014 PART B [id number] [phone] BARON ANNE PATIENT Selected Encounter This section includes the information on record at [place] for the Encounter. Date/Time Encounter Type Encounter Description Reason Provider Source Nov 20, 2023 11:00 AM [facility] IVNTJ GRP EA ADDL CAREGIVER SUPPORT PROGRAM ICD-10-CM Z65.9 Problem related to unspecified psychosocial circumstances WADE SOLIS [facility] Encounter Template Text not used by [place] Assessments - Encounter Diagnoses This section includes the primary and secondary diagnoses documented for the Encounter. Date/Time Primary/Secondary Diagnosis Diagnosis Name Provider Source Nov 20, 2023 02:36 PM PRIMARY Problem related to unspecified psychosocial circumstances WADE SOLIS [facility] Plan of Treatment: Future Appointments (+ 6 months) and Future Tests (+/- 45 days) The Plan of Treatment section includes future care activities for the patient from all [place] [facility] [place] [place] This section includes future appointments and future orders which are active, pending or scheduled. Future Appointments This section includes appointments that were scheduled to occur 6 months from the date of the Encounter, up to a maximum of 20 appointments. The data comes from all [place] treatment facilities. Appointment Date/Time Appointment Type Appointme nt Facility Name Dec 05, 2023 10:00 AM AMBULATORY - RE[facility]AB [facility] Dec 19, 2023 09:00 AM AM[facility]ULATORY - [facility] Dec 20, 2023 05:00 PM AMBULATORY - REHAB [facility] Jan 02, 2024 09:00 AM [facility]ULATORY - [facility] Jan 23, 2024 10:00 AM AMBULATORY - [facility]AB [facility] Feb 20, 2024 10:00 AM [facility]ULATORY - [facility] Encounter Notes: All associated encounter notes This section contains the clinical notes associated to the Encounter. Date/Time Encounter Note(s) Provider Source Nov 20, 2023 11:00 AM CAREGIVER CERTIFIC ATE: LOCAL TITLE: [facility] PGCSS INTERMITTENT NOTE STANDARD TITLE: CAREGIVER CERTIFICATE DATE OF NOTE: NOV 20, 2023@11:00 ENTRY DATE: NOV 20, 2023@14:33:10 AUTHOR: THOM SOLIS COSIGNER: URGENCY: STATUS: COMPLETED Program of General Caregiver Support Services Intermittent Note This caregiver is participating in [place]'s Program of General Caregiver Support Services (PGCSS). [...] Did not assess using formal screening tools. Parts Casting Machine Operator assessed Caregiver through observation of her verbal and chat box participation, and body language. Group Notes Parkinson's Disease Caregiver Support Group Length of Group: 95 minutes Facilitators: Thom Solis and Dia Gao Number of Participants: 15 Check-in - Group information and format Caregivers talked about the difficulties they were having in caring for the Larwill. It was an open group with no agenda. Caregivers introduced themselves to each other as it was a mix of ongoing Parkinson's Disease Caregiver Support group and initial 8 weeks of education/support. Caregivers asked the following questions and were answered by the facilitators and peers. 1. How to counteract the fear of LTC facility placement.-Introduce with visits or [facility] in location, talk to providers about it. 2. What to do when a 's behavior becomes drastically different-Get a full medical work up to rule out an infection or other medical changes. Get support and outside resources including respite care. 3. When things are rough during caregiving how do you cope? Multiple answers including respite care, self-care activities, attending group and reaching out to friends/family 4. What to do about travel struggles 5. What to do when you can't motivate the to do PT exercises? Blame it on the [facility], connect to PT and have them explain to MACHINE SPREADER and Larwill what is needed. Have the Vet attend a class or connect to movement they enjoy. Closure: Next Session 12/04/23 /josephine/ THOM SOLIS [facility] Caregiver Home Appliances Mechanic Signed: 11/20/2023 14:49 THOM SOLIS [facility]
--- OUTSIDE RECORDS SUMMARY | 2024-02-12 12:58 | XMS_ITS | Encounter Summary ---
Author Name [place] Address [address] [place] [address] Support Name Relationship Address Phone DAYANAMAGED Next of Kin [address] [place] [address] MAGED LYLE Emergency Contact [phone], [place] [address] Insurance Providers: All historical and [...] PART A Dec 14, 2014 PART A [id number] [phone] SHEBA LYLE PATIENT MEDICARE (WNR) MEDICARE (M) PART B Dec 14, 2014 PART B [id number] [phone] SHEBA LYLE PATIENT Selected Encounter This section includes the information on record at [place] for the Encounter. Date/Time Encounter Type Encounter Description Reason Provider Source Nov 14, 2023 10:00 AM PSYTX W PT 45 MINUTES PM&RS PHYSICIAN ICD-10-CM Z71.9 Counseling, unspecified CORINNE TIWARI [facility] Encounter Template Text not used by [place] Assessments - Encounter Diagnoses This section includes the primary and secondary diagnoses documented for the Encounter. Date/Time Primary/Secondary Diagnosis Diagnosis Name Provider Source Nov 16, 2023 11:49 PM PRIMARY Counseling, unspecified CORINNE TIWARI [facility] Plan of Treatment: Future Appointments (+ 6 months) and Future Tests (+/- 45 days) The Plan of Treatment section includes future care activities for the patient from all [place] [facility]. This section includes future appointments and future orders which are active, pending or scheduled. Future Appointments This section includes appointments that were scheduled to occur 6 months from the date of the Encounter, up to a maximum of 20 appointments. The data comes from all [facility]. Appointment Date/Time Appointment Type Appointme nt Facility Name Dec 05, 2023 10:00 AM AMBULATORY - REHAB [facility] Dec 19, 2023 09:00 AM AMBULATORY - REHAB [facility] Dec 20, 2023 05:00 PM AMBULATORY - REHAB [facility] Jan 02, 2024 09:00 AM [facility]ATORY - [facility] Jan 23, 2024 10:00 AM AMBULATORY - [facility] Feb 20, 2024 10:00 AM [facility]ULATORY - [facility] Encounter Notes: All associated encounter notes This section contains the clinical notes associated to the Encounter. Date/Time Encounter Note(s) Provider Source Nov 14, 2023 10:00 AM PHYSICAL MEDICINE REHAB NOTE: LOCAL TITLE: REHAB PSYCHOLOGY PROGRESS NOTE STANDARD TITLE: PHYSICAL MEDICINE REHAB NOTE DATE OF NOTE: NOV 14, 2023@10:00 ENTRY DATE: NOV 16, 2023@23:48:56 AUTHOR: CORINNE TIWARI COSIGNER: URGENCY: STATUS: COMPLETED REHABILITATION PSYCHOLOGY PROGRESS NOTE Patient Name: Sheba Lyle Date of : 1950 Date of Visit: 11/14/2023 Session Duration: 50 minutes Visit Modality: [facility] Patient Location: [address] [place] [address] Patient CONSENT Visit conducted by [employer]. Ms. Lyle's verbal consent was obtained. Location [...] services. SESSION CONTENT Ms. Lyle reported feeling overwhelmed by her current responsibilities (e.g., caregiving, managing her health, finding a new home, moving out of her current home). [facility] her [facility], he was accepted and will be moving soon, which she is happy about. She acknowledged having her rotator cuff surgery, having some recovery challenges (e.g., limited movement due to sling), and participating in brutal physical therapy. Her daughter is currently staying with the caregiver and helping around the house. Caregiver noted she has selected a new home and placed a deposit on it. Her son is coming next week to help her prepare the house and plan for the transition. Provider and caregiver discussed ways to outsource some of the responsibilities on her plate, particularly when she is less concerned about how the task gets done. Also, provider and caregiver discussed ways her can facilitate others helping her by directing their efforts (e.g., marking things around the house to bring to her new place, donate, or trash). She appreciated these ideas. Caregiver acknowledged some anxiety about her new home, worried about social dynamics; however, she is also excited to get [her] life back (e.g., going out, meeting friends, attending [employer] study). Caregiver also reported recent sadness related to the of a fellow caregiver's spouse. She acknowledged this makes her think about the and their situation. OBJECTIVE Session/visit location: [facility] Present at session: [...] articulate and intelligible. Mood was described as: overwhelmed Affect: Her affect was distressed. Her [...] family (children, grandchildren, and sisters) and community (alevism community); responsibility/duty to others; help seeking; presents with good impulse control; evidence of spiritual/evangelical beliefs about value of life (strong spirituality [...] in care. PLAN HOMEWORK: Ms. Lyle will organize belongings around the house into categories (i.e., keep, trash, donate) so others can help her. SESSION ENGAGEMENT: RITS Rating = 4 Education was provided during this session. Caregiver indicated readiness to learn by asking questions, making appropriate comments, and demonstrating appropriate nonverbals. RETURN TO CLINIC: Provider and Caregiver agreed that the optimal return to clinic would be in three weeks. A return to clinic was placed for Tuesday, December 05, 2023. Caregiver is aware of how to contact the provider if she has needs before the next appointment. /josephine/ CORINNE TIWARI, PHD, LP PSYCHOLOGIST, [facility] Signed: 11/16/2023 23:49 CORINNE TIWARI [facility]
--- OUTSIDE RECORDS SUMMARY | 2024-02-12 12:58 | XMS_ITS | Encounter Summary ---
Author Name [facility] [place] Organization [place] Address [address] [place] [address] Support Name Relationship Address Phone DAAYNAMAGED Next of Kin [address] [place] [address] MAGED LYLE Emergency Contact [phone], [place] [address] Insurance Providers: All historical and [...] PART A Dec 14, 2014 PART A [id number] [phone] SHEBA LYLE PATIENT MEDICARE (WNR) MEDICARE (M) PART B Dec 14, 2014 PART B [id number] [phone] SHEBA LYLE PATIENT Selected Encounter This section includes the information on record at [place] for the Encounter. Date/Time Encounter Type Encounter Description Reason Provider Source Sep 12, 2023 10:00 AM PSYTX W PT 45 MINUTES PM&RS PHYSICIAN ICD-10-CM Z71.9 Counseling, unspecified CORINNE ITWARI Katerina Encounter Template Text not used by [place] Assessments - Encounter Diagnoses This section includes the primary and secondary diagnoses documented for the Encounter. Date/Time Primary/Secondary Diagnosis Diagnosis Name Provider Source Sep 14, 2023 04:42 PM PRIMARY Counseling, unspecified CORINNE TIWARI [facility] Plan of Treatment: Future Appointments (+ 6 months) and Future Tests (+/- 45 days) The Plan of Treatment section includes future care activities for the patient from all [place] [facility]. This section includes future appointments and future orders which are active, pending or scheduled. Future Appointments This section includes appointments that were scheduled to occur 6 months from the date of the Encounter, up to a maximum of 20 appointments. The data comes from all [facility]. Appointment Date/Time Appointment Type Appointme nt Facility Name Oct 03, 2023 10:00 AM AMBULATORY - REHAB [facility] Oct 24, 2023 10:00 AM AMBULATORY - REHAB [facility] Nov 14, 2023 10:00 AM AMBULATORY - REHAB [facility] Dec 05, 2023 10:00 AM [facility]ULATORY - [facility] Dec 19, 2023 09:00 AM AMBULATORY - [facility]AB [facility] Dec 20, 2023 05:00 PM AMBULATORY - REHAB [facility] Jan 02, 2024 09:00 AM AMBULATORY - REHAB [facility] Jan 23, 2024 10:00 AM AMBULATORY - REHAB MEDIC[facility] Feb 20, 2024 10:00 AM AMBULATORY - REHAB [facility] Encounter Notes: All associated encounter [...] 09/12/2023 Session Duration: 52 minutes Visit Modality: [facility] Patient Location: [address] [place] [address] Patient CONSENT Visit conducted by Endra teleybuy. Ms. Lyle's verbal consent was obtained. Location [...] was on the waiting list for the [facility]. She noted he has been calling and asking to drive more than usual. She also acknowledged some feelings of guilt and grief, thinking about a new home that the will not live in. Provider normalized these feelings. Caregiver has been attending [employer], which helps with her stress. She also noted a desire to donate her old vehicles to the [employer] organization. Provider reinforced her ideas for helping [...] family (children, grandchildren, and sisters) and community (advent community); responsibility/duty to others; help seeking; presents with good impulse control; evidence of spiritual/hindu beliefs about value of life (strong spirituality [...] /es/ CORINNE TIWARI, PHD, LP PSYCHOLOGIST, [facility] Signed: 09/14/2023 16:43 CORINNE TIWARI [facility]
--- OUTSIDE RECORDS SUMMARY | 2024-02-12 12:58 | XMS_ITS | Encounter Summary ---
Author Name [place] Address [address] [place] [address] Support Name Relationship Address Phone DAYANAMAGED Next of Kin [address] [place] [address] MAGED LYLE Emergency Contact [phone], [place] [address] Insurance Providers: All historical and [...] PART B Dec 14, 2014 PART B [id number] [phone] SHEBA LYLE PATIENT MEDICARE (WNR) MEDICARE (M) PART A Dec 14, 2014 PART A [id number] SHEBA LYLE PATIENT Selected Encounter This section includes the information on record at [place] for the Encounter. Date/Time Encounter Type Encounter Description Reason Provider Source Aug 22, 2023 09:00 AM PSYTX W PT 45 MINUTES PM&RS PHYSICIAN ICD-10-CM Z71.9 Counseling, unspecified CORINNE TIWARI Katerina Encounter Template Text not used by [place] Assessments - Encounter Diagnoses This section includes the primary and secondary diagnoses documented for the Encounter. Date/Time Primary/Secondary Diagnosis Diagnosis Name Provider Source Aug 24, 2023 10:51 PM PRIMARY Counseling, unspecified CORINNE TIWARI [facility] Plan of Treatment: Future Appointments (+ 6 months) and Future Tests (+/- 45 days) The Plan of Treatment section includes future care activities for the patient from all [place] [facility]. This section includes future appointments and future orders which are active, pending or scheduled. Future Appointments This section includes appointments that were scheduled to occur 6 months from the date of the Encounter, up to a maximum of 20 appointments. The data comes from all [facility]. Appointment Date/Time Appointment Type Appointme nt Facility Name Sep 12, 2023 10:00 AM AMBULATORY - REHAB MEDICIN [facility] Oct 03, 2023 10:00 AM AMBULATORY - REHAB [facility] Oct 24, 2023 10:00 AM AMBULATORY - REHAB [facility] Nov 14, 2023 10:00 AM AMBULATORY - REHAB MEDICIN [facility] Dec 05, 2023 10:00 AM AMBULATORY - REHAB [facility]IN [facility] Dec 19, 2023 09:00 AM AMBULATORY - REHAB [facility]IN [facility] Dec 20, 2023 05:00 PM AMBULATORY - REHAB MEDICIN [facility] Jan 02, 2024 09:00 AM AMBULATORY - REHAB MEDIC[facility] Jan 23, 2024 10:00 AM AMBULATORY - REHAB MEDICIN [facility] Feb 20, 2024 10:00 AM AMBULATORY - REHAB [facility]IC[facility] Encounter Notes: All associated [...] TIWARI COSIGNER: URGENCY: STATUS: COMPLETED C-SSRS Screening [place]-Suicide Severity Rating Scale (C-SSRS Screener) 1. Over [...] questions. /es/ CORINNE TIWARI, PHD, LP PSYCHOLOGIST, [facility] Signed: 08/24/2023 22:53 CORINNE TIWARI [facility] Aug 22, 2023 09:00 AM PHYSICAL MEDICINE REHAB NOTE: LOCAL TITLE: REHAB PSYCHOLOGY PROGRESS NOTE STANDARD TITLE: PHYSICAL MEDICINE REHAB NOTE DATE OF NOTE: AUG 22, 2023@09:00 ENTRY DATE: AUG 24, 2023@22:51:14 AUTHOR: CORINNE TIWARI EXP COSIGNER: URGENCY: STATUS: COMPLETED REHABILITATION PSYCHOLOGY PROGRESS NOTE Patient Name: Sheba Lyle Date of : 1950 Date of Visit: 08/22/2023 Session Duration: 50 minutes Visit Modality: [facility] Patient Location: [address] [place] [address] Patient CONSENT Visit conducted by synchronous telehealth. [...] continues to experience fatigue. She reported attending cheondoism as a self-care activity, which the provider reinforced. Caregiver noted that another resident at the care center recently , and she is concerned about the 's reaction to the and the 's likely move from a single room to a double-room at the care center. She believes both of these factors will increase likelihood of talking with about the need for him to stay at the care center long-term. She acknowledged she is still [...] presents with good impulse control; evidence of spiritual/anglican beliefs about value of life (strong spirituality [...] that connect with her values (i.e., devout Cheondoism, supportive of others, warm and sociable, and [...] appointment. /josephine/ CORINNE TIWARI, PHD, LP PSYCHOLOGIST, [facility] Signed: 08/24/2023 22:51 CORINNE TIWARI [facility]
--- OUTSIDE RECORDS SUMMARY | 2024-02-12 12:58 | XMS_ITS | Encounter Summary ---
Author Name [place] Address [address] [place] [address] Support Name Relationship Address Phone DAYANAMAGED Next of Kin [address] [place] [address] MAGED ANNE Emergency Contact [phone], [place] [address] Insurance Providers: All historical and [...] PART A Dec 14, 2014 PART A [id number] [phone] BARON ANNE PATIENT MEDICARE (WNR) MEDICARE (M) PART B Dec 14, 2014 PART B [id number] BARON ANNE PATIENT Selected Encounter This section includes the information on record at [place] for the Encounter. Date/Time Encounter Type Encounter Description Reason Provider Source Sep 18, 2023 11:00 AM REPLACED BY [facility] IVNTJ GRP EA ADDL CAREGIVER SUPPORT PROGRAM ICD-10-CM Z65.9 Problem related to unspecified psychosocial circumstances WADE SOLIS [facility] Encounter Template Text not used by [place] Assessments - Encounter Diagnoses This section includes the primary and secondary diagnoses documented for the Encounter. Date/Time Primary/Secondary Diagnosis Diagnosis Name Provider Source Sep 20, 2023 11:01 AM PRIMARY Problem related to unspecified psychosocial circumstances WADE SOLIS [facility] Plan of Treatment: Future Appointments (+ 6 months) and Future Tests (+/- 45 days) The Plan of Treatment section includes future care activities for the patient from all [place] [facility]. This section includes future appointments and future orders which are active, pending or scheduled. Future Appointments This section includes appointments that were scheduled to occur 6 months from the date of the Encounter, up to a maximum of 20 appointments. The data comes from all [facility]. Appointment Date/Time Appointment Type Appointme nt Facility Name Oct 03, 2023 10:00 AM AMBULATORY - REHAB MEDICIN E [facility] Oct 24, 2023 10:00 AM AMBULATORY - REHAB MEDICIN E [facility] Nov 14, 2023 10:00 AM AMBULATORY - REHAB MEDICIN E [facility] Dec 05, 2023 10:00 AM AMBULATORY - REHAB MEDICIN E [facility] Dec 19, 2023 09:00 AM AMBULATORY - REHAB MEDICIN E [facility] Dec 20, 2023 05:00 PM AMBULATORY - REHAB MEDICIN E [facility] Jan 02, 2024 09:00 AM AMBULATORY - REHAB MEDICIN E [facility] Jan 23, 2024 10:00 AM AMBULATORY - REHAB MEDICIN E [facility] Feb 20, 2024 10:00 AM AMBULATORY - REHAB MEDICIN [facility] Encounter Notes: All associated encounter notes This section contains the clinical notes associated to the Encounter. Date/Time Encounter Note(s) Provider Source Sep 18, 2023 11:00 AM CAREGIVER CERTIFIC ATE: LOCAL TITLE: CSP PGCSS INTERMITTENT NOTE STANDARD TITLE: CAREGIVER CERTIFICATE DATE OF NOTE: SEP 18, 2023@11:00 ENTRY DATE: SEP 20, 2023@11:02:08 AUTHOR: THOM SOLIS COSIGNER: URGENCY: STATUS: COMPLETED Program of General Caregiver Support Services Intermittent Note This caregiver is participating in [place]'s Program of General Caregiver Support Services (PGCSS). [...] Did not assess using formal screening tools. Net Programmer Analyst assessed Caregiver through observation of her verbal and chat box participation, and body language. Group Notes Ongoing Parkinsons Disease Support Group Length of Group: 110 minutes Facilitators: Thom Solis Number of Participants: 20 Check-in - Group information and format Caregivers talked about the difficulties they were having in caring for the [place]. Talked about emotional toll of grief and anticipating the of the [place]. Talked about the benefits with of a . Talked about grief and loss. Talked about issues that are service connected to agent orange exposure. Talked about connecting with providers at the [place] [facility] [place] and the difficulties of understanding all the things the [place] and Caregiver are eligible to receive. Caregivers discussed the struggles in watching the [place] decline and the emotional toll of Parkinsons Disease on Caregivers. Support provided by hydrochloric manufacturing supervisor and fellow Caregivers. Closure: Next Session October 29 at 11:00am /josephine/ MARYELLEN YANG Caregiver Portainer Operator Signed: 09/20/2023 11:11 THOM SOLIS [facility]
--- OUTSIDE RECORDS SUMMARY | 2024-02-12 12:58 | XMS_ITS | Encounter Summary ---
Author Name [facility] [place] Organization [place] Address [address] [place] [address] Support Name Relationship Address Phone DAYANAMAGED Next of Kin [address] [place] [address] MAGED LYLE Emergency Contact [phone] [address] Insurance Providers: All historical and [...] PART A Dec 14, 2014 PART A [id number] [phone] SHEBA LYLE PATIENT MEDICARE (WNR) MEDICARE (M) PART B Dec 14, 2014 PART B [id number] [id number] [phone] SHEBA LYLE PATIENT Selected Encounter This section includes the information on record at [place] for the Encounter. Date/Time Encounter Type Encounter Description Reason Provider Source Dec 05, 2023 10:00 AM PSYTX W PT 60 MINUTES PM&RS PHYSICIAN ICD-10-CM Z71.9 Counseling, unspecified CORINNE TIWARI Katerina Encounter Template Text not used by [place] Assessments - Encounter Diagnoses This section includes the primary and secondary diagnoses documented for the Encounter. Date/Time Primary/Secondary Diagnosis Diagnosis Name Provider Source Dec 07, 2023 02:12 PM PRIMARY Counseling, unspecified CORINNE TIWARI [facility] Plan of Treatment: Future Appointments (+ 6 months) and Future Tests (+/- 45 days) The Plan of Treatment section includes future care activities for the patient from all [place] [facility]. This section includes future appointments and future orders which are active, pending or scheduled. Future Appointments This section includes appointments that were scheduled to occur 6 months from the date of the Encounter, up to a maximum of 20 appointments. The data comes from all [facility]. Appointment Date/Time Appointment Type Appointme nt Facility Name Dec 19, 2023 09:00 AM AMBULATORY - REHAB MEDICIN [facility] Dec 20, 2023 05:00 PM AMBULATORY - REHAB MEDICIN [facility] Jan 02, 2024 09:00 AM AMBULATORY - REHAB MEDICIN [facility] Jan 23, 2024 10:00 AM AMBULATORY - REHAB MEDICIN [facility] Feb 20, 2024 10:00 AM AMBULATORY - REHAB MEDICIN [facility] Encounter Notes: All associated encounter notes This section contains the clinical notes associated to the Encounter. Date/Time Encounter Note(s) Provider Source Dec 05, 2023 10:00 AM PHYSICAL MEDICINE REHAB NOTE: LOCAL TITLE: REHAB PSYCHOLOGY PROGRESS NOTE STANDARD TITLE: PHYSICAL MEDICINE REHAB NOTE DATE OF NOTE: DEC 05, 2023@10:00 ENTRY DATE: DEC 07, 2023@14:11:26 AUTHOR: CORINNE TIWARI COSIGNER: URGENCY: STATUS: COMPLETED REHABILITATION PSYCHOLOGY PROGRESS NOTE Patient Name: Sheba Lyle Date of : 1950 Date of Visit: 12/05/2023 Session Duration: 65 minutes Visit Modality: [facility] Patient Location: [address] [place] [address] Patient CONSENT Visit conducted by synchronous telehealth. [...] support services. SESSION CONTENT Ms. Lyle described the last few weeks as rough. She reported experiencing conflict with her children. Specifically, she reported that her son flew in to help her, created chaos in the house (e.g., fighting with his sister), used their joint bank account to pay for a hotel room, and expressed frustration toward the caregiver for not preparing for this transition several years ago. Caregiver noted her daughter has been sick, fighting with her brother, criticizing the caregiver's decisions about what to keep versus donate, and upset because the caregiver will not allow her daughter to vent to her about her problems. Ms. Lyle acknowledged increased ideation related to this stress (i.e., thinking about as an end to her stress). She adamantly denied suicidal ideation, intent, or plans; and she denied any changes in her self-care (e.g., eating, bathing, self-protecting if falling). She acknowledged her ideation has become less frequent since her son left. She noted her family and her you as strong protective factors. Provider and caregiver discussed strategies for communicating her needs that does not engage in argument with her children. Caregiver believed these strategies will be helpful. Ms. Lyle shared that the was recently moved to the memory unit at the [facility]. She was very positive about his experience so far, and she is looking forward to his upcoming care conference. She recently moved into her new apartment. She has mixed feelings about the new place. She noted positive aspects (e.g., laundry without stairs) and negative aspects (e.g., needing a new bed, having to sign out). She also shared sadness about living in a place without the . Provider normalized her experiences and adjustment. Provider and caregiver also reflected on the many changes in the caregiver's life, as well as all she has accomplished for herself and her . Caregiver was appreciative of the reflection, particularly the reminder of her efforts. She has upcoming physical therapy and will be meeting with a realtor to sell her house. She committed to reading a daily devotional and listening to praise music to help her increase positive emotions. OBJECTIVE Session/visit location: [facility] Present at session: [...] articulate and intelligible. Mood was described as: sad and overwhelmed Affect: Her affect was sad and distressed. Her emotional expressions were appropriately reactive and consistent with conversation topics. She joked several times with the provider. Thought content: Caregiver's thought content was appropriate with no indications of delusions or hallucinations. She acknowledged ideation, but suicidal ideation, intent, and plans were adamantly denied. Homicidal ideation was not reported. Thought processes: [...] to family (grandchildren, and sisters) and community (mu-ism community); responsibility/duty to others; help seeking; presents with good impulse control; evidence of spiritual/alevism beliefs about value of life (strong spirituality [...] expressing her needs without engaging in argument). She also will read a daily devotional [...] to clinic was placed for Tuesday, December 12, 2023. Caregiver is aware of how to contact the provider if she has needs before the next appointment. /es/ CORINNE TIWARI, PHD, LP PSYCHOLOGIST, [facility] Signed: 12/07/2023 14:12 CORINNE TIWARI [facility]
--- OUTSIDE RECORDS SUMMARY | 2024-02-12 12:58 | XMS_ITS | Encounter Summary ---
Author Name [place] Organization [place] Address [address] [place] [id number] Support Name Relationship Address Phone DAYANAMAGED Next of Kin [address] [place] [address] MAGED ANNE Emergency Contact [phone] [address] Insurance Providers: All historical and [...] PART A Dec 14, 2014 PART A [id number] [phone] BARON ANNE PATIENT MEDICARE (WNR) MEDICARE (M) PART B Dec 14, 2014 PART B [id number] BARON ANNE PATIENT Selected Encounter This section includes the information on record at [place] for the Encounter. Date/Time Encounter Type Encounter Description Reason Provider Source Aug 14, 2023 11:00 AM GROUP PSYCHOTHERAPY CAREGIVER SUPPORT PROGRAM ICD-10-CM Z65.9 Problem related to unspecified psychosocial circumstances NIDHI SOLIS [facility] Encounter Template Text not used by [place] Assessments - Encounter Diagnoses This section includes the primary and secondary diagnoses documented for the Encounter. Date/Time Primary/Secondary Diagnosis Diagnosis Name Provider Source Aug 15, 2023 07:38 AM PRIMARY Problem related to unspecified psychosocial circumstances WADE SOLIS [facility] Plan of Treatment: Future Appointments (+ 6 months) and Future Tests (+/- 45 days) The Plan of Treatment section includes future care activities for the patient from all [place] [facility]. This section includes future appointments and [...] AM AMBULATORY - REHAB MEDICIN E [facility] Sep 12, 2023 10:00 AM AMBULATORY - REHAB MEDICIN E [facility] Oct 03, 2023 10:00 AM AMBULATORY - REHAB MEDICIN E [facility] Oct 24, 2023 10:00 AM AMBULATORY - REHAB MEDICIN E [facility] Nov 14, 2023 10:00 AM AMBULATORY - REHAB MEDICIN E [facility] Dec 05, 2023 10:00 AM AMBULATORY - REHAB MEDICIN E [facility] Dec 19, 2023 09:00 AM AMBULATORY - REHAB MEDICIN E [facility] Dec 20, 2023 05:00 PM AMBULATORY - REHAB MEDICIN E [facility] Jan 02, 2024 09:00 AM AMBULATORY - REHAB MEDICIN E [facility] Jan 23, 2024 10:00 AM AMBULATORY - REHAB MEDICIN [facility] Encounter Notes: All associated encounter notes This section contains the clinical notes associated to the Encounter. Date/Time Encounter Note(s) Provider Source Aug 14, 2023 11:00 AM CAREGIVER CERTIFIC ATE: LOCAL TITLE: CSP PGCSS INTERMITTENT NOTE STANDARD TITLE: CAREGIVER CERTIFICATE DATE OF NOTE: AUG 14, 2023@11:00 ENTRY DATE: AUG 15, 2023@07:37:30 AUTHOR: THOM SOLIS COSIGNER: URGENCY: STATUS: COMPLETED Program of General Caregiver Support Services Intermittent Note This caregiver is participating in [place]'s Program of General Caregiver Support Services (PGCSS). [...] Did not assess using formal screening tools. Ingot Header assessed Caregiver through observation of her verbal and chat box participation, and body language. Group Notes Ongoing Parkinsons Disease Support Group Length of Group: 115 minutes Facilitators: Thom Solis Number of Participants: 17 Check-in - Group information and format Caregivers talked about the difficulties they were having in caring for the [place]. Talked about the difficulty in planning for trips. Talked about the difficulty in finding time for themselves and having a separate identity from Caregiving. Talked about the difficulty in experiencing ambiguous loss knowing that the [place] would pass away. Talked about the ways they can advocate for the [place] in systems. Caregivers received support from [facility] and fellow Caregivers. Worked on radical acceptance of self and situation and cognitive reframing. Closure: Next Session September 17 at 11:00am /josephine/ MARYELLEN YANG Caregiver Street And Building Decorator Signed: 08/15/2023 07:[address] [facility]
--- OUTSIDE RECORDS SUMMARY | 2024-02-12 12:58 | XMS_ITS | Encounter Summary ---
Author Name [place] Address [address] [place] [address] Support Name Relationship Address Phone DAYANAMAGED Next of Kin [address] [place] [address] MAGED LYLE Emergency Contact [phone] [address] Insurance Providers: All historical and [...] PART A Dec 14, 2014 PART A [id number] [phone] SHEBA LYLE PATIENT MEDICARE (WNR) MEDICARE (M) PART B Dec 14, 2014 PART B [id number] SHEBA LYLE PATIENT Selected Encounter This section includes the information on record at [place] for the Encounter. Date/Time Encounter Type Encounter Description Reason Provider Source Jul 25, 2023 09:00 AM PSYTX W PT 45 MINUTES PM&RS PHYSICIAN ICD-10-CM Z71.9 Counseling, unspecified CORINNE TIWARI Katerina Encounter Template Text not used by [place] Assessments - Encounter Diagnoses This section includes the primary and secondary diagnoses documented for the Encounter. Date/Time Primary/Secondary Diagnosis Diagnosis Name Provider Source Jul 26, 2023 04:28 PM PRIMARY Counseling, unspecified CORINNE TIWARI [facility] Plan of Treatment: Future Appointments (+ 6 months) and Future Tests (+/- 45 days) The Plan of Treatment section includes future care activities for the patient from all [place] [facility]. This section includes future appointments and future orders which are active, pending or scheduled. Future Appointments This section includes appointments that were scheduled to occur 6 months from the date of the Encounter, up to a maximum of 20 appointments. The data comes from all [facility]. Appointment Date/Time Appointment Type Appointme nt Facility Name Aug 04, 2023 05:00 PM AMBULATORY - REHAB MEDICIN E [facility] Aug 11, 2023 05:00 PM AMBULATORY - REHAB MEDICIN E [facility] Aug 22, 2023 09:00 AM AMBULATORY - REHAB MEDICIN E [facility] Sep 12, 2023 10:00 AM AMBULATORY - REHAB MEDICIN E [facility] Oct 03, 2023 10:00 AM AMBULATORY - REHAB MEDICIN E [facility] Oct 24, 2023 10:00 AM AMBULATORY - REHAB MEDICIN E [facility] Nov 14, 2023 10:00 AM AMBULATORY - REHAB MEDICIN E [facility] Dec 05, 2023 10:00 AM AMBULATORY - REHAB MEDICIN E [facility] Dec 19, 2023 09:00 AM AMBULATORY - REHAB MEDICIN E [facility] Dec 20, 2023 05:00 PM AMBULATORY - REHAB MEDICIN E [facility] Jan 02, 2024 09:00 AM AMBULATORY - REHAB MEDICIN E [facility] Jan 23, 2024 10:00 AM AMBULATORY - REHAB MEDICIN [facility] Encounter Notes: All associated encounter notes [...] to clinic (RTC) Contact attempt made to [place] 1st attempt Telephone 2nd attempt Text message 3rd attempt Letter Left message on voice mail to call back to this number [phone] If calls back, schedule appt for: Activity: 07/25/2023 09:59 New Order entered by CORINNE TIWARI (CLINICAL PSYCHO) Order Text: Return to [facility] REHAB PSYCH LUB[place] on or around ( Aug 08, 2023 ) for a total of 1 appointment(s) Prerequisites: All Modalities Appropriate / Offer Option, Notify ordering provider if minimum scheduling efforts fail 60 min; follow-up Nature of Order: ELECTRONICALLY ENTERED Elec Signature: CORINNE TIWARI (CLINICAL PSYCHO) on 07/25/2023 09:59 /josephine/ JUAN JOSE Tang. JONI [facility] REC TELEHEALTH Signed: 07/28/2023 11:33 JUAN JOSE QUINONES [facility] Jul 25, 2023 09:00 AM PHYSICAL MEDICINE REHAB NOTE: LOCAL TITLE: REHAB PSYCHOLOGY PROGRESS NOTE STANDARD TITLE: PHYSICAL MEDICINE REHAB NOTE DATE OF NOTE: JUL 25, 2023@09:00 ENTRY DATE: JUL 26, 2023@16:26:56 AUTHOR: CORINNE TIWARI EXP COSIGNER: URGENCY: STATUS: COMPLETED REHABILITATION PSYCHOLOGY PROGRESS NOTE Patient Name: Sheba Lyle Date of : 1950 Date of Visit: 07/25/2023 Session Duration: 50 minutes Visit Modality: [facility] Patient Location: [address] [place] [address] Patient CONSENT Visit conducted by synchronous telehealth. [...] music while driving to and from the [facility], and calling her sister to catch up. [...] presents with good impulse control; evidence of spiritual/yazdanism beliefs about value of life (strong spirituality [...] that connect with her values (i.e., devout Adventism, supportive of others, warm and sociable, and [...] return to clinic was placed for Tuesday, August 08, 2023. Caregiver is aware of how to contact the provider if she has needs before the next appointment. /josephine/ CORINNE TIWARI, PHD, LP PSYCHOLOGIST, [facility] Signed: 07/26/2023 16:28 CORINNE TIWARI [facility]
--- OUTSIDE RECORDS SUMMARY | 2024-02-12 12:58 | XMS_ITS ---
Author Name [place] Organization [place] Address [address] [place] [address] Support Name Relationship Address Phone DAYANAMAGED Next of Kin [address] [place] [address] MAGED ANNE Emergency Contact [phone], [place] [address] Insurance Providers: All historical and [...] PART A Dec 14, 2014 PART A [id number] [phone] BARON ANNE PATIENT MEDICARE (WNR) MEDICARE (M) PART B Dec 14, 2014 PART B [id number] BARON ANNE PATIENT Selected Encounter This section includes the information on record at [place] for the Encounter. Date/Time Encounter Type Encounter Description Reason Provider Source Oct 30, 2023 11:00 AM COUNTS INCLUDE 234 BEDS AT THE [facility] IVNTJ GRP EA ADDL CAREGIVER SUPPORT PROGRAM ICD-10-CM Z65.9 Problem related to unspecified psychosocial circumstances WADE SOLIS [facility] Encounter Template Text not used by [place] Assessments - Encounter Diagnoses This section includes [...] care activities for the patient from all [place] [facility]. This section includes future appointments and future orders which are active, pending or scheduled. Future Appointments This section includes appointments that were scheduled to occur 6 months from the date of the Encounter, up to a maximum of 20 appointments. The data comes from all [facility]. Appointment Date/Time Appointment Type Appointme nt [...] 09:00 AM AMBULATORY - REHAB MEDICIN [facility] Jan 23, 2024 10:00 AM AMBULATORY - REHAB MEDICIN [facility] Feb 20, 2024 10:00 AM AMBULATORY - REHAB MEDICIN [facility] Encounter Notes: All associated encounter notes This section contains the clinical notes associated to the Encounter. Date/Time Encounter Note(s) Provider Source Oct 30, 2023 11:00 AM CAREGIVER CERTIFIC ATE: LOCAL TITLE: [facility] PGCSS INTERMITTENT NOTE STANDARD TITLE: CAREGIVER CERTIFICATE DATE OF NOTE: OCT 30, 2023@11:00 ENTRY DATE: OCT 30, 2023@14:16:41 AUTHOR: THOM SOLIS COSIGNER: URGENCY: STATUS: COMPLETED Program of General Caregiver Support Services Intermittent Note This caregiver is participating in [place]'s Program of General Caregiver Support Services (PGCSS). [...] Did not assess using formal screening tools. Financial Data Analyst assessed Caregiver through observation of her verbal and chat box participation, and body language. Group Notes Ongoing Parkinsons Disease Support Group Length of Group: 95 minutes Facilitators: Thom Solis Number of Participants: 14 Check-in - Group information and format One Caregiver wondered what to do about a [place] who may not be cognizant enough to vote but receive a ballot in the mail. CSC stated it was not within my knowledge or scope of the group. Another Caregiver looked up the information and provided it to fellow Caregivers. One Caregiver talked about watching a movie about a former president's memory decline. She talked about the issues it brought up for the Caregiver and [place]. Talked about Ambiguous loss and addressing it in yourself and your loved one. Another Caregiver talked about a presentation she attended on Apathy. CSC talked about addressing apathy in the and some ways to encourage. Support provided by electronic imaging system operator and fellow Caregivers. Closure: Next Session November 30 at 11:00am /josephine/ THOM SOLIS [facility] Caregiver Poultry Inspector Signed: 10/30/2023 14:[address] [facility]
--- OUTSIDE RECORDS SUMMARY | 2024-02-12 12:58 | XMS_ITS | Encounter Summary ---
Author Name [facility] [place] Address [address] [place] [address] Support Name Relationship Address Phone DAYANAMAGED Next of Kin [phone] [place] [address] MAGED LYLE Emergency Contact [phone] [address] Insurance Providers: All historical and [...] PART A Dec 14, 2014 PART A [id number] [phone] SHEBA LYLE PATIENT MEDICARE (WNR) MEDICARE (M) PART B Dec 14, 2014 PART B [id number] [phone] SHEBA LYLE PATIENT Selected Encounter This section [...] 11:22 PM PRIMARY Counseling, unspecified CORINNE TIWARI [facility] Plan of Treatment: Future Appointments (+ 6 months) and Future Tests (+/- 45 days) The Plan of Treatment section includes future care activities for the patient from all [place] [facility]. This section includes future appointments and future orders which are active, pending or scheduled. Future Appointments This section includes appointments that were scheduled to occur 6 months from the date of the Encounter, up to a maximum of 20 appointments. The data comes from all [facility]. Appointment Date/Time Appointment Type Appointme nt Facility Name Nov 14, 2023 10:00 AM AMBULATORY - REHAB MEDIC[facility] E [facility] Dec 05, 2023 10:00 AM AMBULATORY - REHAB MEDIC[facility] Dec 19, 2023 09:00 AM AMBULATORY - REHAB MEDIC[facility] Dec 20, 2023 05:00 PM AMBULATORY - REHAB MEDICIN E [facility] Jan 02, 2024 09:00 AM AMBULATORY - REHAB MEDIC[facility] E [facility] Jan 23, 2024 10:00 AM AMBULATORY - REHAB MEDICIN E [facility] Feb 20, 2024 10:00 AM AMBULATORY [...] 10/24/2023 Session Duration: 52 minutes Visit Modality: [facility] Patient Location: [address] [place] [address] Patient CONSENT Visit conducted by synchronous telehealth. [...] there is a norovirus outbreak at the [facility], and she is not visiting until it is contained. She acknowledged the limited contact with the is challenging. She explained the has been deteriorating because of limited activity at the care center, as well as he recently fell trying to self-transfer in the bathroom. Caregiver is going to a fellow caregiver's home this week to complete [facility] registration paperwork. She reported being optimistic about the quality of care at the [facility], though she is concerned about the wait [...] Lyle reported visiting an apartment complex in [place] that she liked. Provider reinforced her efforts [...] try this. Ms. Lyle has been attending latter-day for self-care. Provider reinforced this decision. OBJECTIVE [...] family (children, grandchildren, and sisters) and community (latter-day community); responsibility/duty to others; help seeking; presents with good impulse control; evidence of spiritual/yazidi beliefs about value of life (strong spirituality [...] that connect with her values (i.e., devout Scientology, supportive of others, warm and sociable, and [...] LP PSYCHOLOGIST, [facility] Signed: 10/26/2023 23:22 CORINNE TIWARI [facility]
--- OUTSIDE RECORDS SUMMARY | 2024-02-12 12:58 | XMS_ITS | Encounter Summary ---
Author Name [facility] [place] Address [address] [place] [id number] Support Name Relationship Address Phone DAYANAMAGED Next of Kin [address] [place] [address] MGAED ANNE Emergency Contact [phone] [address] Insurance Providers: All historical and [...] PART A Dec 14, 2014 PART A [id number] [phone] KEILYERISBARON MCGOWAN PATIENT MEDICARE (WNR) MEDICARE (M) PART B Dec 14, 2014 PART B [id number] [phone] UNIQUEJOSÉ MCGOWANIE PATIENT Selected Encounter This section includes the information on record at [place] for the Encounter. Date/Time Encounter Type Encounter Description Reason Pro vider Source Dec 06, 2023 11:11 AM Outpatient Encounter PM&RS PHYSICIAN E Encounter Template Text not used by [place] [...] 09:00 AM AMBULATORY - REHAB MEDICIN E [facility] Dec 20, 2023 05:00 PM AMBULATORY - REHAB MEDICIN E [facility] Jan 02, 2024 09:00 AM AMBULATORY - REHAB MEDICIN E [facility] Jan 23, 2024 10:00 AM AMBULATORY - REHAB MEDICIN E [facility] Feb 20, 2024 10:00 AM AMBULATORY - REHAB MEDICIN E [facility] Encounter Notes: All associated encounter notes This section contains the clinical notes associated to the Encounter. Date/Time Encounter Note(s) Provider Source Dec 06, 2023 11:11 AM REPORT OF CONTACT: LOCAL TITLE: APPOINTMENT SCHEDULING NOTE STANDARD TITLE: REPORT OF CONTACT DATE OF NOTE: DEC 06, 2023@11:11 ENTRY DATE: DEC 06, 2023@11:11:13 AUTHOR: DESTINY PACE EXP COSIGNER: URGENCY: STATUS: COMPLETED Attempted to schedule Return to clinic (RTC) Contact attempt made to 1st attempt Telephone 2nd attempt Text message 3rd attempt Letter - Sent letter by regular [place] mail to address on file: BARON ANNE [address] [place] [id number] Left message on voice mail to call back to this number [phone] If calls back, schedule appt for: 12/05/2023 14:02 New Order entered by CORINNE CALVO (CLINICAL PSYCHO) Order Text: Return to [facility] on or around ( Dec 12, 2023 ) for a total of 1 appointment(s) Prerequisites: All Modalities Appropriate / Offer Option, Notify ordering provider if minimum scheduling efforts fail 60 min; follow-up /josephine/ DESTINY PACE ADVANCED MSA Signed: 12/06/2023 11:12 DESTINY PACE [facility]
--- OUTSIDE RECORDS SUMMARY | 2024-02-12 12:59 | XMS_ITS | Encounter Summary ---
Author Name [facility] [place] Address [address] [place] [address] Support Name Relationship Address Phone DAYANAMAGED Next of Kin [address] [place] [address] MAGED LYLE Emergency Contact [phone], [place] [address] Insurance Providers: All historical and [...] PART A Dec 14, 2014 PART A [id number] [phone] SHEBA LYLE PATIENT MEDICARE (WNR) MEDICARE (M) PART B Dec 14, 2014 PART B [id number] [phone] SHEBA LYLE PATIENT Selected Encounter This section includes the information on record at [place] for the Encounter. Date/Time Encounter Type Encounter Description Reason Provider Source Jan 23, 2024 10:00 AM PSYTX W PT 45 MINUTES PM&RS PHYSICIAN ICD-10-CM Z71.9 Counseling, unspecified CORINNE TIWARI Katerina Encounter Template Text not used by [place] Assessments - Encounter Diagnoses This section includes the primary and secondary diagnoses documented for the Encounter. Date/Time Primary/Secondary Diagnosis Diagnosis Name Provider Source Jan 25, 2024 10:28 PM PRIMARY Counseling, unspecified CORINNE TIWARI [facility] Plan of Treatment: Future Appointments (+ 6 months) and Future Tests (+/- 45 days) The Plan of Treatment section includes future care activities for the patient from all [place] [facility]. This section includes future appointments and future orders which are active, pending or scheduled. Future Appointments This section includes appointments that were scheduled to occur 6 months from the date of the Encounter, up to a maximum of 20 appointments. The data comes from all [facility] facilities. Appointment Date/Time Appointment Type Appointme nt Facility Name Feb 20, 2024 10:00 AM AMBULATORY - REHAB [facility] Encounter Notes: All associated encounter notes This section contains the clinical notes associated to the Encounter. Date/Time Encounter Note(s) Provider Source Jan 23, 2024 10:00 AM PHYSICAL MEDICINE REHAB NOTE: LOCAL TITLE: REHAB PSYCHOLOGY PROGRESS NOTE STANDARD TITLE: PHYSICAL MEDICINE REHAB NOTE DATE OF NOTE: JAN 23, 2024@10:00 ENTRY DATE: JAN 25, 2024@22:27:06 AUTHOR: CORINNE TIWARI COSIGNER: URGENCY: STATUS: COMPLETED REHABILITATION PSYCHOLOGY PROGRESS NOTE Patient Name: Sheba Lyle Date of : 1950 Date of Visit: 01/23/2024 Session Duration: 49 minutes Visit Modality: [facility] Patient Location: [address] [place] [address] Patient CONSENT Visit conducted by synchronous telehealth. [...] services. SESSION CONTENT Ms. Lyle described her Thanksgiving as different, noting positive aspects (e.g., not cooking) and negative aspects (e.g., not being together as a family). She shared the upcoming anniversary of the 's COVID hospitalization, which santamaria the last time he lived at home. She acknowledged she continues to cry regularly, grieving the 's losses and her own. She denied any suicidal ideation. Ms. Lyle reported the 's health has declined, noting he has become more confused (e.g., cannot find his room) and paranoid. She acknowledged this makes her sad. Caregiver also reported continued frustration with her adult children, describing a recent argument with her son. Provider and caregiver challenged her son's criticism by reviewing the year and her accomplishments (e.g., advocating for the during his hospitalization, managing his placement at two facilities, buying a new car, having eye and shoulder surgery, preparing her house for sale, and finding and moving into a new apartment). Provider also discussed the value of changing but to and when describing her experiences to acknowledge the complexities. Ms. Lyle liked the suggestion and practiced it. Caregiver acknowledged feeling proud of herself. She shared a recent positive experience meeting in- person with her Parkinson's caregiver support group. She also discussed attending a Bible study in her apartment building. She plans to connect with friends in coming week because [facility] Provider reinforced her socialization efforts. Provider and caregiver discussed provider's upcoming holiday leave. Another appointment was planned for early February 2024. OBJECTIVE Session/visit location: [facility] Present at session: [...] described as: okay Affect: Her affect was sad. Her emotional expressions were appropriately reactive and consistent with conversation topics. She cried during the session (i.e., talking about her 's decline). Thought content: Caregiver's thought content was appropriate with no indications of delusions or hallucinations. Suicidal ideation was denied, and homicidal ideation was not reported. Thought processes: Caregiver's thought processes were logical/clear, linear, and goal-directed. Judgement/insight: Caregiver demonstrated fair to good insight into her situation. She demonstrated fair to good problem solving. She demonstrated good judgment [...] to family (grandchildren, and sisters) and community (adventist community); responsibility/duty to others; help seeking; presents [...] Ms. Lyle will continue to engage in meaningful self-care activities (e.g., connect with friends, explore her spirituality via Bible study). She will practice changing but to and when describing her experiences. SESSION ENGAGEMENT: RITS Rating = 4 Education was provided during this session. Caregiver indicated readiness to learn by asking questions, making appropriate comments, and demonstrating appropriate nonverbals. CURRENT TREATMENT PLAN: Dated July 18, 2023. Update due July 17, 2024. RETURN TO CLINIC: Provider and Caregiver agreed that the optimal return to clinic would be in early February (due to provider's holiday leave). A return to clinic was placed for Tuesday, February 20, 2024. Caregiver is aware of how to contact the provider if she has needs before the next appointment. /josephine/ CORINNE TIWARI, PHD, LP PSYCHOLOGIST, [facility] Signed: 01/25/2024 22:28 CORINNE TIWARI [facility]
--- OUTSIDE RECORDS SUMMARY | 2024-02-12 12:59 | XMS_ITS | Encounter Summary ---
Author Name [place] Address [address] [place] [address] Support Name Relationship Address Phone DAYANAMAGED Next of Kin [address] [place] [address] MAGED ANNE Emergency Contact [phone] [address] Insurance Providers: All historical and [...] PART A Dec 14, 2014 PART A [id number] [phone] BARON ANNE PATIENT MEDICARE (WNR) MEDICARE (M) PART B Dec 14, 2014 PART B [id number] [phone] BARON ANNE PATIENT Selected Encounter This section includes the information on record at [place] for the Encounter. Date/Time Encounter Type Encounter Description Reason Provider Source Jan 22, 2024 11:00 AM [facility] IVNTJ GRP EA ADDL CAREGIVER SUPPORT PROGRAM ICD-10-CM Z65.9 Problem related to unspecified psychosocial circumstances WADE SOLIS [facility] Encounter Template Text not used by [place] Assessments - Encounter Diagnoses This section includes the primary and secondary diagnoses documented for the Encounter. Date/Time Primary/Secondary Diagnosis Diagnosis Name Provider Source Jan 22, 2024 02:11 PM PRIMARY Problem related to unspecified psychosocial circumstances WADE SOLIS [facility] Plan of Treatment: Future Appointments (+ 6 months) and Future Tests (+/- 45 days) The Plan of Treatment section includes future care activities for the patient from all [place] [facility]. This section includes future appointments and future orders which are active, pending or scheduled. Future Appointments This section includes appointments that were scheduled to occur 6 months from the date of the Encounter, up to a maximum of 20 appointments. The data comes from all [place] treatment facilities. Appointment Date/Time Appointment Type Appointme nt Facility Name Jan 23, 2024 10:00 AM AMBULATORY - REHAB MEDICIN E [facility] Feb 20, 2024 10:00 AM AMBULATORY - REHAB MEDICIN E [facility] Encounter Notes: All associated encounter notes This section contains the clinical notes associated to the Encounter. Date/Time Encounter Note(s) Provider Source Jan 22, 2024 11:00 AM CAREGIVER CERTIFIC ATE: LOCAL TITLE: [facility] PGCSS INTERMITTENT NOTE STANDARD TITLE: CAREGIVER CERTIFICATE DATE OF NOTE: JAN 22, 2024@11:00 ENTRY DATE: JAN 22, 2024@14:09:48 AUTHOR: THOM SOLIS EXP COSIGNER: URGENCY: STATUS: COMPLETED Program of General Caregiver Support Services Intermittent Note?? This caregiver is participating in [place]'s Program of General Caregiver Support??? Services (PGCSS). While enrolled in the [facility], General Caregivers are eligi for a benefit package to include: Education, Training, and Technical Support,??? Telehealth, Teaching, Respite Care, and Counseling. Identified the caregiver using full name and the following other garcia identifier: This was Verified during the individual call prior to the beginning of the group during an individual contact. Method of contact: In Person Group Type of intervention: Group Intervention: General support/resources CAREGIVER ASSESSMENT Did not assess using formal screening tools. [employer] assessed Caregiver through observation of her verbal and chat box participation, and body language. Group Notes Ongoing Parkinson's Disease Support Group Length of Group: 120 minutes Facilitators: MARYELLEN Campos Number of Participants: 12 Check-in - Group information and format Caregivers talked about the difficulties they were having in caring for the [place]. Talked about treatment options Caregivers are choosing with the and the emotional toll even when it is the right choice. Talked about the struggle with finding time for self and definition of self. Talked about grief and loss. Next Session February 19, 2024? /es/ MARYELLEN YANG Caregiver Body Die Maker Signed: 01/22/2024 14:11 THOM SOLIS [facility]
--- OUTSIDE RECORDS SUMMARY | 2024-02-12 12:59 | XMS_ITS | Encounter Summary ---
Author Name [place] Address [address] [place] [address] Support Name Relationship Address Phone DAYANAMAGED Next of Kin [address] [place] [address] MAGED LYLE Emergency Contact [phone] [address] Insurance Providers: All historical and [...] PART A Dec 14, 2014 PART A [id number] [phone] SHEBA LYLE PATIENT MEDICARE (WNR) MEDICARE (M) PART B Dec 14, 2014 PART B [id number] SHEBA LYLE PATIENT Selected Encounter This section includes the information on record at [place] for the Encounter. Date/Time Encounter Type Encounter Description Reason Provider Source Jan 02, 2024 09:00 AM PSYTX W PT 45 MINUTES PM&RS PHYSICIAN ICD-10-CM Z71.9 Counseling, unspecified CORINNE TIWARI Katerina Encounter Template Text not used by [place] Assessments - Encounter Diagnoses This section includes the primary and secondary diagnoses documented for the Encounter. Date/Time Primary/Secondary Diagnosis Diagnosis Name Provider Source Jan 04, 2024 08:31 AM PRIMARY Counseling, unspecified CORINNE TIWARI [facility] Plan of Treatment: Future Appointments (+ 6 months) and Future Tests (+/- 45 days) The Plan of Treatment section includes future care activities for the patient from all [place] [facility]. This section includes future appointments and future orders which are active, pending or scheduled. Future Appointments This section includes appointments that were scheduled to occur 6 months from the date of the Encounter, up to a maximum of 20 appointments. The data comes from all [facility]. Appointment Date/Time Appointment Type Appointme nt Facility Name Jan 23, 2024 10:00 AM AMBULATORY - RE[facility]AB [facility] Feb 20, 2024 10:00 AM AMBULATORY - REHAB [facility] Encounter Notes: All associated encounter notes This section contains the clinical notes associated to the Encounter. Date/Time Encounter Note(s) Provider Source Jan 02, 2024 09:00 AM PHYSICAL MEDICINE REHAB NOTE: LOCAL TITLE: REHAB PSYCHOLOGY PROGRESS NOTE STANDARD TITLE: PHYSICAL MEDICINE REHAB NOTE DATE OF NOTE: JAN 02, 2024@09:00 ENTRY DATE: JAN 04, 2024@08:30:27 AUTHOR: CORINNE TIWARI COSIGNER: URGENCY: STATUS: COMPLETED REHABILITATION PSYCHOLOGY PROGRESS NOTE Patient Name: Sheba Lyle Date of : 1950 Date of Visit: 01/02/2024 Session Duration: 52 minutes Visit Modality: [facility] Patient Location: [address] [place] [address] Patient CONSENT Visit conducted by [facility] telehealth. Ms. Lyle's verbal consent was obtained. [...] support services. SESSION CONTENT Ms. Lyle described continued feelings of overwhelm. She reported increasing positive feelings about her new apartment, while acknowledging ongoing reflection on her recent life changes. She noted challenges relating to the other residents of her apartment building, specifically they are older and have more limited functioning. Caregiver acknowledged her goal was to find a community that would meet her needs in the future too, which she believes this community does. She identified spending more time with her friends as a way to connect when she struggles to relate to her neighbors. Ms. Lyle reported continued [facility] and reflects on the 's declining functioning. Caregiver also shared feelings of guilt when the calls her, wanting to leave and return home. Provider normalized her experience, and caregiver and provider discussed connecting with peers who have been through similar situations. Ms. Lyle discussed continued concerns about her relationship with her children. She asked to talk more about setting boundaries in personal relationships. Provider and caregiver discussed possible strategies. Provider also reflected the caregiver's efforts to maintain her health, advocate for the , and managing shifting living arrangements, encouraging her to attend to her successes as well as her stressors. Caregiver expressed appreciation. Caregiver has been attending taoist, and she has been doing devotionals. Provider reinforced her use of spiritual practices as self- care. OBJECTIVE Session/visit location: [facility] Present at session: [...] described as: stressed Affect: Her affect was sad and distressed. Her emotional expressions were appropriately reactive and consistent with conversation topics. She cried at several moments during the session (i.e., talking about her 's decline, provider reflected her efforts). Thought content: Caregiver's thought content was appropriate [...] to family (grandchildren, and sisters) and community (taoist community); responsibility/duty to others; help seeking; presents with good impulse control; evidence of spiritual/anabaptist beliefs about value of life (strong spirituality [...] to engage in meaningful self-care activities (e.g., read a daily devotional, listen to praise music). She will practice setting boundaries with her children. She will also take time to reflect on her successes, not just her stresses. SESSION ENGAGEMENT: RITS Rating = 4 Education [...] to clinic was placed for Tuesday, January 23, 2024. Caregiver is aware of how to contact the provider if she has needs before the next appointment. /josephine/ CORINNE TIWARI, PHD, LP PSYCHOLOGIST, [facility] Signed: 01/04/2024 08:31 CORINNE TIWARI [facility]
--- OUTSIDE RECORDS SUMMARY | 2024-02-12 12:59 | XMS_ITS | Encounter Summary ---
Author Name [facility] [place] Address [address] [place] [address] Support Name Relationship Address Phone DAYANAMAGED Next of Kin [address] [place] [address] MAGED ANNE Emergency Contact [phone], [place] [address] Insurance Providers: All historical and [...] PART A Dec 14, 2014 PART A [id number] [phone] BARON ANNE PATIENT MEDICARE (WNR) MEDICARE (M) PART B Dec 14, 2014 PART B [id number] [phone] BARON ANNE PATIENT Selected Encounter This section includes the information on record at [place] for the Encounter. Date/Time Encounter Type Encounter Description Reason Provider Source Dec 29, 2023 01:00 PM [facility] ADDL CAREGIVER SUPPORT PROGRAM ICD-10-CM Z65.9 Problem related to unspecified psychosocial circumstances WADE SOLIS [facility] Encounter Template Text not used by [place] Assessments - Encounter Diagnoses This section includes the primary and secondary diagnoses documented for the Encounter. Date/Time Primary/Secondary Diagnosis Diagnosis Name Provider Source Dec 29, 2023 03:11 PM PRIMARY Problem related to unspecified psychosocial circumstances WADE SOLIS [facility] Plan of Treatment: Future Appointments (+ 6 months) and Future Tests (+/- 45 days) The Plan of Treatment section includes future care activities for the patient from all [place] [facility] This section includes future appointments and future orders which are active, pending or scheduled. Future Appointments This section includes appointments that were scheduled to occur 6 months from the date of the Encounter, up to a maximum of 20 appointments. The data comes from all [facility] facilities. Appointment Date/Time Appointment Type Appointme nt Facility Name Jan 02, 2024 09:00 AM AMBULATORY - REHAB MEDICIN [facility] Jan 23, 2024 10:00 AM AMBULATORY - [facility]AB MEDICIN [facility] Feb 20, 2024 10:00 AM AMBULATORY - REHAB MEDICIN [facility] Encounter Notes: All associated encounter notes This section contains the clinical notes associated to the Encounter. Date/Time Encounter Note(s) Provider Source Dec 29, 2023 03:04 PM CAREGIVER CERTIFIC ATE: LOCAL TITLE: [facility] PGCSS INTERMITTENT NOTE STANDARD TITLE: CAREGIVER CERTIFICATE DATE OF NOTE: DEC 29, 2023@15:04 ENTRY DATE: DEC 29, 2023@15:05:31 AUTHOR: THOM SOLIS COSIGNER: URGENCY: STATUS: COMPLETED Program of General Caregiver Support Services Intermittent Note This caregiver is participating in [place]'s Program of General Caregiver Support Services (PGCSS). [...] Did not assess using formal screening tools. Shear Grinder Operator assessed Caregiver through observation of her verbal and chat box participation, and body language. Group Notes Ongoing Parkinsons Disease Support Group Length of Group: 105 minutes Facilitators: Thom Solis Number of Participants: 12 Check-in - Group information and format Caregivers talked about the difficulties they were having in caring for the [place]. Talked about emotional toll of anticipatory grief and ambiguous loss. Talked about what to do when the [place] is grieving and struggling with loss. Talked about self-care and recognizing ones own health needs. Support provided by insurance examiner and fellow Caregivers. Closure: Next Session January at 11:00am in person /josephine/ MARYELLEN YANG Caregiver Alligator Hunter Signed: 12/29/2023 15:13 THOM SOLIS [facility]
== END 2024-04-16 10:44 | disposition home or self-care (01) ==
PROVIDERS: PCP Internal Medicine; Visit Provider Orthopaedic Surgery Sports Medicine
DX: Z98.890 Other specified postprocedural states (principal); R53.1 Weakness; Z51.89 Encounter for other specified aftercare
CPT/HCPCS: 97032; 97110; 97140; 97161

== ENCOUNTER 2024-02-29 13:32 | Outpatient (CLI) | payer MEDICARE, OTHER, SELFPAY ==
--- NOTE | 2024-02-29 14:00 | XR_ITS ---
Patient: BARON ANNE Facility:?[facility] Patient ID:?[id number] Site Patient ID:?[id number]. Site :?1950 Study:?DEXA-Bone Density [place]/ fred hips-02/29/2024 2:30:36 PM Ordering Physician:AUGUSTIN RAMIREZ Final Report: XR DXA BONE MINERAL DENSITY (BMD) Current height (in): 67.0. Weight (lb): 210.0. Menopause age: 51. Ethnicity: White. Reason for exam: Screening, disorder of bone density. 1. Have you had a previous hip or vertebral fracture? No. 2. Have you had any fractures during your adult life which did not result from significant trauma (e.g., auto accident)? No. 3. Did either of your parents have a hip fracture? Yes. 4. Do you smoke? No. 5. Have you ever taken Glucocorticoids? No. 6. Do you have rheumatoid arthritis? No. 7. 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 8. Do you drink 3 or more alcoholic drinks per day? No. 9. Are you being treated for osteoporosis? No. 10. Have you ever taken any of the following medications: Actonel, Evista, Fosamax, Miacalcin, Reclast, Boniva, Forteo, HRT (i.e. estrogen/hormone therapy), Protelos, Prolia, Vitamin D, Calcium, other ? please specify. ANSWER: Yes, Fosamax, vitamin D, HRT. 11. Do you have any of the following medical conditions: Anorexia or bulimia, asthma or emphysema, end stage renal disease, hyperparathyroidism, any seizure disorders, cancer, inflammatory bowel diseases, hysterectomy, other ? please specify. ANSWER: Yes, asthma or emphysema, hysterectomy. 12. What was your maximum height (inches)? 69.5. 13. Do you perform weight bearing exercise regularly? No. 14. Do you regularly consume dairy products? Yes. 15. Do you drink caffeinated beverages? Yes. 16. At what age did your period start? 13. 17. Are you premenopausal? No. 18. How many full-term pregnancies have you had? 3. 19. Have you ever missed your period for more than 6 months in a row (not including or menopause)? No. TECHNIQUE: Bone mineral density study was performed using the [employer]. FINDINGS: The results of the study expressed as bone mineral density (BMD) are as follows: Lumbar spine L1 to L4: BMD: 0.957 g/cm2. T-score: -0.8. Z-score: 1.5 Neck Left: BMD: 0.688 g/cm2. T-score: -1.4. Z-score: 0.6 Right: BMD: 0.713 g/cm2. T-score: -1.2. Z-score: 0.8 Total Left: BMD: 0.805 g/cm2. T-score: -1.1. Z-score: 0.6 Right: BMD: 0.793 g/cm2. T-score: -1.2. Z-score: 0.5 IMPRESSION: Osteopenia. *Comparison exams done prior to 07/2019 were performed on different unit, iPositioning. COMPARISON: Compared with scan of 09/06/2018, the bone mineral density has increased by 0.5 percent at the spine and increased by 6.6 percent at the hip. FRAX 10-year Fracture Risk Major Osteoporotic Fracture: 16 percent Hip Fracture: 6.7 percent Reported Risk Factors: [place] () Neck BMD = 0.688, BMI = 32.9 Cody James M.D. Diagnostic Radiologist [email or web address] HUI/ankushw: D& Transcribed: 1:03 pm DW/Dictated by: Cody James MD @ 03/01/2024 9:11:00 AM Signed by:?Cody James MD @03/01/2024 1:40:47 PM (Electronic Signature)
--- NOTE | 2024-02-29 14:40 | CRLHL7_ITS ---
For Patients: As a result of the Century Cures Act, medical imaging exams and procedure reports are released immediately into your electronic medical record. You may view this report before your referring provider. If you have questions, please contact your health care provider. BILATERAL SCREENING MAMMOGRAM WITH COMPUTER-AIDED DETECTION AND TOMOSYNTHESIS TECHNIQUE: CC and MLO views were obtained. These mammographic images have been obtained using full-field digital technique. These mammographic images were interpreted with the benefit of computer-aided detection. Breast Tomosynthesis was used in this interpretation. COMPARISON FILM: 11/07/22, 10/12/21, 07/23/20. FINDINGS: There are scattered areas of fibroglandular density. IMPRESSION: There is no radiographic evidence for malignancy. ASSESSMENT: BI-RADS Category 1: Negative RECOMMENDATION: Routine screening mammogram in 1 year. A lay language report of this examination will be provided to the patient. Destin Garcia M.D. Diagnostic/Nuclear Medicine Radiologist [email or web address] ASIA/taylor SP/Dictated by: Destin Garcia MD @ 03/06/2024 11:53:00 AM (Electronically Signed)
== END 2024-02-29 13:33 | disposition home or self-care (01) ==
LOC: RAD 13:33
PROVIDERS: PCP Internal Medicine; Visit Provider Internal Medicine
DX: Z12.31 Encounter for screening mammogram for malignant neoplasm of breast (principal); Z13.820 Encounter for screening for osteoporosis; M85.88 Other specified disorders of bone density and structure, other site
CPT/HCPCS: 77063; 77067; 77080

== ENCOUNTER 2024-08-31 09:35 | Emergency (ER) | payer MEDICARE, OTHER, SELFPAY ==
--- OUTSIDE RECORDS SUMMARY | 2004-06-15 03:30 | XMS_ITS | Continuity of Care Document ---
Author Organization [facility] Address [address] [address] [place] [address] Phone Care Team Providers Care Auditor Name Role Phone Go Tip CAO Unavailable Unavailable Advance Directives Directive Yes / No Effective Date File Name No Information Encounters Encounter Description Practice Location Reason(s) For Visit Diagnoses Date Provider Providers Copied on Encounter [facility], [address] [address], [place], [place], [id number], [place] tel:[phone] [facility] No Information Mendez Whelan. [address] [facility], [facility] [address], [place], [place], [id number], [place]. tel:[phone] Family History Family Member Type Diagnosis Age At Onset No Information Payers Payer name Insurance type Covered libertarian ID Authoriza tieliel(s) Blue [employer] [place] [id number] Social History Type Description Quantity Date Captured Comments Sex Female Smoking Status No Information Chief Complaint And Reason For Visit No Information Reason For Referral Reason For Referral No Information History Of Present Illness Encounter Date Complaint History Of Prese nt Illness No Information Functional Status Date Functional Assessmen t No Information Instructions Date Instruction Additional Infor mation No Information Assessments Type Assessment Date No Information Patient Care Teams Name Effective Dates (start - stop) Status Members No Information
--- OUTSIDE RECORDS SUMMARY | 2004-06-15 03:30 | XMS_ITS | Continuity of Care Document ---
Author Organization [facility] Address [address] [address] [place] [address] Phone Care Team Providers Care Weight Checker Name Role Phone Go Tip CAO Unavailable Unavailable Advance Directives Directive Yes / No Effective Date File Name No Information Encounters Encounter Description Practice Location Reason(s) For Visit Diagnoses Date Provider Providers Copied on Encounter [facility], [address] [address], [place], [place], [id number], [place] tel:[phone] [facility] No Information Mendez Whelan. [address] [facility], [facility] [address], [place], [place], [id number], [place]. tel:[phone] Family History Family Member Type Diagnosis Age At Onset No Information Payers Payer name Insurance type Covered democrat ID Authoriza tieliel(s) Blue Cross [place] [id number] Social History Type Description Quantity Date Captured [...]
--- OUTSIDE RECORDS SUMMARY | 2024-07-22 06:00 | XMS_ITS | Encounter Summary ---
Author Name [facility] [place] Address [address] [place] [id number] Support Name Relationship Address Phone DAYANAMAGED Next of Kin [address] [place] [address] MAGED ANNE Emergency Contact [phone] [address] Insurance Providers: All historical and [...] PART B Dec 14, 2014 PART B [id number] [phone] BARON ANNE PATIENT MEDICARE (WNR) MEDICARE (M) PART A Dec 14, 2014 PART A [id number] BARON ANNE PATIENT Selected Encounter This section includes the information on record at [place] for the Encounter. Date/Time Encounter Type Encounter Description Reason Provider Source Jul 22, 2024 11:00 AM [facility] IVNTJ GRP CAREGIVER SUPPORT PROGRAM ICD-10-CM Z65.9 Problem related to unspecified psychosocial circumstances WADE SOLIS [facility] Encounter Template Text not used by [place] Assessments - Encounter Diagnoses This section includes the primary and secondary diagnoses documented for the Encounter. Date/Time Primary/Secondary Diagnosis Diagnosis Name Provider Source Jul 23, 2024 11:55 AM PRIMARY Problem related to unspecified psychosocial circumstances WADE SOLIS [facility] Plan of Treatment: Future Appointments [...] 20 appointments. The data comes from all [place] treatment facilities. Appointment Date/Time Appointment Type Appointme nt Facility Name Jul 30, 2024 09:00 AM AMBULATORY - REHAB MEDICIN E [facility] Aug 20, 2024 10:00 AM AMBULATORY - REHAB MEDICIN E [facility] Sep 10, 2024 09:00 AM AMBULATORY - REHAB MEDICIN E [facility] Encounter Notes: All associated encounter notes This section contains the clinical notes associated to the Encounter. Date/Time Encounter Note(s) Provider Source Jul 22, 2024 11:00 AM CAREGIVER CERTIFIC ATE: LOCAL TITLE: [facility] PGCSS INTERMITTENT NOTE STANDARD TITLE: CAREGIVER CERTIFICATE DATE OF NOTE: JUL 22, 2024@11:00 ENTRY DATE: JUL 23, 2024@11:54:05 AUTHOR: THOM SOLIS EXP COSIGNER: URGENCY: STATUS: COMPLETED Program of General Caregiver Support Services Intermittent Note This caregiver is participating in [place]'s Program of General Caregiver Support Services (PGCSS). [...] Did not assess using formal screening tools. Visual Merchandising Specialist assessed Caregiver through observation of verbal and chat box participation, and body language. Group Notes Ongoing Parkinson's Disease Support Group Length of Group: 90 minutes Facilitators: Thom Solis Number of Participants: 13 Check-in - Group information Caregivers met and offered an update on current functioning as Caregivers and the Veterans current status. Caregivers and CSC offered support. Several Caregivers were struggling with watching the [place] decline and not being able to feel a sense of control over their environment. Other Caregivers were struggling with respite care. Talked about the ambiguous losses experienced by Caregivers. Next Session August 26, 2024 /josephine/ THOM SOLIS WOOD HACKER Caregiver Fine Grader Signed: 07/23/2024 11:56 THOM SOLIS [facility]
--- OUTSIDE RECORDS SUMMARY | 2024-07-30 04:00 | XMS_ITS | Encounter Summary ---
Author Name [facility] [place] Address [address] [place] [address] Support Name Relationship Address Phone DAYANAMAGED Next of Kin [address] [place] [address] MAGED LYLE Emergency Contact [phone], [place] [address] Insurance Providers: All historical and [...] PART A Dec 14, 2014 PART A [id number] [phone] KEILYERISSHEBA MCGOWAN PATIENT MEDICARE (WNR) MEDICARE (M) PART B Dec 14, 2014 PART B [id number] [phone] JOSÉ LYLEIE PATIENT Selected Encounter This section includes the information on record at [place] for the Encounter. Date/Time Encounter Type Encounter Description Reason Provider Source Jul 30, 2024 09:00 AM PSYTX W PT 45 MINUTES PM&RS PHYSICIAN ICD-10-CM Z71.9 Counseling, unspecified CORINNE TIWARI Katerina Encounter Template Text not used by [place] Assessments - Encounter Diagnoses This section includes the primary and secondary diagnoses documented for the Encounter. Date/Time Primary/Secondary Diagnosis Diagnosis Name Provider Source Aug 01, 2024 10:39 PM PRIMARY Counseling, unspecified CORINNE TIWARI [facility] Plan of Treatment: Future Appointments (+ 6 months) and Future Tests (+/- 45 days) The Plan of Treatment section includes future care activities for the patient from all [place] [facility]. This section includes future appointments and future orders which are active, pending or scheduled. Future Appointments This section includes appointments that were scheduled to occur 6 months from the date of the Encounter, up to a maximum of 20 appointments. The data comes from all [facility]. Appointment Date/Time Appointment Type Appointme nt Facility Name Aug 20, 2024 10:00 AM AMBULATORY - REHAB MEDICIN [facility] Sep 10, 2024 09:00 AM AMBULATORY - REHAB MEDICIN [facility] Encounter Notes: All associated encounter notes This section contains the clinical notes associated to the Encounter. Date/Time Encounter Note(s) Provider Source Jul 30, 2024 09:00 AM PHYSICAL MEDICINE REHAB NOTE: LOCAL TITLE: REHAB PSYCHOLOGY PROGRESS NOTE STANDARD TITLE: PHYSICAL MEDICINE REHAB NOTE DATE OF NOTE: JUL 30, 2024@09:00 ENTRY DATE: AUG 01, 2024@22:38:45 AUTHOR: CORINNE TIWARI COSIGNER: URGENCY: STATUS: COMPLETED REHABILITATION PSYCHOLOGY PROGRESS NOTE Patient Name: Sheba Lyle Date of : 1950 Date of Visit: 07/30/2024 Session Duration: 45 minutes Visit Modality: [facility] Patient Location: [address] [place] [address] Patient CONSENT Visit conducted by [employer] telehealth. Ms. Lyle's verbal consent was obtained. [...] for caregiver psychological support services. SESSION CONTENT At the start of the session, Ms. Lyle described her life as busy and reported feeling tired. She explained that she has had limited sleep due to waking earlier than desired without being able to get back to sleep and staying up later than desired due to family visiting. She acknowledged her family took up most of [facility]. Caregiver reported strong values for visiting the [facility] each day and for spending time/supporting her family. She compromised with plans to manage the amount of time doing each and setting a bedtime for herself, regardless of company. Ms. Lyle also reported recent deaths (e.g., a long-time friend, a fellow caregiver's ) and changing the 's DNR status. She discussed how this experience connects to past experiences with her brother. She also shared that the has been diagnosed with congestive heart failure and is not walking anymore. She also acknowledged additional stressors (e.g., apartment inspection, calender operator appointments). She ended the appointment earlier than expected when maintenance staff arrived to fix her air conditioner. Provider offered supportive listening, assisted with problem-solving, and provided information on strategies for better sleep. OBJECTIVE Session/visit location: [facility] Present at session: [...] articulate and intelligible. Mood was described as: tired Affect: Her affect was generally distressed. Her emotional expressions were appropriately reactive and consistent with conversation topics. She was tearful twice: once while discussing the 's functioning and once when talking about recent deaths. She joked several times with the provider during the session. Thought content: Caregiver's thought content was appropriate [...] to family (grandchildren, and sisters) and community (muslim community); responsibility/duty to others; help seeking; presents with good impulse control; evidence of spiritual/samaritan beliefs about value of life (strong spirituality [...] Level Impression: Intermediate chronic risk: Caregiver has several chronic stressors that elevate risk for suicide; however, risk factors are balanced with access to coping skills and ability to endure crisis using these skills, reasons for living, and engagement in care. PLAN HOMEWORK: Ms. Lyle will engage in self-care activities (e.g., reading the Bible, art projects). She will maintain a regular bedtime and communicate with family her need for sleep. SESSION ENGAGEMENT: RITS Rating = 4 Education was provided during this session. Caregiver indicated readiness to learn by asking questions, making appropriate comments, and demonstrating appropriate nonverbals. CURRENT TREATMENT PLAN: Dated July 18, 2023. Did not have time in the current session to review treatment plan together due to early arrival of maintenance staff to fix caregiver's air conditioner. Will review and update at next session. RETURN TO CLINIC: Provider and Caregiver agreed that the optimal return to clinic would be in three weeks. A return to clinic was placed for Tuesday, August 20, 2024. Caregiver is aware of how to contact the provider if she has needs before the next appointment. /josephine/ CORINNE TIWARI, PHD, LP PSYCHOLOGIST, [facility] Signed: 08/01/2024 22:42 CORINNE TIWARI [facility]
--- OUTSIDE RECORDS SUMMARY | 2024-08-20 05:00 | XMS_ITS | Encounter Summary ---
Author Name [facility] [place] [facility] [place] [facility] [facility] [place] Address [address] [place] [address] Support Name Relationship Address Phone DAYANAMAGED Next of Kin [id number] [place] [address] MAGED LYLE Emergency Contact [phone], [place] [address] Insurance Providers: All historical and [...] PART B Dec 14, 2014 PART B [id number] [phone] SHEBA LYLE PATIENT MEDICARE (WNR) MEDICARE (M) PART A Dec 14, 2014 PART A [id number] [phone] SHEBA LYLE PATIENT Selected Encounter This section includes the information on record at [place] for the Encounter. Date/Time Encounter Type Encounter Description Reason Provider Source Aug 20, 2024 10:00 AM PSYTX W PT 45 MINUTES PM&RS PHYSICIAN ICD-10-CM Z71.9 Counseling, unspecified CORINNE TIWARI Katerina Encounter Template Text not used by [place] Assessments - Encounter Diagnoses This section includes the primary and secondary diagnoses documented for the Encounter. Date/Time Primary/Secondary Diagnosis Diagnosis Name Provider Source Aug 22, 2024 02:21 PM PRIMARY Counseling, unspecified CORINNE TIWARI [facility] Plan of Treatment: Future Appointments (+ 6 months) and Future Tests (+/- 45 days) The Plan of Treatment section includes future care activities for the patient from all [place] treatmentfacilities. This section includes future appointments and future orders which are active, pending or scheduled. Future Appointments This section includes appointments that were scheduled to occur 6 months from the date of the Encounter, up to a maximum of 20 appointments. The data comes from all [place] treatment facilities. Appointment Date/Time Appointment Type Appointme nt Facility Name Sep 10, 2024 09:00 AM AMBULATORY - REHAB [facility] Encounter Notes: All associated encounter notes This section contains the clinical notes associated to the Encounter. Date/Time Encounter Note(s) Provider Source Aug 20, 2024 10:10 AM MENTAL HEALTH WILMA TMENT PLAN NOTE: LOCAL TITLE: MH TREATMENT PLAN STANDARD TITLE: MENTAL HEALTH TREATMENT PLAN NOTE DATE OF NOTE: AUG 20, 2024@10:10 ENTRY DATE: AUG 22, 2024@14:32:56 AUTHOR: CORINNE TIWARI COSIGNER: URGENCY: STATUS: COMPLETED TREATMENT PLAN TYPE: Update MENTAL HEALTH TEAM ASSIGNMENT: Rehabilitation & Extended Care Psychology Team CAREGIVER PARTICIPATION IN TREATMENT PLANNING: Previous plan was reviewed, and plan below was developed collaboratively with the caregiver FAMILY INVOLVEMENT: No (Caregiver does not desire [...] to family (grandchildren, and sisters) and community (scientology community); responsibility/duty to others; help seeking; presents [...] Ms. Lyle continues to seek support for the stress and strain of her caregiver role and responsibilities related to her 's Parkinson's diagnosis and functional decline. STRENGTHS: Ms. Lyle has a strong values system based on her spirituality/religiosity, viewing her role as a caregiver as a spiritual commitment to her valued role as a . She also has a community of social support in her family and you-based organization. She has an active interest in learning, and she takes notes during sessions. BARRIERS: Ms. Lyle cares deeply for others in her life, and she often sacrifices her own needs in the support of others' needs. Although she has a strong social support network, this group can also be a source of additional stress and strain. She also has challenges translating the concepts discussed in session into real-world behaviors. GOAL #1: Increase engagement in pleasurable/valued activities [...] regularly attend appointments and complete agreed upon sfq-db-[id number] assignments. The frequency of individual appointments will [...] attendance at MH appointments, and completion of iqw-[id number]-[id number] assignments. GOAL #2: Reduce emotional suffering/increased acceptance [...] regularly attend appointments and complete agreed upon tum-[id number]-[id number] assignments. The frequency of individual appointments will [...] attendance at MH appointments, and completion of cgw-tq-[id number] assignments. DATE OF NEXT TREATMENT PLAN REVIEW: August 20, 2025 /josephine/ CORINNE TIWARI, PHD, LP PSYCHOLOGIST, [facility] Signed: 08/22/2024 14:34 CORINNE TIWARI [facility] Aug 20, 2024 10:05 AM SUICIDE PREVENTION RISK ASSESSMENT SCREENING NOTE: LOCAL TITLE: [place] SCREENING NOTE STANDARD TITLE: SUICIDE PREVENTION RISK ASSESSMENT SCREENING NOT DATE OF NOTE: AUG 20, 2024@10:05 ENTRY DATE: AUG 22, 2024@14:22:28 AUTHOR: CORINNE TIWARI EXP COSIGNER: URGENCY: STATUS: COMPLETED C-SSRS Screening [place]-Suicide Severity Rating Scale (C-SSRS Screener) 1. Over [...] required due to responses to other questions. /ernestina TIWARI, PHD, MANISH PSYCHOLOGIST, [facility] Signed: 08/22/2024 14:22 CORINNE TIWARI [facility] Aug 20, 2024 10:00 AM PHYSICAL MEDICINE REHAB NOTE: LOCAL TITLE: REHAB PSYCHOLOGY PROGRESS NOTE STANDARD TITLE: PHYSICAL MEDICINE REHAB NOTE DATE OF NOTE: AUG 20, 2024@10:00 ENTRY DATE: AUG 22, 2024@14:20:44 AUTHOR: CORINNE TIWARI COSIGNER: URGENCY: STATUS: COMPLETED REHABILITATION PSYCHOLOGY PROGRESS NOTE Patient Name: Sheba Lyle Date of : 1950 Date of Visit: 08/20/2024 Session Duration: 50 minutes Visit Modality: C Patient Location: [address] [place] [address] Patient CONSENT Visit conducted by synchronous telehealth. [...] support services. SESSION CONTENT Ms. Lyle described feeling overwhelmed by her caregiving responsibilities and family obligations. She acknowledged her daughter continues to stay with her and remains quite negative. Caregiver reported having family visit last week (i.e., other daughter, 's family). Caregiver also reported her sister is coming next week, and caregiver has concerns about her sister's behavior. Caregiver reported her son is coming next week and is frustrated because he had not notified her further in advance. Ms. Lyle shared she would like time alone, time with friends, more time to sleep, and time to attend scientology. Provider and caregiver discussed strategies she has tried to set boundaries with her family, as well as her willingness to try other things. Caregiver acknowledged patterns of interaction with her family, and although she would like to act differently, she worries that any efforts will not help. Provider and caregiver discussed the costs of not trying other strategies. Caregiver appreciated the metaphor of her time as money and sharing with others she has no more to give. She believed this may help her set limits. Ms. Lyle noted continued health concerns for the regarding his heart health. He has an appointment with cardiology. She continues to notice his cognitive decline. She shared a positive outing, where she and the took a trolley ride around a local park. OBJECTIVE Session/visit location: [facility] Present at session: [...] described as: overwhelmed Affect: Her affect was generally distressed. Her [...] to family (grandchildren, and sisters) and community (scientology community); responsibility/duty to others; help seeking; presents [...] art projects). She will maintain a regular bedtime. She will communicate with family her time restraints so she can engage in these behaviors. SESSION ENGAGEMENT: RITS Rating = 4 Education was provided during this session. Caregiver indicated readiness to learn by asking questions, making appropriate comments, and demonstrating appropriate nonverbals. CURRENT TREATMENT PLAN: Dated August 20, 2024. Update by August 20, 2025. RETURN TO CLINIC: Provider and Caregiver discussed meeting more frequently during this time of stress. Caregiver was unable to find a time to meet with the provider until three weeks from the current session. A return to clinic was placed for Monday, September 10, 2024. Caregiver is aware of how to contact the provider if she has needs before the next appointment. /josephine/ CORINNE TIWARI, PHD, LP PSYCHOLOGIST, [facility] Signed: 08/22/2024 14:21 CORINNE TIWARI [facility]
--- OUTSIDE RECORDS SUMMARY | 2024-08-26 06:00 | XMS_ITS ---
Author Name [facility] [place] [facility] [place] [facility] [place] Address [address] [place] [address] Support Name Relationship Address Phone DAYANAMAGED Next of Kin [phone] [place] [address] MAGED ANNE Emergency Contact [phone], [place] [address] Insurance Providers: All historical and [...] PART A Dec 14, 2014 PART A [id number] [phone] BARON ANNE PATIENT MEDICARE (WNR) MEDICARE (M) PART B Dec 14, 2014 PART B [id number] [phone] BARON ANNE PATIENT Selected Encounter This section includes the information on record at [place] for the Encounter. Date/Time Encounter Type Encounter Description Reason Provider Source Aug 26, 2024 11:00 AM [facility] ADDL CAREGIVER SUPPORT PROGRAM ICD-10-CM Z65.9 Problem related to unspecified psychosocial circumstances WADE SOLIS [facility] Encounter Template Text not used by [place] Assessments - Encounter Diagnoses This section includes the primary and secondary diagnoses documented for the Encounter. Date/Time Primary/Secondary Diagnosis Diagnosis Name Provider Source Aug 28, 2024 11:49 AM PRIMARY Problem related to unspecified psychosocial circumstances WADE SOLIS [facility] Plan of Treatment: Future Appointments [...] 10, 2024 09:00 AM AMBULATORY - REHAB [facility] Encounter Notes: All associated encounter notes This section contains the clinical notes associated to the Encounter. Date/Time Encounter Note(s) Provider Source Aug 26, 2024 11:00 AM CAREGIVER CERTIFIC ATE: LOCAL TITLE: [facility] PGCSS INTERMITTENT NOTE STANDARD TITLE: CAREGIVER CERTIFICATE DATE OF NOTE: AUG 26, 2024@11:00 ENTRY DATE: AUG 28, 2024@11:50:10 AUTHOR: THOM SOLIS COSIGNER: URGENCY: STATUS: COMPLETED Program of General Caregiver Support Services Intermittent Note This caregiver is participating in [place]'s Program of General Caregiver Support Services (PGCSS). [...] during an individual contact. Method of contact: Virtual Group Type of intervention: Group Intervention: General support/resources CAREGIVER ASSESSMENT Did not assess using formal screening tools. Field Supervisor assessed Caregiver through observation of verbal and chat box participation, and body language. Group Notes Ongoing Parkinson's Disease Support Group Length of Group: 60 minutes Facilitators: Thom Solis Number of Participants: 4 Check-in - Group information Caregivers met and offered each other support about 's home applications, finding support in the people around them, making time for themselves, and discovering interests. Caregivers talked about Parkinson's Disease and it's effect on them and their loved ones. Next Session September 23, 2024 /josephine/ THOM SOLIS [facility] Caregiver Cook Helper Signed: 08/28/2024 11:53 THOM SOLIS [facility]
--- OUTSIDE RECORDS SUMMARY | 2024-08-31 04:36 | XMS_ITS | Continuity of Care Document ---
Author Name [facility] Organization [facility] Care Team Providers Care Supervisor Electrolytic Tinning Name Role Phone [facility] Unavailable Unavailable Problems Combined list of problems from Department of Defense and Veterans Affairs facilities. It does not include entries that were removed or entered in error. Problem Status Onset Date Problem Type Date of Resolution Comments Source Diagnosis: ICD-10-CM Z65.9 Problem related to unspecified psychosocial circumstances Active Diagnosis [facility] Diagnosis: ICD-10-CM Z71.9 Counseling, unspecified Active Diagnosis [facility] Diagnosis: ICD-10-CM Z65.8 Oth problems related to psychosocial circumstances Active Diagnosis [facility] Immunizations Combined list of available immunizations from the Department of Defense and Veterans Affairs facilities. Immunization Series Date Given Administered By Site Reaction Lot Number CVX Code Drug Press Operator Carbon Blocks Status Comments Source COVID-19 ([email or web address]), MRNA, LNP-S, PF, EMILY-SUCROSE, 30 MCG/0.3 ML (AGES 12+ YEARS) 2023 309 complet ed HISTORICA L INFORMATI ON - FROM OTHER [facility] INFLUENZA VACCINE, QUADRIVALENT, ADJUVANTED [address] [facility] COVID-19 ([email or web address]), MRNA, LNP-S, BIVALENT, PF, 30 MCG/0.3 ML DOSE 2021 300 complet ed HISTORICA L INFORMATI ON - FROM OTHER [facility], [facility] COVID-19 ([email or web address]), MRNA, LNP-S, PF, 30 MCG/0.3 ML DOSE, EMILY-SUCROSE (AGES 12+ YEARS) 4 2021 217 complet ed PFR; [id number]; 2 [facility] COVID-19 (Expertcloud.[email or web address]), MRNA, LNP-S, PF, 30 MCG/0.3 ML DOSE 2020 208 complet ed HISTORICA L INFORMATI ON - FROM OTHER [facility], [facility] COVID-19 ([email or web address]), MRNA, LNP-S, PF, 30 MCG/0.3 ML DOSE 2020 208 complet ed HISTORICA L INFORMATI ON - FROM OTHER REGISTRY, [facility] COVID-19 (PFIZER), MRNA, LNP-S, PF, 30 MCG/0.3 ML DOSE 2020 208 complet ed HISTORICA L INFORMATI ON - FROM OTHER REGISTRY, [facility] ZOSTER RECOMBINANT 2020 187 complet ed HISTORICA L INFORMATI ON - FROM OTHER REGISTRY, [facility] ZOSTER RECOMBINANT 2019 187 complet ed HISTORICA L INFORMATI ON - FROM OTHER REGISTRY, [facility] TD (ADULT), 2 LF TETANUS TOXOID, PRESERVATIVE FREE, ADSORBED 2016 09 complet ed HISTORICA L INFORMATI ON - FROM OTHER REGISTRY, [facility] PNEUMOCOCCAL POLYSACCHARID E PPV23 2015 33 complet ed HISTORICA L INFORMATI ON - FROM OTHER REGISTRY, [facility] ZOSTER LIVE 2011 121 complet ed HISTORICA L INFORMATI ON - FROM OTHER REGISTRY, [facility] TDAP 2006 115 complet ed HISTORICA L INFORMATI ON - FROM OTHER REGISTRY, [facility] Encounters Combined list of: 1) Encounters from Department of Veterans Affairs facilities going backup to the last 18 months, not all [place] inpatient encounters are included; 2) Encounters from the Department of Defense facilities going backup to 280 months. Location Location Details Encounter Type Encounter Number Reason For Visit Attending Provider ADM Date DC Date Status Disposition Source [facility] Outpatient Encounter [id number] 03/03 [facility] PSYTX W PT 45 MINUTES [id number] Diagnos is: ICD-10- CM Z71.9 Milled Lumber Grader ing, unspeci CORINNE Milan 03/07 [facility] Outpatient Encounter [id number] 03/08 [facility] [place] [facility] PSYTX W PT 45 MINUTES [id number] Diagnos is: ICD-10- CM Z71.9 Milled Lumber Grader ing, unspeci fied CORINNE CALVO A 03/14 [place] [facility] GROUP PSYCHOTHER APY [id number] Diagnos is: ICD-10- CM Z65.9 Problem related to unspeci fied psychos ocial circums Liza Canseco ESSICA DEBBIE 03/20 [place] [facility] PSYTX W PT 45 MINUTES [id number] Diagnos is: ICD-10- CM Z71.9 Milled Lumber Grader ing, unspeci fied CORINNE CALVO A 03/28 [place] [facility] Outpatient Encounter [id number] 03/29 [facility] Outpatient Encounter [id number] Diagnos is: ICD-10- CM Z65.9 Problem related to unspeci fied psychos ocial circums enriqueta SOLISJ ESSICA DEBBIE 04/25 [facility] PSYTX W PT 45 MINUTES [id number] Diagnos is: ICD-10- CM Z71.9 Milled Lumber Grader ing, unspeci fied CORINNE CALVO A 05/08 [place] [facility] HC PRO PHONE CALL 11-20 MIN [id number] Diagnos is: ICD-10- CM Z65.9 Problem related to unspeci fied psychos ocial circums LOVE Villagomez SE A 05/17 [place] [facility] PSYCHOTHER APY [id number] Diagnos is: ICD-10- CM Z65.9 Problem related to unspeci fied psychos ocial circums Liza Canseco ESSICA DEBBIE 05/21 [place] [facility] PSYCH DIAGNOSTIC EVALUATION [id number] Diagnos is: ICD-10- CM Z65.8 Oth problem s related to psychos ocial circums tances LOVE GILL SE A 05/22 [place] [facility] PSYTX W PT 45 MINUTES [id number] Diagnos is: ICD-10- CM Z71.9 Milled Lumber Grader ing, unspeci fied CORINNE CALVO A 05/29 [place] [facility] Outpatient Encounter [id number] 05/30 [place] [facility] GROUP PSYCHOTHER APY [id number] Diagnos is: ICD-10- CM Z65.9 Problem related to unspeci fied psychos ocial circums Liza CansecoICA DEBBIE 06/18 [facility] PSYTX W PT 45 MINUTES [id number] Diagnos is: ICD-10- CM Z71.9 Milled Lumber Grader ing, unspeci fied CORINNE CALVO 06/19 [facility] PSYCHOTHER APY [id number] Diagnos is: ICD-10- CM Z65.9 Problem related to unspeci fied psychos ocial circums enriqueta SOLISJ ESSICA DEBBIE 07/16 [facility] PSYTX W PT 45 MINUTES [id number] Diagnos is: ICD-10- CM Z71.9 Milled Lumber Grader ing, unspeci fied CORINNE CALVO 07/17 [facility] Outpatient Encounter [id number] 07/20 [place] [facility] PSYTX W PT 45 MINUTES [id number] Diagnos is: ICD-10- CM Z71.9 Milled Lumber Grader ing, unspeci fied CORINNE CALVO 07/24 [place] [facility] PSYCHOTHER APY [id number] Diagnos is: ICD-10- CM Z65.9 Problem related to unspeci fied psychos ocial circums tanrohan SOLISJ ESSICA DEBBIE 08/13 [place] [place] [facility] PSYTX W PT 45 MINUTES [id number] Diagnos is: ICD-10- CM Z71.9 Milled Lumber Grader ing, unspeci fied CORINNE CALVO 08/21 [place] [facility] [place] [facility] PSYTX W PT 45 MINUTES [id number] Diagnos is: ICD-10- CM Z71.9 Milled Lumber Grader ing, unspeci fied CORINNE CALVO 09/11 [place] [facility] [place] [facility] Outpatient Encounter [id number] 09/12 [place] [facility] [place] [facility] IVNTJ GRP EA ADDL [id number] Diagnos is: ICD-10- CM Z65.9 Problem related to unspeci fied psychos ocial circums Liza Canseco DEBBIE 09/17 [place] [facility] [place] [facility] PSYTX W PT 45 MINUTES [id number] Diagnos is: ICD-10- CM Z71.9 Milled Lumber Grader ing, unspeci fied CORINNE CALVO 10/02 [place] [facility] [place] [facility] Outpatient Encounter [id number] 10/23 [place] [facility] [place] [facility] PSYTX W PT 45 MINUTES [id number] Diagnos is: ICD-10- CM Z71.9 Milled Lumber Grader ing, unspeci fied CORINNE CALVO 10/23 [place] [facility] [place] [facility] IVNTJ GRP EA ADDL [id number] Diagnos is: ICD-10- CM Z65.9 Problem related to unspeci fied psychos ocial circums Liza Canseco DEBBIE 10/29 [place] [facility] [place] [facility] Outpatient Encounter [id number] 11/05 [place] [facility] [place] [facility] PSYTX W PT 45 MINUTES [id number] Diagnos is: ICD-10- CM Z71.9 Milled Lumber Grader ing, unspeci fied CORINNE CALVO A 11/13 [place] [facility] IVNTJ GRP EA ADDL [id number] Diagnos is: ICD-10- CM Z65.9 Problem related to unspeci fied psychos ocial circums Liza Canseco ESSICA DEBBIE 11/19 [place] [facility] PSYTX W PT 60 MINUTES [id number] Diagnos is: ICD-10- CM Z71.9 Milled Lumber Grader ing, unspeci fied CORINNE CALVO A 12/04 [facility] Outpatient Encounter [id number] 12/05 [facility] PSYTX W PT 45 MINUTES [id number] Diagnos is: ICD-10- CM Z71.9 Milled Lumber Grader ing, unspeci fied CORINNE CALVO 12/18 [facility] IVNTJ GRP EA ADDL [id number] Diagnos is: ICD-10- CM Z65.9 Problem related to unspeci fied psychos ocial circums enriqueta SOLISJ ESSICA DEBBIE 12/28 [place] [facility] PSYTX W PT 45 MINUTES [id number] Diagnos is: ICD-10- CM Z71.9 Milled Lumber Grader ing, unspeci fied CORINNE CALVO 01/01 [place] [facility] IVNTJ GRP EA ADDL [id number] Diagnos is: ICD-10- CM Z65.9 Problem related to unspeci fied psychos ocial circums enriqueta SOLISJ ESSICA DEBBIE 01/21 [place] [facility] PSYTX W PT 45 MINUTES [id number] Diagnos is: ICD-10- CM Z71.9 Milled Lumber Grader ing, unspeci fied LUBNACORINNE A 01/22 [place] [facility] ASSMT/REAS SESSMENT [id number] Diagnos is: ICD-10- CM Z65.9 Problem related to unspeci fied psychos ocial circums Liza Canseco ESSICA DEBBIE 02/18 [place] [facility] Outpatient Encounter [id number] 02/19 [place] [facility] PSYTX W PT 45 MINUTES [id number] Diagnos is: ICD-10- CM Z71.9 Milled Lumber Grader ing, unspeci fied LUBNACORINNE A 02/19 [facility] PSYTX W PT 45 MINUTES [id number] [id number] Diagnos is: ICD-10- CM Z71.9 Milled Lumber Grader ing, unspeci fied CORINNE CALVO A 03/12 [facility] IVNTJ GRP EA ADDL [id number] Diagnos is: ICD-10- CM Z65.9 Problem related to unspeci fied psychos ocial circums Liza Canseco ESSICA DEBBIE 03/18 [facility] PSYTX W PT 45 MINUTES [id number] Diagnos is: ICD-10- CM Z71.9 Milled Lumber Grader ing, unspeci fied CORINNE CALVO A 04/02 [place] [facility] IVNTJ GRP EA ADDL [id number] Diagnos is: ICD-10- CM Z65.9 Problem related to unspeci fied psychos ocial circums Liza Canseco ESSICA DEBBIE 04/15 [facility] PH1 ASSMT&MGMT NQHP 5-10 [id number] [id number] Diagnos is: ICD-10- CM Z65.8 Oth problem s related to psychos ocial circums bolivarces Elenita LEE 04/24 [facility] PSYTX W PT 45 MINUTES [id number] Diagnos is: ICD-10- CM Z71.9 Milled Lumber Grader ing, unspeci fied CORINNE CALVO 04/30 [facility] IVNTJ GRP EA ADDL [id number] Diagnos is: ICD-10- CM Z65.9 Problem related to unspeci fied psychos ocial circums tanrohan SOLIS,J IONAICA DEBBIE 05/20 [facility] PSYTX W PT 45 MINUTES [id number] Diagnos is: ICD-10- CM Z71.9 Milled Lumber Grader ing, unspeci fied CORINNE CALVO 05/28 [facility] IVNTJ GRP EA ADDL [id number] Diagnos is: ICD-10- CM Z65.9 Problem related to unspeci fied psychos ocial circums enriqueta SOLIS,J VASU DEBBIE 05/29 [facility] PSYTX W PT 45 MINUTES [id number] Diagnos is: ICD-10- CM Z71.9 Milled Lumber Grader ing, unspeci fied CORINNE CALVO 06/18 [place] [facility] PSYTX W PT 45 MINUTES [id number] Diagnos is: ICD-10- CM Z71.9 Milled Lumber Grader ing, unspeci fied CORINNE CALVO 07/09 [place] [facility] IVNTJ GRP 1ST 30 [id number] Diagnos is: ICD-10- CM Z65.9 Problem related to unspeci fied psychos ocial circums tances IRMA,J ESSICA DEBBIE 07/22 [facility] [place] [facility] PSYTX W PT 45 MINUTES [id number] [id number] Diagnos is: ICD-10- CM Z71.9 Milled Lumber Grader ing, unspeci fied CORINNE CALVO 07/30 [facility] [place] [facility] PSYTX W PT 45 MINUTES [id number] [id number] Diagnos is: ICD-10- CM Z71.9 Milled Lumber Grader ing, unspeci fied CORINNE CALVO 08/20 [facility] IVNTJ GRP EA ADDL [id number] Diagnos is: ICD-10- CM Z65.9 Problem related to unspeci fied psychos ocial circums Liza Canseco DEBBIE 08/26 [facility] Plan of Care List of future care activities from Department of [facility] Affairs facilities. Additional future care activities may be listed in the Assessment and Plan section. Date/Time Care Activity Care Activity Detail Facili ty 09/10/2024 AMBULATORY - REHAB MEDICINE AMBULATORY - REHAB MEDICINE [facility]
--- OUTSIDE RECORDS SUMMARY | 2024-08-31 04:36 | XMS_ITS | Continuity of Care Document ---
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 It does not include entries that were removed or entered in error. Problem Status Onset Date Problem Type Date of Resolution Comments Source Diagnosis: ICD-10-CM Z65.9 Problem related to unspecified psychosocial circumstances Active Diagnosis [facility] Diagnosis: ICD-10-CM Z71.9 Counseling, unspecified Active Diagnosis [facility] A [facility] Diagnosis: ICD-10-CM Z65.8 Oth problems related to psychosocial circumstances Active Diagnosis [facility] Immunizations Combined list of available immunizations from the Department of Defense and Veterans Affairs facilities. Immunization Series Date Given Administered By Site Reaction Lot Number CVX Code Drug Criminal Research Specialist Status Comments Source COVID-19 (Mobile Accord), MRNA, LNP-S, PF, EMILY-SUCROSE, 30 MCG/0.3 ML (AGES 12+ YEARS) 2023 309 complet ed HISTORICA L INFORMATI ON - FROM OTHER [facility] INFLUENZA VACCINE, QUADRIVALENT, ADJUVANTED 2021 205 complet ed [facility] COVID-19 (Mobile Accord), MRNA, LNP-S, BIVALENT, PF, 30 MCG/0.3 ML DOSE 2021 300 complet ed HISTORICA L INFORMATI ON - FROM OTHER [facility], [facility] COVID-19 (Mobile Accord), MRNA, LNP-S, PF, 30 MCG/0.3 ML DOSE, EMILY-SUCROSE (AGES 12+ YEARS) 4 2021 217 complet ed PFR; [id number]; 2 [facility] COVID-19 (Mobile Accord), MRNA, LNP-S, PF, 30 MCG/0.3 ML DOSE 2020 208 complet ed HISTORICA L INFORMATI ON - FROM OTHER [facility], [facility] COVID-19 (Mobile Accord), MRNA, LNP-S, PF, 30 MCG/0.3 ML DOSE 2020 208 complet ed HISTORICA L INFORMATI ON - FROM OTHER REGISTRY, [facility] COVID-19 (PFIZER), MRNA, LNP-S, PF, 30 MCG/0.3 ML DOSE 2020 208 complet ed HISTORICA L INFORMATI ON - FROM OTHER REGISTRY, [facility] ZOSTER RECOMBINANT 2020 187 complet ed HISTORICA L INFORMATI ON - FROM OTHER REGISTRY, [facility] ZOSTER RECOMBINANT 2019 187 complet ed HISTORICA L INFORMATI ON - FROM OTHER REGISTRY, [facility] TD (ADULT), 2 LF TETANUS TOXOID, PRESERVATIVE FREE, ADSORBED 2016 09 complet ed HISTORICA L INFORMATI ON - FROM OTHER REGISTRY, [facility] PNEUMOCOCCAL POLYSACCHARID E PPV23 2015 33 complet ed HISTORICA L INFORMATI ON - FROM OTHER REGISTRY, [facility] ZOSTER LIVE 2011 121 complet ed HISTORICA L INFORMATI ON - FROM OTHER REGISTRY, [facility] TDAP 2006 115 complet ed HISTORICA L INFORMATI ON - FROM OTHER REGISTRY, [facility] Encounters Combined list of: 1) Encounters from Department of Veterans Affairs facilities going backup to the last 18 months, not all [place] inpatient encounters are included; 2) Encounters from the Department of Defense facilities going backup to 280 months. Location Location Details Encounter Type Encounter Number Reason For Visit Attending Provider ADM Date DC Date Status Disposition Source [facility] Outpatient Encounter [id number] 03/03 [facility] PSYTX W PT 45 MINUTES [id number] Diagnos is: ICD-10- CM Z71.9 Library Manager ing, unspeci CORINNE Milan 03/07 [facility] Outpatient Encounter [id number] 03/08 [facility] [place] [facility] PSYTX W PT 45 MINUTES [id number] Diagnos is: ICD-10- CM Z71.9 Library Manager ing, unspeci fied CORINNE CALVO A 03/14 [place] [facility] PSYCHOTHER APY [id number] Diagnos is: ICD-10- CM Z65.9 Problem related to unspeci fied psychos ocial circums Liza Canseco ESSICA DEBBIE 03/20 [place] [facility] PSYTX W PT 45 MINUTES [id number] Diagnos is: ICD-10- CM Z71.9 Library Manager ing, unspeci fied CORINNE CALVO A 03/28 [place] [facility] Outpatient Encounter [id number] 03[facility]29 [facility] Outpatient Encounter [id number] Diagnos is: ICD-10- CM Z65.9 Problem related to unspeci fied psychos ocial circums enriqueta SOLISJ ESSICA DEBBIE 04/25 [facility] PSYTX W PT 45 MINUTES [id number] Diagnos is: ICD-10- CM Z71.9 Library Manager ing, unspeci fied CORINNE CALVO A 05/08 [place] [facility] HC PRO PHONE CALL 11-20 MIN [id number] Diagnos is: ICD-10- CM Z65.9 Problem related to unspeci fied psychos ocial circums LOVE Villagomez SE A 05/17 [place] [facility] PSYCHOTHER APY [id number] Diagnos is: ICD-10- CM Z65.9 Problem related to unspeci fied psychos ocial circums Liza Canseco ESSICA DEBBIE 05/21 [place] [facility] PSYCH DIAGNOSTIC EVALUATION [id number] Diagnos is: ICD-10- CM Z65.8 Oth problem s related to psychos ocial circums tances LVOE GILL SE A 05/22 [place] [facility] PSYTX W PT 45 MINUTES [id number] Diagnos is: ICD-10- CM Z71.9 Library Manager ing, unspeci fied CORINNE CALVO A 05/29 [place] [facility] Outpatient Encounter [id number] 05/30 [place] [facility] PSYCHOTHER APY [id number] Diagnos is: ICD-10- CM Z65.9 Problem related to unspeci fied psychos ocial circums Liza CansecoICA DEBBIE 06/18 [facility] PSYTX W PT 45 MINUTES [id number] Diagnos is: ICD-10- CM Z71.9 Library Manager ing, unspeci fied CORINNE CALVO 06/19 [facility] PSYCHOTHER APY [id number] Diagnos is: ICD-10- CM Z65.9 Problem related to unspeci fied psychos ocial circums enriqueta SOLISJ ESSICA DEBBIE 07/16 [facility] PSYTX W PT 45 MINUTES [id number] Diagnos is: ICD-10- CM Z71.9 Library Manager ing, unspeci fied CORINNE CALVO 07/17 [facility] Outpatient Encounter [id number] 07/20 [place] [facility] PSYTX W PT 45 MINUTES [id number] Diagnos is: ICD-10- CM Z71.9 Library Manager ing, unspeci fied CORINNE CALVO 07/24 [place] [facility] PSYCHOTHER APY [id number] Diagnos is: ICD-10- CM Z65.9 Problem related to unspeci fied psychos ocial circums tanrohan SOLISJ ESSICA DEBBIE 08/13 [place] [place] [facility] PSYTX W PT 45 MINUTES [id number] Diagnos is: ICD-10- CM Z71.9 Library Manager ing, unspeci fied CORINNE CALVO 08/21 [place] [facility] [place] [facility] PSYTX W PT 45 MINUTES [id number] Diagnos is: ICD-10- CM Z71.9 Library Manager ing, unspeci fied CORINNE CALVO 09/11 [place] [facility] [place] [facility] Outpatient Encounter [id number] 09/12 [place] [place] [facility] IVNTJ GRP EA ADDL [id number] Diagnos is: ICD-10- CM Z65.9 Problem related to unspeci fied psychos ocial circums Liza Canseco DEBBIE 09/17 [place] [facility] [place] [facility] PSYTX W PT 45 MINUTES [id number] Diagnos is: ICD-10- CM Z71.9 Library Manager ing, unspeci fied CORINNE CALVO 10/02 [place] [place] [facility] Outpatient Encounter [id number] 10/23 [place] [place] [facility] PSYTX W PT 45 MINUTES [id number] Diagnos is: ICD-10- CM Z71.9 Library Manager ing, unspeci fied CORINNE CALVO 10/23 [place] [facility] [place] [facility] IVNTJ GRP EA ADDL [id number] Diagnos is: ICD-10- CM Z65.9 Problem related to unspeci fied psychos ocial circums Liza Canseco DEBBIE 10/29 [place] [place] [facility] Outpatient Encounter [id number] 11/05 [place] [facility] [place] [facility] PSYTX W PT 45 MINUTES [id number] Diagnos is: ICD-10- CM Z71.9 Library Manager ing, unspeci fied CORINNE CALVO A 11/13 [place] [facility] IVNTJ GRP EA ADDL [id number] Diagnos is: ICD-10- CM Z65.9 Problem related to unspeci fied psychos ocial circums Liza Canseco ESSICA DEBBIE 11/19 [place] [facility] PSYTX W PT 60 MINUTES [id number] Diagnos is: ICD-10- CM Z71.9 Library Manager ing, unspeci fied CORINNE CALVO A 12/04 [facility] Outpatient Encounter [id number] 12/05 [facility] PSYTX W PT 45 MINUTES [id number] Diagnos is: ICD-10- CM Z71.9 Library Manager ing, unspeci fied CORINNE CALVO 12/18 [facility] IVNTJ GRP EA ADDL [id number] Diagnos is: ICD-10- CM Z65.9 Problem related to unspeci fied psychos ocial circums enriqueta SOLISJ ESSICA DEBBIE 12/28 [place] [facility] PSYTX W PT 45 MINUTES [id number] Diagnos is: ICD-10- CM Z71.9 Library Manager ing, unspeci fied CORINNE CALVO 01/01 [place] [facility] IV[facility]J GRP EA ADDL [id number] Diagnos is: ICD-10- CM Z65.9 Problem related to unspeci fied psychos ocial circums enriqueta SOLISJ ESSICA DEBBIE 01/21 [place] [facility] PSYTX W PT 45 MINUTES [id number] Diagnos is: ICD-10- CM Z71.9 Library Manager ing, unspeci fied LUBNACORINNE A 01/22 [place] [facility] ASSMT/REAS SESSMENT [id number] Diagnos is: ICD-10- CM Z65.9 Problem related to unspeci fied psychos ocial circums Liza Canseco ESSICA DEBBIE 02/18 [place] [facility] Outpatient Encounter [id number] 02/19 [place] [facility] PSYTX W PT 45 MINUTES [id number] Diagnos is: ICD-10- CM Z71.9 Library Manager ing, unspeci fied LUBNACORINNE A 02/19 [facility] PSYTX W PT 45 MINUTES [id number] Diagnos is: ICD-10- CM Z71.9 Library Manager ing, unspeci fied CORINNE CALVO A 03/12 [facility] IVNTJ GRP EA ADDL [id number] Diagnos is: ICD-10- CM Z65.9 Problem related to unspeci fied psychos ocial circums Liza Canseco ESSICA DEBBIE 03/18 [facility] PSYTX W PT 45 MINUTES [id number] Diagnos is: ICD-10- CM Z71.9 Library Manager ing, unspeci fied CORINNE CALVO A 04/02 [place] [facility] IVNTJ GRP EA ADDL [id number] Diagnos is: ICD-10- CM Z65.9 Problem related to unspeci fied psychos ocial circums Liza Canseco ESSICA DEBBIE 04/15 [facility] PH1 ASSMT&MGMT NQHP 5-10 [id number] [id number] Diagnos is: ICD-10- CM Z65.8 Oth problem s related to psychos ocial circums bolivarces Elenita LEE 04/24 [facility] PSYTX W PT 45 MINUTES [id number] Diagnos is: ICD-10- CM Z71.9 Library Manager ing, unspeci fied CORINNE CALVO 04/30 [facility] IVNTJ GRP EA ADDL [id number] Diagnos is: ICD-10- CM Z65.9 Problem related to unspeci fied psychos ocial circums tanrohan SOLIS,J IONAICA DEBBIE 05/20 [facility] PSYTX W PT 45 MINUTES [id number] Diagnos is: ICD-10- CM Z71.9 Library Manager ing, unspeci fied CORINNE CALVO 05/28 [facility] IVNTJ GRP EA ADDL [id number] Diagnos is: ICD-10- CM Z65.9 Problem related to unspeci fied psychos ocial circums enriqueta SOLIS,J VASU DEBBIE 05/29 [facility] PSYTX W PT 45 MINUTES [id number] Diagnos is: ICD-10- CM Z71.9 Library Manager ing, unspeci fied CORINNE CALVO 06/18 [place] [facility] PSYTX W PT 45 MINUTES [id number] Diagnos is: ICD-10- CM Z71.9 Library Manager ing, unspeci fied CORINNE CALVO 07/09 [place] [facility] IVNTJ GRP 1ST 30 [id number] Diagnos is: ICD-10- CM Z65.9 Problem related to unspeci fied psychos ocial circums tances IRMA,J ESSICA DEBBIE 07/22 [facility] [place] [facility] PSYTX W PT 45 MINUTES [id number] Diagnos is: ICD-10- CM Z71.9 Library Manager ing, unspeci fied CORINNE CALVO 07/30 [facility] [place] [facility] PSYTX W PT 45 MINUTES [id number] Diagnos is: ICD-10- CM Z71.9 Library Manager ing, unspeci fied CORINNE CALVO 08/20 [facility] IVNTJ GRP EA ADDL [id number] Diagnos is: ICD-10- CM Z65.9 Problem related to unspeci fied psychos ocial circums Liza Canseco DEBBIE 08/26 [facility] Plan of Care List of future care activities from Department of [facility] Affairs facilities. Additional future care activities may be listed in the Assessment and Plan section. Date/Time Care Activity Care Activity Detail Facili ty 09/10/2024 AMBULATORY - REHAB MEDICINE AMBULATORY - REHAB MEDICINE [facility]
--- OUTSIDE RECORDS SUMMARY | 2024-08-31 09:37 | XMS_ITS | Continuity of Care Document ---
Author Organization [place] - [facility], [place] Address [address] [facility] [place] [place] [address] Assessment Encounter Date Assessment Date Assessment LastModified by Organization Details LastModified Time 07/26/2024 07/26/2024 For the post P&A L hallux nail, the patient was advised to discontinue all soaks, topical ointments, and bandages. Instead, topical betadine (iodine) swabs were recommended once daily after showering, allowing the area to remain open to air. The rationale is to minimize further allergic reactions and promote natural wound healing. The patient was counseled that a scab or crust will likely form over the next week and to allow it to flake off naturally. Regarding the hammertoe deformities, flexor tenotomy intervention was discussed how this would fail to resolve her contractures due to the rigidity of the deformities. The patient was informed that any future surgical correction would require addressing the hallux valgus as well to prevent recurrence of digital deformities. For the hallux valgus, the patient was educated on the presence of a bunion. Surgical correction was discussed as an option if symptoms worsen, but conservative management with orthotic support was prioritized at this time. For pronation and orthotic needs, a new pair of custom orthotics was ordered with a metatarsal pad michelle, durable foam top cover, full-length design, medial flange, and a first ray cutout to offload pressure from the hallux. Shoe recommendations were provided, emphasizing the importance of proper fit and support. The patient was informed that modifications can be made within six months if needed. Follow-up was recommended for orthotic fitting once the devices arrive. guille Not available 07/26/2024 15:15:39 Plan of Treatment Reminders Order Date Submit Date Provider Last Modified By Organization Details Last Modified Time Details Appointments None record ed. Lab None record ed. Referral None record ed. Procedures None record ed. Surgeries None record ed. Imaging None record ed. Medication Orders None record ed. Patient TargetsNo targets recorded. Patient InstructionsNo instructions recorded. Reason for Referral None Reported. Medical Equipment None Reported. Allergies Allergen ID Allergen Name Allergen Category Reaction Reaction Severity Criticality Documentation Date Start Date Code Code System Note Provider Name and Address Organization Details Recorded Time 07657 cefazolin medicatio n Not available Not available Not available 07/15/2024 2180 RxNorm Zari Albina null, [place] - [facility] 12:25:20 27266 hydrocodo ne Not available Not available Not available Not available 07/15/2024 5489 RxNorm Zari [place] null, [place] - [facility] 12:25:36 17210 hydromorp rolo medicatio n Not available Not available Not available 07/15/2024 3423 RxNorm Zari [place], [place] - [facility] 12:25:55 50464 propoxyph lilia medicatio n Not available Not available Not available 07/15/2024 8785 RxNorm Zari [place], [place] - [facility] 12:26:25 54692 Substance with sulfonami de structure and antibacte rial mechanism of action (substanc e) medicatio n Not available Not available Not available 07/15/2024 38083 8003 SNOMED Zari Albina null, [place] - [facility] 12:26:31 22233 codeine medicatio n Not available Not available Not available 07/15/2024 2670 RxNorm Zari [place], [place] - [facility] 12:26:40 32295 adhesive environme nt,medica tion Not available Not available Not available 07/15/2024 99718 UNK Zari Alb[place] null, [place] - [facility] 12:26:50 51317 gabapenti n medicatio n Not available Not available Not available 07/15/2024 63403 RxNorm Zrai Alb[place] null, [place] - [facility] 5 12:27:00 52487 ibuprofen medicatio n Not available Not available Not available 07/15/2024 5640 RxNorm Zari [place], [place] - [facility] 5 12:27:09 77953 influenza A (H1N1) medicatio n Not available Not available Not available 07/15/2024 01749 UNK Zrai Alb[place] null, [place] - [facility] 5 12:27:28 14326 latex environme nt,medica tion Not available Not available Not available 07/15/2024 31251 91 RxNorm Zari [place], [place] - [facility] 5 12:27:36 89273 nalbuphin e medicatio n Not available Not available Not available 07/15/2024 7238 RxNorm Zari [place], [place] - [facility] 5 12:27:47 87540 rofecoxib medicatio n Not available Not available Not available 07/15/2024 36495 8 RxNorm Zari [place], [place] - [facility] 5 12:27:57 84475 morphine medicatio n Not available Not available Not available 07/15/2024 7052 RxNorm Zari [place], [place] - [facility] 5 12:28:05 Medications Name Sig Start Date Stop Date Status Note LastModified by Organization Details LastModified Time clobetasol 0.05 % topical cream APPLY A THIN LAYER TO THE AFFECTED AREA(S) BY TOPICAL ROUTE 2 TIMES PER DAY active Not Available Not Available No t Available tramadol 50 mg tablet TAKE 1 TAB ORALLY EVERY 8 HOURS NEEDED FOR PAIN active Not Available Not Available No t Available hydromorpho ne 2 mg tablet PLEASE SEE ATTACHED FOR DETAILED DIRECTION S 07/15 completed Not Available Not Available Not Available cephalexin 500 mg capsule TAKE 1 CAPSULE BY MOUTH TWICE A DAY FOR 5 DAYS 07/15 completed Not Available Not Available Not Available betamethaso ne dipropionat e 0.05 % topical cream APPLY A THIN LAYER TO THE AFFECTED AREA(S) BY TOPICAL ROUTE ONCE DAILY active Not Available Not Available No t Available albuterol sulfate HFA 90 mcg/actuati on aerosol inhaler Inhale 2 puffs every 4 hours by inhalatio n route. active Not Available Not Available No t Available ketoconazol e 2 % topical cream APPLY TO THE AFFECTED AREA(S) BY TOPICAL ROUTE ONCE DAILY active Not Available Not Available No t Available ondansetron 4 mg disintegrat ing tablet TAKE 1 TABLET BY MOUTH EVERY 8 HOURS 07/15 completed Not Available Not Available Not Available nitrofurant oin monohydrate /macrocryst als 100 mg capsule 100 MG ORALLY EVERY 12 HOURS FOR 5 DAYS MUST ADMINISTE R WITH A MEAL/FOOD 07/15 completed Not Available Not Available Not Available ascorbic acid (vitamin C) active Not Available Not Available Not Available acetaminoph en active Not Available Not Available Not Available atorvastati n active Not Available Not Available Not Available diltiazem HCl active Not Available Not Available Not Available warfarin active Not Available Not Avai lable Not Available chlorthalid one active Not Available Not Available Not Available albuterol sulfate active Not Available Not Available Not Available amlodipine active Not Available Not Av ailable Not Available cholecalcif erlin (vitamin D3) active Not Available Not Available Not Available trazodone active Not Available Not Odalis ilable Not Available fexofenadin e active Not Available Not Available Not Available solifenacin active Not Available Not A vailable Not Available Senexon-S 8.6 mg-50 mg tablet TAKE 1 - 2 TABS ORALLY TWICE A DAY FOR CONSTIPAT ION HOLD MEDICATIO N IF EXPERIENC ING LOOSE STOOLS. 07/15 completed Not Available Not Available Not Available potassium chloride ER 20 mEq tablet,exte nded release TAKE 1 TABLET ORALLY TWICE A DAY active Not Available Not Available No t Available Vitals None Recorded Social History None recorded. Functional Status None recorded. Mental Status None recorded. Family History Nothing Reported. Medical History No medical history recorded. Gynecological HistoryNo gynecological history recorded. Obstetrics History GPAL:G 0 P 0 0 0 0 Past Encounters Encounter ID Performer Location Encounter Start Date Encounter Closed Date Diagnosis/Indication Diagnosis SNOMED-CT Code Diagnosis ICD10 Code Diagnosis Note [id number] [facility] [place] [address] [place] [address] 07/12/2024 09:08:56 07/15/2024 12:11:31 Onychomycosis due to dermatophyte 370405533 B35.1 Total time spent on the E/M service was 45 minutes, which included reviewing patient history, performing a medically appropriat e examinatio n, counseling the patient, and documentin g clinical informatio n. This time excludes any procedures or imaging potentiall y obtained during this visit. Onycholysis 28875284 L60 .1 Talipes planus 55736429 M21.41 M21.42 [id number] [facility] [place] [address] [place] [address] 07/26/2024 08:59:42 07/26/2024 15:43:31 Onychomycosis due to dermatophyte 550508604 B35.1 Onycholysis 74232939 L60 .1 Talipes planus 57410277 M21.41 M21.42 Health Concerns Section Related Observation LastModified by Organization Detai ls LastModified Time None Recorded Concern Status LastModified by Organization Details LastModified Time None Recorded Payers Encounter Date Sequence Insurance Name Policy Number Policy Zabala Covered Member ID Zabala Member ID Guarantor Name 07/26/2024 2 () Sheba L Hetchler [id number] Sheba Hetchler 07/26/2024 1 MEDICARE B-PR: [employer] [facility] Sheba L Hetchler [id number] Sheba Hetchler Notes Date Note Type Note Provider Name and Address Organization Details Recorded Time 07/26/2024 text/html The patient pres ents for follow-up regarding a recent P&A to the left great toe. They report improvement, though some redness and drainage persist. The patient notes that last Monday the area was very red and the redness continued into Monday. In response, they discontinued all bandages, suspecting a possible allergic reaction to adhesives or bandage materials, which aligns with their known allergies to adhesive and latex. They have been soaking the toe twice daily but are now questioning if this is still necessary. The patient also describes using two types of Neosporin, one with lidocaine, and experienced significant itching, raising concern for a possible reaction to the topical antibiotic as well. The patient inquires about orthotics, mentioning previous pairs that were unsatisfactory one required frequent repairs and the other was of better quality. They express concern about shoe fit with orthotics and mention being told to use shoes with a roll bar due to pronation. The patient prefers tennis shoes and is interested in recommendations for supportive footwear. The patient desires orthotics that will support their arch and prevent pronation, allowing for more versatile shoe options. They also discuss a history of a R 2nd dig hammer toe surgery and nerve removal in the past, with persistent numbness in one foot and a sensation of rigidity in the toes. 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 They mention a family history of similar foot issues. Is interested in possible flexor tenotomies for her deformities. [facility] [address] [place], [address], [facility] - [facility] 07/26/2024 15:16:57 OBGyn Episode No OBEpisode recorded.
--- OUTSIDE RECORDS SUMMARY | 2024-08-31 09:37 | XMS_ITS | Clinical Summary ---
Author Organization [facility] Address [address] [place] [address] Care Team Providers Care Electrical Engineering Drafting Officer Name Role Phone Found, No Pcp MD Primary Care Provider Unavailab le Source Comments You are receiving this document as you are listed as the primary care provider,follow-up provider, or the patient has been referred to you for consultation.This is in compliance with the Medicare andMedicaid EHR Incentive Program,which states Providers who transition their patient to another setting of careor provider of care or refers their patient to another provider of care shouldprovide summary care record for each transition of care or referral. [employer] Allergies Active Allergy Reactions Criticality Noted Date [...] see comments 12/01/2010 PN: red blisters Medications clobetasol (AKA TEMOVATE) 0.05 % ointment Apply 1 Application topically nightly. LW Addl Instr:Apply to affected area at bedtime once a week. 153 1 04/30/19 11 Active fexofenadine (AKA VARGHESE) 180 MG tablet Take 1 tablet by mouth daily as needed. LW Addl Instr:Indicated for: Allergies 90 3 01/23/20 10 Active lisinopril (AKA ZESTRIL) 5 MG tablet Take 1 tablet by mouth daily (every 24 hours). Indications: HYPERTENSION 90 tablet 3 01/06/20 11 Active simvastatin (AKA ZOCOR) 10 MG tablet Take 1 tablet by mouth nightly. Indications: HYPERCHOLESTEROLEMIA 90 tablet 3 12/02/19 11 Active cholecalcifer ol (AKA VITAMIN D3) 2000 UNITS tablet Take 1 each by mouth daily (every 24 hours). 01/29/20 11 Active clindamycin (AKA CLEOCIN) 300 MG capsule Take 1 capsule by mouth. Take 2 pills one hour prior to procedure. Take with plenty of water 10 capsule 0 12/07/19 12 Active lisinopril (AKA ZESTRIL) 5 MG tablet Take 5 mg by mouth daily (every 24 hours). 01/23/20 13 Active traZODone (AKA DESYREL) 100 MG tablet Take 100 mg by mouth nightly. 01/23/20 13 Active atorvastatin (AKA LIPITOR) 10 MG tablet Take 10 mg by mouth daily (every 24 hours). 01/15/20 14 Active warfarin (AKA COUMADIN) 3 MG tablet Take 2-3 tablets by mouth daily (every 24 hours). Adjust dose per INR value and instructions. 01/15/20 14 Active ketoconazole (NIZORAL) 2 % cream Apply 1 Application topically daily (every 24 hours). 60 g 0 10/12/19 16 Active ascorbic acid (ASCORBIC ACID) 500 MG tablet Take 500 mg by mouth daily. Active drug not in computer 1 Dose by See Admin Instructions route as needed. Nebulize machine 1 Each 12/06/19 18 Active drug not in computer Nebulizer Machine, use as directed. 1 Each 12/06/19 18 Active azelastine (ASTELIN) 0.1 % nasal solution Place 1-2 Sprays into both nostrils two times a day. 90 mL 3 12/07/19 18 Active ALBUterol sulfate HFA 108 (90 Base) MCG/ACT inhaler Inhale 1-2 Puffs every 4 hours as needed for Wheezing. 1 Inhaler 2 05/19/19 19 Active albuterol 2.5 mg/3 mL, 0.083%, (PROVENTIL) nebulizer solution Inhale 1 Vial every 4 hours as needed (Inhale 3 mLs by nebulization every 4 hours as needed.). J45.909. Appt required for add refills 180 mL 07/26/19 19 Active Active Problems Problem Noted Date Diagnosed Date Kidney stone 01/05/2011 Toxic multinodular goiter 01/02/2007 Overview (10/05/2016): LW Modifier: radioactive iodine treatment ; Goiter Multinodular Toxic No Crisis Calculus of gallbladder 03/27/2006 Overview (10/05/2016): Gallstones Essential hypertension 03/27/2006 Overview (10/05/2016): Hypertension Chronic Hyperlipidemia 03/27/2006 Asthma 03/27/2006 Overview (10/05/2016): Asthma NOS Allergic rhinitis 03/27/2006 Overview (10/05/2016): Rhinitis Allergic NOS Immunizations Immunization Administration Dates Next Due TDAP (ADACEL) 03/27/2006 Family History Medical History Relation Name Comments Stroke Mother dementia Relation Name Status Comments Father copd Mother dementia Social History Tobacco Use Types Packs/Day Years Used Date Smoking Tobacco: Never Smokeless Tobacco: Never Alcohol Use Standard Drinks/Week Comments Yes 0 (1 standard drink = 0.6 oz pure alcohol) Alcoholic Drinks/day: Amount:1-2 drinks; Freq:=< Monthly; Comments Unknown Sex and Gender Information Value Date Recorded Sex Assigned at Not on file Legal Sex Female 10:14 PM CDT Gender Identity Not on file Sexual Orientation Not on file 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 file Not on file Not on file Last Filed Vital Signs Vital Sign Reading Time Taken Comments Blood Pressure 136/82 12/05/2017 2:20 PM CDT Pulse 96 12/05/2017 2:20 PM CDT Temperature 37.1 C (98.8 F) 03/13/2008 10:12 AM HEALTH AND WELLNESS DIRECTOR ORAL C: 37.1 C Respiratory Rate 18 10/02/2007 4:46 PM CDT Oxygen Saturation 97% 12/05/2017 2:2 0 PM CDT Inhaled Oxygen Concentration - - Weight 97.5 kg (215 lb) 01/26/2016 1:31 PM HEALTH AND WELLNESS DIRECTOR Height 172.7 cm (5' 8) 01/26/2016 1:31 PM HEALTH AND WELLNESS DIRECTOR Body Mass Index 32.69 01/26/2016 1:31 PM HEALTH AND WELLNESS DIRECTOR Plan of Treatment Health Maintenance Due Date Last Done Comments Colon Cancer Screening Plan Due 1950 Hep C Screening (Preventive Services) 1950 Medicare Annual Wellness Visit 1950 Dexa 2014 Cholesterol 01/06/2016 01/05/2011, 1005/2010, 04/07/2009, Additional history exists Pneumococcal Vaccine 50+ Yrs (2 of 2 - PCV) 09/24/2016 09/25/2015 Mammogram 07/23/2021 07/23/2020, 01/13, 02/09/2018 COVID-19 Vaccine (3 - 2023- season) 2023 05/08/2020, 04/17/2020 Influenza Vaccine (#1) 2024 03/30/2001 RSV Vaccine (1 - 1-dose 75+ series) 2024 DTaP/Tdap/Td Vaccine (3 - Tdap) 09/01/2026 09/01/2016, 03/27/2006 Zoster/Shingles Vaccine Completed 03/27/19, 11/05/2019, 11/21/2011 HepA Vaccine Aged Out No longer eligi ble based on patient's age to complete this topic HepB Vaccine Aged Out No longer eligi ble based on patient's age to complete this topic Hib Vaccine Aged Out No longer eligi ble based on patient's age to complete this topic IPV (Polio) Vaccine Aged Out No longe r eligible based on patient's age to complete this topic MCV4 Vaccine Aged Out No longer eligi ble based on patient's age to complete this topic Meningococcal B Vaccine Aged Out No l onger eligible based on patient's age to complete this topic Procedures Procedure Name Priority Date/Time Associated Diagnosis Comments LIPID PANEL & DIRECT LDL (IF NEEDED) Routine 01/05/2011 9:05 AM HEALTH AND WELLNESS DIRECTOR Other and unspecified hyperlipidemia (HRC) from Last 3 Months or Most Recently Relevant to Health Maintenance Results * Lipid Panel and Direct LDL(If Needed) (01/05/2011 9:05 AM HEALTH AND WELLNESS DIRECTOR) Cholesterol 171 0 - 200 mg/dL HP CONVERSION Triglycerides 75 0 - 149 mg/dL HP CONVERSION HDL Cholesterol 54 >39 mg/dL HP CONVERSION Cholesterol/HDL Ratio Screen 3.2 HP CONVERSION LDL Calculated 102 19 - 130 mg/dL HP CONVERSION Hours Fasting 10 HP CONVERSION 01/05/2011 9:05 AM HEALTH AND WELLNESS DIRECTOR 01/05/2011 9:04 AM HEALTH AND WELLNESS DIRECTOR Narrative HP CONVERSION - 01/05/2011 9:50 AM HEALTH AND WELLNESS DIRECTOR Performed at [facility], [address] [place] [address] Tonia Damon MD LAB_1 Final Result HP CONVERSION from Last 3 Months or Most Recently Relevant to Health Maintenance Insurance MEDICARE MANAGED CARE [facility] [employer] MEDIC[employer] MANAGED CARE [facility] [employer] Care Teams Electrical Engineering Drafting Officer Relationship Specialty Start Date End Date Found, No Pcp, [address] [place] [address] PCP - General 10/22/21
--- OUTSIDE RECORDS SUMMARY | 2024-08-31 09:37 | XMS_ITS | Encounter Summary ---
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 Next Steps: Review pended order for accuracy. Sign. Route to frontline pool to schedule appt. Requested Prescriptions Pending Prescriptions Disp Refills ??? ketoconazole (NIZORAL) 2 % cream 60 g 0 Sig: Apply 1 Application topically daily (every 24 hours). OR FITTER * Elvie Olivarez - 10/11/2015 4:32 PM CDT [facility]. Please resend Rx if appropriate, thank you. OR FITTER documented in this encounter Plan of Treatment Not on file documented as of this encounter Visit Diagnoses Not on filedocumented in this encounter Care Teams Cold Rolling Machine Setter Relationship Specialty Start Date End Date Found, No MD Nathalie [address] [place] [address] PCP - General 10/22/21 documented as of this encounter
--- OUTSIDE RECORDS SUMMARY | 2024-08-31 09:37 | XMS_ITS | Data Portability ---
Author Organization [place] - [facility], [employer] Address [address] [facility] [place] [address] Assessment Encounter Date Assessment Date Assessment LastModified by Organization Details LastModified Time 07/12/2024 07/12/2024 For the diagnosi s of onycholysis with chronic onychomycosis of the left hallux, the decision was made to proceed with complete nail avulsion and chemical matrixectomy. This was based on the chronicity of symptoms, persistent pain, and failure of conservative measures. The risks, benefits, and alternatives were discussed, and the patient consented to the procedure. Post-procedure care instructions were provided, including daily foot soaks with Epsom salts or warm soapy water, application of topical ointment, and use of gauze and tape for dressing changes. The patient was advised to monitor for signs of infection, such as increasing redness or streaking, and to contact the office if these occur. Tylenol was recommended for post-procedure discomfort. For the issue of ill-fitting footwear and digital irritation, recommendations were made for shoes with a wide toe box but a more secure fit at the midfoot and heel. Specific brands and retailers were suggested, and the patient was encouraged to try shoes at home for proper fit. The use of custom orthotics was discussed, with plans to evaluate and potentially cast for new orthotics at the next visit. Regarding the floating 2nd dig R foot s/p prior hammer toe correction, this was noted but not addressed at this visit due to time constraints. Further evaluation and management will be considered at a future appointment. The patient was scheduled for a follow-up visit in two weeks for wound check and possible orthotic casting. PROCEDURES: Ingrown Nail Procedure: Prior to the start of the procedure, a TIME-OUT was performed to identify the nail border of the correct digit and foot (complete nail avulsion of right hallux). The toe was then prepped with alcohol and allowed to dry thoroughly. Local anesthesia (2% lidocaine without epinephrine, 3 mL) was then administered in a digital block fashion. Once adequate anesthesia was obtained, the toe was prepped with betadine and allowed to dry thoroughly. A tourniquet was applied for hemostasis. The entire nail plate was sharply excised from the remaining nail bed using a combination of a curette, British anvil, Burnett blade, and hemostat. No purulence was encountered. The nail fold was then inspected for any remaining spicules. Chemical matrixectomy was performed using phenol and rinsed with saline. Triple antibiotic ointment followed by a compressive dressing was applied to the digit and the tourniquet was released. The patient tolerated the procedure well. Post-procedure instructions were provided. guille Not available 07/12/2024 19:22:21 07/26/2024 07/26/2024 For the post P&A L [...] for orthotic fitting once the devices arrive. [email or web address] Not available 07/26/2024 15:15:39 08/14/2024 08/14/2024 For the discomfo rt to the R fifth toe with shoe irritation, the patient was advised that the current symptoms are likely due to shoe fit, particularly the width and shape of the toe box. Recommended to continue wearing the current shoes around the house for another week with new custom inserts to assess comfort. If symptoms persist, advised to consider shoes with a higher and wider toe box, such as the Altra, and to return for further evaluation or possible orthotic adjustment. The orthotic insert was inspected and found to be appropriately constructed; minor trimming was performed to improve fit. The patient was counseled that the orthotics should last 5 10 years with proper care. For ongoing use of custom foot orthotics, the patient was instructed on proper break-in procedures and advised to monitor for any new areas of discomfort. Follow-up was recommended in early September or sooner if symptoms worsen or if further orthotic adjustments are needed. guille Not available 08/15/2024 12:58:50 Plan of Treatment Reminders Order Date Submit Date Provider Last Modified By Organization Details Last Modified Time Details Appointments None recorded. Lab None recorded. Referral None recorded. Procedures excision of nail and nail matrix (PROC) 2024 025 [id number] Not available 19:22:43 Surgeries None recorded. Imaging None recorded. Medication Orders None recorded. Patient TargetsNo targets recorded. Patient InstructionsNo instructions recorded. Reason for Referral None Reported. Medical Equipment None Reported. Allergies Allergen ID Allergen Name Allergen Category Reaction Reaction Severity Criticality Documentation Date Start Date Code Code System Note Provider Name and Address Organization Details Recorded Time 87881 cefazolin medicatio n Not available Not available Not available 07/15/2024 2180 RxNorm BETH [facility] - [facility] 12:25:20 50647 hydrocodo ne Not available Not available Not available Not available 07/15/2024 5489 RxNorm BETH Goodman - [facility] 12:25:36 37003 hydromorp rolo medicatio n Not available Not available Not available 07/15/2024 3423 RxNorm Zari Albina null, [place] - [facility] 5 12:25:55 54045 propoxyph lilia medicatio n Not available Not available Not available 07/15/2024 8785 RxNorm Zari [place] null, [place] - [facility] 5 12:26:25 33958 Substance with sulfonami de structure and antibacte rial mechanism of action (substanc e) medicatio n Not available Not available Not available 07/15/2024 48509 8003 SNOMED Zari Albina null, [place] - [facility] 5 12:26:31 90806 codeine medicatio n Not available Not available Not available 07/15/2024 2670 RxNorm Zari [place] - [facility] 5 12:26:40 86100 adhesive environme nt,medica tion Not available Not available Not available 07/15/2024 57108 UNK Zari Alb[place] null[place] - [facility] 5 12:26:50 81726 gabapenti n medicatio n Not available Not available Not available 07/15/2024 75850 RxNorm Zari [place] - [facility] 5 12:27:00 20700 ibuprofen medicatio n Not available Not available Not available 07/15/2024 5640 RxNorm Zari [place] - [facility] 5 12:27:09 76755 influenza A (H1N1) medicatio n Not available Not available Not available 07/15/2024 99141 UNK Zari [place] - [facility] 5 12:27:28 38679 latex environme nt,medica tion Not available Not available Not available 07/15/2024 50478 91 RxNorm Zari [place] - [facility] 5 12:27:36 13078 nalbuphin e medicatio n Not available Not available Not available 07/15/2024 7238 RxNorm Zari [place] - [facility] 5 12:27:47 65906 rofecoxib medicatio n Not available Not available Not available 07/15/2024 44032 8 RxNorm Zari gibbs [place] [facility] 5 12:27:57 49020 morphine medicatio n Not available Not available Not available 07/15/2024 7052 RxNorm Zari gibbs [place] - [facility] [...] SNOMED-CT Code Diagnosis ICD10 Code Diagnosis Note 13029 KAHLIL SOL DPM [address] [address] 07/12/2024 09:08:56 07/15/2024 12:11:31 Onychomycosis due to dermatophyte 560440605 B35.1 Total time spent on the E/M service was 45 minutes, which included reviewing patient history, performing a medically appropriat e examinatio n, counseling the patient, and documentin g clinical informatio n. This time excludes any procedures or imaging potentiall y obtained during this visit. Onycholysis 14165562 L60 .1 Talipes planus 30892394 M21.41 M21.42 04098 KAHLIL SOL DPM [address] [address] 07/26/2024 08:59:42 07/26/2024 15:43:31 Onychomycosis due to dermatophyte 726650228 B35.1 Onycholysis 82824060 L60 .1 Talipes planus 70854226 M21.41 M21.42 16176 KAHLIL SOL DPM [place] [facility] [address] [place] [address] 08/14/2024 15:57:02 08/19/2024 10:38:44 Onychomycosis due to dermatophyte 466182614 B35.1 We discussed the function of the orthotic device to treat the patients condition and symptoms and help to place the foot in a more normal functionin g position in gait. The orthotic devices were dispensed and fitted into the shoes. These are foot inserts which are removable and molded to the patient model (UCBL type devices, [place] shell, L3000 right and L3000 left). At the time of dispenseme nt the custom made orthotic devices were suitable and not substandar d. The patient was able to apply the custom made orthotic devices and shoes correctly. They were able to ambulate without distress with use of the custom made orthotic devices with shoes. Proper shoe gear was again discussed. Onycholysis 81802791 L60 .1 Talipes planus 13462510 M21.41 M21.42 Health Concerns Section Related Observation LastModified by Organization Detai ls LastModified Time None Recorded Concern Status LastModified by Organization Details LastModified Time None Recorded Advance Directives Directive None Recorded Payers Insurance Date Sequence Insurance Name Policy Number Policy Zabala Covered Member ID Zabala Member ID Guarantor Name 08/22/2024 2 () Sheba Batista Hetneldaer [id number] Sheba Eliaschlcristian 08/22/2024 1 MEDICARE B-[place]: [employer] [facility] Sheba L Hetchler [id number] Sheba Eliaschler 08/22/2024 [employer] ASSIGNED (MEDICARE DME REGION B) Sheba L Hetchler [id number] Sheba Hetchler Notes Date Note Type Note Provider Name and Address Organization Details Recorded Time 07/12/2024 text/html The patient pres ents noting that the left hallux toenail has been lifting off for over three years. They describe the nail initially turning black, followed by persistent pain, stinging, and burning sensations that wake them at night. Attempts to manage the discomfort included applying topical antifungal medication (ketoconazole) between the nail and the toe, but this did not provide relief. The patient expresses concern about the risk of the nail catching on sheets at night and inquires about the possibility of removing the nail permanently. The patient also discusses ongoing difficulties with footwear. They have been placed in a 10.5 wide and then an 11 double wide shoe, but both sizes feel excessively large, causing instability and discomfort, particularly at the instep and with the right little toe. They express frustration with the current shoe recommendations and question the need for roll bar shoes and orthotics, noting that they have previously used custom orthotics but now rely on [id number] inserts due to insurance limitations. The patient does a significant amount of walking daily and is concerned about safety and comfort. Additional concerns include a history of a hammer toe correction on one toe, which has resulted in a floating R 2nd toe. The patient has tried using silicone toe protectors, but these do not stay in place. They are interested in receiving shoe and orthotic recommendations. KAHLIL SOL DPM [address] [place], [address], [facility] - [facility] 07/12/2024 19:22:52 07/26/2024 text/html The patient pres ents for [...] tenotomies for her deformities. KAHLIL SOL DPM [address] [place], [address], [facility] 07/26/2024 15:16:57 08/14/2024 text/html The patient pres ents today to obtain new custom inserts and with concerns regarding discomfort in the left foot, specifically describing a catching sensation along the lateral aspect and under the little toe when walking. They report that the issue is most noticeable with a new pair of Hoka shoes, which have been worn for about a week. The patient expresses appreciation for the wider fit of men s shoes and is open to suggestions for alternative footwear with a higher toe box if the current pair continues to cause issues. No other complaints are reported at this time. KAHLIL SOL DPM [address] [place], [address], [facility] 08/15/2024 12:59:21 OBGyn Episode No OBEpisode recorded.
--- OUTSIDE RECORDS SUMMARY | 2024-08-31 09:37 | XMS_ITS | Clinical Summary ---
Author Organization [facility] Address [address] [place] [address] Care Team Providers Care Apartment Maintenance Technician Name Role Phone Ness Somers MD Primary Care Provider [phone] Allergies Active Allergy Reactions Criticality Noted Date [...] 06/06/2006 PN: legs,feet Sulfasalazine Hives 05/10/2005 Medications ascorbic acid, vitamin C, (VITAMIN C) 500 mg tablet Take 500 mg by mouth. Active atorvastatin (LIPITOR) 10 mg tablet Take 10 mg by mouth once daily. 4 Active traZODone (DESYREL) 100 mg tablet Take 100 mg by mouth. 3 Active albuterol (PROVENTIL) 0.083 % neb solution Inhale 2.5 mg by mouth every 4 hours. 7 Active ketoconazole 2% topical (NIZORAL) cream Apply topically to affected area(s) once daily. 6 Active fexofenadine (VARGHESE) 180 mg tablet Take by mouth once daily. 0 Active albuterol (PROAIR RESPICLICK) 90 mcg/actuation INHALER Inhale 2 Puffs by mouth every 4 hours. 6 Active lisinopril (PRINIVIL; ZESTRIL) 2.5 mg tablet Take 2.5 mg by mouth once daily. 3 8 Active clindamycin (CLEOCIN) 300 mg capsule Take 1 capsule by mouth. Prior to dental procedures. 0 8 Active warfarin (COUMADIN) 6 mg tablet TAKE SUN:6 MG, MON: 6 MG, TU: 6 MG, WED: 3 MG, MICHELLE: 6 MG, FRI: 6 MG, SAT: 6 MG 0 9 Active TOVIAZ 4 mg Tb24 Extended-Releas e tablet Take 4 mg by mouth once daily. 3 9 Active diltiazem (CARDIZEM) 120 mg tablet Take 1 tablet by mouth one time if needed. For A-fib 5 Active Active Problems Problem Noted Date Diagnosed Date Posterior tibial tendon dysfunction 10/05/2017 Pronation of both feet 10/05/2017 EDEMA 04/13/2001 ASTHMA NOS 03/30/2001 HYPERTENSION - ESSENTIAL 03/30/2001 Immunizations Immunization Administration Dates Next Due Influenza, IIV3 (Age [...] Smokeless Tobacco: Never Tobacco Cessation:Counseling Given: Yes Comments No Sex and Gender Information Value Date Recorded Sex Assigned at Not on file Legal Sex Female 5:48 AM [employer] Gender Identity Not on file Sexual Orientation Not on file Obstetrics History Last Filed Vital Signs Vital Sign Reading Time Taken Comments Blood Pressure 132/75 12/05/2018 10:19 AM CDT to wer Pulse 65 12/05/2018 10:19 AM CDT Temperature 37.1 C (98.8 F) 01/09/2018 10:40 AM [employer] O[employer]ATOR Respiratory Rate - - Oxygen Saturation 99% 12/05/2018 10:19 AM CDT Inhaled Oxygen Concentration - - Weight - - Height - - Body Mass Index - - Plan of Treatment Health Maintenance Due Date Last Done Comments Tetanus booster 1960 Depression screening for age 12+ 1961 BMI (ht and wt on same day) for age 18+ 12/19/1967 Hepatitis C screening for age 18-79 12/19/1967 Pneumococcal series for age 50+ (1 of 2 - PCV) 1968 Colonoscopy through age 75 1994 Lipids for age 45-75 1994 Zoster (shingles) series for age 50+ (1 of 2) 12/19/1999 DEXA/DXA scan for age 65+ 2014 Medicare Wellness for age 65+ 2014 COVID-19 vaccine series ( season) 2023 11/16/2021, 12/22/2020, 05/08/2020, Additional history exists Mammogram for age 45-75 11/08/2023 11/08/19, 10/12/2021, 07/23/2020, Additional history exists Influenza Vaccine (#1) 2024 03/30/2001 RSV vaccine for adults or (1 - 1-dose 75+ series) 2024 Hepatitis B series for 19+ Aged Out N o longer eligible based on patient's age to complete [...] Bilateral Mammography Impressions 11/07/2022 2:04 PM CDT There is no radiographic evidence for malignancy. Recommend annual mammograms. MAMMOGRAM ASSESSMENT: ACR 1 Negative PATIENTS: You will also receive a letter with your examination results in an easy to read format. If you have questions about your results, please [...] care provider. XR MAMMO MADHURI BILAT SCREEN [[id number]] CLINICAL HISTORY: This is an asymptomatic 71 y.o. patient. INDICATION FOR EXAM: Mammogram Screening. TECHNIQUE: CC & MLO views were obtained. This study was evaluated with the assistance of Computer-Aided Detection. Breast Tomosynthesis was used in interpretation. COMPARISON FILM: Yes 10/12/21 [facility] 07/23/20 [facility] FINDINGS: The breasts have scattered areas of fibroglandular density. There are no dominant masses, suspicious micro calcifications or areas of architectural distortion. Ness Somers MD MAMMO Final Resu lt from Last 3 Months or Most Recently Relevant to Health Maintenance Insurance MEDICARE PART B HB ONLY MEDICARE PB ONLY MEDICARE PART A HB ONLY [facility] [place] [address] Care Teams Apartment Maintenance Technician Relationship Specialty Start Date End Date Ness Somers MD [address] [place] [address] PCP - General Internal Medicine 01/31/17
--- OUTSIDE RECORDS SUMMARY | 2024-08-31 09:37 | XMS_ITS | Continuity of Care Document ---
Author Organization [place] [facility] [place] [facility] Address [address] [facility] [address] [place] [address] Assessment Encounter Date Assessment Date Assessment LastModified by Organization Details LastModified Time 08/14/2024 08/14/2024 For the discomfort to the R fifth toe with shoe [...] Name and Address Organization Details Recorded Time cefazolin medicatio n Not available Not available Not available 07/15/2024 2180 RxNorm Zari Alb[place] null, [place] - [facility] 5 12:25:20 02243 hydrocodo ne Not available Not available Not available Not available 07/15/2024 5489 RxNorm Zari [place] - [facility] 5 12:25:36 79401 hydromorp rolo medicatio n Not available Not available Not available 07/15/2024 3423 RxNorm Zari [place] - [facility] 5 12:25:55 19036 propoxyph lilia medicatio n Not available Not available Not available 07/15/2024 8785 RxNorm Zari [place] - [facility] 5 12:26:25 69567 Substance with sulfonami de structure and antibacte rial mechanism of action (substanc e) medicatio n Not available Not available Not available 07/15/2024 56321 8003 SNOMED Zari Alb[place] null[place] - [facility] 5 12:26:31 14666 codeine medicatio n Not available Not available Not available 07/15/2024 2670 RxNorm Zari [place] [facility] 5 12:26:40 88684 adhesive environme nt,medica tion Not available Not available Not available 07/15/2024 83927 UNK Zari [place] null[place] - [facility] 5 12:26:50 73178 gabapenti n medicatio n Not available Not available Not available 07/15/2024 29119 RxNorm Zari [place] [facility] 5 12:27:00 82773 ibuprofen medicatio n Not available Not available Not available 07/15/2024 5640 RxNorm Zari [place] - [facility] 5 12:27:09 23224 influenza A (H1N1) medicatio n Not available Not available Not available 07/15/2024 92868 UNK Zari [place] - [facility] 5 12:27:28 83668 latex environme nt,medica tion Not available Not available Not available 07/15/2024 11669 91 RxNorm Zari [place] - [facility] 5 12:27:36 34066 nalbuphin e medicatio n Not available Not available Not available 07/15/2024 7238 RxNorm Zari [place] - [facility] 5 12:27:47 07853 rofecoxib medicatio n Not available Not available Not available 07/15/2024 17825 8 RxNorm Zari [place] - [facility] 5 12:27:57 87546 morphine medicatio n Not available Not available Not available 07/15/2024 7052 RxNorm Zari [place] - [facility] 12:28:05 Medications Name Sig Start Date Stop [...] SNOMED-CT Code Diagnosis ICD10 Code Diagnosis Note [id number] KAHLIL SOL DPM [address] [address] 07/26/2024 08:59:42 07/26/2024 15:43:31 Onychomycosis due to dermatophyte 092274841 B35.1 Onycholysis 85312614 L60 .1 Talipes planus 55601032 M21.41 M21.42 22689 KAHLIL SOL DPM [place] [facility] [address] [place] [address] [address] [place] [address] 08/14/2024 15:57:02 08/19/2024 10:38:44 Onychomycosis due to dermatophyte 119506307 B35.1 We discussed the function of the orthotic device to treat the patients condition and symptoms and help to place the foot in a more normal functionin g position in gait. The orthotic devices were dispensed and fitted into the shoes. These are foot inserts which are removable and molded to the patient model (UCBL type devices, Empire shell, L3000 right and L3000 left). At the time of dispenseme nt the custom made orthotic devices were suitable and not substandar d. The patient was able to apply the custom made orthotic devices and shoes correctly. They were able to ambulate without distress with use of the custom made orthotic devices with shoes. Proper shoe gear was again discussed. Onycholysis 78608107 L60 .1 Talipes planus 85478109 M21.41 M21.42 Health Concerns Section Related Observation LastModified by Organization Detai ls LastModified Time None Recorded Concern Status LastModified by Organization Details LastModified Time None Recorded Payers Encounter Date Sequence Insurance Name Policy Number Policy Zabala Covered Member ID Zabala Member ID Guarantor Name 08/14/2024 2 () Sheba L Hetchler [id number] Sheba Hetchler 08/14/2024 1 MEDICARE B-[place]: [id number] [facility] Sheba L Hetchler [id number] Sheba Hetchler Notes Date Note Type Note Provider Name and Address Organization Details Recorded Time 08/14/2024 text/html The patient presents today to obtain new custom inserts and [...] at this time. KAHLIL SOL DPM [address] [place], [address], [facility] - [facility] 08/15/2024 12:59:21 OBGyn Episode No OBEpisode recorded.
[2024-08-31 09:38] VITALS: BP 198/78; PULSE 79; RESP 18; TEMP 36; O2SAT 97; BMI 34.5
--- NOTE | 2024-08-31 10:02 | ED_ITS ---
HPI - Eye Problem General Time Seen by Provider: 10:03 Date Seen: 08/31/24 Chief complaint: Eye Problems Stated complaint: flashing lights in eyes Time Seen by Provider: 08/31/24 10:02 Source: patient and RN notes reviewed Mode of arrival: ambulatory Limitations: no limitations History of Present Illness HPI Narrative: This 73-year-old female is coming into the ER with concern of left visual changes. She has had a history of floaters in the left eye. This past week she was having episodes of flashing lights in the left eye. She has a remote history of visual migraines with visual changes without the headache. She has had no headache. She thought maybe she was just having visual migraines again although she has not had any for decades. She is known to have a right macular pucker which she states is getting better. She has had bilateral cataract surgery in the past. She notes no eye pain but today she has started noticing strings in her vision. Looking out the windshield she saw be black spots that she thought were water drops on the windshield, if she closed her left eye a they went away, had normal right eye monocular vision. The left eye she saw the spots again, if she looks around she sees strings in her vision. There is no complete visual loss at this time. She is anticoagulated with Coumadin, had an INR on August 19 of 2.2. Her indication is paroxysmal atrial fibrillation. She did try some Tylenol thinking that this could be an ocular migraine but it did not change any of the visual symptoms. chief complaint: vision change Related Data Home Medications ?Medication ?Instructions ?Recorded ?Confirmed acetaminophen 500 mg tablet 1,000 mg PO HS 10/28/21 ascorbic acid (vitamin C) 500 mg 500 mg PO DAILY 10/2807/26/24 tablet betamethasone dipropionate 0.05 % 1 applic topical .Q2 4-48H 10/28/21 07/26/24 topical ointment cholecalciferol (vitamin D3) 25 1,000 unit PO BID 10/1407/26/24 mcg (1,000 unit) tablet clobetasol 0.05 % topical gel 1 applic topical BID 07/26/24 fexofenadine 180 mg tablet 180 mg PO HS 10/26/2307/26 trazodone 100 mg tablet 100 - 150 mg PO QHS insomnia 10/26/23 07/26/24 Previous Rx's ?Medication ?Instructions ?Recorded ketoconazole 2 % topical cream 1 applic topical QDAY # 30 grams 11/03/21 albuterol sulfate 2.5 mg/3 mL 2.5 mg (3 mL) inhalation Q6H PRN 02/05/23 (0.083 %) solution for nebulization bronchospasm #75 m L albuterol sulfate 90 mcg/actuation 1 inh inhalation Q6 H PRN shortness 02/05/23 aerosol inhaler of breath or wheezing #6.7 g isabel diltiazem HCl 120 mg 120 mg PO QDAY atrial fibril lation 10/26/23 capsule,extended release 24 hr, #90 caps controlled amlodipine 5 mg tablet 5 mg PO QDAY #90 tabs atorvastatin 20 mg tablet 20 mg PO HS #90 tabs 4 chlorthalidone 25 mg tablet 25 mg PO DAILY #90 tabs potassium chloride 20 mEq 20 meq PO BID #180 tabs 10/15 05/06 tablet,extended release trazodone 100 mg tablet 200 mg (2 x 100 mg) PO QDAY #180 11/06/23 tabs tramadol 50 mg tablet 50 mg PO Q8H PRN pain #30 ta bs 12/14/23 solifenacin 5 mg tablet 5 mg PO DAILY #90 tabs 04/25 warfarin 6 mg tablet See Rx Instructions PO .COMP ANGELITA 08/20/24 #72 tabs Allergies Allergy/AdvReac Type Severity Reaction Status Date / Time cefazolin Allergy Severe Verified 08/31/24 09:45 hydrocodone Allergy Severe Vomiting Verified 08/31/24 09:45 hydromorphone Allergy Severe Nausea Verified 08/31/24 09:45 propoxyphene Allergy Severe Difficulty Verified 08/31/24 09:45 Breathing Sulfa (Sulfonamide Allergy Severe Hives Verified 08/31/24 09:45 Antibiotics) codeine Allergy Intermediate Diarrhea Verified 08/31/24 09:45 adhesive Allergy Mild Unknown Verified 08/31/24 09:45 gabapentin Allergy Mild Unknown Verified 08/31/24 09:45 ibuprofen Allergy Mild Abdominal Verified 08/31/24 09:45 Pain influenza A (H1N1) virus Allergy Mild edema Verified 08/31/24 09:45 vaccine m-opal-split 2008 (From influenza A (H1N1)) latex Allergy Mild Rash Verified 08/31/24 09:45 nalbuphine Allergy Mild Unknown Verified 08/31/24 09:45 rofecoxib Allergy Mild Verified 08/31/24 09:45 morphine AdvReac Severe Vomiting Verified 08/31/24 09:45 oxycodone AdvReac Mild Diarrhea Verified 08/31/24 09:45 penicillin V AdvReac Mild Diarrhea Verified 08/31/24 09:45 Review of Systems Status of ROS: Reports: 6 or more systems reviewed and unremarkable except as noted in History and below PFSH [facility] Medical History History of renal calculi ?Z87.442 - Personal history of urinary calculi (ICD-10) Surgical History S/P left rotator cuff repair (11/01/23) ?Z98.890 - Other specified postprocedural states (ICD-10) History of arthroscopy of right shoulder (01/22/20) ?Z98.890 - Other specified postprocedural states (ICD-10) History of total knee replacement ?Z96.659 - Presence of unspecified artificial knee joint (ICD-10) History of total abdominal hysterectomy and bilateral salpingo-oophorectomy (2003) ?Z90.710 - Acquired absence of both cervix and uterus (ICD-10) ?Z90.722 - Acquired absence of ovaries, bilateral (ICD-10) ?Z90.79 - Acquired absence of other genital organ(s) (ICD-10) History of thumb surgery (2013) ?Z98.890 - Other specified postprocedural states (ICD-10) History of foot surgery (06/22/11) ?Z98.890 - Other specified postprocedural states (ICD-10) Family History Father FH: colonic polyps Mother FH: colonic polyps Social History Narrative: Lives independently with her who has dementia and parkinson's disease. Denies tobacco or alcohol use. What is your current living situation?: I presently have a place to live Problems where you live: no known problems Problems where you live details: none In the past 12 months, utilities in danger of being shut off: no In past 12 months, lack of transportation kept you from medical appts, meetings, work, or getting things needed for daily living: yes In the past 12 mos, have been you worried that your food would run out before you had money to buy more?: never true In the past 12 mos, the food you bought just didn't last and you didn't have money to buy more?: never true Smoking Status: Never smoker Do you use any of these nicotine containing products: None How often do you have a drink containing alcohol: never How often do you have six or more drinks on one occasion: Never AUDIT-C Alcohol total score: 0 Non-prescribed substance use: denies use Caffeine: Yes (coffee) How often does anyone, including family, friends and others, physically hurt you : never How often does anyone, including family, friends and others, insult or talk down to you: sometimes How often does anyone, including family, friends and others, threaten you with harm: never How often does anyone, including family, friends and others, scream or curse at you: fairly often Are you using contraception or practicing any form of control: No service: No Health Related Social Needs: transportation insecurity (Z59.82) and Other p ersonal risk factors, not elsewhere classified (Z91.89) Exam Const: Vital Signs, click to edit/add: Vital Signs - 24 hr 08/31/24 09:38 08/31/24 11:07 Temperature 96.8 F L 97.1 F L Pulse Rate [Right Pulse Oximeter] 79 64 Respiratory Rate 18 17 Blood Pressure [Ri ght Upper Arm] 198/78 H 153/75 H Pulse Oximetry 97 97 Oxygen Delivery Me thod Room Air Room Air This 73-year-old female is alert, interactive, no apparent distress. Ambulatory into the ED of her own accord. Pupils are equal round, limited reactivity with light but they are both small pupils baseline, maybe about 2-3 mm each. Extraocular muscles intact, symmetrical facial function. No jugular venous distension, no neck masses. Lungs are clear, good air entry, no wheezing or crackles, no tachypnea, no accessory muscle use. CV regular rate and rhythm, no significant murmur, normal S1-S2. Documenting provider has reviewed patient's vital signs: yes Course Course ED Course: She does see [facility] for her I services, will call them now. Given that she is on anticoagulation, will get a head CT noncontrast. I am concerned that this actually is retinal pathology. She understands that I cannot evaluate that further here, micro computer specialist may need to see her. Will get the head CT to rule out intracranial bleeding as a potential causative pathology. However, highly doubt this from her presentation but is not inappropriate to make sure head CT is looking normal. Reevaluation(s) Time of Reevaluation #1: 10:49 Reevaluation #1: Did provide patient with a copy of her head CT result, this is normal. [facility] is on vacation, there is no provider to talk to. We did talk to optometry through [facility], Dr. Oscar, the nursing staff did talk to him, with the flashing lights and age over 69, he thought that this was likely age related changes and not retinal pathology. He wanted patient to follow up on Monday for a full examination and to obtain pictures. Reviewed with patient that I am going to touch base with [facility], talk to the ED provider regarding her case. I still am concerned about retinal pathology and would just like to run this by another provider to make sure that she is indeed safe to await until next week. Consultations Consultation #1: Did talk with Ophthalmology on-call at [facility]. They are only unfortunately open to cord trauma but she does agree that patient needs to be evaluated further. Did review this with patient, she did let me know that she has been seen in Ophthalmology at [place] before. The poultry husbandry worker's did state the flashes, strands or strings could be indicative of a vitreous hemorrhage, detachment, could be retinal issues or vitreal issues leading to retinal issues. Time: 11:46 Consultation #2: Have spoken with Yaquelin MOELLER in [facility]. She is going to page the ophthalmology chief resident. 11:59 a.m.: Did speak with Dr. Yates chief resident in Ophthalmology. He is happy to see this patient. Yaquelin is going to need to converse with the ER. Upon talking to Dr. Jones in the ER, they have a protocol for flashes and floaters. If visual acuity, visual gallo by confrontation and pressures are okay, they have found these patients safe to follow-up. If her vision is worsening, he would recommend that she be seen. I did subsequently test her visual gallo, there is no visual field cut on gross confrontation, can identify 1 versus 2 fingers in all gallo. Her pressure was not elevated on the tonometer, had a reading of 11. Her visual acuity was 20/25 both eyes. Thus, she should be able to follow up outpatient on Monday. Time: 11:48 Vital Signs Vital signs: Initial Vital Signs Temperature 96.8 F L 08/31/24 09:38 Temperature Source Temporal Artery Scan 08/31/24 09:38 Pulse Rate 79 08/31/24 09:38 Pulse Rhythm Regular 08/31/24 09:38 Pulse Strength 3+ Normal 08/31/24 09:38 Respiratory Rate 18 08/31/24 09:38 Blood Pressure 198/78 H 08/31/24 09:38 Blood Pressure Mean 118 H 08/31/24 09:38 Blood Pressure Position Sitting 08/31/24 09:38 Pulse Oximetry 97 08/31/24 09:38 Oxygen Delivery Method Room Air 08/31/24 09:38 Vital Signs Temperature 96.8 F L 08/31/24 09:38 Pulse Rate 79 08/31/24 09:38 Respiratory Rate 18 08/31/24 09:38 Blood Pressure 198/78 H 08/31/24 09:38 Pulse Oximetry 97 08/31/24 09:38 Oxygen Delivery Method Room Air 08/31/24 09:38 Temperature 97.1 F L 08/31/24 11:07 Pulse Rate 64 08/31/24 11:07 Respiratory Rate 17 08/31/24 11:07 Blood Pressure 153/75 H 08/31/24 11:07 Pulse Oximetry 97 08/31/24 11:07 Oxygen Delivery Method Room Air 08/31/24 11:07 MDM - Eye Problem Imaging Data CT scan - head: Attestation: I have reviewed the pertinent imaging results. Radiologist's impression: Patient: BARON ANNE Facility:?[facility] Patient ID:?[id number] Site Patient ID:?[id number]. Site :?[id number] Study:?CT-Head without contrast-08/31/2024 10:32:38 AM Ordering Physician:Hilario Chatterjee Final Report: INDICATION: Left-sided visual changes. History of Coumadin use TECHNIQUE: Non-contrast CT of the head is submitted. Compared to prior study from April 12, 2017 FINDINGS: The ventricles, sulci and gyri are of normal size, shape and contour. Midline structures are centrally located. No convincing evidence of intra- or extra- axial fluid collections. IMPRESSION: 1. No radiographic evidence of acute intracranial abnormalities. Please note that all CT scans at this facility use dose modulation, iterative reconstruction, and/or weight-based dosing when appropriate to reduce radiation dose to as low as reasonably achievable. Dictated by Jax Hadley MD @ 08/31/2024 10:41:44 AM (Electronic Signature) Discharge Plan Discharge Clinical Impression: Visual disorder Patient Disposition: Home, Self-Care Condition: Stable Instructions: Blurred Vision (ED) Additional Instructions: If you have visual loss or worsening vision issues, recommend going to [facility] in [place] where you can be evaluated by Ophthalmology. Otherwise if symptoms are stable through the weekend, call [facility] on Monday to be seen. If you cannot get into [facility] on Monday, Dr. Oscar at [facility] should be contacted as he stated he would get you in for an appointment. Activity Level: Activity as Tolerated Prescriptions: No Action cholecalciferol (vitamin D3) 25 mcg (1,000 unit) tablet 1,000 unit PO BID betamethasone dipropionate 0.05 % ointment 1 applic topical .Q24-48H acetaminophen 500 mg tablet 1,000 mg PO HS clobetasol 0.05 % gel 1 applic topical BID Rx Instructions: APPLY SPARINGLY TO AFFECTED AREA - for oral lichen planus ascorbic acid (vitamin C) 500 mg tablet 500 mg PO DAILY fexofenadine 180 mg tablet 180 mg PO HS trazodone 100 mg tablet 100 - 150 mg PO QHS diltiazem HCl 120 mg capsule,ext.rel 24h degradable 120 mg PO QDAY Qty: 90 3RF Rx Instructions: as needed for atrial fibrillation episodes tramadol 50 mg tablet 50 mg PO Q8H PRN (Reason: pain) Qty: 30 0RF albuterol sulfate 90 mcg/actuation HFA aerosol inhaler 1 inh inhalation Q6H PRN (Reason: shortness of breath or wheezing) Qty: 6.7 5RF albuterol sulfate 2.5 mg /3 mL (0.083 %) solution for nebulization 2.5 mg inhalation Q6H PRN (Reason: bronchospasm) Qty: 75 2RF chlorthalidone 25 mg tablet 25 mg PO DAILY Qty: 90 3RF potassium chloride 20 mEq tablet extended release 20 meq PO BID Qty: 180 3RF amlodipine 5 mg tablet 5 mg PO QDAY Qty: 90 3RF atorvastatin 20 mg tablet 20 mg PO HS Qty: 90 3RF trazodone 100 mg tablet 200 mg PO QDAY Qty: 180 3RF ketoconazole 2 % cream 1 applic topical QDAY Qty: 30 11RF Patient Comments: for athletes foot solifenacin 5 mg tablet 5 mg PO DAILY Qty: 90 1RF warfarin 6 mg tablet See Rx Instructions PO .COMPLEX Qty: 72 0RF Protocol: Dose Management Condition: Monday Dose/Route: 3 mg Instruction: 0.5 x 6 mg tablets Condition: Monday Dose/Route: 6 mg Instruction: 1 x 6 mg tablet Condition: Monday Dose/Route: 6 mg Instruction: 1 x 6 mg tablet Condition: Monday Dose/Route: 3 mg Instruction: 0.5 x 6 mg tablets Condition: Dose/Route: 6 mg Instruction: 1 x 6 mg tablet Condition: Monday Dose/Route: 6 mg Instruction: 1 x 6 mg tablet Condition: Monday Dose/Route: 3 mg Instruction: 0.5 x 6 mg tablets Protocol Text: Adjustment Start Date: Monday08/20/24 INR Value: 2.2 INR Date: 08/19/24 Recheck Date: 09/17/24 Rx Instructions: 3mg Sun/Sat and 6mg ROW Follow Up/Referrals: Ness Somers MD [Primary Care Provider, Internal Medicine] Stand Alone Forms: [facility] Info Instructions
--- NOTE | 2024-08-31 10:07 | CRLHL7_ITS ---
For Patients: As a result of the Century Cures Act, medical imaging exams and procedure reports are released immediately into your electronic medical record. You may view this report before your referring provider. If you have questions, please contact your health care provider. INDICATION: Left-sided visual changes. History of Coumadin use TECHNIQUE: Non-contrast CT of the head is submitted. Compared to prior study from April 12, 2017 FINDINGS: The ventricles, sulci and gyri are of normal size, shape and contour. Midline structures are centrally located. No convincing evidence of intra- or extra-axial fluid collections. IMPRESSION: 1. No radiographic evidence of acute intracranial abnormalities. Please note that all CT scans at this facility use dose modulation, iterative reconstruction, and/or weight-based dosing when appropriate to reduce radiation dose to as low as reasonably achievable. Dictated by Jax Hadley MD @ 08/31/2024 10:41:44 AM (Electronically Signed)
[2024-08-31 11:07] VITALS: BP 153/75; PULSE 64; RESP 17; TEMP 36.2; O2SAT 97
== END 2024-08-31 12:52 | disposition home or self-care (01) ==
PROVIDERS: Emergency Provider Family Medicine; PCP Internal Medicine
DX: H53.8 Other visual disturbances (principal)
CPT/HCPCS: 70450; 99284

== ENCOUNTER 2024-11-07 08:41 | Outpatient (CLI) | payer MEDICARE, OTHER, SELFPAY | END 2024-11-07 08:42 | disposition home or self-care (01) | LOC: NFLDREF 11-11 03:58 | PROVIDERS: PCP Internal Medicine; Referring Provider Internal Medicine; Visit Provider Internal Medicine | DX: E78.5 Hyperlipidemia, unspecified (principal); I10 Essential (primary) hypertension; R73.03 Prediabetes; M85.80 Other specified disorders of bone density and structure, unspecified site; M81.0 Age-related osteoporosis without current pathological fracture | CPT/HCPCS: 80048; 80061; 82306 ==

== ENCOUNTER 2024-11-24 10:09 | Emergency (ER) | payer MEDICARE, OTHER, SELFPAY ==
--- OUTSIDE RECORDS SUMMARY | 2024-11-24 10:11 | XMS_ITS | Encounter Summary ---
Author Organization [facility] Address [address] [place] [id number] Care Team Providers Care Policy Loan Calculator Name Role Phone Ness Somers MD Unavailable [phone] Ike Tobar MD Unavailable [phone] No Ref-Primary, Physician Primary Care Provider Reason for Visit * Reason Onset Date Comments Appointment 09/05/2024 Encounter Details Date Type Department Care Team (Late st Contact Info) Description 09/05/2024 [facility] [place] [id number] [facility] [address] [place] [address] [phone] Ghanshyam Tabor MD [address] [place] [address] [phone] Appointment Social History Tobacco Use Types Packs/Day Years Used Date Smoking Tobacco: Never Smokeless Tobacco: Never Alcohol Use Standard Drinks/Week Comments Never 0 (1 standard drink = 0.6 oz pur e alcohol) PHQ-2 Answer Date Recorded PHQ-2 Score 0 09/03/2024 Adolescent Education Answer Date Record ed Getting School Help Needed Not on file 02/05 Comments Unknown Sex and Gender Information Value Date Recorded Sex Assigned at Not on file 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 Also, patient does not see the office visit with Dr. Tabor uploaded in [facility]; and she would like it uploaded. She states her after visit summary states she was given an Opioid but she was given Tylenol and she would like that corrected. Please call and/or send a [facility] message. Thank you. Action Taken: Message routed to: [facility] Ophthalmology Travel Screening: Not Applicable Date of Service: documented in this encounter Plan of Treatment Not on file documented as of this encounter Visit Diagnoses Not on filedocumented in this encounter Care Teams Policy Loan Calculator Relationship Specialty Start Date End Date No Ref-Primary, Physician PCP - General 08/31/24 Ness Somers MD [facility] [address] [address] Internal Medicine 06/04/15 Ike Tobar MD [address] [place] [id number] Orthopedics 06/04/15 documented as of this encounter
--- OUTSIDE RECORDS SUMMARY | 2024-11-24 10:11 | XMS_ITS | Encounter Summary ---
Author Organization [facility] Address [address] [place] [address] Care Team Providers Care Adult School Counselor Name Role Phone Ness Somers MD Unavailable [phone] Ike Tobar MD Unavailable [phone] No Ref-Primary, Physician Primary Care Provider Encounter Details Date Type Department Care Team (Late st Contact Info) Description 08/31/2024 [address] 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
--- OUTSIDE RECORDS SUMMARY | 2024-11-24 10:11 | XMS_ITS | Clinical Summary ---
Author Organization [facility] Address [address] [place] [address] Care Team Providers Care Business Systems Developer Name Role Phone Ness Somers MD Unavailable [phone] Ike Tobar MD Unavailable [phone] No Ref-Primary, Physician Primary Care Provider Allergies Active Allergy Reactions Criticality Noted Date Comments Cefazolin Unknown 09/03/2024 Codeine Diarrhea,Nausea and Vomiting,Unknown 06/06/2006 Gabapentin Unknown,Other (See Comments) 12/01/2010 PN: unknown Hydrocodone-Acetaminoph en Nausea and Vomiting 06/06/2006 Ibuprofen GI Disturbance,Unknown, Other (See Comments) 12/01/2010 Influenza Vaccines Swelling 12/01/2010 Latex Unknown,Rash Low 07/23/2010 Morphine Nausea and Vomiting,Unknown 06/06/2006 PN: no pain relief Nalbuphine Unknown,Other (See Comments) 06/06/2006 Penicillins Diarrhea 06/06/2006 Propoxyphene Unknown 09/03/2024 Rofecoxib Swelling,Unknown 06/06/2006 PN: legs,feet Sulfa Antibiotics Hives 05/10/2005 Wound Dressing Adhesive Other (See Comments) PN: red blisters Medications acetaminophen (OFIRMEV) SOLN infusion Active albuterol (PROAIR HFA/PROVENTIL HFA/VENTOLIN HFA) 108 (90 Base) MCG/ACT inhaler Inhale 2 puffs every 4 hours by inhalation route. Active Ascorbic Acid (ASCOR IV) Active amLODIPine (NORVASC) 5 MG tablet Active atorvastatin (LIPITOR) 20 MG tablet Active CHLORTHALIDONE PO Active cholecalciferol (VITAMIN D3) 10 mcg (400 units) TABS tablet Active clobetasol propionate (TEMOVATE) 0.05 % external cream APPLY A THIN LAYER TO THE AFFECTED AREA(S) BY TOPICAL ROUTE 2 TIMES PER DAY Active diltiazem (CARDIZEM) 120 MG tablet Active fexofenadine (VARGHESE) 30 MG ODT Active ketoconazole (NIZORAL) 2 % external cream APPLY TO THE AFFECTED AREA(S) BY TOPICAL ROUTE ONCE DAILY Active potassium chloride ER (K-TAB) 20 MEQ CR tablet TAKE 1 TABLET ORALLY TWICE A DAY Active solifenacin (VESICARE) 5 MG tablet Active traZODone HCl (RALDESY PO) Active Warfarin Sodium (JANTOVEN PO) Active ketorolac (ACULAR) 0.5 % ophthalmic solutionIndicat ions:Operculate d retinal tear of right eye Place 1 drop into the right eye daily. Please use 5 mL 2 Active Encounters Date Type Department Care Team Description 09/17/2024 2:30 PM CDT Office Visit [address] [phone] Cody Clemons MD Macher, Jared, MD Operculated retinal tear of right eye (Primary Dx); Posterior vitreous detachment of left eye; Posterior vitreous detachment of right eye 09/17/2024 Travel 09/14/2024 Travel 09/05/[address] [phone] Ghanshyam Tabor MD Appointment 09/03/2024 12:30 PM CDT Office Visit [address] [phone] Cody Clemons MD Macher, Jared, MD Operculated retinal tear of right eye (Primary Dx); Posterior vitreous detachment of left eye 09/03/2024 Travel 09/02/[address] [place] [address] Kristin Obando MD 08/31/2024 5:25 PM CDT Ancillary Procedure [facility] [address] [place] [phone] Ezra Cerda MD 08/31/2024 5:16 PM CDT - 08/31/2024 8:17 PM CDT Emergency [facility] Emergency Department [address] [place] [phone] Ezra Cedra MD Vitreous detachment of left eye Discharge Disposition: Home or Self Care 08/31/2024 Ophth Exam [facility] - Eye Care Service Line [address] [place] [phone] Kristin Obando MD 08/31/2024 Travel from Last 3 Months Family History Medical History Relation Comments Eye Surgery Father Eye Surgery Mother Eye Surgery Sister Glaucoma No family hx of Macular Degeneration No family hx of Retinal detachment No family hx of Relation Status Comments Father Mother Sister Social History Tobacco Use Types Packs/Day Years Used Date Smoking Tobacco: Never Smokeless Tobacco: Never Tobacco Cessation:Counseling Given: Not Answered Alcohol Use Standard Drinks/Week Comments Never 0 (1 standard drink = 0.6 oz pur e alcohol) PHQ-2 Answer Date Recorded PHQ-2 Score 0 09/03/2024 Adolescent Education Answer Date Record ed Getting School Help Needed Not on file 02/05 Comments Unknown Sex and Gender Information Value Date Recorded Sex Assigned at Not on file Legal Sex Female 3:10 AM LAY OUT FORMER Gender Identity Not on file Sexual Orientation Not on file Last Filed Vital Signs Vital Sign Reading Time Taken Comments Blood Pressure 152/88 08/31/2024 8:07 PM CDT Pulse 79 08/31/2024 5:09 PM CDT Temperature 36.7 C (98 F) 08/31/2024 5:09 PM CDT Respiratory Rate 16 08/31/2024 5:09 PM CDT Oxygen Saturation 98% 08/31/2024 5:09 PM CDT Inhaled Oxygen Concentration - - Weight 97.5 kg (215 lb) 08/31/2024 5:09 PM CDT Height 170.2 cm (5' 7) 08/31/2024 5:09 PM CDT Body Mass Index 33.67 08/31/2024 5:09 PM CDT Plan of Treatment Health Maintenance Due Date Last Done Comments ADVANCE CARE PLANNING 1950 ANNUAL REVIEW OF HM ORDERS 1949 CT COLONOGRAPHY 1950 DEXA 1950 FIT 1950 FLEX SIG 1950 LIPID 1950 sDNA (Cologuard) 1950 COLONOSCOPY 12/19/1959 COLORECTAL CANCER SCREENING 12/19/1959 HEPATITIS C SCREENING 12/19/1967 DIABETES SCREENING 03/07/2009 03/07/2006 FALL RISK ASSESSMENT 2014 MEDICARE ANNUAL WELLNESS VISIT 2014 PNEUMOCOCCAL VACCINE 50+ YEARS (2 of 2 - PCV) 09/24/2016 09/25/2015 COVID-19 VACCINE ( season) 2024 11/06/2023, 11/16/2021, 07/19/2021, Additional history exists INFLUENZA VACCINE (#1) 2024 12/14/2021, 2001 MAMMO SCREENING 11/07/2024 11/07/2022, 10/15, 10/12/2021, Additional history exists RSV VACCINE (1 - 1-dose 75+ series) 2024 DTAP/TDAP/TD VACCINE (3 - Td or Tdap) 09/01/2026 09/01/2016, 03/27/2006 ZOSTER VACCINE Completed 03/27/2020, 10/15, 11/21/2011 PHQ-2 (once per calendar year) Completed 09/03/2024 HPV VACCINE (No Doses Required) Completed MENINGITIS VACCINE Aged Out No longer eligible based on patient's age to complete this topic Procedures Procedure Name Priority Date/Time Associated Diagnosis Comments ULTRASOUND B-SCAN OD (RIGHT EYE) Routine 09/18/2024 8:07 AM CDT Operculated retinal tear of right eye FUNDUS PHOTOS OU (BOTH EYES) Routine 09/18/2024 8:07 AM CDT Operculated retinal tear of right eye OCT RETINA SPECTRALIS OU (BOTH EYE) Routine 09/18/2024 8:07 AM CDT Operculated retinal tear of right eye RETINOPEXY LASER PROPHYLAXIS BREAK(S) OD (RIGHT EYE) Routine 09/11/2024 9:03 AM CDT Operculated retinal tear of right eye POC US SOFT TISSUE STAT 08/31/2024 5: 24 PM CDT EKG 12-LEAD, TRACING ONLY STAT 08/31/2024 5:15 PM CDT BASIC METABOLIC PANEL STAT 03/07/2006 1:35 PM LAY OUT FORMER from Last 3 Months or Most Recently Relevant to Health Maintenance Results * Ultrasound B-scan OD (right eye) (09/18/2024 8:07 AM CDT) Narrative Emeak Gao MD - 09/18/2024 8:07 AM CDT Performed by: TLT . Patient cooperation: Reliable . Interval: Initial . Notes Vitreous debris. No new breaks or tears. us Ghanshyam Tabor MD OPHTHALMOLOGY Final Result * Fundus Photos OU (both eyes) (09/18/2024 8:07 AM CDT) Emeka Mccoy MD - 09/18/2024 8:07 AM CDT Performed by: o . Right Eye Reliability of the test: Good . Plan: Monitor . Left Eye Reliability of the test: Good . Plan: Monitor . Notes Right eye: garvin ring, temporal well demarcated operculated hole, 2 DBH's extending posteriorly beyond laser, no fluid outside of lasered area Left eye: garvin ring, no breaks, tears, orheme Fundus photos consistent with exam and sufficient for monitoring us Ghanshyam Tabor MD OPHTHALMOLOGY Final Result * OCT Retina Spectralis OU (both eyes) (09/18/2024 8:07 AM CDT) Emeka Mccoy MD - 09/18/2024 8:07 AM CDT Performed by: sd . Notes Right eye: Retinal thickening in comparison to left eye, ? trace cysts Left eye: normal foveal contour, no IRF/SRF Ghanshyam Tabor MD OPHTHALMOLOGY Final Result * Laser retinopexy for retinal tear OD (right eye) (09/11/2024 9:03 AM CDT) Narrative Cody Clemons MD - 09/11/2024 9:03 AM CDT Operculated hole, right eye - Laser retinopexy today - See procedure note below Pre-operative diagnosis: Post-operative diagnosis: same. Procedure performed: Laser retinopexy Anesthesia: Topical proparacaine 0.5% drops Complications: None. Description of the procedure: Informed consent was obtained from the patient. The patient was brought to the laser room where argon laser was applied to the retina. Parameters: -Lens: quad -Spot size: 200 microns -Power: 200-280 mW -Duration: 50 ms -Total spots: 84 The patient tolerated the procedure well but developed a headache post-procedure. There was slight bleeding from a branch vessel noted during the procedure. The patient left the clinic in stable condition. Cody Clemons MD OPHTHALMOLOGY Final Result * POC US SOFT TISSUE (08/31/2024 5:24 PM CDT) Anatomical Region Laterality Modality Other Impressions 08/31/2024 5:24 PM CDT Limited Bedside ED Ultrasound for Ocular complaints: PROCEDURE: PERFORMED BY: Dr. Ezra Cerda MD INDICATIONS/SYMPTOM: floaters and flashes of light PROBE: High frequency linear probe FINDINGS: Left eye: Optic nerve sheath diameter: 4 mm Lens location: Normal Posterior edge: mobile line along posterior edge that crosses the retinal nerve Posterior chamber hemorrhage: Present Intraocular foreign body: Absent INTERPRETATION: Likely vitreous detachment with hemorrhage. The optic nerve sheath diameter indicated no increased ICP. The lens location and retina appeared normal. No foreign bodies seen. IMAGE DOCUMENTATION: Images were archived to PACs system. Ezra Cerda MD IMG POCUS Final R esult * EKG 12-lead, tracing only (08/31/2024 5:15 PM CDT) Systolic Blood Pressure mmHg RADIOLOGY RESULTS Diastolic Blood Pressure mmHg RADIOLOGY RESULTS Ventricular Rate 90 BPM RAD IOLOGY RESULTS Atrial Rate 90 BPM RADIOLOG Y RESULTS [place] Interval 148 ms RADIOLOG Y RESULTS QRS Duration 90 ms RADIOLO GY RESULTS QT 390 ms RADIOLOGY RESULTS QTc 477 ms RADIOLOGY RESULTS P [place] 74 degrees RADIOLOGY RESULTS R AXIS 9 degrees RADIOLOGY RESULTS T [place] 41 degrees RADIOLOGY RESULTS Interpretation ECG Sinus rhythm Normal ECG Unconfirmed report - interpretation of this ECG is computer generated - see medical record for final interpretation Confirmed by - EMERGENCY ROOM, PHYSICIAN ([id number]), senior technical editor Kourtney Munoz ([id number]) on 09/03/2024 9:38:51 AM RADIOLOGY RESULTS 08/31/2024 5:15 PM CDT 09/03/2024 9:38 AM CDT Ezra Cerda MD ECG ORDERABLES Edited Result - Final RADIOLOGY RESULTS * Basic metabolic panel (03/07/2006 1:35 PM LAY OUT FORMER) Sodium 139 133 - 144 mmol/L MISYS Potassium 3.8 3.4 - 5.3 mmol/L M[facility]YS Chloride 101 94 - 109 mmol/L MISYS Carbon Dioxide 30 20 - 32 mmol/L MISYS Glucose 101 60 - 110 mg/dL MISYS Urea Nitrogen 17 7 - 30 mg/dL M[facility]YS Creatinine 0.66 0.60 - 1.30 mg/dL M[facility]YS GFR Estimate >90 >60 mL/min/1.7 m2 MISYS GFR Estimate If Black >90 >60 mL/min/1.7 m2 MISYS Comment: Stages of Chronic Kidney Disease Stage 1: GFR 90 or greater and other evidence of kidney damage* Stage 2: GFR 60-89 and other evidence of kidney damage * Stage 3: GFR 30-59 Stage 4: GFR 15-29 Stage 5: GFR less than 15 or dialysis *Chronic kidney disease is defined as kidney damage or GFR less than 60 mL/min/1.73 m2 for three months or greater. Kidney damage is defined as pathologic abnormalities or markers or damage, including abnormalities in blood or urine tests or imaging studies. Calcium 9.9 8.5 - 10.4 mg/dL MISYS Anion Gap 8 6 - 17 mmol/L MISYS 03/07/2006 1:35 PM LAY OUT FORMER 03/07/2006 1:17 PM LAY OUT FORMER us Rai Teran MD LAB - BLOOD ORDERABLES Final R esult MISYS from Last 3 Months or Most Recently Relevant to Health Maintenance Insurance MEDICARE [facility] [place] [place] [address] MEDIC[place] [address] Care Teams Business Systems Developer Relationship Specialty Start Date End Date No Ref-Primary, Physician PCP - General 08/31/24 Ness Somers MD [address] [address] Internal Medicine 06/04/15 Ike Tobar MD [address] [place] [address] [address] [place] [address] Orthopedics 06/04/15
--- OUTSIDE RECORDS SUMMARY | 2024-11-24 10:11 | XMS_ITS | Encounter Summary ---
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 Next Steps: Review pended order for accuracy. Sign. Route to frontline pool to schedule appt. Requested Prescriptions Pending Prescriptions Disp Refills ??? ketoconazole (NIZORAL) 2 % cream 60 g 0 Sig: Apply 1 Application topically daily (every 24 hours). HELICOPTER PILOT * Elvie Olivarez - 10/11/2015 4:32 PM CDT [facility]. Please resend Rx if appropriate, thank you. HELICOPTER PILOT documented in this encounter Plan of Treatment Not on file documented as of this encounter Visit Diagnoses Not on filedocumented in this encounter Care Teams Feather Separator Relationship Specialty Start Date End Date Found, No MD Nathalie [address] [place] [address] PCP - General 10/22/21 documented as of this encounter
--- OUTSIDE RECORDS SUMMARY | 2024-11-24 10:11 | XMS_ITS | Clinical Summary ---
Author Organization [facility] Address [address] [place] [address] Care Team Providers Care Honeycomb Decapper Name Role Phone Found, No Pcp MD [...] for each transition of care or referral. 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 on file Not on file Last Filed Vital Signs Vital Sign Reading Time Taken Comments Blood Pressure 136/82 12/05/2017 2:20 PM CDT Pulse 96 12/05/2017 2:20 PM CDT Temperature 37.1 C (98.8 F) 03/13/2008 10:12 AM RETREAD SUPERVISOR ORAL C: 37.1 C Respiratory Rate 18 10/02/2007 4:46 PM CDT Oxygen Saturation 97% 12/05/2017 2:2 0 PM CDT Inhaled Oxygen Concentration - - Weight 97.5 kg (215 lb) 01/26/2016 1:31 PM RETREAD SUPERVISOR Height 172.7 cm (5' 8) 01/26/2016 1:31 PM RETREAD SUPERVISOR Body Mass Index 32.69 01/26/2016 1:31 PM RETREAD SUPERVISOR Plan of Treatment Health Maintenance Due Date Last Done Comments Colon Cancer Screening Plan Due 1950 Hep C Screening (Preventive Services) 1950 Medicare Annual Wellness Visit 1950 Dexa 2014 Cholesterol 01/06/2016 01/05/2011, 1005/2010, 04/07/2009, Additional history exists Pneumococcal Vaccine 50+ Yrs (2 of 2 - PCV) 09/24/2016 09/25/2015 Mammogram 07/23/2021 07/23/2020, 01/13, 02/09/2018 COVID-19 Vaccine (3 - 2024- season) 2024 05/08/2020, 04/17/2020 Influenza Vaccine (#1) 2024 03/30/2001 [...] LDL (IF NEEDED) Routine 01/05/2011 9:05 AM RETREAD SUPERVISOR Other and unspecified hyperlipidemia (HRC) from Last 3 Months or Most Recently Relevant to Health Maintenance Results * Lipid Panel and Direct LDL(If Needed) (01/05/2011 9:05 AM RETREAD SUPERVISOR) Cholesterol 171 0 - 200 mg/dL HP CONVERSION Triglycerides 75 0 - 149 mg/dL HP CONVERSION HDL Cholesterol 54 >39 mg/dL HP CONVERSION Cholesterol/HDL Ratio Screen 3.2 HP CONVERSION LDL Calculated 102 19 - 130 mg/dL HP CONVERSION Hours Fasting 10 HP CONVERSION 01/05/2011 9:05 AM RETREAD SUPERVISOR 01/05/2011 9:04 AM RETREAD SUPERVISOR Narrative HP CONVERSION - 01/05/2011 9:50 AM RETREAD SUPERVISOR Performed at [facility], [address] [place] [address] Tonia Damon MD LAB_1 Final Result HP CONVERSION from Last 3 Months or Most Recently Relevant to Health Maintenance Insurance MEDICARE MANAGED [facility] [place] [facility] [facility] [place] [facility] Care Teams Honeycomb Decapper Relationship Specialty Start Date End Date Found, No Pcp, [address] [place] [address] PCP - General 10/22/21
--- OUTSIDE RECORDS SUMMARY | 2024-11-24 10:11 | XMS_ITS | Clinical Summary ---
Author Organization [facility] Address [address] [place] [address] Care Team Providers Care Nail Setter Name Role Phone Ness Somers MD Primary Care Provider [phone] Allergies Active Allergy Reactions Criticality Noted Date [...] on file Legal Sex Female 5:48 AM SPOOLER OPERATOR AUTOMATIC Gender Identity Not on file Sexual Orientation Not on file Obstetrics History Last Filed Vital Signs Vital Sign Reading Time Taken Comments Blood Pressure 132/75 12/05/2018 10:19 AM CDT to wer Pulse 65 12/05/2018 10:19 AM CDT Temperature 37.1 C (98.8 F) 01/09/2018 10:40 AM SPOOLER OPERATOR AUTOMATIC Respiratory Rate - - Oxygen Saturation 99% [...] Hepatitis C screening for age 18-79 12/19/1967 Colonoscopy through age 75 1994 Lipids for age 45-75 1994 Pneumococcal series for age 50+ (1 of 1 - PCV) 12/19/1999 Zoster (shingles) series for age 50+ (1 of 2) 12/19/1999 DEXA/DXA scan for age 65+ 2014 Medicare Wellness for age 65+ 2014 Mammogram for age 45-75 11/08/2023 11/08/19, 10/12/2021, 07/23/2020, Additional history exists COVID-19 vaccine series (2024- season) 2024 11/16/2021, 12/22/2020, 05/08/2020, Additional history exists Influenza Vaccine (#1) 2024 [...] care provider. XR MAMMO MADHURI BILAT SCREEN [[id number]] CLINICAL HISTORY: This is an asymptomatic 71 [...] PB ONLY MEDICARE PART A HB [place] [place] [address] Care Teams Nail Setter Relationship Specialty Start Date End Date Ness Somers MD [address] [place] [address] PCP - General Internal Medicine 01/31/17
--- OUTSIDE RECORDS SUMMARY | 2024-11-24 10:11 | XMS_ITS | Data Portability ---
Author Organization [place] - [facility], [employer] Address [address] [facility] [place] [address] Assessment Encounter Date Assessment Date Assessment LastModified [...] bed using a combination of a curette, Maori anvil, [place] blade, and hemostat. No purulence was encountered. [...] counseled that the orthotics should last 5 1 0 years with proper care. For ongoing use [...] Name and Address Organization Details Recorded Time 94895 cefazolin medicatio n Not available Not available Not available 07/15/2024 2180 RxNorm BETH Goodman - [facility] 12:25:20 92083 hydrocodo ne Not available Not available Not available Not available 07/15/2024 5489 RxNorm BETH Goodman - [facility] 12:25:36 30607 hydromorp rolo medicatio n Not available Not available Not available 07/15/2024 3423 RxNorm Zari Albina null, [place] - [facility] 5 12:25:55 03161 propoxyph lilia medicatio n Not available Not available Not available 07/15/2024 8785 RxNorm Azri Alb[place] null, [place] - [facility] 5 12:26:25 16228 Substance with sulfonami de structure and antibacte rial mechanism of action (substanc e) medicatio n Not available Not available Not available 07/15/2024 60816 8003 SNOMED Zari Albina null, [place] - [facility] 5 12:26:31 12087 codeine medicatio n Not available Not available Not available 07/15/2024 2670 RxNorm Zari [place] - [facility] 5 12:26:40 81432 adhesive environme nt,medica tion Not available Not available Not available 07/15/2024 Zari [place] - [facility] 5 12:26:50 49826 gabapenti n medicatio n Not available Not available Not available 07/15/2024 62545 RxNorm Zari [place] - [facility] 5 12:27:00 03288 ibuprofen medicatio n Not available Not available Not available 07/15/2024 5640 RxNorm Zari [place] - [facility] 5 12:27:09 10155 influenza A (H1N1) medicatio n Not available Not available Not available 07/15/2024 Zari [place] - [facility] 5 12:27:28 56322 latex environme nt,medica tion Not available Not available Not available 07/15/2024 79033 91 RxNorm Zari [place] - [facility] 5 12:27:36 67799 nalbuphin e medicatio n Not available Not available Not available 07/15/2024 7238 RxNorm Zari [place] - [facility] 5 12:27:47 45375 rofecoxib medicatio n Not available Not available Not available 07/15/2024 48393 8 RxNorm Zari Albina [place], [place] - [facility] 12:27:57 53506 morphine medicatio n Not available Not available Not available 07/15/2024 7052 RxNorm Zari [place], [place] - [facility] [...] Diagnosis SNOMED-CT Code Diagnosis ICD10 Code Diagnosis IMO Codes Diagnosis Note 11429 KAHLIL SOL DPM [address] [address] 07/12/2024 09:08:56 07/15/2024 12:11:31 Onychomycosis due to dermatophyte [id number] B35.1 11438 Total time spent on the E/M service was 45 minutes, which included reviewing patient history, performing a medically appropriat e examinatio n, counseling the patient, and documentin g clinical informatio n. This time excludes any procedures or imaging potentiall y obtained during this visit. Onycholysis [id number] L60 .1 1041 Talipes planus [id number] M21.41 M21.42 [id number] 71348 KAHLIL SOL DPM [address] [address] 07/26/2024 08:59:42 07/26/2024 15:43:31 Onychomycosis due to dermatophyte [id number] B35.1 20911 Onycholysis 79162821 L60 .1 1041 Talipes planus [id number] M21.41 M21.42 [id number] 46498 KAHLIL SOL DPM [facility] [address] [place] [address] [place] [address] 08/14/2024 15:57:02 08/19/2024 10:38:44 Onychomycosis due to dermatophyte [id number] B35.1 18678 We discussed the function of the orthotic device to treat the patients condition and symptoms and help to place the foot in a more normal functionin g position in gait. The orthotic devices were dispensed and fitted into the shoes. These are foot inserts which are removable and molded to the patient model (UCBL t ype devices, Niobrara shell, L3000 right and L3000 left). At the time of dispenseme nt the custom made orthotic devices were suitable and not substandar d. The patient was able to apply the custom made orthotic devices and shoes correctly. They were able to ambulate without distress with use of the custom made orthotic devices with shoes. Proper shoe gear was again discussed. Onycholysis 60418029 L60 .1 1041 Talipes planus [id number] M21.41 M21.42 [id number] Health Concerns Section Related Observation LastModified by Organization Detai ls LastModified Time None Recorded Concern Status LastModified by Organization Details LastModified Time None Recorded Advance Directives Directive None Recorded Payers Insurance Date Sequence Insurance Name Policy Number Policy Zabala Covered Member ID Zabala Member ID Guarantor Name 08/22/2024 2 () Sheba Lyle [id number] Sheba Lyle 08/22/2024 1 [place]IC[place]: [facility] Sheba Batista Hetchler [id number] Sheba Eliaschler 08/22/2024 [employer] - DMEPOS ASSIGNED (MEDICARE DME REGION B) Sheba L Hetchler [id number] Sheba Lyle Notes Date Note Type Note Provider Name and Address Organization Details Recorded Time 07/12/2024 text/html The patient presents noting that the left hallux toenail has [...] used custom orthotics but now rely on [id number] inserts due to insurance limitations. The patient [...] shoe and orthotic recommendations. KAHLIL SOL DPM [address] [place], [address], [facility] 07/12/2024 19:22:52 07/26/2024 text/html The patient presents for follow-up regarding a recent P&A to [...] orthotics, mentioning previous pairs that were unsatisfactory o ne required frequent repairs and the other was [...] toes. The patient is aware of their c law feet and notes that their toes are more contracted and rigid rather than flexible. They mention a family history of similar foot issues. Is interested in possible flexor tenotomies for her deformities. KAHLIL SOL DPM [address] [place], [address], [facility] 07/26/2024 15:16:57 08/14/2024 text/html The patient presents today to [...] at this time. KAHLIL SOL DPM [address] [place], [address], [facility] 08/15/2024 12:59:21 OBGyn Episode No OBEpisode recorded.
[2024-11-24 10:15] VITALS: BP 190/78; PULSE 95; RESP 18; TEMP 36.7; O2SAT 97; BMI 34.5
--- NOTE | 2024-11-24 10:32 | ED.GENADULT ---
HPI - General Adult General Time Seen by Provider: 10:32 Date Seen: 11/24/24 Chief complaint: Jaw Injury/Pain Stated complaint: facial swelling Time Seen by Provider: 11/24/24 10:32 Source: patient and RN notes reviewed Mode of arrival: ambulatory Limitations: no limitations History of Present Illness HPI narrative: This 73-year-old female is coming in with left jaw swelling and discomfort. She woke around 5 this morning felt a little aching in this left jaw area. She later ate breakfast and started noticing swelling that seems to even progress further in this left jaw. It is aching more. No fevers. It hurts in the swollen area of the jaw at open her mouth. She notes she had some recent dental work completed. She does take warfarin, chronic anticoagulation with INR at 2.8 on 11/22/2024, has been stable for months. Related Data Home Medications ?Medication ?Instructions ?Recorded ?Confirmed acetaminophen 500 mg tablet 1,000 mg PO HS 10/28/21 11/11/24 ascorbic acid (vitamin C) 500 mg 500 mg PO DAILY 10/28/21 11/11/24 tablet betamethasone dipropionate 0.05 % 1 applic topical .Q24-48H 10/28/21 11/11/24 topical ointment cholecalciferol (vitamin D3) 25 1,000 unit PO BID 10/28/21 11/11/24 mcg (1,000 unit) tablet clobetasol 0.05 % topical gel 1 applic topical BID 10/28/21 11/11/24 fexofenadine 180 mg tablet 180 mg PO HS 10/26/23 11/11/24 Previous Rx's ?Medication ?Instructions ?Recorded ketoconazole 2 % topical cream 1 applic topical QDAY #30 grams 11/03/21 albuterol sulfate 2.5 mg/3 mL 2.5 mg (3 mL) inhalation Q6H PRN 11/11/24 (0.083 %) solution for nebulization bronchospasm #75 mL albuterol sulfate 90 mcg/actuation 1 inh inhalation Q6H PRN shortness 11/11/24 aerosol inhaler of breath or wheezing #6.7 grams amlodipine 5 mg tablet 5 mg PO QDAY #90 tabs 11/11/24 atorvastatin 20 mg tablet 20 mg PO HS #90 tabs 11/11/24 chlorthalidone 25 mg tablet 25 mg PO DAILY #90 tabs 11/11/24 diltiazem HCl 120 mg 120 mg PO QDAY atrial fibrillation 11/11/24 capsule,extended release 24 hr, #90 caps controlled potassium chloride 20 mEq 20 meq PO BID #180 tabs 11/11/24 tablet,extended release solifenacin 5 mg tablet 5 mg PO DAILY #90 tabs 11/11/24 trazodone 100 mg tablet 150 mg (1.5 x 100 mg) PO QHS 11/11/24 insomnia #135 tabs warfarin 6 mg tablet See Rx Instructions PO .COMPLEX 11/22/24 #72 tabs amoxicillin 500 mg-potassium 1 tab PO BID 7 days #14 tabs 11/24/24 clavulanate 125 mg tablet (Augmentin) Allergies Allergy/AdvReac Type Severity Reaction Status Date / Time cefazolin Allergy Severe Verified 11/24/24 10:22 hydrocodone Allergy Severe Vomiting Verified 11/24/24 10:22 hydromorphone Allergy Severe Nausea Verified 11/24/24 10:22 propoxyphene Allergy Severe Difficulty Verified 11/24/24 10:22 Breathing Sulfa (Sulfonamide Allergy Severe Hives Verified 11/24/24 10:22 Antibiotics) codeine Allergy Intermediate Diarrhea Verified 11/24/24 10:22 adhesive Allergy Mild Unknown Verified 11/24/24 10:22 gabapentin Allergy Mild Unknown Verified 11/24/24 10:22 ibuprofen Allergy Mild Abdominal Verified 11/24/24 10:22 Pain influenza A (H1N1) virus Allergy Mild edema Verified 11/24/24 10:22 vaccine m-opal-split 2008 (From influenza A (H1N1)) latex Allergy Mild Rash Verified 11/24/24 10:22 nalbuphine Allergy Mild Unknown Verified 11/24/24 10:22 rofecoxib Allergy Mild Verified 11/24/24 10:22 morphine AdvReac Severe Vomiting Verified 11/24/24 10:22 oxycodone AdvReac Mild Diarrhea Verified 11/24/24 10:22 penicillin V AdvReac Mild Diarrhea Verified 11/24/24 10:22 Review of Systems Narrative: As per HPI. [facility] Medical History History of renal calculi ?Z87.442 - Personal history of urinary calculi (ICD-10) Surgical History S/P left rotator cuff repair (11/01/23) ?Z98.890 - Other specified postprocedural states (ICD-10) History of arthroscopy of right shoulder (01/22/20) ?Z98.890 - Other specified postprocedural states (ICD-10) History of total knee replacement ?Z96.659 - Presence of unspecified artificial knee joint (ICD-10) History of total abdominal hysterectomy and bilateral salpingo-oophorectomy (2003) ?Z90.710 - Acquired absence of both cervix and uterus (ICD-10) ?Z90.722 - Acquired absence of ovaries, bilateral (ICD-10) ?Z90.79 - Acquired absence of other genital organ(s) (ICD-10) History of thumb surgery (2013) ?Z98.890 - Other specified postprocedural states (ICD-10) History of foot surgery (06/22/11) ?Z98.890 - Other specified postprocedural states (ICD-10) Family History Father FH: colonic polyps Mother FH: colonic polyps Social History Narrative: Lives independently with her who has dementia and parkinson's disease. Denies tobacco or alcohol use. What is your current living situation?: I presently have a place to live Problems where you live: no known problems Problems where you live details: none In the past 12 months, utilities in danger of being shut off: no In past 12 months, lack of transportation kept you from medical appts, meetings, work, or getting things needed for daily living: no In the past 12 mos, have been you worried that your food would run out before you had money to buy more?: never true In the past 12 mos, the food you bought just didn't last and you didn't have money to buy more?: never true Smoking Status: Never smoker Do you use any of these nicotine containing products: None How often do you have a drink containing alcohol: never How often do you have six or more drinks on one occasion: Never AUDIT-C Alcohol total score: 0 Non-prescribed substance use: denies use Caffeine: Yes (coffee) How often does anyone, including family, friends and others, physically hurt you: never How often does anyone, including family, friends and others, insult or talk down to you: sometimes How often does anyone, including family, friends and others, threaten you with harm: never How often does anyone, including family, friends and others, scream or curse at you: never Are you using contraception or practicing any form of control: No service: No Health Related Social Needs: Other personal risk factors, not elsewhere classified (Z91.89) Exam Const: Vital Signs, click to edit/add: Vital Signs - 24 hr 11/24/24 10:15 Temperature 98.1 F Pulse Rate [Right Pulse Oximeter] 95 Respiratory Rate 18 Blood Pressure [Ri ght Upper Arm] 190/78 H Pulse Oximetry 97 Oxygen Delivery Me thod Room Air This 73-year-old female is alert, interactive, no apparent distress. Sitting the chair in exam room 1. She has obvious swelling along the angle of her jaw and goes just below into the upper neck there. There is no erythema. She feels swollen along that proximal parotid and into the neck. Pupils equal round reactive, sclera clear. Oropharynx with normal mucosa, no exudates or erythema, normal architecture under the tongue, cannot feel any palpable stones. She has no definite submental adenopathy but the swelling does come and wrap around a little bit underneath the jaw. I feel no adenopathy in the neck. Lungs are clear, good air entry, no wheezing or crackles, no tachypnea, no accessory muscle use. CV regular rate and rhythm, no murmur, sounds normal with regularity when listening. Documenting provider has reviewed patient's vital signs: yes Course Course ED Course: I have explained to patient that I suspect this is coming from her parotid gland. We need imaging. We discussed there can be infection, stone pathology. We need imaging for further evaluation. Her INR was just updated, she had a recent chemistry panel on November 07. Will not repeat either of those. Will get CBC, lactate and C reactive protein. She is uncomfortable, does not really want the swallow anything orally given the swelling that happened after eating. Reviewed with her we can do something as simple as IV Tylenol, she does agree. Will discuss management once we have the imaging done and labs back. Reevaluation(s) Time of Reevaluation #1: 11:47 Reevaluation #1: Have reviewed CT findings and labs with patient. This is parotiditis and she needs antibiotics. Her diarrhea with penicillin/amoxicillin is severe, she states it is quite severe. She would like me to look up alternate etiologies for antibiotics. Did review up-to-date with Sheba. She cannot take cephalosporins due to true allergy. Thus, she would have to take Levaquin plus Flagyl or clindamycin. She is not interested in doing a 2 antibiotic regimen. She will take the Augmentin, we have discussed going on a probiotic. We will do shortness course possible, will do 7 days and have her follow up in clinic. In the body of her ultrasound, there were thyroid nodules nonspecific. Reviewed with her that she could take the report to her primary and have them do with thyroid ultrasound. Wrote this down on the CT copy provided to her. Will give her lower dose amoxicillin in the Augmentin, 500 b.i.d., should be sufficient in a 73-year-old female. Hopefully this will help diminish the diarrhea. Vital Signs Vital signs: Initial Vital Signs Temperature 98.1 F 11/24/24 10:15 Temperature Source Temporal Artery Scan 11/24/24 10:15 Pulse Rate 95 11/24/24 10:15 Pulse Rhythm Regular 11/24/24 10:15 Pulse Strength 3+ Normal 11/24/24 10:15 Respiratory Rate 18 11/24/24 10:15 Blood Pressure 190/78 H 11/24/24 10:15 Blood Pressure Mean 115 H 11/24/24 10:15 Blood Pressure Position Sitting 11/24/24 10:15 Pulse Oximetry 97 11/24/24 10:15 Oxygen Delivery Method Room Air 11/24/24 10:15 Vital Signs Temperature 98.1 F 11/24/24 10:15 Pulse Rate 95 11/24/24 10:15 Respiratory Rate 18 11/24/24 10:15 Blood Pressure 190/78 H 11/24/24 10:15 Pulse Oximetry 97 11/24/24 10:15 Oxygen Delivery Method Room Air 11/24/24 10:15 Temperature 98.1 F 11/24/24 10:15 Pulse Rate 95 11/24/24 10:15 Respiratory Rate 18 11/24/24 10:15 Blood Pressure 190/78 H 11/24/24 10:15 Pulse Oximetry 97 11/24/24 10:15 Oxygen Delivery Method Room Air 11/24/24 10:15 Medications Administered Medications: Discontinued Medications Generic Name Dose Route Start Last Admin Trade Name Freq PRN Reason Stop Dose Admin Acetaminophen 1,000 mg in 100 mls @ 400 mls/hr 11/24/24 10:38 11/24/24 11:17 Acetaminophen Inj IVPB 11/24/24 10:52 400 mls/hr ONCE ONE Administration Medical Decision Making Lab Data Lab results reviewed: Yes I reviewed the patient's lab results Labs: Lab Results 11/24/24 Range/Units 10:55 WBC 12.19 H (4.50-11.00) K/uL RBC 5.22 H (4.00-5.20) m/uL Hgb 15.4 (12.0-16.0) gm/dL Hct 46.4 (33.0-51.0) % MCV 89 (80-100) fL MCH 30 (26-34) pg MCHC 33 (32-36) gm/dL RDW Coeff of Demond 13.6 (11.5-15.5) % Plt Count 291 (140-440) K/uL Neut % (Auto) 76.1 H (42.0-72.0) % Lymph % (Auto) 15.3 L (20-44) % Hoke % (Auto) 6.7 (0.0-11.0) % Eos % (Auto) 1.4 (0.0-7.0) % Baso % (Auto) 0.3 (0.0-3.0) % Neut # (Auto) 9.30 H (1.7-7.0) K/uL Lymph # (Auto) 1.90 (0.90-2.90) K/uL Hoke # (Auto) 0.80 (0.00-0.90) K/UL Eos # (Auto) 0.20 (0.00-0.50) K/uL Baso # (Auto) 0.00 (0.00-0.30) K/uL Abs Immat Gran (auto) 0.00 (0.00-0.30) K/uL Imm/Tot Granulo (auto) 0.2 % Lactate 2.3 H (0.5-1.9) mmol/L C-Reactive Protein < 0.5 L (0.5-1.0) mg/dL Imaging Data CT- Other: Attestation: I have reviewed the pertinent imaging results. Radiologist's impression: Patient: SHEBA ANNE Facility:?[facility] Patient ID:?[id number] Site Patient ID:?[id number]. Site :?[id number] Study:?CT-ST Neck W/ 108CC [id number]/12/2025 11:10:50 AM Ordering Physician:?Mary Chatterjee Final Report: Indication: Left face/neck swelling. Technique: CT images of the neck following intravenous contrast. Comparison: None. Findings: Diffuse enlargement and mild hyperenhancement of the left parotid gland. Mild left periparotid and left parapharyngeal inflammatory stranding. No peripherally enhancing collection to suggest abscess. No radiopaque stones are visualized along the left Stensen duct. The nasopharynx, oropharynx, hypopharynx, and larynx are widely patent and without enhancing lesions. Bilateral palatine tonsilliths. No thickening of the epiglottis or retropharyngeal edema. No enhancing lesions in the oral cavity or floor of mouth. The right parotid and submandibular glands are unremarkable. No pathologically enlarged lymph nodes. Small hypoenhancing lesions in the thyroid gland, nonspecific. Limited images through the brain are without pathologic intracranial enhancement. Minimal ethmoid sinus mucosal thickening. The mastoid air cells are clear. Multilevel cervical spondylosis. No aggressive osseous lesions. No concerning opacities in the visualized lungs. Impression: 1. Diffuse enlargement and mild hyperenhancement of the left parotid gland, compatible with parotitis. There is mild periparotid inflammatory stranding. No radiopaque stones are visualized along the left Stensen duct. 2. No pathologically enlarged lymph nodes. Please note that all CT scans at this facility use dose modulation, iterative reconstruction, and/or weight-based dosing when appropriate to reduce radiation dose to as low as reasonably achievable. Dictated by Jese Shaw MD @ 11/24/2024 11:16:47 AM (Electronic Signature) Discharge Plan Discharge Clinical Impression: Acute parotitis Patient Disposition: Home, Self-Care Condition: Stable Instructions: Sialoadenitis (ED) Additional Instructions: This is an infection in the left parotid gland. Need to use moist heat, take antibiotics. You can use the Tylenol per bottle directions as needed for discomfort. Please schedule clinic followup with her primary care provider within a week, can review the CT findings that were incidental. If there are concerns about worsening, not improving, may need to see ENT. Try probiotics with the antibiotic. Did use 500 mg strength Augmentin instead of the 875, I do believe this should be sufficient for covering infection but will hopefully minimize the side effect of the diarrhea. Activity Level: Activity as Tolerated Prescriptions: New amoxicillin-pot clavulanate [Augmentin] 500-125 mg tablet 1 tab PO BID 7 Days Qty: 14 0RF No Action cholecalciferol (vitamin D3) 25 mcg (1,000 unit) tablet 1,000 unit PO BID betamethasone dipropionate 0.05 % ointment 1 applic topical .Q24-48H acetaminophen 500 mg tablet 1,000 mg PO HS clobetasol 0.05 % gel 1 applic topical BID Rx Instructions: APPLY SPARINGLY TO AFFECTED AREA - for oral lichen planus ascorbic acid (vitamin C) 500 mg tablet 500 mg PO DAILY fexofenadine 180 mg tablet 180 mg PO HS albuterol sulfate 2.5 mg /3 mL (0.083 %) solution for nebulization 2.5 mg inhalation Q6H PRN (Reason: bronchospasm) Qty: 75 2RF albuterol sulfate 90 mcg/actuation HFA aerosol inhaler 1 inh inhalation Q6H PRN (Reason: shortness of breath or wheezing) Qty: 6.7 5RF amlodipine 5 mg tablet 5 mg PO QDAY Qty: 90 3RF atorvastatin 20 mg tablet 20 mg PO HS Qty: 90 3RF chlorthalidone 25 mg tablet 25 mg PO DAILY Qty: 90 3RF diltiazem HCl 120 mg capsule,ext.rel 24h degradable 120 mg PO QDAY Qty: 90 3RF Rx Instructions: as needed for atrial fibrillation episodes potassium chloride 20 mEq tablet extended release 20 meq PO BID Qty: 180 3RF solifenacin 5 mg tablet 5 mg PO DAILY Qty: 90 3RF trazodone 100 mg tablet 150 mg PO QHS Qty: 135 3RF ketoconazole 2 % cream 1 applic topical QDAY Qty: 30 11RF Patient Comments: for athletes foot warfarin 6 mg tablet See Rx Instructions PO .COMPLEX Qty: 72 0RF Protocol: Dose Management Condition: Monday Dose/Route: 3 mg Instruction: 0.5 x 6 mg tablets Condition: Monday Dose/Route: 6 mg Instruction: 1 x 6 mg tablet Condition: Monday Dose/Route: 6 mg Instruction: 1 x 6 mg tablet Condition: Monday Dose/Route: 3 mg Instruction: 0.5 x 6 mg tablets Condition: Dose/Route: 6 mg Instruction: 1 x 6 mg tablet Condition: Monday Dose/Route: 6 mg Instruction: 1 x 6 mg tablet Condition: Monday Dose/Route: 3 mg Instruction: 0.5 x 6 mg tablets Protocol Text: Adjustment Start Date: Monday11/22/24 INR Value: 2.8 INR Date: 11/22/24 Recheck Date: 12/20/24 Rx Instructions: 3mg Sun/Sat and 6mg ROW Follow Up/Referrals: Ness Somers MD [Primary Care Provider, Internal Medicine] Stand Alone Forms: [facility] Info Instructions
--- NOTE | 2024-11-24 10:38 | CRLHL7_ITS ---
For Patients: As a result of the Century Cures Act, medical imaging exams and procedure reports are released immediately into your electronic medical record. You may view this report before your referring provider. If you have questions, please contact your health care provider. Indication: Left face/neck swelling. Technique: CT images of the neck following intravenous contrast. Comparison: None. Findings: Diffuse enlargement and mild hyperenhancement of the left parotid gland. Mild left periparotid and left parapharyngeal inflammatory stranding. No peripherally enhancing collection to suggest abscess. No radiopaque stones are visualized along the left Stensen duct. The nasopharynx, oropharynx, hypopharynx, and larynx are widely patent and without enhancing lesions. Bilateral palatine tonsilliths. No thickening of the epiglottis or retropharyngeal edema. No enhancing lesions in the oral cavity or floor of mouth. The right parotid and submandibular glands are unremarkable. No pathologically enlarged lymph nodes. Small hypoenhancing lesions in the thyroid gland, nonspecific. Limited images through the brain are without pathologic intracranial enhancement. Minimal ethmoid sinus mucosal thickening. The mastoid air cells are clear. Multilevel cervical spondylosis. No aggressive osseous lesions. No concerning opacities in the visualized lungs. Impression: 1. Diffuse enlargement and mild hyperenhancement of the left parotid gland, compatible with parotitis. There is mild periparotid inflammatory stranding. No radiopaque stones are visualized along the left Stensen duct. 2. No pathologically enlarged lymph nodes. Please note that all CT scans at this facility use dose modulation, iterative reconstruction, and/or weight-based dosing when appropriate to reduce radiation dose to as low as reasonably achievable. Dictated by Jese Shaw MD @ 11/24/2024 11:16:47 AM (Electronically Signed)
[2024-11-24 11:00] LABS: Lactate* 2.3 mmol/L (0.5-1.9)
[2024-11-24 11:06] LABS: Hematocrit* 46.4 % (33.0-51.0); Hemoglobin* 15.4 gm/dL (12.0-16.0); Immature Granulocytes Pct Auto 0.2 %; Mean Corpuscular HGB Conc 33 gm/dL (32-36); Mean Corpuscular Hemoglobin 30 pg (26-34); Mean Corpuscular Volume 89 fL (80-100); RDW Coefficient of Variation % 13.6 % (11.5-15.5); Red Blood Count* 5.22 m/uL (4.00-5.20); White Blood Count* 12.19 K/uL (4.50-11.00)
[2024-11-24] MEDS: ACETAMINOPHEN INJ 1,000 MG/100 ML VIAL 400 MG IVPB (11:17)
[2024-11-24 11:30] VITALS: BP 154/76; BP 158/79; PULSE 72; RESP 16; O2SAT 96
[2024-11-24 11:31] LABS: Immature Granulocytes Abs Auto 0.00 K/uL (0.00-0.30); Lymphocytes Absolute Auto 1.90 K/uL (0.90-2.90); Slide Review Reflex No
[2024-11-24 12:00] VITALS: BP 150/79; PULSE 79; RESP 16; O2SAT 95
== END 2024-11-24 12:18 | disposition home or self-care (01) ==
PROVIDERS: Emergency Provider Family Medicine; PCP Internal Medicine
DX: K11.21 Acute sialoadenitis (principal)
CPT/HCPCS: 36415; 70491; 83605; 85025; 86140; 99284; 99285; J0131; Q9967

== ENCOUNTER 2024-11-24 18:03 | Emergency (ER) | payer MEDICARE, OTHER, SELFPAY ==
[2024-11-24 18:09] VITALS: BP 163/73; PULSE 112; RESP 20; TEMP 36.9; O2SAT 95
--- NOTE | 2024-11-24 19:13 | ED.GENADULT ---
HPI - General Adult General Date Seen: 11/24/24 Chief complaint: Nausea/Vomiting Stated complaint: Swollen glands, Vomiting Time Seen by Provider: 11/24/24 19:13 History of Present Illness HPI narrative: 73-year-old female who was seen in the ER earlier today returns to the ER today with concern. Per notes from Dr. Abernathy earlier this morning she had woke up this morning with aching in her left jaw and then noticed swelling and her left jaw after eating breakfast. On exam she had swelling on the angle of her jaw on the left that goes into her upper neck. No erythema. Appear to be swollen parotid gland. A CT scan showed signs of pearotitis She recently had some dental work. She is on warfarin and INR 2 days ago on 11/22 was 2.8. INR generally stable for her. Labs today showed a white count of 12.1, hemoglobin 15.4, platelet count 291 Venous lactic was 2.3 CRP less than 0.5 CT neck with IV contrast: Impression: 1. Diffuse enlargement and mild hyperenhancement of the left parotid gland, compatible with parotitis. There is mild periparotid inflammatory stranding. No radiopaque stones are visualized along the left Stensen duct. 2. No pathologically enlarged lymph nodes. She was given a prescription for Augmentin 500/125 mg tablets 1 b.i.d. for 7 days She took a dose of the Augmentin and after about 10 minutes started feeling tingling in her fingers , tingling and swelling of her upper lip, followed by few episodes of nonbilious, nonbloody and vomiting . Her lip in fingers are better now. Hurst stomach is now settled she is no longer nauseous. She tried to call her doctor to get a new antibiotic but was told to come back to the ER to be recheck so she came back in. She is not having any hives. No swelling or if a sore throat. Her previous swelling of the left parotid that was fairly marked this morning has now gotten better. She is not feverish. No neck pain. No trouble breathing. Related Data Home Medications ?Medication ?Instructions ?Recorded ?Confirmed acetaminophen 500 mg tablet 1,000 mg PO HS 10/28/21 11/24/24 ascorbic acid (vitamin C) 500 mg 500 mg PO DAILY 10/28/21 11/24/24 tablet betamethasone dipropionate 0.05 % 1 applic topical .Q24-48H 10/28/21 11/24/24 topical ointment cholecalciferol (vitamin D3) 25 1,000 unit PO BID 10/28/21 11/24/24 mcg (1,000 unit) tablet clobetasol 0.05 % topical gel 1 applic topical BID 10/28/21 11/24/24 fexofenadine 180 mg tablet 180 mg PO HS 10/26/23 11/24/24 Previous Rx's ?Medication ?Instructions ?Recorded ketoconazole 2 % topical cream 1 applic topical QDAY #30 grams 11/03/21 albuterol sulfate 2.5 mg/3 mL 2.5 mg (3 mL) inhalation Q6H PRN 11/11/24 (0.083 %) solution for nebulization bronchospasm #75 mL albuterol sulfate 90 mcg/actuation 1 inh inhalation Q6H PRN shortness 11/11/24 aerosol inhaler of breath or wheezing #6.7 grams amlodipine 5 mg tablet 5 mg PO QDAY #90 tabs 11/11/24 atorvastatin 20 mg tablet 20 mg PO HS #90 tabs 11/11/24 chlorthalidone 25 mg tablet 25 mg PO DAILY #90 tabs 11/11/24 diltiazem HCl 120 mg 120 mg PO QDAY atrial fibrillation 11/11/24 capsule,extended release 24 hr, #90 caps controlled potassium chloride 20 mEq 20 meq PO BID #180 tabs 11/11/24 tablet,extended release solifenacin 5 mg tablet 5 mg PO DAILY #90 tabs 11/11/24 trazodone 100 mg tablet 150 mg (1.5 x 100 mg) PO QHS 11/11/24 insomnia #135 tabs warfarin 6 mg tablet See Rx Instructions PO .COMPLEX 11/22/24 #72 tabs amoxicillin 500 mg-potassium 1 tab PO BID 7 days #14 tabs 11/24/24 clavulanate 125 mg tablet (Augmentin) clindamycin HCl 300 mg capsule 300 mg PO TID #20 caps 11/24/24 Allergies Allergy/AdvReac Type Severity Reaction Status Date / Time cefazolin Allergy Severe Verified 11/24/24 10:22 hydrocodone Allergy Severe Vomiting Verified 11/24/24 10:22 hydromorphone Allergy Severe Nausea Verified 11/24/24 10:22 propoxyphene Allergy Severe Difficulty Verified 11/24/24 10:22 Breathing Sulfa (Sulfonamide Allergy Severe Hives Verified 11/24/24 10:22 Antibiotics) codeine Allergy Intermediate Diarrhea Verified 11/24/24 10:22 adhesive Allergy Mild Unknown Verified 11/24/24 10:22 gabapentin Allergy Mild Unknown Verified 11/24/24 10:22 ibuprofen Allergy Mild Abdominal Verified 11/24/24 10:22 Pain influenza A (H1N1) virus Allergy Mild edema Verified 11/24/24 10:22 vaccine m-opal-split 2008 (From influenza A (H1N1)) latex Allergy Mild Rash Verified 11/24/24 10:22 nalbuphine Allergy Mild Unknown Verified 11/24/24 10:22 rofecoxib Allergy Mild Verified 11/24/24 10:22 morphine AdvReac Severe Vomiting Verified 11/24/24 10:22 amoxicillin (From Augmentin) AdvReac Intermediate Vomiting Verified 11/24/24 19:41 clavulanic acid (From AdvReac Intermediate Vomiting Verified 11/24/24 19:41 Augmentin) oxycodone AdvReac Mild Diarrhea Verified 11/24/24 10:22 penicillin V AdvReac Mild Diarrhea Verified 11/24/24 10:22 PFSH PFSH Medical History History of renal calculi ?Z87.442 - Personal history of urinary calculi (ICD-10) Surgical History S/P left rotator cuff repair (11/01/23) ?Z98.890 - Other specified postprocedural states (ICD-10) History of arthroscopy of right shoulder (01/22/20) ?Z98.890 - Other specified postprocedural states (ICD-10) History of total knee replacement ?Z96.659 - Presence of unspecified artificial knee joint (ICD-10) History of total abdominal hysterectomy and bilateral salpingo-oophorectomy (2003) ?Z90.710 - Acquired absence of both cervix and uterus (ICD-10) ?Z90.722 - Acquired absence of ovaries, bilateral (ICD-10) ?Z90.79 - Acquired absence of other genital organ(s) (ICD-10) History of thumb surgery (2013) ?Z98.890 - Other specified postprocedural states (ICD-10) History of foot surgery (06/22/11) ?Z98.890 - Other specified postprocedural states (ICD-10) Family History Father FH: colonic polyps Mother FH: colonic polyps Social History Narrative: Lives independently with her who has dementia and parkinson's disease. Denies tobacco or alcohol use. What is your current living situation?: I presently have a place to live Problems where you live: no known problems Problems where you live details: none In the past 12 months, utilities in danger of being shut off: no In past 12 months, lack of transportation kept you from medical appts, meetings, work, or getting things needed for daily living: no In the past 12 mos, have been you worried that your food would run out before you had money to buy more?: never true In the past 12 mos, the food you bought just didn't last and you didn't have money to buy more?: never true Smoking Status: Never smoker Do you use any of these nicotine containing products: None How often do you have a drink containing alcohol: never How often do you have six or more drinks on one occasion: Never AUDIT-C Alcohol total score: 0 Non-prescribed substance use: denies use Caffeine: Yes (coffee) How often does anyone, including family, friends and others, physically hurt you: never How often does anyone, including family, friends and others, insult or talk down to you: sometimes How often does anyone, including family, friends and others, threaten you with harm: never How often does anyone, including family, friends and others, scream or curse at you: never Are you using contraception or practicing any form of control: No service: No Health Related Social Needs: Other personal risk factors, not elsewhere classified (Z91.89) Exam Narrative: Exam Narrative: Constitutional: Appears well-developed and well-nourished. Alert. Conversant. Non toxic. HENT: Head: Atraumatic. Nose: Nose normal. Mouth/Throat: Subtle swelling on the left parotid at the angle of the jaw but no erythema. No palpable fluctuance or abscess. Oral mucosa is clear and moist. No intraoral lesions. no trismus. Pharynx normal. Tonsils symmetric. No tonsillar enlargement, erythema, or exudate. Phonation normal. No trismus. Eyes: Conjunctivae normal. EOM normal. Pupils equal, round, and reactive to light. No scleral icterus. Neck: Normal range of motion. Neck supple. No tracheal deviation present. No submandibular swelling. Cardiovascular: Normal rate, regular rhythm. No gallop. No friction rub. No murmur heard. Symmetric radial artery pulses Pulmonary/Chest: Effort normal. No stridor. No respiratory distress. No wheezes. No rales. No rhonchi . Musculoskeletal: RUE: Normal range of motion. No tenderness. No deformity LUE: Normal range of motion. No tenderness. No deformity RLE: Normal range of motion. No edema. No tenderness. No deformity LLE: Normal range of motion. No edema. No tenderness. No deformity Lymph: No cervical adenopathy. Neurological: Alert and oriented to person, place, and time. Normal strength. CN II-VII intact. No sensory deficit. GCS eye subscore is 4. GCS verbal subscore is 5. GCS motor subscore is 6. Normal coordination Skin: Skin is warm and dry. No rash noted. No pallor. Normal capillary refill. Psychiatric: Normal mood. Normal affect. Const: Vital Signs, click to edit/add: Vital Signs - 24 hr 11/24/24 18:09 Temperature 98.5 F Pulse Rate [Pulse Oximeter] 112 H Respiratory Rate 20 Blood Pressure [Ri ght Forearm] 163/73 H Pulse Oximetry 95 Oxygen Delivery Me thod Room Air Course Course ED Course: Recheck doing well after oral clindamycin. No signs of adverse reaction. Vital Signs Vital signs: Initial Vital Signs Temperature 98.5 F 11/24/24 18:09 Temperature Source Temporal Artery Scan 11/24/24 18:09 Pulse Rate 112 H 11/24/24 18:09 Respiratory Rate 20 11/24/24 18:09 Blood Pressure 163/73 H 11/24/24 18:09 Blood Pressure Mean 103 11/24/24 18:09 Pulse Oximetry 95 11/24/24 18:09 Oxygen Delivery Method Room Air 11/24/24 18:09 Vital Signs Temperature 98.5 F 11/24/24 18:09 Pulse Rate 112 H 11/24/24 18:09 Respiratory Rate 20 11/24/24 18:09 Blood Pressure 163/73 H 11/24/24 18:09 Pulse Oximetry 95 11/24/24 18:09 Oxygen Delivery Method Room Air 11/24/24 18:09 Temperature 98.5 F 11/24/24 18:09 Pulse Rate 112 H 11/24/24 18:09 Respiratory Rate 20 11/24/24 18:09 Blood Pressure 163/73 H 11/24/24 18:09 Pulse Oximetry 95 11/24/24 18:09 Oxygen Delivery Method Room Air 11/24/24 18:09 Medications Administered Medications: Generic Name Dose Route Start Last Admin Trade Name Freq PRN Reason Stop Dose Admin Clindamycin HCl 300 mg 11/24/24 19:31 11/24/24 20:00 Clindamycin 150 Mg Capsule PO 11/24/24 19:32 300 mg ONCE ONE Administration Medical Decision Making [facility] Narrative Medical decision making narrative: 73-year-old female return to the ER today with concern for side effects of Augmentin. She was pry Yao to Augmentin this morning after being diagnosed with parotitis by Dr. Abernathy. She describes having tingling in her hands and vomiting after taking the Augmentin. She would like a different antibiotic. Per her medical record she has documented allergies to penicillin V (diarrhea), sulfa (hives), cefazolin (no documented allergy). In terms of her reaction today it sounds like this was more of an intolerance without any clear anaphylaxis. She describes tingling of her fingers and tingling and swelling of her lip but does not have any objective swelling here in the ER. No other hives. No airway involvement. At this point I do not think she needs treatment with steroids, antihistamines, epinephrine. She primarily came here saying that she would like a different antibiotic to treat her parotitis. Given her allergies and intolerance is we discussed settled on clindamycin. She recalls that she had taken a couple of doses of this in the past after a knee problem without any adverse reaction. First dose of clindamycin administered orally here in the ER. Patient did well during a period of observation. Will send a prescription for clindamycin to her pharmacy at [facility] on [address] [address]. Patient understands the risk of GI side effects and diarrhea and C diff clindamycin. She already has probiotics and will take them. She understands treatment and expected course for parotitis and precautions for return to the ER. Clinical impression: 1- parotiditis-left 2. Adverse reaction to Augmentin Discharge Plan Discharge Clinical Impression: Acute parotitis Patient Disposition: Home, Self-Care Condition: Stable Additional Instructions: As we discussed, start on the new antibiotic (clindamycin) to treat the parotitis. Monitor the area of swelling on your cheek. If you are having worsening symptoms, high fever, trouble swallowing, or any other concerns, please return to the ER. If you are not dramatically improved within the next 2-3 days, please recheck with your regular doctor. Remember, clindamycin is strong antibiotic and can cause diarrhea and GI upset. Please take the probiotics beginning today. You can also eat yogurt with ?active cultures? of bacteria. Prescriptions: New clindamycin HCl 300 mg capsule 300 mg PO TID Qty: 20 0RF No Action cholecalciferol (vitamin D3) 25 mcg (1,000 unit) tablet 1,000 unit PO BID betamethasone dipropionate 0.05 % ointment 1 applic topical .Q24-48H acetaminophen 500 mg tablet 1,000 mg PO HS clobetasol 0.05 % gel 1 applic topical BID Rx Instructions: APPLY SPARINGLY TO AFFECTED AREA - for oral lichen planus ascorbic acid (vitamin C) 500 mg tablet 500 mg PO DAILY fexofenadine 180 mg tablet 180 mg PO HS albuterol sulfate 2.5 mg /3 mL (0.083 %) solution for nebulization 2.5 mg inhalation Q6H PRN (Reason: bronchospasm) Qty: 75 2RF albuterol sulfate 90 mcg/actuation HFA aerosol inhaler 1 inh inhalation Q6H PRN (Reason: shortness of breath or wheezing) Qty: 6.7 5RF amlodipine 5 mg tablet 5 mg PO QDAY Qty: 90 3RF atorvastatin 20 mg tablet 20 mg PO HS Qty: 90 3RF chlorthalidone 25 mg tablet 25 mg PO DAILY Qty: 90 3RF diltiazem HCl 120 mg capsule,ext.rel 24h degradable 120 mg PO QDAY Qty: 90 3RF Rx Instructions: as needed for atrial fibrillation episodes potassium chloride 20 mEq tablet extended release 20 meq PO BID Qty: 180 3RF solifenacin 5 mg tablet 5 mg PO DAILY Qty: 90 3RF trazodone 100 mg tablet 150 mg PO QHS Qty: 135 3RF amoxicillin-pot clavulanate [Augmentin] 500-125 mg tablet 1 tab PO BID 7 Days Qty: 14 0RF ketoconazole 2 % cream 1 applic topical QDAY Qty: 30 11RF Patient Comments: for athletes foot warfarin 6 mg tablet See Rx Instructions PO .COMPLEX Qty: 72 0RF Protocol: Dose Management Condition: Monday Dose/Route: 3 mg Instruction: 0.5 x 6 mg tablets Condition: Monday Dose/Route: 6 mg Instruction: 1 x 6 mg tablet Condition: Monday Dose/Route: 6 mg Instruction: 1 x 6 mg tablet Condition: Monday Dose/Route: 3 mg Instruction: 0.5 x 6 mg tablets Condition: Dose/Route: 6 mg Instruction: 1 x 6 mg tablet Condition: Monday Dose/Route: 6 mg Instruction: 1 x 6 mg tablet Condition: Monday Dose/Route: 3 mg Instruction: 0.5 x 6 mg tablets Protocol Text: Adjustment Start Date: Monday11/22/24 INR Value: 2.8 INR Date: 11/22/24 Recheck Date: 12/20/24 Rx Instructions: 3mg Sun/Sat and 6mg ROW Follow Up/Referrals: Ness Somers MD [Primary Care Provider, Internal Medicine] Stand Alone [facility] Instructions
[2024-11-24] MEDS: CLINDAMYCIN 150 MG CAPSULE 300 MG PO (20:00)
== END 2024-11-24 20:30 | disposition home or self-care (01) ==
LOC: ED 19:45
PROVIDERS: Emergency Provider Emergency Medicine; PCP Internal Medicine
DX: K11.21 Acute sialoadenitis (principal); R20.2 Paresthesia of skin; T36.0X5A Adverse effect of penicillins, initial encounter; Z88.0 Allergy status to penicillin; Z88.2 Allergy status to sulfonamides; Z88.1 Allergy status to other antibiotic agents; Z79.01 Long term (current) use of anticoagulants
CPT/HCPCS: 99282; 99283; A9270